=== PATIENT | female | born 1950 | race Caucasian/White ===

== ENCOUNTER 2019-06-03 15:23 | Emergency (ER) | payer MEDICARE, SELFPAY ==
[2019-06-03 15:27] VITALS: BP 186/102; PULSE 90; RESP 16; TEMP 36.9; O2SAT 97
--- NOTE | 2019-06-03 15:29 | ED.GENADUL_ITS ---
Discharge Plan Discharge Details Chief Complaint: Nk/Back Pain Primary Care Provider: Iftikhar Shepard ED Provider: Ally Hair Home Meds and New Rx's Prescriptions: No Action lisinopril-hydrochlorothiazide 1 EACH tablet 1 tab-cap PO DAILY RF: 0 lovastatin 20 MG tablet 40 mg PO DAILY RF: 0 albuterol sulfate [ProAir HFA] 8.5 GM HFA aerosol inhaler 2 puff Inhalation Q4H PRN RF: 0 fluticasone propionate [Flonase Allergy Relief] 9.9 ML spray,suspension 9.9 ml NS BID PRNRF: 0 duloxetine [Cymbalta] 60 MG capsule,delayed release(DR/EC) 60 mg PO DAILY RF: 0 calcium carbonate-vitamin D3 [Calcium 500 With D] 1 EACH tablet 1 ea PO DAILY RF: 0 pregabalin [Lyrica] 50 MG capsule 50 mg PO TID Qty: 90 RF: 5 naltrexone 50 MG tablet 2 mg PO DAILY MDD 1 28 Days Qty: 28 RF: 0 multivitamin [Daily Value] 1 EACH tablet 1 ea PO DAILY RF: 0 carisoprodol 350 MG tablet 350 mg PO TID PRNRF: 0 fluticasone propion-salmeterol [Advair Diskus] 1 EACH blister with device 1 puff Inhalation BID RF: 0 fentanyl [Duragesic] 1 EACH patch 72 hour 1 ea Transdermal Q3day RF: 0 ropinirole 0.5 MG tablet 3 mg PO TID RF: 0 bupropion HCl 150 MG tablet extended release 24 hr 300 mg PO DAILY RF: 0 ibuprofen [Advil] 200 MG tablet 1,000 mg PO DAILY PRNRF: 0 peg [id number] [Eye Drop Tears] 15 ML drops 1 drp OD PRN PRNRF: 0 psyllium husk (aspartame) [Metamucil Sugar-Free (aspart)] 1,320 GM powder 1 tsp PO DAILY RF: 0 acetaminophen 325 MG capsule 650 mg PO PRN PRNRF: 0 omega-3 fatty acids-fish oil 1 EACH capsule 1 ea PO DAILY RF: 0 magnesium oxide 500 MG capsule 1,000 mg PO DAILY RF: 0 potassium gluconate 600 MG tablet 1 tab PO DAILY RF: 0 cranberry fruit 500 MG tablet,chewable 4,200 mg PO DAILY RF: 0 cyanocobalamin (vitamin B-12) [Vitamin B-12] 1,000 MCG tablet 1,000 mg PO DAILY RF: 0 HPI <Javy Sloan, - Last Filed: 06/03/19 15:29> General Date/Time Provider Initiated Documentation: 06/03/19 15:24 . Related Data Home Medications Medication Instructions Recorded Confirmed albuterol sulfate [Proair Hfa] 2 puff INHALATION Q4H PRN inhaler 06/07/15 08/14/17 duloxetine [Cymbalta] 60 mg PO DAILY tab-cap 06/07/15 08/14/17 fluticasone propionate [Flonase 9.9 ml NS BID PRN 06/07/15 08/14/17 Allergy Relief] lisinopril-hydrochlorothiazide 1 tab-cap PO DAILY tab-cap 06/07/15 08/14/17 lovastatin 40 mg PO DAILY tab-cap 06/07/15 08/14/17 calcium carbonate-vitamin D3 1 ea PO DAILY 08/16/15 08/14/17 [Calcium 500 + Vit D 400 Tablet] bupropion HCl 300 mg PO DAILY 01/18/16 08/14/17 ropinirole 3 mg PO TID 01/18/16 08/14/17 ibuprofen [Advil] 1,000 mg PO DAILY PRN 08/08/16 08/14/17 peg [id number] [Eye 1 drp OD PRN PRN 08/08/16 08/14/17 Drop Tears] psyllium husk (aspartame) 1 tsp PO DAILY 08/08/16 08/14/17 [Metamucil Powder] cyanocobalamin (vitamin B-12) 1,000 mg PO DAILY 11/27/16 08/14/17 [Vitamin B-12] acetaminophen 650 mg PO PRN PRN 08/14/17 08/14/17 cranberry fruit 4,200 mg PO DAILY 08/14/17 08/14/17 magnesium oxide 1,000 mg PO DAILY 08/14/17 08/14/17 omega-3 fatty acids-fish oil 1 ea PO DAILY 08/14/17 08/14/17 potassium gluconate 1 tab PO DAILY 08/14/17 08/14/17 pregabalin [Lyrica] 50 mg PO TID #90 cap 08/14/17 naltrexone 2 mg PO DAILY 28 Days #28 tab MDD 1 08/20/17 carisoprodol 350 mg PO TID PRN 04/08/18 fentanyl [Duragesic] 1 ea TRANSDERMAL Q3day script 04/08/18 fluticasone propion-salmeterol 1 puff INHALATION BID disk 04/08/18 [Advair 250/50 Diskus] multivitamin [Daily Value] 1 ea PO DAILY 04/08/18 Previous Rx's Medication Instructions Recorded pregabalin [Lyrica] 50 mg PO TID #90 cap 08/14/17 naltrexone 2 mg PO DAILY 28 Days #28 tab MDD 1 08/20/17 Allergies Allergy/AdvReac Type Severity Reaction Status Date / Time No Known Drug Allergies Allergy Unverified 04/08/18 08:13 General Stated Complaint: Nk/Back Pain SIDNEY: 3 Review of Systems <Javy Sloan DO - Last Filed: 06/03/19 15:29> Review of Systems All systems reviewed & are unremarkable except as noted in HPI and below PFSH <Javy Sloan DO - Last Filed: 06/03/19 15:29> Social History Smoking/Tobacco Use Status: Current-Occasional Alcohol Intake: current Alcohol Intake frequency: holidays/special occasions only Drug use: Rarely Substance use type: does not use Course <Javy Sloan DO - Last Filed: 06/03/19 15:29> Vital Signs Temperature 36.9 C 06/03/19 15:27 Pulse 90 06/03/19 15:27 Respiratory Rate 16 06/03/19 15:27 Blood Pressure 186/102 H 06/03/19 15:27 Pulse Oximetry 97 06/03/19 15:27 Temperature 36.9 C 06/03/19 15:27 Temperature Source Temporal Artery Scan 06/03/19 15:27 Pulse 90 06/03/19 15:27 Respiratory Rate 16 06/03/19 15:27 Blood Pressure 186/102 H 06/03/19 15:27 Blood Pressure Position Sitting 06/03/19 15:27 Pulse Oximetry 97 06/03/19 15:27 Oxygen Delivery Method Room Air 06/03/19 15:27 Oxygen Flow Rate 0 06/03/19 15:27 Pain Level 8 06/03/19 15:27
--- NOTE | 2019-06-03 16:15 | ED.GENADUL_ITS ---
Discharge Plan Disposition Patient Disposition: HOME Condition: Improving Discharge Details Chief Complaint: Nk/Back Pain Clinical Impression: Acute exacerbation of chronic low back pain Primary Care Provider: Iftikhar Shepard ED Provider: Ally Hair Home Meds and New Rx's Prescriptions: New methocarbamol 750 mg tablet 750 mg PO QID PRN (Reason: muscle spasm) Qty: 10 RF: 0 prednisone 10 mg tablet See Rx Instructions .ROUTE .COMPLEX Qty: 42 RF: 0 Continued lovastatin 20 MG tablet 40 mg PO DAILY RF: 0 albuterol sulfate [ProAir HFA] 8.5 GM HFA aerosol inhaler 2 puff Inhalation Q4H PRN RF: 0 fluticasone propionate [Flonase Allergy Relief] 9.9 ML spray,suspension 9.9 ml NS BID PRNRF: 0 duloxetine [Cymbalta] 60 MG capsule,delayed release(DR/EC) 60 mg PO DAILY RF: 0 calcium carbonate-vitamin D3 [Calcium 500 With D] 1 EACH tablet 1 ea PO DAILY RF: 0 Lyrica 50 MG capsule 200 mg PO TID Qty: 90 RF: 5 naltrexone 50 MG tablet 2 mg PO DAILY MDD 1 28 Days Qty: 28 RF: 0 multivitamin [Daily Value] 1 EACH tablet 1 ea PO DAILY RF: 0 fluticasone propion-salmeterol [Advair Diskus] 1 EACH blister with device 1 puff Inhalation BID RF: 0 fentanyl [Duragesic] 1 EACH patch 72 hour 1 ea Transdermal Q3day RF: 0 ropinirole 0.5 MG tablet 5 mg PO TID RF: 0 bupropion HCl 150 MG tablet extended release 24 hr 300 mg PO DAILY RF: 0 ibuprofen [Advil] 200 MG tablet 1,000 mg PO DAILY PRNRF: 0 Eye Drop Tears 15 ML drops 1 drp OD PRN PRNRF: 0 Metamucil Sugar-Free (aspart) 1,320 GM powder 1 tsp PO DAILY RF: 0 acetaminophen 325 MG capsule 650 mg PO PRN PRNRF: 0 omega-3 fatty acids-fish oil 1 EACH capsule 1 ea PO DAILY RF: 0 magnesium oxide 500 MG capsule 1,000 mg PO DAILY RF: 0 potassium gluconate 600 MG tablet 1 tab PO DAILY RF: 0 cranberry fruit 500 MG tablet,chewable 4,200 mg PO DAILY RF: 0 cyanocobalamin (vitamin B-12) [Vitamin B-12] 1,000 MCG tablet 1,000 mg PO DAILY RF: 0 ketorolac 10 mg Tablet 10 mg PO BID RF: 0 fluticasone propion-salmeterol [Advair Diskus] 500-50 mcg/dose Blister With Device 1 inh INHALATION BID RF: 0 lorazepam 1 mg Tablet 1 mg PO TID PRNRF: 0 aripiprazole 15 mg Tablet 15 mg PO DAILY RF: 0 duloxetine 60 mg Capsule,Delayed Release(Dr/Ec) 60 mg PO DAILY RF: 0 Artificial Tears (PF) 0.1-0.3 % Dropperette 1 drp OPHTHALMIC (EYE) TID PRNRF: 0 polyethylene glycol 3350 17 gram Powder In Packet 17 g DAILY RF: 0 tizanidine 2 mg Capsule 2 mg TID RF: 0 pramipexole 0.75 mg Tablet 0.75 mg HS RF: 0 melatonin 5 mg Tablet 5 mg HS RF: 0 Narcan 4 mg/actuation [place],Non-Aerosol 1 spray INTRANASAL PRN PRNRF: 0 Discharge Instructions Instructions: Back Pain (ED) Additional Instructions: Take your Toradol that you have at home as needed and directed for pain. Take the steroids until finished. Stop taking your tizanidine muscle relaxer while taking the methocarbamol muscle relaxer. Take the oxycodone for pain not relieved with your muscle relaxer or Toradol. Do not take fentanyl while taking the oxycodone as you can stop breathing with overdose of opioids. Follow-up with your primary care doctor within the next week for reevaluation and for referral to physical therapy, pain management if symptoms do not improve or worsen. Return to the emergency department if you develop any worsening or concerning symptoms of difficulty with urination, bowel movements, worsening pain. Discharge Data Discharge Date/Time-TO BE ENTERED AT DEPARTURE: 06/03/19 17:27 Discharge Physician: Ally Hair Medical Decision Making 68 year-old female with a history of chronic neck and back pain chronically on fentanyl patch, Toradol, and tizanidine who presents to the ED with complaint of worsening of her chronic back pain over the past 10 days. She has a history of sciatica and states her symptoms feel similar. No fever, abdominal pain, chest pain, shortness of breath or cauda equina symptoms. She has a history of chronic urinary incontinence and states this is no worse than usual. Patient appears uncomfortable. No focal deficits. She is tender to palpation in her midline and paraspinal lumbar region and left buttock. Neurovascularly intact. As patient is not opioid na?ve, she may not have significant relief of her back pain here. She does not have a fentanyl patch in place and last used yesterday. We will give a dose of oral steroids, Toradol IM and Valium p.o. 1700 --patient feels much better and she is requesting to go home. Patient appears much more comfortable and able to ambulate. Her son is driving her home. We will send home with a prescription for steroids and methocarbamol. She is instructed to stop her tizanidine while she is taking the methocarbamol. We will also sent home with 2 tabs of oxycodone. She and her son were advised to not take her fentanyl while taking the oxycodone as there is risk of respiratory depression and . She is advised to follow-up with her primary care doctor for reevaluation and to return here at any time if worse. Medical Records Medical records reviewed: Yes I reviewed the patient's medical records. HPI General Mode of arrival: wheelchair . Date/Time Provider Initiated Documentation: 06/03/19 15:24 . Limitations to Documentation: no limitations . Information obtained by: patient . HPI Narrative: Patient is a 60-year-old female with history of chronic neck and back pain with history of cervical fusion, on fentanyl patch, Toradol, tizanidine who presents with acute worsening of her chronic back pain for the past 10 days. She denies any new injury. She states the pain radiates from her buttocks and down both legs but mainly into her left buttock and left leg. She has a history of chronic urinary incontinence and states this is no worse than usual. She denies fever, abdominal pain, chest pain, shortness of breath, bowel incontinence, saddle anesthesia, or leg numbness. She has used ice and heat, Toradol and fentanyl patch without relief. Her last mental patch was yesterday and she has none in place at present. Related Data Home Medications Medication Instructions Recorded Confirmed albuterol sulfate [ProAir HFA] 2 puff INHALATION Q4H PRN inhaler 06/07/15 06/03/19 duloxetine [Cymbalta] 60 mg PO DAILY tab-cap 06/07/15 06/03/19 fluticasone propionate [Flonase 9.9 ml NS BID PRN 06/07/15 06/03/19 Allergy Relief] lovastatin 40 mg PO DAILY tab-cap 06/07/15 06/03/19 calcium carbonate-vitamin D3 1 ea PO DAILY 08/16/15 06/03/19 [Calcium 500 With D] bupropion HCl 300 mg PO DAILY 01/18/16 06/03/19 ropinirole 5 mg PO TID 01/18/16 06/03/19 Eye Drop Tears 1 drp OD PRN PRN 08/08/16 06/03/19 Metamucil Sugar-Free (aspart) 1 tsp PO DAILY 08/08/16 06/03/19 ibuprofen [Advil] 1,000 mg PO DAILY PRN 08/08/16 06/03/19 cyanocobalamin (vitamin B-12) 1,000 mg PO DAILY 11/27/16 06/03/19 [Vitamin B-12] Lyrica 200 mg PO TID #90 cap 08/14/17 06/03/19 acetaminophen 650 mg PO PRN PRN 08/14/17 06/03/19 cranberry fruit 4,200 mg PO DAILY 08/14/17 06/03/19 magnesium oxide 1,000 mg PO DAILY 08/14/17 06/03/19 omega-3 fatty acids-fish oil 1 ea PO DAILY 08/14/17 06/03/19 potassium gluconate 1 tab PO DAILY 08/14/17 06/03/19 naltrexone 2 mg PO DAILY 28 Days #28 tab MDD 1 08/20/17 fentanyl [Duragesic] 1 ea TRANSDERMAL Q3day script 04/08/18 06/03/19 fluticasone propion-salmeterol 1 puff INHALATION BID disk 04/08/18 06/03/19 [Advair Diskus] multivitamin [Daily Value] 1 ea PO DAILY 04/08/18 06/03/19 Artificial Tears (PF) 1 drp OPHTHALMIC (EYE) TID PRN 06/03/19 06/03/19 Narcan 1 spray INTRANASAL PRN PRN 06/03/19 06/03/19 aripiprazole 15 mg PO DAILY 06/03/19 06/03/19 duloxetine 60 mg PO DAILY 06/03/19 06/03/19 fluticasone propion-salmeterol 1 inh INHALATION BID 06/03/19 06/03/19 [Advair Diskus] ketorolac 10 mg PO BID 06/03/19 06/03/19 lorazepam 1 mg PO TID PRN 06/03/19 06/03/19 melatonin 5 mg HS 06/03/19 06/03/19 methocarbamol 750 mg PO QID PRN #10 tab 06/03/19 polyethylene glycol 3350 17 g DAILY 06/03/19 06/03/19 pramipexole 0.75 mg HS 06/03/19 06/03/19 prednisone See Rx Instructions .ROUTE 06/03/19 .COMPLEX #42 tab tizanidine 2 mg TID 06/03/19 06/03/19 Previous Rx's Medication Instructions Recorded Lyrica 200 mg PO TID #90 cap 08/14/17 naltrexone 2 mg PO DAILY 28 Days #28 tab MDD 1 08/20/17 methocarbamol 750 mg PO QID PRN #10 tab 06/03/19 prednisone See Rx Instructions .ROUTE 06/03/19 .COMPLEX #42 tab Allergies Allergy/AdvReac Type Severity Reaction Status Date / Time No Known Drug Allergies Allergy Unverified 04/08/18 08:13 General Stated Complaint: Nk/Back Pain SIDNEY: 3 Review of Systems Review of Systems All systems reviewed & are unremarkable except as noted in HPI and below Constitutional Reports as per HPI, Denies chills and Denies fever(s) Eyes Denies blurry vision ENT Denies dizziness, Denies sore throat and Denies throat swelling Cardiovascular Denies chest pain and Denies dyspnea Respiratory Denies cough and Denies dyspnea Gastrointestinal Denies abdominal pain, Denies diarrhea and Denies vomiting Genitourinary Denies hematuria and Denies dysuria Musculoskeletal Reports back pain and Denies numbness Integumentary/Breasts Denies lesions and Denies rash Neurologic Denies dizziness, Denies focal weakness and Denies numbness Allergic/Immunologic Denies throat swelling PFSH Social History Smoking/Tobacco Use Status: Current-Occasional Alcohol Intake: current Alcohol Intake frequency: holidays/special occasions only Drug use: Rarely Substance use type: does not use Exam Const General: cooperative, healthy appearing and no acute distress HENMT Head: normal to inspection Face and sinus: normal facial exam Eyes General: appearance normal, both eyes and all related structures EOM: EOM intact bilaterally Neck Neck: normal visual inspection and No submandibular swelling Lymphatic: no lymphadenopathy noted Chest Chest: normal inspection of the chest and no tenderness Resp Effort & Inspection: normal respiratory effort and able to speak in complete sentences Auscultation: clear to auscultation bilaterally Cardio Rate: regular rate Rhythm: regular rhythm GI Inspection: normal to inspection Palpation: soft, not firm, not rigid and nontender Auscultation: normal bowel sounds Back/Spine/Pelvis Cervical Spine: other (Limited rotation to the left due to cervical fusion.) Thoracic/Lumbar Spine: thoracic and lumbar spine normal to inspection, straight leg raise negative bilaterally, paraspinal tenderness (Lumbar region) and lumbar spinal tenderness Pelvis: no pain with anterior-posterior compression Skin General skin exam: no rashes or lesions noted Neuro General: alert, awake and oriented x3 Cognition: normal cognition Speech: speech normal Gait: antalgic Motor: other (Strength 5/5 bilateral lower extremities) Sensory Exam: no sensory deficits noted Extrem General: normal to inspection, full ROM, normal capillary refill, no calf tenderness bilaterally and no edema Other: Bilateral DP/PT pulses intact. Psych Appearance: grossly normal Mental Status: mental status grossly normal Speech and Movement: speech and movement normal Affect: normal affect Course Vital Signs Temperature 98.4 F 06/03/19 15:27 Pulse 90 06/03/19 15:27 Respiratory Rate 16 06/03/19 15:27 Blood Pressure 186/102 H 06/03/19 15:27 Pulse Oximetry 97 06/03/19 15:27 Temperature 98.4 F 06/03/19 15:27 Temperature Source Temporal Artery Scan 06/03/19 15:27 Pulse 90 06/03/19 15:27 Respiratory Rate 16 06/03/19 15:27 Respiratory Effort Non-Labored 06/03/19 15:35 Blood Pressure 186/102 H 06/03/19 15:27 Blood Pressure Position Sitting 06/03/19 15:27 Pulse Oximetry 97 06/03/19 15:27 Oxygen Delivery Method Room Air 06/03/19 15:27 Oxygen Flow Rate 0 06/03/19 15:27 Pain Level 8 06/03/19 15:27
[2019-06-03] MEDS: predniSONE 20 MG TAB 60 MG PO (16:26)
[2019-06-03] MEDS: diazePAM 5 MG TAB PO (16:27)
[2019-06-03] MEDS: Ketorolac 60 MG/2 ML VIAL IM (16:27)
[2019-06-03] MEDS: oxyCODONE 5 MG TAB 10 MG PO (17:23)
[2019-06-03 17:29] VITALS: BP 160/89; PULSE 78; RESP 15; O2SAT 96
== END 2019-06-03 17:27 | disposition home or self-care (01) ==
PROVIDERS: Emergency Provider Physician Assistant; PCP Family Medicine
DX: M54.5 Low back pain (principal); G89.29 Other chronic pain
CPT/HCPCS: 96372; 99284; J1885; J7512

== ENCOUNTER 2020-08-21 08:44 | Emergency (ER) | payer MEDICARE, SELFPAY ==
[2020-08-21 08:49] VITALS: BP 132/72; PULSE 89; RESP 20; TEMP 36.4; O2SAT 97
--- NOTE | 2020-08-21 08:55 | ED.GENADUL_ITS ---
Discharge Plan Disposition Patient Disposition: HOME Condition: Improving Discharge Details Clinical Impression: Lumbago with sciatica, left side Primary Care Provider: Iftikhar Shepard ED Provider: Randal Sanches Home Meds and New Rx's Prescriptions: New prednisone 20 mg tablet 40 mg PO DAILY 5 Days Qty: 10 RF: 0 prednisone 50 mg tablet 50 mg PO DAILY 5 Days Qty: 5 RF: 0 cephalexin 500 mg capsule 500 mg PO TID 7 Days Qty: 21 RF: 0 oxycodone-acetaminophen [Percocet] 5-325 mg tablet 1 tab PO Q8H PRN (Reason: pain) Qty: 7 RF: 0 Continued lovastatin 20 MG tablet 40 mg PO DAILY RF: 0 albuterol sulfate [ProAir HFA] 8.5 GM HFA aerosol inhaler 2 puff Inhalation Q4H PRN RF: 0 fluticasone propionate [Flonase Allergy Relief] 9.9 ML spray,suspension 9.9 ml NS BID PRNRF: 0 calcium carbonate-vitamin D3 [Calcium 500 With D] 1 EACH tablet 1 ea PO DAILY RF: 0 pregabalin [Lyrica] 50 MG capsule 200 mg PO TID Qty: 90 RF: 5 naltrexone 50 MG tablet 2 mg PO DAILY MDD 1 28 Days Qty: 28 RF: 0 multivitamin [Daily Value] 1 EACH tablet 1 ea PO DAILY RF: 0 fluticasone propion-salmeterol [Advair Diskus] 1 EACH blister with device 1 puff Inhalation BID RF: 0 ropinirole 0.5 MG tablet 5 mg PO TID RF: 0 bupropion HCl 150 MG tablet extended release 24 hr 450 mg PO DAILY RF: 0 ibuprofen [Advil] 200 MG tablet 1,000 mg PO DAILY PRNRF: 0 Eye Drop Tears 15 ML drops 1 drp OD PRN PRNRF: 0 acetaminophen 325 MG capsule 650 mg PO PRN PRNRF: 0 omega-3 fatty acids-fish oil 1 EACH capsule 1 ea PO DAILY RF: 0 magnesium oxide 500 MG capsule 1,000 mg PO DAILY RF: 0 potassium gluconate 600 MG tablet 1 tab PO DAILY RF: 0 cranberry fruit 500 MG tablet,chewable 4,200 mg PO DAILY RF: 0 cyanocobalamin (vitamin B-12) [Vitamin B-12] 1,000 MCG tablet 1,000 mg PO DAILY RF: 0 fluticasone propion-salmeterol [Advair Diskus] 500-50 mcg/dose Blister With Device 1 inh INHALATION BID RF: 0 lorazepam 1 mg Tablet 1 mg PO TID PRNRF: 0 aripiprazole 15 mg Tablet 15 mg PO DAILY RF: 0 Artificial Tears (PF) 0.1-0.3 % Dropperette 1 drp OPHTHALMIC (EYE) TID PRNRF: 0 tizanidine 2 mg Capsule 2 mg TID RF: 0 pramipexole 0.75 mg Tablet 0.75 mg HS RF: 0 melatonin 5 mg Tablet 5 mg HS RF: 0 methocarbamol 750 mg tablet 750 mg PO QID PRN (Reason: muscle spasm) Qty: 10 RF: 0 prednisone 10 mg tablet See Rx Instructions .ROUTE .COMPLEX Qty: 42 RF: 0 Discharge Instructions Instructions: Low Back Strain (ED) Additional Instructions: Home to rest today. Please follow-up with Dr. Shepard in clinic for recheck in the next 7 to 10 days time. Please follow-up with physical therapy as prescribed Take prednisone as prescribed for 5 days and then return to your routine dosing. Stand Alone Forms: Physical Therapy Referral Medical Decision Making 70-year-old female from the [facility] presents to the emergency department stating she has had 4 weeks of worsening low back pain that radiates to her left leg. It makes her gait difficult at times. She has not had any falls or any new urinary changes. She will endorse longstanding urinary overflow incontinence. She is followed by Dr. Shepard of the [facility]. She states she is no longer taking narcotics. She is on prednisone chronically, currently 15 mg, which she states is control of muscular spasms and charley horse. She is afebrile with unremarkable vital signs, she is pleasant and well groomed. She has diffuse tenderness throughout the lumbar spine on exam. Motor is preserved. Normal sensation of the saddle distribution. Most consistent with lumbago/sciatica, but would also consider hydrocephalus, dehydration, urine tract infection. Patient IV access established, given parenteral steroid, analgesia, small amount of normal saline.. Referred for laboratory testing, CT imaging of head and lumbar spine. Labs: Sodium 143, potassium 3.8, chloride 105, bicarb 29, BUN 20, creatinine 0.9, LFTs unremarkable, white blood cell count 14, hematocrit 36.7, platelets 251. UA with both nitrites and leuk esterase present. CT images: Head, no acute intracranial findings; lumbar spine, no acute fracture or malalignment. Severe diffuse spondylosis, with neural foraminal narrowing at L4-5 with disc protrusion. Compression deformity at L1. See formal report. Consistent with degenerative disease of the lumbar spine, urinary tract infection. Discussed with the patient a course of antibiotics for UTI, brief burst of steroid for possible disc protrusion affecting sciatic nerve and subsequent return to her chronic daily dose, as well as referral for physical therapy as well as referral for physical therapy. She may have a scant number of Percocet for severe/breakthrough pain. She was consented for the use of an opiate. HPI General Mode of arrival: ambulatory . Date/Time Provider Initiated Documentation: 08/21/20 08:45 . Limitations to Documentation: no limitations . Information obtained by: patient . History of Present Illness 70 year old F presents to the emergency department with the chief complaint of Low back pain x1 month, described as moderate, Quality is described as dull, and is localized to the back, left and right. Patient extremity. Patient started experiencing this day(s) and it has been intermittent. Rest improves symptom(s), Movement worsens symptoms . Patient notes other (Unsteady gait, no falls. States she has urinary incontinence with coughing. Questions trouble swallowing. States difficult standing up straight. Feels generally weak). Patient did receive the following treatments prior to arrival, none Related Data Home Medications Medication Instructions Recorded Confirmed albuterol sulfate [ProAir HFA] 2 puff INHALATION Q4H PRN inhaler 06/07/15 08/21/20 fluticasone propionate [Flonase 9.9 ml NS BID PRN 06/07/15 08/21/20 Allergy Relief] lovastatin 40 mg PO DAILY tab-cap 06/07/15 08/21/20 calcium carbonate-vitamin D3 1 ea PO DAILY 08/16/15 08/21/20 [Calcium 500 With D] bupropion HCl 450 mg PO DAILY 01/18/16 08/21/20 ropinirole 5 mg PO TID 01/18/16 08/21/20 Eye Drop Tears 1 drp OD PRN PRN 08/08/16 08/21/20 ibuprofen [Advil] 1,000 mg PO DAILY PRN 08/08/16 08/21/20 cyanocobalamin (vitamin B-12) 1,000 mg PO DAILY 11/27/16 08/21/20 [Vitamin B-12] acetaminophen 650 mg PO PRN PRN 08/14/17 08/21/20 cranberry fruit 4,200 mg PO DAILY 08/14/17 08/21/20 magnesium oxide 1,000 mg PO DAILY 08/14/17 08/21/20 omega-3 fatty acids-fish oil 1 ea PO DAILY 08/14/17 08/21/20 potassium gluconate 1 tab PO DAILY 08/14/17 06/03/19 pregabalin [Lyrica] 200 mg PO TID #90 cap 08/14/17 08/21/20 fluticasone propion-salmeterol 1 puff INHALATION BID disk 04/08/18 08/21/20 [Advair Diskus] multivitamin [Daily Value] 1 ea PO DAILY 04/08/18 08/21/20 Artificial Tears (PF) 1 drp OPHTHALMIC (EYE) TID PRN 06/03/19 08/21/20 aripiprazole 15 mg PO DAILY 06/03/19 08/21/20 fluticasone propion-salmeterol 1 inh INHALATION BID 06/03/19 08/21/20 [Advair Diskus] lorazepam 1 mg PO TID PRN 06/03/19 08/21/20 melatonin 5 mg HS 06/03/19 08/21/20 methocarbamol 750 mg PO QID PRN #10 tab 06/03/19 08/21/20 pramipexole 0.75 mg HS 06/03/19 08/21/20 prednisone See Rx Instructions .ROUTE 06/03/19 08/21/20 .COMPLEX #42 tab tizanidine 2 mg TID 06/03/19 08/21/20 cephalexin 500 mg PO TID 7 Days #21 cap 08/21/20 oxycodone-acetaminophen [Percocet] 1 tab PO Q8H PRN #7 tab 08/21/20 prednisone 40 mg PO DAILY 5 Days #10 tab 08/21/20 prednisone 50 mg PO DAILY 5 Days #5 tab 08/21/20 Previous Rx's Medication Instructions Recorded pregabalin [Lyrica] 200 mg PO TID #90 cap 08/14/17 methocarbamol 750 mg PO QID PRN #10 tab 06/03/19 prednisone See Rx Instructions .ROUTE 06/03/19 .COMPLEX #42 tab cephalexin 500 mg PO TID 7 Days #21 cap 08/21/20 oxycodone-acetaminophen [Percocet] 1 tab PO Q8H PRN #7 tab 08/21/20 prednisone 40 mg PO DAILY 5 Days #10 tab 08/21/20 prednisone 50 mg PO DAILY 5 Days #5 tab 08/21/20 Allergies Allergy/AdvReac Type Severity Reaction Status Date / Time No Known Drug Allergies Allergy Unverified 08/21/20 08:55 General Stated Complaint: GenMedical SIDNEY: 3 Review of Systems Narrative: States she is on chronic steroids for muscular spasms, currently prednisone 15 mg daily. No chest pain, palpitations, shortness of breath. No changes to bowel or bladder habits. The afterward mentioned overflow incontinence is with coughing or laughing. No numbness of the saddle distribution or legs. [facility] Social History Smoking/Tobacco Use Status: Current-Occasional Alcohol Intake: current Alcohol Intake frequency: holidays/special occasions only Drug use: Rarely Substance use type: does not use Exam Narrative Exam Narrative: GEN: awake, alert, oriented 3. Pleasant, well groomed, interactive. HEAD: Normocephalic, atraumatic ENT: Mucous membranes moist, oropharynx unremarkable, External ear exam unremarkable EYES: PERRL, EOMI NECK: Full ROM, no MILTON, no menigismus CHEST/RESP: Nontender, clear to auscultation bilateral, no wheeze/rhonchi/rales CARDIOVASCULAR: RRR, no murmur, rub keysha. 2+ Rad pulse bilateral ABDOMEN: Soft, nontender, no mass. +Bowel sounds Back: Fairly diffuse midline and lateral lumbar tenderness to palpation without specific focal exacerbating area. No step-off or deformity. EXT: Patient able to lift each leg off the bed independently. Motor is graded 5 out of 5 throughout the lower extremity with exception of mild 5- weakness of the left hip flexor. Sensation intact throughout including saddle distribution. Great toe proprioception intact. Neuro: Grossly normal neurologic exam, conversant, interactive. Psych: Speech fluent, thoughts congruent, affect normal Course Vital Signs Vital signs: Vital Signs Temperature 36.4 C L 08/21/20 08:49 Pulse 89 08/21/20 08:49 Respiratory Rate 20 08/21/20 08:49 Blood Pressure 132/72 08/21/20 08:49 Pulse Oximetry 97 08/21/20 08:49 Temperature 36.4 C L 08/21/20 08:49 Temperature Source Temporal Artery Scan 08/21/20 08:49 Pulse 89 08/21/20 08:49 Respiratory Rate 20 08/21/20 08:49 Blood Pressure 132/72 08/21/20 08:49 Blood Pressure Position Sitting 08/21/20 08:49 Pulse Oximetry 97 08/21/20 08:49 Oxygen Delivery Method Room Air 08/21/20 08:49 Oxygen Flow Rate 0 08/21/20 08:49 Pain Level 8 08/21/20 08:49
--- NOTE | 2020-08-21 09:00 | DI.CT_ITS ---
EXAM: CT HEAD WO CLINICAL HISTORY: Unsteadiness of gait. TECHNIQUE: Imaging Protocol: Axial computed tomography images with coronal and sagittal reformatted images were created and reviewed COMPARISON: No exams were available for comparison FINDINGS: Ventricles and Extra axial spaces: Normal in size and morphology for the patient's age. Hemorrhage: None. Cerebral parenchyma: There are areas of decreased attenuation in the white matter likely reflecting c hronic microvascular ischemic change. No acute territorial infarct. Midline shift: None. Brainstem/Cerebellum: Normal. Calvarium: Normal. Visualized Paranasal sinuses/Mastoids: There is a small fluid level in the right sphenoid sinus. The remaining sinuses and mastoids are clear. Soft Tissues: Unremarkable. IMPRESSION: No acute intracranial process. RADIATION DOSE DELIVERED: 784.86mGy.cm Total DLP DATA REPOSITORY: All CT scans at this facility are submitted to the National Radiology Data Registry (NRDR) Dose Index Registry (DIR) with the [employer] (A[employer]). RADIATION OPTIMIZATION: All CT scans at this facility use at least one of these dose optimization te chniques: automated exposure control; mA and/or kV adjustment per patient size (includes targeted exa ms where dose is matched to clinical indication); or iterative reconstruction.
--- NOTE | 2020-08-21 09:00 | DI.CT_ITS ---
EXAM: CT LUMBAR SPINE WO CLINICAL HISTORY: hx degen dz. L>R worsening low back pain. TECHNIQUE: Imaging Protocol: Axial computed tomography images with coronal and sagittal reformatted images were created and reviewed COMPARISON: MR MR_LUMBAR SPINE WO/CONTRAST from 10/20/2008 FINDINGS: Bones: The last intervertebral disc space is designated the L5/S1 level for the numbering purpose of this examination. There is an old compression deformity of the L1 vertebral body. This is unchanged compared to the MRI of the lumbar spine from 2008. No acute fracture or subluxation is seen. There is an S-type scoliosis of the lumbar spine. There is partial sacralization of L5. 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 This was present on the MRI from 2007. There i s facet arthropathy throughout the lumbar spine. T12-L1: Disc space narrowing, endplate osteophytes and vacuum disc. L1-2: Disc space narrowing, endplate osteophytes and vacuum disc. L2-3: Disc space narrowing vacuum disc and endplate osteophytes. L3-4: There is a central disc herniation which indents the thecal sac. There is a gas collection to the right this level causing right lateral recess stenosis. L4-5: Large broad-based disc protrusion causing bilateral lateral recess stenosis and right neural f oraminal stenosis. Moderate central spinal canal stenosis is present. L5-S1: Degenerative changes are present. Soft Tissues: The visualized SI joints and sacrum are will maintained. The paraspinal soft tissues a re unremarkable. IMPRESSION: 1. No acute fracture or subluxation. 2. Old L1 compression fracture deformity. 3. Multilevel degenerative changes in the lumbar spine causing central spinal canal and neural forami nal stenosis as described above. RADIATION DOSE DELIVERED: 1,155.51mGy.cm Total DLP 1,155.51mGy.cm Total DLP DATA REPOSITORY: All CT scans at this facility are submitted to the National Radiology Data Registry (NRDR) Dose Index Registry (DIR) with the [employer] (ACR). RADIATION OPTIMIZATION: All CT scans at this facility use at least one of these dose optimization te chniques: automated exposure control; mA and/or kV adjustment per patient size (includes targeted exa ms where dose is matched to clinical indication); or iterative reconstruction.
[2020-08-21 09:06] VITALS: RESP 20
[2020-08-21 09:39] LABS: Abs Immature Grans 0.14 10^3/uL (0.0-0.06); Absolute Basophil Count 0.04 10^3/uL (0.0-0.2); Absolute Eosinophil Count 0.17 10^3/uL (0.0-0.7); Absolute Lymphocyte Count 1.28 10^3/uL (1.2-3.4); Absolute Monocyte Count 0.57 10^3/uL (0.1-0.8); Absolute Neutrophil Count 12.02 10^3/uL (1.2-6.7); Basophils % 0.3; Eosinophils % 1.2; HCT 36.7 % (36.0-46.0); HGB 11.3 g/dL (11.2-15.7); MCH 30.1 pg (27.0-33.0); MCHC 30.8 % (32.0-36.0); MCV 97.6 fL (80-95); MPV 9.6 fL (8.0-11.0); Neutrophils % 84.5; Nucleated RBC 0 %; Platelet Count 251 10^3/uL (130-400); RBC 3.76 10^6/uL (3.93-5.22); RDW 14.7 % (11.7-14.6); RDW-SD 53.1 fL; WBC 14.23 10^3/uL (4.4-10.8)
[2020-08-21] MEDS: Ketorolac 15 MG/ML VIAL IVP (09:41)
[2020-08-21] MEDS: methylPREDNISolone SUCC 125 MG VIAL 120 MG IVP (09:41)
[2020-08-21] MEDS: Normal Saline 1,000 ML 150 ML IV (09:48)
[2020-08-21 09:52] LABS: ALT 33 U/L (14-59); AST 25 U/L (15-37); Albumin 3.2 g/dL (3.4-5.0); Alkaline Phosphatase 69 U/L (46-116); Anion Gap 8.8 mmol/L (3-11); BUN 20 mg/dL (7-18); Bilirubin, Total 0.2 mg/dL (0.2-1.0); CO2 29.2 mmol/L (21.0-32.0); CREATININE 0.94 mg/dL (0.55-1.02); Calcium 8.6 mg/dL (8.5-10.1); Chloride 105 mmol/L (98-107); Estimated GFR 58.87 (mL/min/1.73m2); Glucose 101 mg/dL (74-106); Magnesium 2.1 mg/dL (1.8-2.4); Potassium 3.8 mmol/L (3.5-5.1); Sodium 143 mmol/L (136-145); Total Protein 6.7 g/dL (6.4-8.2)
[2020-08-21 10:43] LABS: Bilirubin Negative (Negative); Blood Negative (Negative); Clarity Clear (Clear); Glucose Negative (Negative); Ketones Negative (Negative); Leukocyte Esterase Small (Negative); Nitrite Positive (Negative); Specific Gravity 1.015 (1.005-1.025); Urobilinogen 0.2 EU/dL (Up TO 0.2)
[2020-08-21 10:56] LABS: Bacteria Moderate HPF (Negative); C & S Indicated? Yes; Casts Negative LPF (Negative); Crystals Negative HPF (Negative); Epithelial Cells Few HPF (Negative); Mucus Moderate (Negative); RBC 0-2 HPF (0-2)
[2020-08-21 11:18] VITALS: BP 130/68; PULSE 75; RESP 20; TEMP 36.7; O2SAT 98
[2020-08-21 12:41] LABS: *AMPHETAMINES SCREEN URINE Negative (Negative); *BARBITURATES SCREEN URINE Negative (Negative); *BENZODIAZEPINES SCREEN URINE Negative (Negative); Cannabinoids THC Negative (Negative); Cocaine Screen,Urine Negative (Negative); METHADONE URINE SCREEN Negative (Negative); OPIATES URINE SCREEN Negative (Negative); Tricyclic Antidepressants Negative (Negative)
--- NOTE | 2020-08-25 16:03 | DI.VRAD_ITS ---
PROCEDURE INFORMATION: Exam: CT Head Without Contrast Exam date and time: 08/21/2020 10:11 AM Age: 70 years old Clinical indication: Other: Unsteadiness of gait TECHNIQUE: Imaging protocol: Computed tomography of the head without contrast. COMPARISON: No relevant prior studies available. FINDINGS: Brain: No acute hemorrhage or acute territorial infarct. For age there are mild to moderate diffuse involutional changes in the brain with moderate white matter hypodensity suggestive of potential small-vessel disease. Cerebral ventricles: No ventriculomegaly. Bones/joints: Unremarkable. No acute fracture. Paranasal sinuses: Visualized sinuses are unremarkable. No fluid levels. Mastoid air cells: Visualized mastoid air cells are well aerated. Soft tissues: Unremarkable. IMPRESSION: No acute intracranial abnormality. Dictated and Authenticated by: Baron Brasher MD. Ordering:RAKESH Tee MD
--- NOTE | 2020-08-25 16:03 | DI.VRAD_ITS ---
PROCEDURE INFORMATION: Exam: CT Lumbar Spine Without Contrast Exam date and time: 08/21/2020 9:16 AM Age: 70 years old Clinical indication: Other: HX degen dz, l>r worsening low back pain TECHNIQUE: Imaging protocol: Computed tomography images of the lumbar spine without contrast. COMPARISON: No relevant prior studies available. FINDINGS: Vertebrae: There is partial sacralization of L5 with abnormal enlarged left L5 transverse process articulating with the upper sacrum associated with prominent sclerosis and spurring at that level. There is a smooth concave defect in the upper endplate of L1 which has sclerotic margin and a small intravertebral herniation of disc. The overall height of that vertebral body is reduced as well but there is no acute appearing or sharply angulated endplate deformity. In inferior left posterior vertebral body there is an endplate defect and penetration of disc material from the L1-L2 level. Incidentally noted 2.7 cm intraosseous hemangioma T12. Normal lordosis. Mild reverse S-shaped lumbar spine curvature. Discs/Spinal canal/Neural foramina: Severely narrowed, nearly entirely obliterated disc intervals at every level. Diffuse endplate sclerosis and vertebral body spurring. Diffuse facet spurring and sclerosis. Central disc protrusion at L3-L4 measures up to 6 mm AP and indents the ventral thecal sac. There is a gas collection secondary to disc degradation filling the right lateral recess at that level. Large broad-based disc protrusion at L4-L5 measures up to 7 mm AP but spans the width of the central canal extending to right lateral recess and right neural foramen where there is evidence of exiting nerve impingement and severe bilateral lateral recess stenosis and at least moderate central canal stenosis. Epidural space: Normal. Vasculature: Diffuse aortosclerosis. The aorta has normal caliber. Soft tissues: Unremarkable. IMPRESSION: 1. No acute fracture or traumatic malalignment. 2. Severe diffuse spondylosis with possibly clinically significant central canal, lateral recess and right neural foramen narrowing at L4-L5 secondary to a large broad-based disc protrusion. 3. Small central disc protrusion at L3-L4 is not likely clinically significant in terms of stenosis. 4. Compression deformity and intravertebral herniation at L1. It is possible that this could be recently increased and a source of the patient's pain. 5. 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 Dictated and Authenticated by: Renaldo Mattson MD. Ordering:RAKESH Tee MD
== END 2020-08-21 11:47 | disposition home or self-care (01) ==
PROVIDERS: Emergency Provider Emergency Medicine; PCP Family Medicine
DX: M54.32 Sciatica, left side (principal)
CPT/HCPCS: 36415; 80053; 80307; 87077; 96361; 96374; 96375; 99285; 70450; 72131; 81003; 81015; 83735; 85025; 87086; 87186; 99284; J1885; J2930

== ENCOUNTER 2020-09-05 11:52 | Observation (INO) | payer MEDICARE, SELFPAY ==
[2020-09-05] VITALS (13 sets, daily range): BP systolic 126–158; BP diastolic 70–82; PULSE 75–85; RESP 12–18; TEMP 36.5–37.1; O2SAT 94–98
--- NOTE | 2020-09-05 12:00 | RT.EKG_ITS ---
APPROVED REPORT Exam: Resting ECG Patient Location: E HR:76 bpm ECG Measurements Heart Rate 76 AXIS NM 152 P 62 QRSd 83 QRS 28 QT 386 T 107 QTc 435 Conclusion Sinus rhythm...normal P axis, V-rate 60- 99 EKG shows sinus rhythm at 76, normal axis, no STEMI, nondiagnostic EKG
--- NOTE | 2020-09-05 12:22 | W.ED.GENAD ---
Discharge Plan Disposition Condition: Stable Discharge Details Chief Complaint: GenMedical Admit Date/Time: 09/05/20 15:39 Admit Provider: Baron Botello Attending Provider: Baron Botello Primary Care Provider: Iftikhar Shepard ED Provider: Jnea Morris Discharge Instructions Activity:: Activity as Tolerated Equipment/Supplies:: No Equipment Needed Diet:: As Tolerated Discharge Orders Discharge Orders: Discharge Order (Routine); Ordered 09/06/20 Ordered By: Brandie Wiggins Discharge Data Discharge Date/Time-TO BE ENTERED AT DEPARTURE: 09/05/20 16:36 Medical Decision Making Marzena Cancino is a 70 y/o woman who presented to the emergency department with generalized weakness, back pain unchanged since recent visit for back pain, and now with diarrhea, soiling herself en route to the bathroom 2/2 back pain and generalized weakness. Pt is well and non-toxic appearing on exam, no abd TTP. Benign neuro exam of the lower extremities. Concern for dehydration, UTI, metabolic/lyte rerangement, possible c. diff, other. Exam/hx at this time not c/w acute coronary syndrome, mesenteric ischemia, cauda equina syndrome, epidural abscess/hematoma, other cord compression, sepsis. Plan for screening labs, UA, IVF hydration. Given Pt's reports of not being able to care for herself at home, plan for admission. Labs reviewed, non-diagnostic, UA contaminated. Clinical Impression: diarrhea Disposition: [facility] inpatient Medical Records Medical records reviewed: Yes I reviewed the patient's medical records. Lab Data Lab results reviewed: Yes I reviewed the patient's lab results. ECG Data Attestation: I personally reviewed and interpreted this ECG (s) as follows: Interpretation: EKG shows sinus rhythm at 76, normal axis, no STEMI, nondiagnostic EKG HPI General Mode of arrival: EMS. Date/Time Provider Initiated Documentation: 09/05/20 12:08. Limitations to Documentation: no limitations. Information obtained by: patient, RN notes reviewed and old records reviewed. HPI Narrative: Marzena Cancino is a 70-year-old woman with a history of asthma hyperlipidemia presenting to emergency department with diarrhea. Per patient and record review, patient was seen here 08/21/2020 for 4 weeks of the low back pain radiating down the left leg and also for longstanding urinary overflow incontinence. Had CT head that was negative, CT L-spine showing severe spondylosis. Patient was also found to have UTI and was sent home on antibiotics in addition to steroid burst. Patient is supposed to be taking 15 mg daily prednisone at baseline. Patient reports that her pain has continued unchanged, and she has difficulty with walking secondary to the pain. Patient reports that approximately 1.5 weeks ago she developed watery diarrhea that was initially very severe, has improved somewhat but has been persistent over the past few days. Patient reports that she has been having difficulty reaching the bathroom in time with the diarrhea secondary to her back and leg pain. She reports that she has been frequently soiling herself because of this. Patient reports that she has not been taking her steroid as prescribed because she has no money. She denies dark or bloody BMs. She reports generalized weakness and decreased appetite since onset of diarrhea. She denies fever, vomiting, pain other than lower back pain and left leg pain, shortness of breath, cough, rash, numbness, focal weakness. Related Data Home Medications Medication Instructions Recorded Confirmed albuterol sulfate [ProAir HFA] 2 puff INHALATION Q4H PRN inhaler 06/07/15 09/05/20 fluticasone propionate [Flonase 9.9 ml NS BID PRN 06/07/15 09/05/20 Allergy Relief] lovastatin 40 mg PO DAILY tab-cap 06/07/15 09/05/20 calcium carbonate-vitamin D3 1 ea PO DAILY 08/16/15 09/05/20 [Calcium 500 With D] bupropion HCl 450 mg PO DAILY 01/18/16 09/05/20 ropinirole 5 mg PO TID 01/18/16 09/05/20 Eye Drop Tears 1 drp OD PRN PRN 08/08/16 09/05/20 ibuprofen [Advil] 1,000 mg PO DAILY PRN 08/08/16 08/21/20 cyanocobalamin (vitamin B-12) 1,000 mg PO DAILY 11/27/16 09/05/20 [Vitamin B-12] acetaminophen 650 mg PO PRN PRN 08/14/17 09/05/20 cranberry fruit 4,200 mg PO DAILY 08/14/17 09/05/20 magnesium oxide 1,000 mg PO DAILY 08/14/17 09/05/20 omega-3 fatty acids-fish oil 1 ea PO DAILY 08/14/17 09/05/20 potassium gluconate 1 tab PO DAILY 08/14/17 06/03/19 pregabalin [Lyrica] 200 mg PO TID #90 cap 08/14/17 09/05/20 multivitamin [Daily Value] 1 ea PO DAILY 04/08/18 09/05/20 Artificial Tears (PF) 1 drp OPHTHALMIC (EYE) TID PRN 06/03/19 09/05/20 aripiprazole 15 mg PO DAILY 06/03/19 09/05/20 fluticasone propion-salmeterol 1 inh INHALATION BID 06/03/19 09/05/20 [Advair Diskus] lorazepam 1 mg PO TID PRN 06/03/19 09/05/20 melatonin 5 mg HS 06/03/19 09/05/20 pramipexole 1.5 mg PO TID PRN 06/03/19 09/05/20 prednisone See Rx Instructions .ROUTE 06/03/19 08/21/20 .COMPLEX #42 tab tizanidine 2 mg TID PRN 06/03/19 09/05/20 duloxetine 60 mg PO DAILY 09/05/20 09/05/20 trazodone 150 mg PO HS 09/05/20 09/05/20 Previous Rx's Medication Instructions Recorded pregabalin [Lyrica] 200 mg PO TID #90 cap 08/14/17 prednisone See Rx Instructions .ROUTE 06/03/19 .COMPLEX #42 tab Allergies Allergy/AdvReac Type Severity Reaction Status Date / Time No Known Drug Allergies Allergy Unverified 09/05/20 12:33 General Stated Complaint: GenMedical SIDNEY: 3 Review of Systems Narrative: Constitutional: denies fevers, reports decreased appetite, generalized weakness Eyes: denies eye pain ENT: denies ear pain, dental pain, sore throat Cardiovascular: denies chest pain, edema Respiratory: denies SOB, cough GI: denies abdominal pain, vomiting, reports diarrhea : denies flank pain MSK: denies neck pain, arthralgias, reports low back pain radiating to the left leg, unchanged Skin: denies rash Neuro: denies headaches, numbness, focal weakness [facility] Medical History Anxiety Hyperlipidemia Lumbago with sciatica, left side Spondylosis of cervical region without myelopathy or radiculopathy Urinary incontinence UTI (urinary tract infection) due to Enterococcus Social History Smoking/Tobacco Use Status: Current-Occasional Smoking risk assessment performed?: Yes Alcohol Intake: current Alcohol Intake frequency: holidays/special occasions only Drug use: Rarely Substance use type: does not use Do you feel safe at home: Yes Do you feel safe in your relationship?: Yes Exam Narrative Exam Narrative: Constitutional: well and [id number], pleasant, conversing normally HENT: head atraumatic/normocephalic/normal inspection, mucous membranes moist Eyes: conjunctiva normal, sclera normal, pupils 3mm b/l Neck: no stridor, normal ROM, trachea midline Chest: normal inspection Resp: normal work of breathing, speaking in full sentences Cardio: normal rate, normal rhythm GI: abdomen soft, non-tender, non-distended Skin: warm, dry, normal color, no rash Neuro: alert, not altered, grossly non-focal, normal tone, motor 5/5 b/l LEs, sensation intact b/l LE Ext: no edema Psych: normal mood, normal affect, normal behavior Course Vital Signs Vital signs: Vital Signs Temperature 36.6 C 09/05/20 11:56 Pulse 82 09/05/20 11:56 Blood Pressure 139/80 09/05/20 11:56 Pulse Oximetry 96 09/05/20 11:56 Temperature 36.6 C 09/05/20 11:56 Pulse 82 09/05/20 12:01 Pulse 80 09/05/20 12:02 Respiratory Rate 13 09/05/20 12:04 Respiratory Effort Non-Labored 09/05/20 12:04 Respiratory Depth Normal 09/05/20 12:04 Respiratory Pattern Normal 09/05/20 12:04 Blood Pressure 139/80 09/05/20 12:01 Blood Pressure Mean 96 09/05/20 12:01 Pulse Oximetry 96 09/05/20 12:02 Oxygen Delivery Method Room Air 09/05/20 11:56 Oxygen Flow Rate 0 09/05/20 11:56 Pain Level 10 09/05/20 11:56
[2020-09-05] MEDS: Normal Saline 1,000 ML 1000 ML IV (12:40)
[2020-09-05 12:48] LABS: Abs Immature Grans 0.05 10^3/uL (0.0-0.06); Absolute Basophil Count 0.03 10^3/uL (0.0-0.2); Absolute Eosinophil Count 0.12 10^3/uL (0.0-0.7); Absolute Monocyte Count 0.46 10^3/uL (0.1-0.8); Absolute Neutrophil Count 5.28 10^3/uL (1.2-6.7); Basophils % 0.4; Eosinophils % 1.6; HCT 44.9 % (36.0-46.0); Immature Grans % 0.7; Lymphocytes % 19.1; MCH 29.4 pg (27.0-33.0); MCHC 31.2 % (32.0-36.0); MCV 94.3 fL (80-95); MPV 9.3 fL (8.0-11.0); Monocytes % 6.3; Neutrophils % 71.9; Nucleated RBC 0 %; Platelet Count 268 10^3/uL (130-400); RBC 4.76 10^6/uL (3.93-5.22); RDW 13.6 % (11.7-14.6); RDW-SD 47.5 fL; WBC 7.34 10^3/uL (4.4-10.8)
[2020-09-05 13:04] LABS: Bilirubin Negative (Negative); Blood Trace-intact (Negative); Clarity Cloudy (Clear); Glucose Negative (Negative); Ketones Negative (Negative); Leukocyte Esterase Trace (Negative); Nitrite Positive (Negative); Specific Gravity >= 1.030 (1.005-1.025); Urobilinogen 0.2 EU/dL (Up TO 0.2); pH 6.5 (5-8)
[2020-09-05 13:13] LABS: Bacteria Many HPF (Negative); Epithelial Cells Many HPF (Negative); WBC 20-50 HPF (0-5)
[2020-09-05 13:14] LABS: C & S Indicated? No/Sq. Contamination; Crystals Few Calcium Oxalate HPF (Negative); Mucus Moderate (Negative)
--- NOTE | 2020-09-05 15:47 | W.PM.HP.N ---
Date of service: 09/05/20 Time of Service: 15:47 Assessment and Plan Assessment and plan (1) Diarrhea: Start date: 09/05/20 Start time: 16:04 Status: Acute Assessment and plan: Patient c/o diarrhea x 1.5 week. Severe at first with improvement however worse last 3 days. She was previously on keflex for UTI. R/o cdiff, stool sample If negative will give imodium IV hydration overnight replete electrolytes monitor bmp Bio-k and omeprazole Qualifiers: Diarrhea type: unspecified type Qualified Code(s): R19.7 - Diarrhea, unspecified (2) UTI (urinary tract infection) due to Enterococcus: Start date: 09/05/20 Start time: 16:06 Status: Acute Assessment and plan: Diagnosed on08/21, treated with keflex U/A reveals positive nitrates and leuk est. Urine cx from 08/21 reveals e.coli pansensitive Treat with levaquin po (3) Urinary incontinence: Start date: 09/05/20 Start time: 16:07 Status: Acute Assessment and plan: continue treatment good pericare timed voiding to avoid overflow as above Qualifiers: Urinary Incontinence type: overflow incontinence Qualified Code(s): N39.490 - Overflow incontinence (4) Spondylosis of cervical region without myelopathy or radiculopathy: Start date: 09/05/20 Start time: 16:08 Status: Chronic Assessment and plan: Severe back pain radiating down leg Will treat with steroid burst, valium and tramodol Patient is suppose to take 15 mg prednisone daily will give 60 mg burst x [address] back on 15 mg daily. She does not appear to be adrenally insufficient at this time. PT to work with patient. (5) Lumbago with sciatica, left side: Start date: 09/05/20 Start time: 16:10 Status: Acute Assessment and plan: As above Qualifiers: Chronicity: acute (6) Ambulatory dysfunction: Start date: 09/05/20 Start time: 16:10 Status: Acute Assessment and plan: Due to above (7) Anxiety: Start date: 09/05/20 Start time: 16:29 Status: Chronic Assessment and plan: Highly anxious female, who take lorazepam TID. (8) Hypokalemia: Start date: 09/05/20 Start time: 16:10 Status: Acute Assessment and plan: Replete with po potassium and monitor daily above case discussed with Dr. iglesias who is in agreement. History of Present Illness History of Present Illness Chief Complaint: Diarrhea Narrative: 70 y.o female with PMH of asthma, HLD, who presented to [facility] ED with diarrhea. She was previously seen on 08/21/2020 for 4 weeks fo low back pain that radiated down her leg along with chronic urinary incontinence. CT showed L-spine severe spondylosis and ua found UTI. She was discharged home with antibiotics with a steroid burst. She is on 15 mg prednisone at baseline, today she reports continued unchanged pain she states difficulty walking with unchanged pain. She also c/o diarrhea onset approx 1 week ago that was severe however has improved. Due to back pain she states it has been difficult ambulating to the and she has not been taking steroids due to cost. She is well known at [facility]. She has been asked to be admitted for further management. Management of back pain with valium, steroids and tramadol. Will ask PT to see her. Send stool for cdiff, if negative manage with imodium. Ua revealing UTI will treat with levaquin as she was previously on keflex, and await urine culture, ua cx from 08/21 e.coli pansensitive. IV hydration overnight and possible discharge tomorrow or saturday. Review of Systems All systems reviewed & are unremarkable except as noted in HPI and below [facility] Medical History (Updated 09/05/20 @ 16:28 by Myesha Diego NP) Anxiety Hyperlipidemia Lumbago with sciatica, left side Spondylosis of cervical region without myelopathy or radiculopathy Urinary incontinence UTI (urinary tract infection) due to Enterococcus Social History Smoking/Tobacco Use Status: Current-Occasional Alcohol Intake: current Alcohol Intake frequency: holidays/special occasions only Drug use: Rarely Substance use type: does not use Do you feel safe at home: Yes Do you feel safe in your relationship?: Yes Meds Home Medications and Allergies Home Medications Medication Instructions Recorded Confirmed Type albuterol sulfate [ProAir HFA] 2 puff INHALATION Q4H PRN inhaler 06/07/15 08/21/20 History fluticasone propionate [Flonase 9.9 ml NS BID PRN 06/07/15 09/05/20 History Allergy Relief] lovastatin 40 mg PO DAILY tab-cap 06/07/15 09/05/20 History calcium carbonate-vitamin D3 1 ea PO DAILY 08/16/15 09/05/20 History [Calcium 500 With D] bupropion HCl 450 mg PO DAILY 01/18/16 09/05/20 History ropinirole 5 mg PO QHS PRN 01/18/16 09/05/20 History Eye Drop Tears 1 drp OD PRN PRN 08/08/16 09/05/20 History ibuprofen [Advil] 1,000 mg PO DAILY PRN 08/08/16 08/21/20 History cyanocobalamin (vitamin B-12) 1,000 mg PO DAILY 11/27/16 09/05/20 History [Vitamin B-12] acetaminophen 650 mg PO PRN PRN 08/14/17 08/21/20 History cranberry fruit 4,200 mg PO DAILY 08/14/17 09/05/20 History magnesium oxide 1,000 mg PO DAILY 08/14/17 09/05/20 History omega-3 fatty acids-fish oil 1 ea PO DAILY 08/14/17 09/05/20 History potassium gluconate 1 tab PO DAILY 08/14/17 06/03/19 History pregabalin [Lyrica] 200 mg PO TID #90 cap 08/14/17 09/05/20 Rx fluticasone propion-salmeterol 1 puff INHALATION BID disk 04/08/18 09/05/20 History [Advair Diskus] multivitamin [Daily Value] 1 ea PO DAILY 04/08/18 09/05/20 History Artificial Tears (PF) 1 drp OPHTHALMIC (EYE) TID PRN 06/03/19 09/05/20 History aripiprazole 15 mg PO DAILY 06/03/19 08/21/20 History fluticasone propion-salmeterol 1 inh INHALATION BID 06/03/19 09/05/20 History [Advair Diskus] lorazepam 1 mg PO TID PRN 06/03/19 08/21/20 History melatonin 5 mg HS 06/03/19 09/05/20 History methocarbamol 750 mg PO QID PRN #10 tab 06/03/19 08/21/20 Rx pramipexole 1.5 mg HS 06/03/19 09/05/20 History prednisone See Rx Instructions .ROUTE 06/03/19 08/21/20 Rx .COMPLEX #42 tab tizanidine 2 mg TID 06/03/19 09/05/20 History cephalexin 500 mg PO 09/05/20 History Allergies Allergy/AdvReac Type Severity Reaction Status Date / Time No Known Drug Allergies Allergy Unverified 09/05/20 12:33 Exam Const General: cooperative, no acute distress and other (anxious) Nutritional Appearance: obese Orientation: alert, awake and oriented x3 Eyes Pupils: PERRL EOM: EOM intact bilaterally Neck Neck: full ROM Lymphatic: no lymphadenopathy noted Resp Effort & Inspection: normal respiratory effort and able to speak in complete sentences Auscultation: clear to auscultation bilaterally Cardio Jugular venous pressure: no JVD Rate: regular rate Rhythm: regular rhythm Heart Sounds: S1 normal and S2 normal GI Inspection: normal to inspection Palpation: soft and no hepatosplenomegaly Back/Spine/Pelvis Back: no CVA tenderness Skin General skin exam: no rashes or lesions noted Neuro Cognition: normal cognition Speech: speech normal Extrem General: normal to inspection, full ROM and no clubbing, cyanosis or edema Psych Appearance: other Mood: anxious mood Results Labs Result diagrams: 09/05/20 12:37 09/05/20 12:37 Labs: Laboratory Results - last 24 hr 09/05/20 09/05/20 09/05/20 12:37 12:37 12:58 WBC 7.34 RBC 4.76 Hgb 14.0 Hct 44.9 MCV 94.3 MCH 29.4 MCHC 31.2 L RDW 13.6 Plt Count 268 MPV 9.3 Immature Gran % 0.7 Neutrophils % 71.9 Lymphocytes % 19.1 Monocytes % 6.3 Eosinophils % 1.6 Basophils % 0.4 Nucleated RBC % 0 Absolute Neutrophils 5.28 Absolute Lymphocytes 1.40 Absolute Monocytes 0.46 Absolute Eosinophils 0.12 Absolute Basophils 0.03 Magnesium 2.0 Urine Color Yellow Urine Clarity Cloudy Urine pH 6.5 Ur Specific [place] >= 1.030 H Urine Protein 30 H Urine Ketones Negative Urine Blood Trace-intact H Urine Nitrite Positive H Urine Bilirubin Negative Urine Urobilinogen 0.2 Ur Leukocyte Esterase Trace H Urine RBC Not Applicable Urine WBC 20-50 H Ur Epithelial Cells Many Urine Crystals Few calcium oxalate Urine Bacteria Many Urine Mucus Moderate Ur Culture Indicated? No/sq. contamination Urine Glucose Negative Last Vital Signs Temp 36.5 C 09/05/20 13:43 Pulse 76 09/05/20 14:31 Resp 13 09/05/20 14:31 BP 135/82 09/05/20 14:31 Pulse Ox 95 09/05/20 14:31 COVID-19 Screening Have you,or household,traveled outside [place] in last 14 days?: No Had IN PERSON contact w/suspected or confirmed C-19 person: No
[2020-09-05 15:58] LABS: ALT 31 U/L (14-59); AST 24 U/L (15-37); Albumin 3.6 g/dL (3.4-5.0); Alkaline Phosphatase 80 U/L (46-116); Anion Gap 7.2 mmol/L (3-11); BUN 10 mg/dL (7-18); Bilirubin, Total 0.5 mg/dL (0.2-1.0); CO2 27.8 mmol/L (21.0-32.0); CREATININE 1.09 mg/dL (0.55-1.02); Calcium 9.6 mg/dL (8.5-10.1); Chloride 106 mmol/L (98-107); Estimated GFR 49.62 (mL/min/1.73m2); Glucose 113 mg/dL (74-106); Potassium 3.3 mmol/L (3.5-5.1); Sodium 141 mmol/L (136-145); Total Protein 7.4 g/dL (6.4-8.2)
--- NOTE | 2020-09-05 16:15 | NUR.NOTE ---
Nursing Note: report given to Maye Reyes RN, room 209 assigned. Pt was unaware that she was planned to be admitted. Hospitalist CLIENT CUSTOMER MANAGER aware and states she will see pt.
[2020-09-05] MEDS: Potassium Chloride 20 MEQ TABCR 40 MEQ PO (17:32)
[2020-09-05] MEDS: predniSONE 20 MG TAB 60 MG PO (17:33)
[2020-09-05] MEDS: diazePAM 5 MG TAB PO ×2 (17:34→21:22)
[2020-09-05] MEDS: Enoxaparin 40 MG/0.4 ML SYR SC (17:35)
[2020-09-05] MEDS: Normal Saline Flush 10 ML SYR IVP (17:35)
[2020-09-05] MEDS: Normal Saline 1,000 ML 125 ML IV (17:36)
[2020-09-05] MEDS: traZODone 50 MG TAB 150 MG PO (21:19)
[2020-09-05] MEDS: Lovastatin 20 MG TAB 40 MG PO (21:19)
[2020-09-05] MEDS: Pregabalin 100 MG CAP 200 MG PO (21:21)
[2020-09-05] MEDS: Melatonin 3 MG TAB 6 MG PO (21:22)
[2020-09-05] MEDS: rOPINIRole 1 MG TAB 5 MG PO (21:26)
[2020-09-05] MEDS: Budesonide/Formoterol 160/4.5 6 GM 60 PUFF INH IH (21:26)
[2020-09-05] MEDS: Acetaminophen 325 MG TAB 650 MG PO (23:52)
[2020-09-05] MEDS: LORazepam 1 MG TAB PO (23:53)
[2020-09-06 00:01] VITALS: BP 104/69; PULSE 80; RESP 16; TEMP 37; O2SAT 95
[2020-09-06] MEDS: Normal Saline 1,000 ML 125 ML IV (01:11)
[2020-09-06 01:37] LABS: COVID-19 RT-PCR UVMMC Result Negative (Negative)
[2020-09-06 07:00] LABS: Abs Immature Grans 0.03 10^3/uL (0.0-0.06); Absolute Eosinophil Count 0.01 10^3/uL (0.0-0.7); Absolute Lymphocyte Count 0.79 10^3/uL (1.2-3.4); Absolute Monocyte Count 0.23 10^3/uL (0.1-0.8); Absolute Neutrophil Count 4.31 10^3/uL (1.2-6.7); Eosinophils % 0.2; HCT 36.1 % (36.0-46.0); HGB 11.3 g/dL (11.2-15.7); Immature Grans % 0.6; Lymphocytes % 14.7; MCH 29.6 pg (27.0-33.0); MCHC 31.3 % (32.0-36.0); MCV 94.5 fL (80-95); MPV 9.5 fL (8.0-11.0); Monocytes % 4.3; Neutrophils % 80.2; Nucleated RBC 0 %; Platelet Count 228 10^3/uL (130-400); RBC 3.82 10^6/uL (3.93-5.22); RDW 13.5 % (11.7-14.6); RDW-SD 46.8 fL; WBC 5.37 10^3/uL (4.4-10.8)
[2020-09-06 07:34] LABS: Anion Gap 7.4 mmol/L (3-11); BUN 8 mg/dL (7-18); CO2 24.6 mmol/L (21.0-32.0); Calcium 8.8 mg/dL (8.5-10.1); Chloride 109 mmol/L (98-107); Glucose 127 mg/dL (74-106); Sodium 141 mmol/L (136-145)
[2020-09-06 07:45] VITALS: BP 107/71; PULSE 65; RESP 18; TEMP 36.5; O2SAT 95
[2020-09-06] MEDS: Budesonide/Formoterol 160/4.5 6 GM 60 PUFF INH IH (08:07)
[2020-09-06] MEDS: Omega-3 Fatty Acids 1000 MG CAP PO (08:49)
[2020-09-06] MEDS: Omeprazole 20 MG CAPCR PO (08:49)
[2020-09-06] MEDS: Magnesium Oxide 400 MG TAB 1000 MG PO (08:49)
[2020-09-06] MEDS: diazePAM 5 MG TAB PO (08:50)
[2020-09-06] MEDS: levoFLOXacin 500 MG, levoFLOXacin 250 MG 750 MG PO (08:50)
[2020-09-06] MEDS: ARIPiprazole 15 MG TAB PO (08:50)
[2020-09-06] MEDS: Cyanocobalamin 500 MCG TAB 1000 MCG PO (08:50)
[2020-09-06] MEDS: DULoxetine 30 MG CAP 60 MG PO (08:50)
[2020-09-06] MEDS: buPROPion-XL 150 MG TABCR 450 MG PO (08:51)
[2020-09-06] MEDS: predniSONE 20 MG TAB 60 MG PO (08:51)
[2020-09-06] MEDS: Pregabalin 100 MG CAP 200 MG PO (08:51)
[2020-09-06] MEDS: rOPINIRole 1 MG TAB 5 MG PO (08:51)
--- NOTE | 2020-09-06 09:49 | IN_ITS ---
Date of service: 09/06/20 Time of Service: 09:49 PT Notes Visit Reasons: Diarrhea Physical Therapy Inpatient Initial Evaluation Date: 09/06/2020 Referring Doctor: Myesha Diego NP PT Orders: PT CONSULT: Eval/treat Precautions: Fall. Standard. Activity as tolerated. Patient Profile/Admitting Diagnosis: Marzena is a 70-year-old female who initially presented to the ED on 08/21/2020 with chief complaints of low back pain and on 09/05/2020 with chief plaints of diarrhea. Patient is diagnosed with diarrhea, urinary tract infection, urinary incontinence, spondylosis of cervical region without myelopathy CN radiculopathy, lumbago, ambulatory dysfunction, anxiety and hypokalemia. PMHX: Medical History (Updated 09/05/20 @ 16:28 by Myesha Diego NP) Anxiety Hyperlipidemia Lumbago with sciatica, left side Spondylosis of cervical region without myelopathy or radiculopathy Urinary incontinence UTI (urinary tract infection) due to Enterococcus Social History/Home Situation: Lives in an apartment with 2 steps to enter with bilateral rails. States that she has had low back pain for quite a while now and has been limiting her ability to perform her ADLs. Equipment Owned/DME: States that her sister has a walker and a single-point cane Subjective: Agreeable to a PT consult. Reported head low back pain at 5-6/10 intensity with radiation to lateral superior thigh leg and sole of feet with left side more active than the right. Reports no falls in the past year. Objective: General Observation: Seated on bedside chair. IV access in left UE seen. Mental Status: Alert and oriented x4 Pain: 5?6/10 low back pain ROM: Right Upper Extremity: Shoulder Flexion WFL. Shoulder abduction WFL. Elbow flexion WFL. Wrist flexion WFL. Opening and closing of hand WFL. Left Upper Extremity: Shoulder Flexion WFL. Shoulder abduction WFL. Elbow flexion WFL. Wrist flexion WFL. Opening and closing of hand WFL. Right Lower Extremity: Hip flexion WFL. Hip abduction WFL. Knee flexion WFL. Ankle dorsiflexion WFL. Ankle plantarflexion WFL. Left Lower Extremity: Hip flexion WFL. Hip abduction WFL. Knee flexion WFL. Ankle dorsiflexion WFL. Ankle plantarflexion WFL. Strength: Right Upper Extremity: Shoulder flexors 4/5. Shoulder abductors 4/5. Elbow flexors 4/5. Elbow extensors 4/5. Ecology Professor strong. Left Upper Extremity: Shoulder flexors 4/5. Shoulder abductors 4/5. Elbow flexors 4/5. Elbow extensors 4/5. Ecology Professor strong. Right Lower Extremity: Hip flexors 4/5. Hip abductors 4/5. Knee flexors 4/5. Knee extensors 4/5. Ankle dorsiflexors 4/5. Ankle plantarflexors 4/5. Left Lower Extremity:Hip flexors 4-/5. Hip abductors 4-/5. Knee flexors 4-/5. Knee extensors 4-/5. Ankle dorsiflexors 4/5. Ankle plantarflexors 4/5. Sensation: Reports numbness on bilateral medial thighs and lateral proximal tibial areas. Bed Mobility/Transfers: Sit to stand standby assist Stand to sit standby assist Bed to chair standby assist standby assist Chair to bed standby assist Gait: 250 feet of level surface ambulation using a front wheeled walker with standby assist. Did not report increased pain in low back throughout activity. Balance: Static Sitting: Normal Dynamic Sitting: Normal Static Standing: Fair Dynamic Standing: Fair Special Tests: Mobility Limitations Standardized Measure [facility] 6 clicks Basic Mobility Inpatient Short Form: Raw Score: 2311% deficit CMS Score: Informed Consent/Education: Patient instructed in purpose of PT consult and plan of care. Assessment: Marzena demonstrates functional mobility decline requiring the use front wheeled walker for all mobility ADL performance, decreased activity tolerance, low back pain with radiation to bilateral lower extremities with the left more affected than the right, and sensory changes on bilateral medial thighs and lateral proximal tibial areas resulting from admitting diagnoses. Marzena is a 70-year-old female who initially presented to the ED on 08/21/2020 with chief complaints of low back pain and on 09/05/2020 with chief plaints of diarrhea. Patient is diagnosed with diarrhea, urinary tract infection, urinary incontinence, spondylosis of cervical region without myelopathy CN radiculopathy, lumbago, ambulatory dysfunction, anxiety and hypokalemia. Patient presents with clinical signs and symptoms consistent with current/admitting diagnoses that have resulted to mobility limitations, gait instability, generalized weakness, and impairment of motor control as demonstrated by the following impairment level findings: 1. Decreased strength to left LE major muscle groups 2. Impaired standing balance 3. Impaired activity tolerance 4. Low back pain at 5?6/10 with lateralization to BLE with left more affected than the right Impairments are contributing to the following functional limitations: 1. Inability to safely ambulate without assistive device 2. Increase completion time for mobility ADL performance 3. Increased fall risk Patient is assessed as a [id number] complexity based on the following: History: 70-year-old female with impairment level findings, functional limitations, and past medical history as indicated above Examination: Demonstrable impairment in strength, balance, and mobility level with underlying impairments and functional limitations as documented above Presentation:Evolving Decision Makin moderate complexity Goals: N/A. PT evaluation 1 treatment session only for functional mobility education and training using the front wheeled walker. Plan of Care/Treatment Plan: N/A. PT evaluation 1 treatment session only for functional mobility education and training using the front wheeled walker. DISCHARGE RECOMMENDATIONS: Outpatient PT services in order to address low back pain limitation on her functional mobility performance. TREATMENT CODE/TIME: 00174 x 15 minutes, [id number] x 26 minutes beginning at 9:49 AM. Thank you for the opportunity to participate in the care of this patient. Sonali Sims PT, DPT, CLT [facility] [place], [place]
--- NOTE | 2020-09-06 10:29 | DSE_ITS ---
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 She was seen here 08/21/2020 for 4 weeks of the low back pain radiating down the left leg and also for longstanding urinary overflow incontinence. Her work up included CT head that was negative, CT L-spine showing severe spondylosis. Patient was also found to have UTI and was sent home on antibiotics in addition to a steroid burst. She reported that her pain has continued unchanged, and she has difficulty with walking secondary to the pain. Patient reports approximately 1.5 weeks ago she developed watery diarrhea that was initially very severe, has improved somewhat but has been persistent over the past few days. She was supposedly having difficulty reaching the bathroom in time with the diarrhea secondary to her back and leg pain. Patient reports that she has not been taking her steroid as prescribed because she has no money. She denies dark or bloody BMs she reports generalized weakness and decreased appetite since onset of diarrhea. She denies fever, vomiting, pain other than lower back pain and left leg pain, shortness of breath, cough, rash, numbness, focal weakness. She was referred to observation under hospitalist services and overnight has no diarrhea. she remained medically stable, was eating and drinking. No abdominal pain. She is stable for discharge to home, no new medications changes. she should follow up outpatient with pcp. discharge plan discussed with Dr Botello who is in agreement. Home Meds and New Rx's Prescriptions: Continued lovastatin 20 MG tablet 40 mg PO DAILY RF: 0 albuterol sulfate [ProAir HFA] 8.5 GM HFA aerosol inhaler 2 puff Inhalation Q4H PRNRF: 0 fluticasone propionate [Flonase Allergy Relief] 9.9 ML spray,suspension 9.9 ml NS BID PRNRF: 0 calcium carbonate-vitamin D3 [Calcium 500 With D] 1 EACH tablet 1 ea PO DAILY RF: 0 pregabalin [Lyrica] 50 MG capsule 200 mg PO TID Qty: 90 RF: 5 multivitamin [Daily Value] 1 EACH tablet 1 ea PO DAILY RF: 0 ropinirole 0.5 MG tablet 5 mg PO TID RF: 0 bupropion HCl 150 MG tablet extended release 24 hr 450 mg PO DAILY RF: 0 ibuprofen [Advil] 200 MG tablet 1,000 mg PO DAILY PRNRF: 0 Eye Drop Tears 15 ML drops 1 drp OD PRN PRNRF: 0 acetaminophen 325 MG capsule 650 mg PO PRN PRNRF: 0 omega-3 fatty acids-fish oil 1 EACH capsule 1 ea PO DAILY RF: 0 magnesium oxide 500 MG capsule 1,000 mg PO DAILY RF: 0 potassium gluconate 600 MG tablet 1 tab PO DAILY RF: 0 cranberry fruit 500 MG tablet,chewable 4,200 mg PO DAILY RF: 0 trazodone 150 mg tablet 150 mg PO HS RF: 0 duloxetine 60 mg capsule,delayed release(DR/EC) 60 mg PO DAILY RF: 0 cyanocobalamin (vitamin B-12) [Vitamin B-12] 1,000 MCG tablet 1,000 mg PO DAILY RF: 0 fluticasone propion-salmeterol [Advair Diskus] 500-50 mcg/dose Blister With Device 1 inh INHALATION BID RF: 0 lorazepam 1 mg Tablet 1 mg PO TID PRNRF: 0 aripiprazole 15 mg Tablet 15 mg PO DAILY RF: 0 Artificial Tears (PF) 0.1-0.3 % Dropperette 1 drp OPHTHALMIC (EYE) TID PRNRF: 0 tizanidine 2 mg Capsule 2 mg TID PRNRF: 0 pramipexole 0.75 mg Tablet 1.5 mg PO TID PRNRF: 0 melatonin 5 mg Tablet 5 mg HS RF: 0 prednisone 10 mg tablet See Rx Instructions .ROUTE .COMPLEX Qty: 42 RF: 0 Discharge Instructions Instructions: Acute Diarrhea (ED) Additional Instructions: advance diet as tolerated, drink at least 6-8 glasses of water daily to stay well hydrated resume usual medications as directed Stand Alone Forms: Nursing Discharge Form Referrals: Iftikhar Shepard [Primary Care Provider] - 09/19/20 12:40 pm Activity:: Activity as Tolerated Equipment/Supplies:: No Equipment Needed Diet:: As Tolerated Discharge Orders Discharge Orders: Discharge Order (Routine); Ordered 09/06/20 Ordered By: Brandie Wiggins Discharge Data Discharge Date/Time-TO BE ENTERED AT DEPARTURE: 09/06/20 12:54 DS: Summary Status at Discharge Functional status at discharge: uses cane/walker Overall status at discharge: patient is back to baseline Mental Status: mental status grossly normal Speech and Movement: speech and movement normal Mood: congruent mood Affect: normal affect Exam Const General: cooperative and no acute distress Nutritional Appearance: obese Orientation: alert, awake and oriented x3 HENMT Head: normal to inspection, normocephalic and atraumatic Eyes Pupils: PERRL EOM: EOM intact bilaterally Neck Neck: full ROM Lymphatic: no lymphadenopathy noted Resp Effort & Inspection: normal respiratory effort Auscultation: clear to auscultation bilaterally Cardio Rate: regular rate Rhythm: regular rhythm GI Inspection: normal to inspection Palpation: soft Auscultation: normal bowel sounds Back/Spine/Pelvis Back: no CVA tenderness Thoracic/Lumbar Spine: thoracic and lumbar spine normal to inspection Skin General skin exam: no rashes or lesions noted Neuro General: patient alert, patient awake and patient oriented x3 Cognition: normal cognition Speech: speech normal Extrem General: normal to inspection, full ROM and no pedal edema Psych Mental Status: mental status grossly normal Speech and Movement: speech and movement normal Mood: congruent mood Affect: normal affect Attitude: cooperative DS: Data Vitals/I&O Vitals and I&O: Vital Signs Temperature 36.5 C 09/06/20 07:45 Temperature Source Temporal Artery Scan 09/06/20 07:45 Pulse 65 09/06/20 07:45 Pulse Rhythm Regular 09/06/20 03:35 Pulse 78 09/05/20 14:31 Respiratory Rate 18 09/06/20 07:45 Respiratory Effort Non-Labored 09/06/20 03:35 Respiratory Depth Normal 09/06/20 03:35 Respiratory Pattern Normal 09/06/20 03:35 Blood Pressure 107/71 09/06/20 07:45 Blood Pressure Mean 92 09/05/20 14:31 Pulse Oximetry 95 09/06/20 07:45 Oxygen Delivery Method Room Air 09/06/20 07:45 Oxygen Flow Rate 0 09/06/20 07:45 Pain Level 0 09/06/20 07:45 Comment 09/05/20 13:43 Intake & Output 09/05/20 09/05/20 09/06/20 11:59 23:59 11:59 Intake Total 1010 / 1010 947.917 / 947.917 Output Total 725 / 725 400 / 400 Balance 285 / 285 547.917 / 547.917 Weight 105 kg 105 kg Intake: IV 1010 / 1010 947.917 / 947.917 Output: Urine 725 / 725 400 / 400 Other: Urine Color Light [place] Yellow Urine Appearance Clear Clear Urine Odor Normal Strong Voiding Methods Toilet Toilet Data Completed and Pending Labs on day of discharge: Labs from last 24 hours 09/06/20 09/06/20 09/05/20 06:28 06:28 16:52 WBC 5.37 RBC 3.82 L Hgb 11.3 D Hct 36.1 MCV 94.5 MCH 29.6 MCHC 31.3 L RDW 13.5 Plt Count 228 MPV 9.5 Immature Gran % 0.6 Neutrophils % 80.2 Lymphocytes % 14.7 Monocytes % 4.3 Eosinophils % 0.2 Basophils % 0.0 Nucleated RBC % 0 Absolute Neutrophils 4.31 Absolute Lymphocytes 0.79 L Absolute Monocytes 0.23 Absolute Eosinophils 0.01 Absolute Basophils 0.00 Sodium 141 Potassium 4.0 D Chloride 109 H Carbon Dioxide 24.6 Anion Gap 7.4 BUN 8 Creatinine 0.70 Estimated GFR/1.73 m2 >= 60.00 Glucose 127 H Calcium 8.8 Magnesium Total Bilirubin AST ALT Alkaline Phosphatase Total Protein Albumin Urine Color Urine Clarity Urine pH Ur Specific [place] Urine Protein Urine Ketones Urine Blood Urine Nitrite Urine Bilirubin Urine Urobilinogen Ur Leukocyte Esterase Urine RBC Urine WBC Ur Epithelial Cells Urine Crystals Urine Bacteria Urine Mucus Ur Culture Indicated? Urine Glucose COVID-19 PCR Negative Nasopharyn COVID-19 PCR Not Applicable Ref Test Perform Site [facility] 09/05/20 09/05/20 09/05/20 12:58 12:37 12:37 WBC RBC Hgb Hct MCV MCH MCHC RDW Plt Count MPV Immature Gran % Neutrophils % Lymphocytes % Monocytes % Eosinophils % Basophils % Nucleated RBC % Absolute Neutrophils Absolute Lymphocytes Absolute Monocytes Absolute Eosinophils Absolute Basophils Sodium 141 Potassium 3.3 L Chloride 106 Carbon Dioxide 27.8 Anion Gap 7.2 BUN 10 Creatinine 1.09 H Estimated GFR/1.73 m2 49.62 Glucose 113 H Calcium 9.6 Magnesium 2.0 Total Bilirubin 0.5 AST 24 ALT 31 Alkaline Phosphatase 80 Total Protein 7.4 Albumin 3.6 Urine Color Yellow Urine Clarity Cloudy Urine pH 6.5 Ur Specific [place] >= 1.030 H Urine Protein 30 H Urine Ketones Negative Urine Blood Trace-intact H Urine Nitrite Positive H Urine Bilirubin Negative Urine Urobilinogen 0.2 Ur Leukocyte Esterase Trace H Urine RBC Not Applicable Urine WBC 20-50 H Ur Epithelial Cells Many Urine Crystals Few calcium oxalate Urine Bacteria Many Urine Mucus Moderate Ur Culture Indicated? No/sq. contamination Urine Glucose Negative COVID-19 PCR Nasopharyn COVID-19 PCR Ref Test Perform Site 09/05/20 12:37 WBC 7.34 RBC 4.76 Hgb 14.0 Hct 44.9 MCV 94.3 MCH 29.4 MCHC 31.2 L RDW 13.6 Plt Count 268 MPV 9.3 Immature Gran % 0.7 Neutrophils % 71.9 Lymphocytes % 19.1 Monocytes % 6.3 Eosinophils % 1.6 Basophils % 0.4 Nucleated RBC % 0 Absolute Neutrophils 5.28 Absolute Lymphocytes 1.40 Absolute Monocytes 0.46 Absolute Eosinophils 0.12 Absolute Basophils 0.03 Sodium Potassium Chloride Carbon Dioxide Anion Gap BUN Creatinine Estimated GFR/1.73 m2 Glucose Calcium Magnesium Total Bilirubin AST ALT Alkaline Phosphatase Total Protein Albumin Urine Color Urine Clarity Urine pH Ur Specific [place] Urine Protein Urine Ketones Urine Blood Urine Nitrite Urine Bilirubin Urine Urobilinogen Ur Leukocyte Esterase Urine RBC Urine WBC Ur Epithelial Cells Urine Crystals Urine Bacteria Urine Mucus Ur Culture Indicated? Urine Glucose COVID-19 PCR Nasopharyn COVID-19 PCR Ref Test Perform Site [facility] Medical History (Updated 09/05/20 @ 16:28 by Myesha Diego NP) Anxiety Hyperlipidemia Lumbago with sciatica, left side Spondylosis of cervical region without myelopathy or radiculopathy Urinary incontinence UTI (urinary tract infection) due to Enterococcus Social History Smoking/Tobacco Use Status: Current-Occasional Smoking risk assessment performed?: Yes Alcohol Intake: current Alcohol Intake frequency: holidays/special occasions only Drug use: Rarely Substance use type: does not use Do you feel safe at home: Yes Do you feel safe in your relationship?: Yes
== END 2020-09-06 12:54 | disposition home or self-care (01) ==
LOC: ER 16:24 → MS 16:39
PROVIDERS: Nurse Practitioner Family; Admitting Provider Family Medicine; Emergency Provider Student in an Organized Health Care Education/Training Program; PCP Family Medicine; Visit Provider Family Medicine
DX: R19.7 Diarrhea, unspecified (principal); N39.0 Urinary tract infection, site not specified; E78.5 Hyperlipidemia, unspecified; J45.909 Unspecified asthma, uncomplicated; N39.490 Overflow incontinence; R53.1 Weakness; Z79.899 Other long term (current) drug therapy; B95.2 Enterococcus as the cause of diseases classified elsewhere; F41.9 Anxiety disorder, unspecified; E87.6 Hypokalemia; R26.2 Difficulty in walking, not elsewhere classified; M54.42 Lumbago with sciatica, left side; F17.210 Nicotine dependence, cigarettes, uncomplicated; M47.812 Spondylosis without myelopathy or radiculopathy, cervical region
CPT/HCPCS: 36415; 80048; 80053; 90662; 93005; 94640; 96360; 97162; 97530; 99217; 99220; 99285; J1650; U0003; 81003; 81015; 83735; 85025; 93010; G0378; J7512

== ENCOUNTER 2021-05-17 15:29 | Emergency (ER) | payer OTHER, SELFPAY ==
--- NOTE | 2021-05-17 15:30 | RT.EKG_ITS ---
APPROVED REPORT Exam: Resting ECG Reason for Exam: feeling unwell Patient Location: E HR:66 bpm ECG Measurements Heart Rate 66 AXIS IL 61 P 203 QRSd 86 QRS 51 QT 427 T 55 QTc 447 Conclusion Sinus or ectopic atrial rhythm...P axis (-45,135). Sinus. No STEMI. I have reviewed and interpreted ECG and agree with software generated interpretation.
--- NOTE | 2021-05-17 15:30 | DI.RAD_ITS ---
Exam(s) XR CHEST 2V PA LATERAL EXAM: XR CHEST 2V PA LATERAL CLINICAL HISTORY: Generalized weakness TECHNIQUE: 2D digital imaging was performed. COMPARISON: No exams were available for comparison FINDINGS: Exam is limited by patient body habitus and positioning. The lungs are suboptimally inflated. Abdom inal soft tissues overlie the lung bases. The heart appears enlarged. The aorta is tortuous. There are chronic interstitial changes. No superimposed infiltrate or effusion is seen. Hardware is note d in the lower cervical spine. No compression fractures are visible. IMPRESSION: No acute pulmonary findings. DATA REPOSITORY: RADIATION DOSE DELIVERED:
[2021-05-17 15:32] VITALS: BP 150/82; PULSE 62; RESP 16; TEMP 36.2; O2SAT 96
--- NOTE | 2021-05-17 15:35 | W.ED.GENAD ---
Discharge Plan Disposition Patient Disposition: HOME Condition: Improving Discharge Details Clinical Impression: Generalized weakness Primary Care Provider: Iftikhar Shepard ED Provider: Morena Fink Home Meds and New Rx's Prescriptions: Continued lovastatin 20 MG tablet 40 mg PO DAILY RF: 0 albuterol sulfate [ProAir HFA] 8.5 GM HFA aerosol inhaler 2 puff Inhalation Q4H PRNRF: 0 fluticasone propionate [Flonase Allergy Relief] 9.9 ML spray,suspension 9.9 ml NS BID PRNRF: 0 calcium carbonate-vitamin D3 [Calcium 500 With D] 1 EACH tablet 1 ea PO DAILY RF: 0 pregabalin [Lyrica] 50 MG capsule 200 mg PO TID Qty: 90 RF: 5 multivitamin [Daily Value] 1 EACH tablet 1 ea PO DAILY RF: 0 ropinirole 0.5 MG tablet 5 mg PO TID RF: 0 ibuprofen [Advil] 200 MG tablet 1,000 mg PO DAILY PRNRF: 0 Eye Drop Tears 15 ML drops 1 drp OD PRN PRNRF: 0 acetaminophen 325 MG capsule 500 mg PO PRN PRNRF: 0 omega-3 fatty acids-fish oil 1 EACH capsule 1 ea PO DAILY RF: 0 magnesium oxide 500 MG capsule 500 mg PO BID RF: 0 potassium gluconate 600 MG tablet 1 tab PO DAILY RF: 0 cranberry fruit 500 MG tablet,chewable 4,200 mg PO DAILY RF: 0 trazodone 150 mg tablet 150 mg PO HS RF: 0 duloxetine 60 mg capsule,delayed release(DR/EC) 60 mg PO DAILY RF: 0 cyanocobalamin (vitamin B-12) [Vitamin B-12] 1,000 MCG tablet 1,000 mg PO DAILY RF: 0 lorazepam 1 mg Tablet 1 mg PO TID PRNRF: 0 aripiprazole 15 mg Tablet 15 mg PO DAILY RF: 0 tizanidine 2 mg Capsule 2 mg TID PRNRF: 0 pramipexole 0.75 mg Tablet 1.5 mg PO TID PRNRF: 0 melatonin 5 mg Tablet 5 mg PO HS RF: 0 fluticasone propion-salmeterol [Advair Diskus] 250-50 mcg/dose blister with device INHALATION RF: 0 bupropion HCl 300 mg tablet extended release 24 hr 450 mg PO DAILY RF: 0 cholecalciferol (vitamin D3) [Vitamin D3] 50 mcg (2,000 unit) Capsule 50 mcg PO DAILY RF: 0 prednisone 10 mg tablet 10 mg PO DAILY RF: 0 Discharge Instructions Instructions: Weakness (ED) Additional Instructions: Your labs and imaging are reassuring today. You do seem to be improving from when you first arrived in regard to your weakness. However, I am concerned about your chronic difficulty walking particularly with your sister's recent surgery. I have made a referral for home physical therapy and Occupational Therapy. Please continue to use your walker. Your increased fatigue and generalized weakness today is likely associated with your increased dosing of trazodone. Please hold off on this evening's dose and begin tomorrow at your previous dosing. Please follow-up with your primary care in 1 week for reevaluation. If you develop fever/chills, or other new/worsening symptoms please seek care urgently once again. Referrals: Iftikhar Shepard [Primary Care Provider] - Discharge Data Discharge Date/Time-TO BE ENTERED AT DEPARTURE: 05/17/21 18:28 Medical Decision Making <CALEB Padilla - Last Filed: 05/18/21 08:14> This is a 70-year-old female, current half pack a day smoker, past history of anxiety, hyperlipidemia, obesity, chronic back pain, presenting to the ER for generalized weakness. She states that her trazodone dose was doubled as of last night, just prior to bed she took 2 trazodone and 2 Ativan and instantly fell asleep. Ever since waking this morning around 1030 she has felt generalized weakness. Denies any focal weakness, recent illness or trauma. She has no additional concerns or complaints to me at this time. She typically ambulates without assistance but occasionally uses a cane. Clinically she appears well, nontoxic, neurologically intact. This very well could be secondary to her increased dose of trazodone last night certainly cannot rule out atypical ACS, infectious process such as pneumonia, UTI, electrolyte abnormality, renal failure, anemia, etc. Will initiate a cardiac work-up, chest x-ray, TSH and free T4. Given her symptoms began at 1030 this morning upon awaking, I do believe a single troponin is reasonable for a cardiac rule out. Given she is neurologically intact, no focal weakness, will not pursue imaging of the brain. Medical Records Medical records reviewed: Yes I reviewed the patient's medical records. ECG Data Attestation: I personally reviewed and interpreted this ECG (s) as follows: Interpretation: Please see official report by Dr. Hair. Sinus rhythm, ventricular rate of 66, no STEMI <CALEB Reich - Last Filed: 05/17/21 18:11> Care transition to myself from Perry Hamilton PA-C with labs and imaging pending. Please see his initial note regarding presentation and exam. In brief, patient is a pleasant 70-year-old female presented with generalized weakness. This was noted to be after she increased her trazodone dosing last night. Did not have any focal findings noted on exam. Labs reviewed. No leukocytosis, stable H&H. CMP without abnormalities. Troponin within normal limits, TSH within normal limits. Urinalysis pending. FINDINGS: Lungs: Clear lungs. Pleural spaces: No pneumothorax. No sizable pleural effusion. Heart/Mediastinum: No cardiomegaly. Bones/joints: Unremarkable. IMPRESSION: Clear lungs. Urinalysis is without findings to suggest UTI or other acute abnormality. Discussed findings with the patient. She does not have any chest pain and symptoms have been ongoing since waking this morning. I do not feel that repeat troponin is warranted at this time. I discussed these findings with the patient. She reports that she is feeling improved. Was able to ambulate unassisted with a walker. Patient is quite slow with ambulation. However, she reports that this is baseline. States that she chronically has difficulty ambulating with ambulation secondary to chronic back pain. We will augment her Tylenol with ibuprofen. She is not reporting any increase in her back pain recently. She is being followed for this. She feels that she is currently at baseline. She lives with her sister but she states her sister had a recent surgery. I am concerned, based on the chronic weakness and difficulty with ambulation, that they are able to care for themselves independently and feel that they would benefit from physical therapy and Occupational Therapy. I did touch base with care management and referral for PT and OT home care has been sent. Patient feels that she is at her baseline, plan to discharge home. I did advise that she not take her trazodone this evening but may resume her typical dosing tomorrow. Advised that she not take 2 trazodone to Ativan together as this likely contributed to her continued fatigue and weakness today. Encouraged hydration. Return precautions were discussed. All the questions and concerns were addressed and she is agreement this plan. HPI <CALEB Padilla - Last Filed: 05/18/21 08:14> General Mode of arrival: EMS. Date/Time Provider Initiated Documentation: 05/17/21 15:32. Limitations to Documentation: no limitations. Information obtained by: patient and EMS. HPI Narrative: This is a 70-year-old female, past medical history of anxiety, hyperlipidemia, chronic back pain, smokes smokes half a pack of cigarettes daily, presenting via EMS for generalized weakness. Patient states that she went to bed last night around midnight, her trazodone dose was doubled as of yesterday and she took her Ativan as she typically does, states that she instantly fell asleep. Awoke this morning around 10:30 AM and has felt generally weak and fatigued throughout the day. She reports chronic back pain that is at its baseline. Patient denies recent illness or trauma. 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 She denies headache, visual change, neck pain, chest pain, shortness of breath, abdominal pain, nausea, vomiting, diarrhea, dysuria, constipation, skin rash. Patient later tells me that she feels achy all over. She denies any focal weakness. Reports that she typically ambulates on her own without assistance, occasionally uses a cane. She does live at home with her sister. Related Data Home Medications Medication Instructions Recorded Confirmed albuterol sulfate [ProAir HFA] 2 puff INHALATION Q4H PRN inhaler 06/07/15 05/17/21 fluticasone propionate [Flonase 9.9 ml NS BID PRN 06/07/15 05/17/21 Allergy Relief] lovastatin 40 mg PO DAILY tab-cap 06/07/15 05/17/21 calcium carbonate-vitamin D3 1 ea PO DAILY 08/16/15 09/05/20 [Calcium 500 With D] ropinirole 5 mg PO TID 01/18/16 05/17/21 Eye Drop Tears 1 drp OD PRN PRN 08/08/16 05/17/21 ibuprofen [Advil] 1,000 mg PO DAILY PRN 08/08/16 08/21/20 cyanocobalamin (vitamin B-12) 1,000 mg PO DAILY 11/27/16 05/17/21 [Vitamin B-12] acetaminophen 500 mg PO PRN PRN 08/14/17 05/17/21 cranberry fruit 4,200 mg PO DAILY 08/14/17 09/05/20 magnesium oxide 500 mg PO BID 08/14/17 05/17/21 omega-3 fatty acids-fish oil 1 ea PO DAILY 08/14/17 09/05/20 potassium gluconate 1 tab PO DAILY 08/14/17 06/03/19 pregabalin [Lyrica] 200 mg PO TID #90 cap 08/14/17 05/17/21 multivitamin [Daily Value] 1 ea PO DAILY 04/08/18 09/05/20 aripiprazole 15 mg PO DAILY 06/03/19 05/17/21 lorazepam 1 mg PO TID PRN 06/03/19 05/17/21 melatonin 5 mg PO HS 06/03/19 05/17/21 pramipexole 1.5 mg PO TID PRN 06/03/19 05/17/21 tizanidine 2 mg TID PRN 06/03/19 05/17/21 duloxetine 60 mg PO DAILY 09/05/20 05/17/21 trazodone 150 mg PO HS 09/05/20 05/17/21 bupropion HCl 450 mg PO DAILY 05/17/21 05/17/21 cholecalciferol (vitamin D3) 50 mcg PO DAILY 05/17/21 05/17/21 [Vitamin D3] fluticasone propion-salmeterol INHALATION 05/17/21 05/17/21 [Advair Diskus] prednisone 10 mg PO DAILY 05/17/21 05/17/21 Previous Rx's Medication Instructions Recorded pregabalin [Lyrica] 200 mg PO TID #90 cap 08/14/17 Allergies Allergy/AdvReac Type Severity Reaction Status Date / Time No Known Drug Allergies Allergy Unverified 09/05/20 12:33 General SIDNEY: 3 Review of Systems <CALEB Padilla - Last Filed: 05/18/21 08:14> Constitutional Constitutional: Denies fatigue, Denies fever(s) and Denies headache(s) Eyes Eyes: Denies change in vision ENT Ears, Nose, Mouth, and Throat: Denies headache(s) and Denies neck pain Cardiovascular Cardiovascular: Denies chest pain and Denies dyspnea Respiratory Respiratory: Denies dyspnea Gastrointestinal Gastrointestinal: Denies abdominal pain, Denies nausea and Denies vomiting Genitourinary Genitourinary: Denies dysuria Musculoskeletal Musculoskeletal: Reports myalgias (Chronic) and Denies neck pain Integumentary/Breasts Skin/Breast: Denies rash Neurologic Neurologic: Denies headache(s) and Reports weakness (Generalized) Endocrine Endocrine: Denies fatigue Hematologic/Lymphatic Hematologic/Lymphatic: Denies easy bleeding and Denies easy bruising PFSH <CALEB Padilla - Last Filed: 05/18/21 08:14> Medical History Anxiety Hyperlipidemia Lumbago with sciatica, left side Spondylosis of cervical region without myelopathy or radiculopathy Urinary incontinence UTI (urinary tract infection) due to Enterococcus Social History Smoking/Tobacco Use Status: Current every day Smoking risk assessment performed?: Yes Alcohol Intake: current Alcohol Intake frequency: holidays/special occasions only Drug use: Rarely Substance use type: does not use Do you feel safe at home: Yes Do you feel safe in your relationship?: Yes Exam <CALEB Padilla - Last Filed: 05/18/21 08:14> Const General: cooperative, comfortable and no acute distress Nutritional Appearance: obese Orientation: alert, awake and oriented x3 HENMT Head: normal to inspection, normocephalic and atraumatic General nose exam: external nose normal Face and sinus: normal facial exam Mouth: moist mucous membranes Eyes General: appearance normal, both eyes and all related structures Alignment and Position: alignment normal Periorbital: periorbital findings normal Eyelids: eyelids normal Conjunctivae: conjunctivae normal Sclera: sclerae normal Cornea: corneas normal Pupils: PERRL EOM: EOM intact bilaterally Direct ophthalmoscopy: normal light reflex Neck Neck: normal visual inspection, full ROM, no meningeal signs, trachea midline, supple and nontender Resp Effort & Inspection: normal respiratory effort and able to speak in complete sentences Auscultation: diminished lung sounds bilaterally in the lower lung cardenas Cardio Rate: regular rate Rhythm: regular rhythm GI Inspection: obesity Palpation: soft, not firm, no guarding, no pulsatile masses and nontender Auscultation: normal bowel sounds Back/Spine/Pelvis Back: no CVA tenderness and back tenderness (Diffuse mild lumbar) Skin General skin exam: no rashes or lesions noted Neuro General: patient alert, patient awake, moves all extremities and no focal motor deficits Cognition: normal cognition Speech: speech normal Motor: muscle tone normal throughout and strength 5/5 throughout Sensory Exam: no sensory deficits noted Extrem General: normal to inspection, full ROM and capillary refill normal Psych Appearance: grossly normal Mental Status: mental status grossly normal Sign Out <CALEB Padilla - Last Filed: 05/18/21 08:14> Sign Out Data: Sign Out Comment: Patient presents for generalized weakness since awakening around 10:30 AM. She denies any other concerns or complaints to me. Denies focal weakness. Did increase her trazodone dose last night before bed as directed by her primary care provider. At time of signout EKG completed, no other diagnostic testing resulted. Last updated by Van Hamilton PA at 05/17/21 16:03
[2021-05-17] MEDS: Normal Saline 1,000 ML 125 ML IV (16:00)
[2021-05-17 16:04] LABS: Abs Immature Grans 0.04 10^3/uL (0.0-0.06); Absolute Basophil Count 0.03 10^3/uL (0.0-0.2); Absolute Eosinophil Count 0.28 10^3/uL (0.0-0.7); Absolute Lymphocyte Count 1.05 10^3/uL (1.2-3.4); Absolute Monocyte Count 0.53 10^3/uL (0.1-0.8); Absolute Neutrophil Count 8.14 10^3/uL (1.2-6.7); Basophils % 0.3; Eosinophils % 2.8; HCT 40.5 % (36.0-46.0); HGB 12.5 g/dL (11.2-15.7); Immature Grans % 0.4; Lymphocytes % 10.4; MCHC 30.9 % (32.0-36.0); MPV 9.6 fL (8.0-11.0); Monocytes % 5.3; Neutrophils % 80.8; Nucleated RBC 0 %; Platelet Count 253 10^3/uL (130-400); RBC 4.31 10^6/uL (3.93-5.22); RDW 15.1 % (11.7-14.6); RDW-SD 52.4 fL; WBC 10.07 10^3/uL (4.4-10.8)
[2021-05-17 16:13] LABS: ALT 24 U/L (14-59); AST 18 U/L (15-37); Albumin 3.7 g/dL (3.4-5.0); Alkaline Phosphatase 67 U/L (46-116); Anion Gap 7.2 mmol/L (3-11); BUN 17 mg/dL (7-18); Bilirubin, Total 0.3 mg/dL (0.2-1.0); CO2 31.8 mmol/L (21.0-32.0); CREATININE 0.9 mg/dL (0.55-1.02); Calcium 9.3 mg/dL (8.5-10.1); Chloride 105 mmol/L (98-107); Glucose 96 mg/dL (74-106); Magnesium 2.3 mg/dL (1.8-2.4); Potassium 4.4 mmol/L (3.5-5.1); Sodium 144 mmol/L (136-145); TSH (W/Ref FT4) 0.56 uIU/mL (0.36-3.74); Total Protein 7.5 g/dL (6.4-8.2); Troponin I < 0.05 ng/mL (<0.06)
[2021-05-17 16:19] VITALS: BP 106/62; PULSE 68; RESP 16; O2SAT 96
--- NOTE | 2021-05-17 17:03 | DI.VRAD_ITS ---
PROCEDURE INFORMATION: Exam: XR Chest Exam date and time: 05/17/2021 3:35 PM Age: 70 years old Clinical indication: Pain; Other: Generalized weakness TECHNIQUE: Imaging protocol: XR of the chest. Views: 2 views. COMPARISON: MRI - CERVICAL SPINE WO CONT 08/02/2017 8:16 PM FINDINGS: Lungs: Clear lungs. Pleural spaces: No pneumothorax. No sizable pleural effusion. Heart/Mediastinum: No cardiomegaly. Bones/joints: Unremarkable. IMPRESSION: Clear lungs. Dictated and Authenticated by: Harman Akins MD. Ordering:SEA Araujo MD
[2021-05-17 17:07] LABS: Bilirubin Negative (Negative); Blood Negative (Negative); Clarity Clear (Clear); Glucose Negative (Negative); Ketones Negative (Negative); Leukocyte Esterase Negative (Negative); Nitrite Negative (Negative); Specific Gravity 1.015 (1.005-1.025); Urobilinogen 0.2 EU/dL (Up TO 0.2)
[2021-05-17 17:15] VITALS: BP 118/55; PULSE 67; RESP 19; O2SAT 97
[2021-05-17] MEDS: Ibuprofen 600 MG TAB PO (18:05)
[2021-05-17 18:13] VITALS: BP 138/87; PULSE 72; TEMP 35.9; O2SAT 98
--- NOTE | 2021-05-18 09:25 | PDOC.ERCMPRO ---
- If Service Date Differs Date of service: 05/18/21 Time of Service: 09:25 Care Management Progress Note Marzena is seen in the ED for weakness. At the request of ED provider, CM coordinates [facility] and OT services.
== END 2021-05-17 18:28 | disposition home or self-care (01) ==
LOC: ER 18:31
PROVIDERS: Physician Assistant; Emergency Provider Physician Assistant; PCP Family Medicine
DX: R53.1 Weakness (principal)
CPT/HCPCS: 36415; 80053; 93005; 99284; 71046; 81003; 83735; 84443; 84484; 85025; 93010; 99283

== ENCOUNTER 2022-06-18 06:46 | Day surgery (SDC) | payer OTHER, SELFPAY ==
[2022-06-15 14:45] VITALS: BP 115/69; PULSE 55; RESP 16; TEMP 36.4; O2SAT 98
[2022-06-18] MEDS: Tropicam./Phenyleph. (1/2.5%) 5 ML BTL OD ×3 (07:17→07:45)
--- NOTE | 2022-06-18 07:45 | W.ANESPRE ---
General Info Date of Service Date Performed: 06/18/22 Height: 5 ft 7.75 in Weight: 116.6 kg Body Mass Index (BMI): 39.4 Surgical Procedure: Operation Date: 06/18/22 08:40 Proposed Procedure Side Surgeon p Cataract Extraction with IOL Implant Right Baron Freitas MD Meds Allergies and Home Medications Allergies Allergy/AdvReac Type Severity Reaction Status Date / Time prednisone Allergy Intermediate Other (See Unverified 06/18/22 07:27 Comment) Home Medication Medication Instructions Recorded albuterol sulfate 90 mcg/actuation 2 puff inhalation Q4H PRN 06/07/15 aerosol inhaler (ProAir HFA) fluticasone propionate 50 9.9 ml NS BID PRN 06/07/15 mcg/actuation nasal spray,suspension (Flonase Allergy Relief) lovastatin 20 mg tablet 40 mg PO DAILY 06/07/15 ropinirole 0.5 mg tablet 5 mg PO TID 01/18/16 ibuprofen 200 mg tablet (Advil) 1,000 mg PO DAILY PRN 08/08/16 peg [id number] 1 1 drp OD PRN PRN 08/08/16 %-0.2 %-0.2 % eye drops (Eye Drop Tears) cyanocobalamin (vitamin B-12) 1,000 mg PO DAILY 11/27/16 1,000 mcg tablet (Vitamin B-12) acetaminophen 325 mg capsule 500 mg PO PRN PRN 08/14/17 magnesium oxide 500 mg capsule 500 mg PO BID 08/14/17 omega-3 fatty acids-fish oil 360 1 ea PO DAILY 08/14/17 mg-1,200 mg capsule potassium gluconate 600 mg (99 mg) 1 tab PO DAILY 08/14/17 tablet pregabalin 50 mg capsule (Lyrica) 200 mg PO TID #90 caps 08/14/17 multivitamin (Daily Value tablet) 1 ea PO DAILY 04/08/18 lorazepam 1 mg tablet 1 mg PO TID PRN 06/03/19 melatonin 5 mg tablet 5 mg PO HS 06/03/19 pramipexole 0.75 mg tablet 1.5 mg PO TID PRN 06/03/19 tizanidine 2 mg capsule 2 mg TID PRN 06/03/19 duloxetine 60 mg capsule,delayed 60 mg PO DAILY 09/05/20 release trazodone 150 mg tablet 150 mg PO HS 09/05/20 fluticasone 250 mcg-salmeterol 50 1 inh inhalation DIRECTED 05/17/21 mcg/dose blistr powdr for inhalation (Advair Diskus) prednisone 10 mg tablet 10 mg PO DAILY 05/17/21 gabapentin 300 mg capsule 600 mg PO TID 02/22/22 metoprolol succinate 50 mg 50 mg PO DAILY 02/22/22 tablet,extended release 24 hr trazodone 150 mg tablet 150 mg PO QHS PRN 02/22/22 apixaban 5 mg tablet (Eliquis) 1 tab PO BID 06/15/22 furosemide 20 mg tablet 20 mg PO DAILY PRN 06/15/22 gabapentin 300 mg capsule 600 mg PO TID 06/15/22 venlafaxine 75 mg capsule,extended 75 mg PO DAILY 06/15/22 release 24 hr Current Visit Medications: Current Medications Generic Name Dose Route Start Last Admin Trade Name Freq PRN Reason Stop Dose Admin Acetaminophen 1,000 mg 06/18/22 06:00 Acetaminophen 500 Mg Tab PO Q4H PRN PRN Miscellaneous Medication 0 ml 06/18/22 06:00 Prednisolone 1%, Moxifloxacin 0.5%, Nepafenac 0.1% 5ml Btl OD DIRECTED [facility] Miscellaneous Medication 0 ml 06/18/22 06:00 06/18/22 07:17 Tropicam./Phenyleph. (1/2.5%) 5 Ml Btl OD 1 drp DIRECTED [facility] Administration Tetracaine HCl 0 ml 06/18/22 06:00 Tetracaine 0.5% 4 Ml Btl OD DIRECTED [facility] PFSH Active Problems Active Problems: Problem Status Onset Code Spondylosis of cervical region without myelopathy or radiculopathy M47.812 Diarrhea R19.7 Urinary incontinence R32 Hypokalemia E87.6 Ambulatory dysfunction R26.2 UTI (urinary tract infection) due to Enterococcus N39.0, B95.2 Anxiety F41.9 Generalized weakness R53.1 Medical History Medical History Afib F/u with Dr. Mcconnell 04/2022 Cervical nerve root disorder Not disorder: Per H&P (R) Cervical medial branch block Chronic pain syndrome COPD (chronic obstructive pulmonary disease) Depressive disorder Hyperlipidemia Lumbago with sciatica, left side Postural dizziness Pulmonary embolism 8 months ago r/t to diagnosis a-fib RLS (restless legs syndrome) Spinal stenosis Tobacco user Medical History Comments:: pt anxious, verbalises she would like something to sedate/relax her. Pt had a cigarette t Midnight 06/18/22 Smoked marijuana 06/17/22 in the am. Surgical History Surgical History H/O exploratory laparotomy History of carpal tunnel release History of total bilateral knee replacement (TKR) Hx of cervical spine surgery Hx of colonoscopy Tobacco Smoking/Tobacco Use Status: Current every day Tobacco Type: cigarettes Smoking cigarettes per day: 4 Alcohol Alcohol Intake: current Alcohol intake frequency: holidays/special occasions only Substance Use Substance use: Rarely Substance use type: marijuana Details: Smoked marijuana 06/17/22 in the am. Vital Signs and Lab Results Vital Signs Most Recent Vital Signs in EMR: Most Recent Vital Signs Temp Pulse Resp BP Pulse Ox 36.4 C L 55 L 16 115/69 98 06/15/22 14:45 06/15/22 14:45 06/15/22 14:45 06/15/22 14:45 06/15/22 14:45 Lab Results Blood Type / Crossmatch: No Data to Display Complete Blood Count: No Data to Display Complete Metabolic Panel: No Data to Display Liver Function Panel: No Data to Display Coagulation Panel: No Data to Display Cardiac Panel: No Data to Display Arterial Blood Gas: No Data to Display Venous Blood Gas: No Data to Display Pancreas Panel: No Data to Display Thyroid Panel: No Data to Display Infectious Disease: No Data to Display Blood Cultures: No Data to Display Toxicology Panel: No Data to Display Imaging and Studies Imaging and Studies Study information below may be from another EMR and interpreted by another provider. Please see original notes in EMR for more complete details. EKG Summary: DATE/TIME OF SERVICE: 05/17/21 1537 : 1950PERFORMING LOCATION: ER APPROVED REPORT Exam: Resting ECG Reason for Exam: feeling unwell Patient Location: E HR:66 bpm ECG Measurements Heart Rate 66 AXIS IN 61 P 203 QRSd 86 QRS 51 QT 427 T55 QTc 447 Conclusion Sinus or ectopic atrial rhythm...P axis (-45,135). Anesthesia Assessment and Plan Anesthesia History Personal History: No History of Anesthesia Complications Family History: No Family History of Anesthesia Complications Exercise Tolerance Exercise Tolerance: Metabolic Equivalents>4 Pertinent Negatives Pertinent Negatives: No Symptoms of GERD Cardiac & Pulmonary Exam Cardiac Exam: Normal S1/S2 Heart Sounds Pulmonary Exam: Clear Bilateral Breath Sounds Implantable Cardiac Device Does patient have a Pacemaker or an ICD?: No Airway Exam Known Difficult Airway: No Mallampati Class: 1 Mouth Opening: Normal (> 3cm) Thyromental Distance: Greater than 3 cm Neck Range of Motion: Full ROM Neck Circumference: Normal Teeth Condition: Normal Dentition ASA Classification ASA Score: ASA 3 Emergency Case?: No NPO Status NPO Status: NPO Clears >2 hours, Solids >8 hours Anesthesia Plan Resuscitation Status: Full Code Anesthesia Technique: MAC Anesthesia Airway Planned: Natural Airway Monitors Used: Standard Monitors
[2022-06-18 08:00] VITALS: BMI 39.4
[2022-06-18] MEDS: Tetracaine 0.5% 4 ML BTL OD (08:08)
[2022-06-18] MEDS: Lidocaine 2% Jelly 6 ML SYR (08:08)
[2022-06-18] MEDS: Povidone-Iodine Ophth 30 ML BTL (08:09)
[2022-06-18] MEDS: Balanced Salt Soln.-PLUS 500 ML BAG (08:12)
[2022-06-18 08:37] VITALS: BP 119/74; PULSE 60; RESP 16; TEMP 36.2; O2SAT 96
--- NOTE | 2022-06-18 08:37 | W.PM.DSUDISC ---
Discharge Plan Disposition Patient Disposition: HOME Condition: Good Discharge Details Attending Provider: Baron Freitas Primary Care Provider: Jenelle Goode Home Meds and New Rx's Prescriptions: No Action trazodone 150 mg tablet 150 mg PO QHS PRN gabapentin 300 mg capsule 600 mg PO TID metoprolol succinate 50 mg tablet extended release 24 hr 50 mg PO DAILY lovastatin 20 MG tablet 40 mg PO DAILY albuterol sulfate [ProAir HFA] 8.5 GM HFA aerosol inhaler 2 puff Inhalation Q4H PRN fluticasone propionate [Flonase Allergy Relief] 9.9 ML spray,suspension 9.9 ml NS BID PRN pregabalin [Lyrica] 50 MG capsule 200 mg PO TID Qty: 90 5RF multivitamin [Daily Value] 1 EACH tablet 1 ea PO DAILY furosemide 20 mg tablet 20 mg PO DAILY PRN venlafaxine 75 mg capsule,extended release 24hr 75 mg PO DAILY ropinirole 0.5 MG tablet 5 mg PO TID ibuprofen [Advil] 200 MG tablet 1,000 mg PO DAILY PRN Eye Drop Tears 15 ML drops 1 drp OD PRN PRN acetaminophen 325 MG capsule 500 mg PO PRN PRN omega-3 fatty acids-fish oil 1 EACH capsule 1 ea PO DAILY magnesium oxide 500 MG capsule 500 mg PO BID potassium gluconate 600 MG tablet 1 tab PO DAILY trazodone 150 mg tablet 150 mg PO HS Label Comments: TAKE 1 TABLET BY MOUTH EVERY DAY AT BEDTIME duloxetine 60 mg capsule,delayed release(DR/EC) 60 mg PO DAILY Label Comments: TAKE ONE CAPSULE BY MOUTH EVERY MORNING Eliquis 5 mg tablet 1 tab PO BID gabapentin 300 mg capsule 600 mg PO TID Label Comments: TAKE TWO CAPSULES BY MOUTH THREE TIMES A DAY cyanocobalamin (vitamin B-12) [Vitamin B-12] 1,000 MCG tablet 1,000 mg PO DAILY lorazepam 1 mg Tablet 1 mg PO TID PRN tizanidine 2 mg Capsule 2 mg TID PRN pramipexole 0.75 mg Tablet 1.5 mg PO TID PRN melatonin 5 mg Tablet 5 mg PO HS fluticasone propion-salmeterol [Advair Diskus] 250-50 mcg/dose blister with device 1 inh INHALATION DIRECTED Label Comments: INHALE ONE PUFF BY MOUTH TWICE A DAY prednisone 10 mg tablet 10 mg PO DAILY Discharge Instructions Stand Alone Forms: Post-op Topical Cataract, Letty Corcoran (DSU) Discharge Orders Discharge Orders: Discharge Order (Routine); Ordered 06/18/22 Ordered By: Baron Freitas DS: Diagnosis Discharge Diagnosis (1) Cortical cataract of right eye: Status: Resolved (2) Nuclear sclerotic cataract of right eye: Status: Resolved (3) Posterior subcapsular age-related cataract, right eye: Status: Resolved
--- NOTE | 2022-06-18 08:38 | ROE_ITS ---
Date of service: 06/18/22 Time of Service: 08:38 Operative Note Operative Note DATE OF PROCEDURE: 06/18/22 PRE-OP DIAGNOSIS: Nuclear/cortical/posterior subcapsular cataract, right eye POST-OP DIAGNOSIS: same PROCEDURE: Cataract extraction using phacoemulsification with intraocular lens implant, right eye SURGEON: Baron Freitas ANESTHESIA TYPE: Local By Surgeon and MAC Refer to Anesthesia Record ESTIMATED BLOOD LOSS: 0 PATHOLOGY: none sent COMPLICATIONS: None Patient was transported to: same day Patient's condition: stable Implants: Julian & Julian/HORTENSIA Tecnis [id number] Indications: Progressive visual loss due to cataract, right eye Procedure Description: CATARACT SURGERY OPERATIVE REPORT PREOPERATIVE DIAGNOSIS: 1. Nuclear/cortical/posterior subcapsular cataract, right eye POSTOPERATIVE DIAGNOSIS: Same OPERATION: 1. Cataract extraction using phacoemulsification with posterior chamber intraocular lens implant, right eye. IOL: IOL Steam Service Inspector/Model: Julian & Julian / HORTENSIA Tecnis [id number] IOL Power: + 21.0 diopters IOL Serial Number: [id number] Optic Diameter: 6.0mm Haptic/Overall Diameter: 13.0mm PHACO INFO: Marcos Memetalesurion Vision System with OZil and Active Fluidics Cumulative Dispersed Energy (CDE): 7.79 seconds SURGEON: Baron Freitas MD, RANDY ANESTHESIA: Monitored Anesthesia Care (MAC), with local sub-tenon's anesthetic infiltration COMPLICATIONS: None SPECIMENS: None INDICATIONS FOR PROCEDURE: The patient is a 72-year-old lady with history of diminished visual acuity in her right eye secondary to the development of nuclear/cortical/posterior subcapsular cataract. The option of cataract surgery was offered to the patient and she wished to proceed. PROCEDURE: The correct surgical eye was identified and marked as the right eye and the pupil was dilated in the preoperative area using mydriatics and cycloplegics. The dilated pupil size was 5.0 mm. The patient elected to proceed without oral sedation. The patient was brought to the operating room where cardiopulmonary monitoring was instituted and surgical time-out was performed, confirming the correct operative eye and IOL power. Topical anesthesia was administered and ophthalmic povidone-iodine 5% was instilled into the conjunctival fornices. Lidocaine gel was applied to the cornea and the awilda-ocular area was prepped with Betadine 10% solution and draped in the usual sterile fashion for intraocular surgery, including an aperture drape. A Tegaderm transparent film dressing was cut in half and used to cover the lashes and lid margins. Care was taken to sequester the lashes and lid margins under the Tegaderm dressing. A lid speculum was placed between the lids of the operative eye and the Marcos LuxOR Revalia operating microscope was maneuvered into position. Sisi scissors were then used to make a conjunctival buttonhole approximately 6mm posterior to the limbus in the inferonasal quadrant. Blunt dissection was carried out to expose bare sclera, and a blunt-tipped sub-tenon?s anesthesia cannula was introduced and passed posteriorly along the globe where non- preserved plain lidocaine was injected into posterior sub-Tenon?s space. A sideport knife was used to make a paracentesis port inferotemporally. Intraocular phenylephrine/lidocaine was injected into the anterior chamber. The anterior chamber was filled with viscoelastic. A keratome knife was used to construct a 2-plane near-clear corneal tunnel extending 2.0mm into clear cornea superiortemporally. A flap was raised on the anterior capsule and capsulorhexis forceps were used to complete a continuous curvilinear capsulorhexis of 4.8 mm. Balanced salt solution was then used to perform cortical cleaving hydrodissection and nuclear hydrodelineation until the lens could be freely rotated within the capsular bag. The lens nucleus was then disassembled and removed within the capsular bag and iris plane using phacoemulsification. Residual cortical material was removed using the I/A handpiece. The posterior capsule was carefully polished to remove as much residual lens epithelial cells as safely possible. The capsular bag was then inflated and the anterior chamber deepened with viscoelastic. The lens implant described above was inserted into the capsular bag using the HORTENSIA [place] Injector. A Kuglen hook was used to dial the IOL into position. Residual viscoelastic was then removed first from posterior to the IOL, then from the anterior chamber using the I/A handpiece. The lens implant was noted to center nicely within the capsular bag. The incisions were stromally hydrated, and the anterior chamber was reformed using BSS. Then 0.5cc of moxifloxacin 1.0mg/ml were injected into the capsular bag and anterior chamber. The incisions were checked with a Weck spear and found to be secure. Several drops of ophthalmic povidone-iodine 5% were then applied to the eye followed by two drops of Imprimis combination prednisolone/moxifloxacin/nepafenac solution. The drapes were removed and a clear plastic protective eye shield was placed over the eye. The patient was then returned to Same Day Surgery in stable condition.
--- NOTE | 2022-06-18 08:54 | W.ANESPOSTOP ---
Postoperative Evaluation Date, Time and Location Date Performed: 06/18/22 Time Performed: 08:45 Patient Location: Day Surgery Unit Vital Signs Most Recent Imported Vital Signs: Most Recent Vital Signs Temp Pulse Resp BP Pulse Ox 36.2 C L 60 16 119/74 96 06/18/22 08:37 06/18/22 08:37 06/18/22 08:37 06/18/22 08:37 06/18/22 08:37 Pain Score Most Recent Pain Score: Most Recent Pain Score Pain Level 0 06/18/22 08:37 Assessment Mental Status: Awake (Alert & Oriented to Patient Baseline) (Pt. very sleepy at baseline, falling asleep during normal conversation. No anesthesia given. ) Airway and Respiratory Function: Patent airway with normal (patient baseline) respiratory exam Cardiovascular Function: Hemodynamically Stable Hydration Status: Adequately Hydrated Nausea & Vomiting: No Nausea or Vomiting Pain: Pt. Denies Any Pain Peripheral Nerve Block: Patient did not receive a nerve block
== END 2022-06-18 09:27 | disposition home or self-care (01) ==
LOC: SUR 06:46
PROVIDERS: PCP Registered Nurse; Visit Provider Ophthalmology
PROC: (CPT 66984; principal; 2022-06-18 08:30)
DX: H25.041 Posterior subcapsular polar age-related cataract, right eye (principal); J44.9 Chronic obstructive pulmonary disease, unspecified; E78.5 Hyperlipidemia, unspecified; I48.91 Unspecified atrial fibrillation; Z79.01 Long term (current) use of anticoagulants
CPT/HCPCS: 66984; V2632

== ENCOUNTER 2022-07-02 06:36 | Day surgery (SDC) | payer OTHER, SELFPAY ==
[2022-07-02] MEDS: Tropicam./Phenyleph. (1/2.5%) 5 ML BTL OS ×3 (07:17→07:36)
[2022-07-02 07:29] VITALS: BP 107/77; PULSE 54; RESP 16; TEMP 36.2; O2SAT 96
--- NOTE | 2022-07-02 07:45 | W.ANESPRE ---
General Info Date of Service Date Performed: 07/02/22 Height: 5 ft 7.75 in Weight: 117.3 kg Body Mass Index (BMI): 39.6 Surgical Procedure: Operation Date: 07/02/22 08:40 Proposed Procedure Side Surgeon p Cataract Extraction with IOL Implant Left Baron Freitas MD Meds Allergies and Home Medications Allergies Allergy/AdvReac Type Severity Reaction Status Date / Time prednisone Allergy Intermediate Other (See Unverified 06/28/22 15:39 Comment) Home Medication Medication Instructions Recorded albuterol sulfate 90 mcg/actuation 2 puff inhalation Q4H PRN 06/07/15 aerosol inhaler (ProAir HFA) fluticasone propionate 50 9.9 ml NS BID PRN 06/07/15 mcg/actuation nasal spray,suspension (Flonase Allergy Relief) lovastatin 20 mg tablet 40 mg PO DAILY 06/07/15 ropinirole 0.5 mg tablet 5 mg PO TID 01/18/16 ibuprofen 200 mg tablet (Advil) 1,000 mg PO DAILY PRN 08/08/16 peg [id number] 1 1 drp OD PRN PRN 08/08/16 %-0.2 %-0.2 % eye drops (Eye Drop Tears) cyanocobalamin (vitamin B-12) 1,000 mg PO DAILY 11/27/16 1,000 mcg tablet (Vitamin B-12) acetaminophen 325 mg capsule 500 mg PO PRN PRN 08/14/17 magnesium oxide 500 mg capsule 500 mg PO BID 08/14/17 omega-3 fatty acids-fish oil 360 1 ea PO DAILY 08/14/17 mg-1,200 mg capsule potassium gluconate 600 mg (99 mg) 1 tab PO DAILY 08/14/17 tablet pregabalin 50 mg capsule (Lyrica) 200 mg PO TID #90 caps 08/14/17 multivitamin (Daily Value tablet) 1 ea PO DAILY 04/08/18 lorazepam 1 mg tablet 1 mg PO TID PRN 06/03/19 melatonin 5 mg tablet 5 mg PO HS 06/03/19 pramipexole 0.75 mg tablet 1.5 mg PO TID PRN 06/03/19 tizanidine 2 mg capsule 2 mg TID PRN 06/03/19 duloxetine 60 mg capsule,delayed 60 mg PO DAILY 09/05/20 release trazodone 150 mg tablet 150 mg PO HS 09/05/20 fluticasone 250 mcg-salmeterol 50 1 inh inhalation DIRECTED 05/17/21 mcg/dose blistr powdr for inhalation (Advair Diskus) prednisone 10 mg tablet 10 mg PO DAILY 05/17/21 gabapentin 300 mg capsule 600 mg PO TID 02/22/22 metoprolol succinate 50 mg 50 mg PO DAILY 02/22/22 tablet,extended release 24 hr trazodone 150 mg tablet 150 mg PO QHS PRN 02/22/22 apixaban 5 mg tablet (Eliquis) 1 tab PO BID 06/15/22 furosemide 20 mg tablet 20 mg PO DAILY PRN 06/15/22 gabapentin 300 mg capsule 600 mg PO TID 06/15/22 venlafaxine 75 mg capsule,extended 75 mg PO DAILY 06/15/22 release 24 hr Current Visit Medications: Current Medications Generic Name Dose Route Start Last Admin Trade Name Freq PRN Reason Stop Dose Admin Acetaminophen 1,000 mg 07/02/22 06:00 Acetaminophen 500 Mg Tab PO Q4H PRN PRN Miscellaneous Medication 0 ml 07/02/22 06:00 Prednisolone 1%, Moxifloxacin 0.5%, Nepafenac 0.1% 5ml Btl OS DIRECTED [facility] Miscellaneous Medication 0 ml 07/02/22 06:00 07/02/22 07:36 Tropicam./Phenyleph. 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 Mcconnell 04/2022 Cervical nerve root disorder Not disorder: Per H&P (R) Cervical medial branch block Chronic pain syndrome COPD (chronic obstructive pulmonary disease) Depressive disorder Hyperlipidemia Lumbago with sciatica, left side Postural dizziness Pulmonary embolism 8 months ago r/t to diagnosis a-fib RLS (restless legs syndrome) Spinal stenosis Tobacco user Medical History Comments:: 06/18/22 pt anxious, verbalises she would like something to sedate/relax her. Pt had a cigarette t Midnight 06/18/22 Smoked marijuana 06/17/22 in the am. 07/02/22 pt reports # R foot 06/30/22 smoked marijuana Surgical History Surgical History (Updated 07/02/22 @ 07:10 by Vania Marquis RN) H/O exploratory laparotomy History of carpal tunnel release History of total bilateral knee replacement (TKR) Hx of cervical spine surgery Hx of colonoscopy Hx of rotator cuff surgery right Tobacco Smoking/Tobacco Use Status: Current every day Tobacco Type: cigarettes Smoking cigarettes per day: 6 Alcohol Alcohol Intake: current Alcohol intake frequency: holidays/special occasions only Substance Use Substance use: Rarely Substance use type: marijuana Details: Smoked marijuana 06/17/22 in the am. Smoked marijuana 06/30/22 Vital Signs and Lab Results Vital Signs Most Recent Vital Signs in EMR: Most Recent Vital Signs Temp Pulse Resp BP Pulse Ox 36.2 C L 54 L 16 107/77 96 07/02/22 07:29 07/02/22 07:29 07/02/22 07:29 07/02/22 07:29 07/02/22 07:29 Lab Results Blood Type / Crossmatch: No Data to Display Complete Blood Count: No Data to Display Complete Metabolic Panel: No Data to Display Liver Function Panel: No Data to Display Coagulation Panel: No Data to Display Cardiac Panel: No Data to Display Arterial Blood Gas: No Data to Display Venous Blood Gas: No Data to Display Pancreas Panel: No Data to Display Thyroid Panel: No Data to Display Infectious Disease: No Data to Display Blood Cultures: No Data to Display Toxicology Panel: No Data to Display Imaging and Studies Imaging and Studies Study information below may be from another EMR and interpreted by another provider. Please see original notes in EMR for more complete details. EKG Summary: DATE/TIME OF SERVICE: 05/17/21 1537 : 1950PERFORMING LOCATION: ER APPROVED REPORT Exam: Resting ECG Reason for Exam: feeling unwell Patient Location: E HR:66 bpm ECG Measurements Heart Rate 66 AXIS WA 61 P 203 QRSd 86 QRS 51 QT 427 T55 QTc 447 Conclusion Sinus or ectopic atrial rhythm...P axis (-45,135). Anesthesia Assessment and Plan Anesthesia History Personal History: No History of Anesthesia Complications Family History: No Family History of Anesthesia Complications Exercise Tolerance Exercise Tolerance: Metabolic Equivalents>4 Cardiac & Pulmonary Exam Cardiac Exam: Normal S1/S2 Heart Sounds Pulmonary Exam: Clear Bilateral Breath Sounds Implantable Cardiac Device Does patient have a Pacemaker or an ICD?: No Airway Exam Known Difficult Airway: No Mallampati Class: 1 Mouth Opening: Normal (> 3cm) Thyromental Distance: Greater than 3 cm Neck Range of Motion: Full ROM Neck Circumference: Normal Teeth Condition: Normal Dentition ASA Classification ASA Score: ASA 3 Emergency Case?: No NPO Status NPO Status: NPO Clears >2 hours, Solids >8 hours and NPO Clear Liquids>2 hours Anesthesia Plan Resuscitation Status: Full Code Anesthesia Technique: MAC Anesthesia Airway Planned: Natural Airway Monitors Used: Standard Monitors
[2022-07-02 07:46] VITALS: BMI 39.6
--- NOTE | 2022-07-02 08:00 | W.PM.DSUDISC ---
Discharge Plan Disposition Patient Disposition: HOME Condition: Good Discharge Details Attending Provider: Baron Freitas Primary Care Provider: Jenelle Goode Home Meds and New Rx's Prescriptions: No Action trazodone 150 mg tablet 150 mg PO QHS PRN gabapentin 300 mg capsule 600 mg PO TID metoprolol succinate 50 mg tablet extended release 24 hr 50 mg PO DAILY lovastatin 20 MG tablet 40 mg PO DAILY albuterol sulfate [ProAir HFA] 8.5 GM HFA aerosol inhaler 2 puff Inhalation Q4H PRN fluticasone propionate [Flonase Allergy Relief] 9.9 ML spray,suspension 9.9 ml NS BID PRN pregabalin [Lyrica] 50 MG capsule 200 mg PO TID Qty: 90 5RF multivitamin [Daily Value] 1 EACH tablet 1 ea PO DAILY furosemide 20 mg tablet 20 mg PO DAILY PRN venlafaxine 75 mg capsule,extended release 24hr 75 mg PO DAILY ropinirole 0.5 MG tablet 5 mg PO TID ibuprofen [Advil] 200 MG tablet 1,000 mg PO DAILY PRN Eye Drop Tears 15 ML drops 1 drp OD PRN PRN acetaminophen 325 MG capsule 500 mg PO PRN PRN omega-3 fatty acids-fish oil 1 EACH capsule 1 ea PO DAILY magnesium oxide 500 MG capsule 500 mg PO BID potassium gluconate 600 MG tablet 1 tab PO DAILY trazodone 150 mg tablet 150 mg PO HS Label Comments: TAKE 1 TABLET BY MOUTH EVERY DAY AT BEDTIME duloxetine 60 mg capsule,delayed release(DR/EC) 60 mg PO DAILY Label Comments: TAKE ONE CAPSULE BY MOUTH EVERY MORNING Eliquis 5 mg tablet 1 tab PO BID gabapentin 300 mg capsule 600 mg PO TID Label Comments: TAKE TWO CAPSULES BY MOUTH THREE TIMES A DAY cyanocobalamin (vitamin B-12) [Vitamin B-12] 1,000 MCG tablet 1,000 mg PO DAILY lorazepam 1 mg Tablet 1 mg PO TID PRN tizanidine 2 mg Capsule 2 mg TID PRN pramipexole 0.75 mg Tablet 1.5 mg PO TID PRN melatonin 5 mg Tablet 5 mg PO HS fluticasone propion-salmeterol [Advair Diskus] 250-50 mcg/dose blister with device 1 inh INHALATION DIRECTED Label Comments: INHALE ONE PUFF BY MOUTH TWICE A DAY prednisone 10 mg tablet 10 mg PO DAILY Discharge Instructions Stand Alone Forms: Post-op Topical Cataract, Letty Corcoran (DSU) Discharge Orders Discharge Orders: Discharge Order (Routine); Ordered 07/02/22 Ordered By: Baron Freitas DS: Diagnosis Discharge Diagnosis (1) Nuclear sclerotic cataract of left eye: Status: Resolved (2) Posterior subcapsular age-related cataract of left eye: Status: Resolved (3) Macular hole of left eye: Status: Chronic
--- NOTE | 2022-07-02 08:02 | W.PM.OP ---
Date of service: 07/02/22 Time of Service: 08:02 Operative Note Operative Note DATE OF PROCEDURE: 07/02/22 PRE-OP DIAGNOSIS: Dense nuclear/posterior subcapsular cataract, left eye Poor red reflex, left eye secondary to cataract Macular hole, left eye POST-OP DIAGNOSIS: same PROCEDURE: Cataract extraction using phacoemulsification with intraocular lens implant, left eye, using capsular staining with Vision Blue SURGEON: Baron Freitas ANESTHESIA TYPE: Local By Surgeon and MAC Refer to Anesthesia Record COMPLICATIONS: None Patient was transported to: same day Patient's condition: stable Implants: Julian and Julian / [employer] Tecnis [id number] Indications: Progressive decreased vision due to cataract, left eye, with poor red reflex Procedure Description: CATARACT SURGERY OPERATIVE REPORT PREOPERATIVE DIAGNOSIS: 1. Nuclear/posterior subcapsular cataract, left eye, dense 2. Poor red reflex secondary to #1 3. Macular hole, left eye POSTOPERATIVE DIAGNOSIS: Same OPERATION: 1. Cataract extraction using phacoemulsification with posterior chamber intraocular lens implant, left eye. 2. Capsular staining with Vision Blue IOL: IOL Sweater Operator/Model: Julian & Julian / HORTENSIA Tecnis [id number] IOL Power: + 20.5 diopters IOL Serial Number: [id number] Optic Diameter: 6.0 mm Haptic/Overall Diameter: 13.0 mm PHACO INFO: Marcos Centurion Vision System with OZil and Active Fluidics Cumulative Dispersed Energy (CDE): 23.87 seconds SURGEON: Baron Freitas MD, RNADY ANESTHESIA: Monitored A [facility] (MAC), with local sub-tenon's anesthetic infiltration COMPLICATIONS: None SPECIMENS: None INDICATIONS FOR PROCEDURE: Patient is a 78-year-old lady who has previously undergone cataract surgery in her right eye in 2019. She has a history of macular hole in the left eye with poor central visual acuity. She has a dense nuclear/posterior subcapsular cataract in the left eye. Cataract surgery is undertaken in attempt to improve and maximize her vision, although she understands that postoperative visual acuity will be limited by the presence of her pre-existing maculopathy. PROCEDURE: The correct surgical eye was identified and marked as the left eye and the pupil was dilated in the preoperative area using mydriatics and cycloplegics. The dilated pupil size was 6.0 mm. The patient elected to proceed without oral sedation. The patient was brought to the operating room where cardiopulmonary monitoring was instituted and surgical time-out was performed, confirming the correct operative eye and IOL power. Topical anesthesia was administered and ophthalmic povidone-iodine 5% was instilled into the conjunctival fornices. Lidocaine gel was applied to the cornea and the awilda-ocular area was prepped with Betadine 10% solution and draped in the usual sterile fashion for intraocular surgery, including an aperture drape. A Tegaderm transparent film dressing was cut in half and used to cover the lashes and lid margins. Care was taken to sequester the lashes and lid margins under the Tegaderm dressing. A lid speculum was placed between the lids of the operative eye and the Marcos LuxOR Revalia operating microscope was maneuvered into position. Sisi scissors were then used to make a conjunctival buttonhole approximately 6mm posterior to the limbus in the inferonasal quadrant. Blunt dissection was carried out to expose bare sclera, and a blunt-tipped sub-tenon?s anesthesia cannula was introduced and passed posteriorly along the globe where non-preserved plain lidocaine was injected into posterior sub-Tenon?s space. A sideport knife was used to make a paracentesis port superiorly/superiortemporally. Intraocular phenylephrine/lidocaine was injected int the anterior chamber.. Air was then injected into the anterior chamber, followed by Vision Blue, which was painted over the anterior capsule and then irrigated out using BSS. The anterior chamber was filled with viscoelastic. A keratome knife was used to create a 2-plane near clear corneal tunnel extending approximately 2 mm into clear cornea temporally. A flap was raised on the anterior capsule and capsulorhexis forceps were used to complete a continuous curvilinear capsulorhexis of 5.5 mm. Balanced salt solution was then used to perform cortical cleaving hydrodissection and nuclear hydrodelineation until the lens could be freely rotated within the capsular bag. The lens nucleus was then disassembled and removed within the capsular bag and iris plane using phacoemulsification. Residual cortical material was removed using the 45-degree angled silicone I/A tip with 0.3mm port. The posterior capsule was carefully polished to remove as much residual lens epithelial cells as safely possible. The capsular bag was then inflated and the anterior chamber deepened with viscoelastic. The lens implant described above was inserted into the capsular bag using the HORTENSIA [place] Injector. A Kuglen hook was used to dial the IOL into position. Residual viscoelastic was then removed first from posterior to the IOL, then from the anterior chamber using the I/A handpiece. The lens implant was noted to center nicely within the capsular bag. The incisions were stromally hydrated, and the anterior chamber was reformed using BSS. Then 0.5cc of moxifloxacin 1.0mg/ml were injected into the capsular bag and anterior chamber. The incisions were checked with a Weck spear and found to be secure. Several drops of ophthalmic povidone-iodine 5% were then applied to the eye followed by two drops of Imprimis combination prednisolone/moxifloxacin/nepafenac solution. The drapes were removed and a clear plastic protective eye shield was placed over the eye. The patient was then returned to Same Day Surgery in stable condition.
[2022-07-02] MEDS: Tetracaine 0.5% 4 ML BTL OS (08:23)
[2022-07-02] MEDS: Balanced Salt Soln.-PLUS 500 ML BAG (08:23)
[2022-07-02] MEDS: Lidocaine 2% Jelly 6 ML SYR (08:24)
[2022-07-02] MEDS: Povidone-Iodine Ophth 30 ML BTL (08:25)
[2022-07-02 08:41] VITALS: BP 133/71; PULSE 54; TEMP 36.1; O2SAT 100
--- NOTE | 2022-07-02 08:45 | W.PM.OP ---
Date of service: 07/02/22 Time of Service: 08:45 Operative Note Operative Note DATE OF PROCEDURE: 07/02/22 PRE-OP DIAGNOSIS: Nuclear/cortical/posterior subcapsular cataract, left eye POST-OP DIAGNOSIS: same PROCEDURE: [employer] [id number] SURGEON: Baron Freitas ANESTHESIA TYPE: Local By Surgeon and MAC Refer to Anesthesia Record PATHOLOGY: none sent COMPLICATIONS: None Patient was transported to: same day Patient's condition: stable Implants: [employer] / [employer] [id number] Indications: Progressive decreased vision due to cataract, left eye Procedure Description: CATARACT SURGERY OPERATIVE REPORT PREOPERATIVE DIAGNOSIS: 1. Nuclear/cortical/posterior subcapsular cataract, left eye POSTOPERATIVE DIAGNOSIS: Same OPERATION: 1. Cataract extraction using phacoemulsification with posterior chamber intraocular lens implant, left eye. IOL: IOL Wood Heel Flap Rubber/Model: Julian [employer] Julian / HORTENSIA Tecnis [id number] IOL Power: + 22.0 diopters IOL Serial Number: [id number] Optic Diameter: 6.0 mm Haptic/Overall Diameter: 13.0 mm PHACO INFO: [employer] Vision System with OZil and Active Fluidics Cumulative Dispersed Energy (CDE): 5.65 seconds SURGEON: Baron Freitas MD, RANDY ANESTHESIA: Monitored [facility] ([facility]), with local sub-tenon's anesthetic infiltration COMPLICATIONS: None SPECIMENS: None INDICATIONS FOR PROCEDURE: The patient is a 72-year-old lady with history of diminished visual acuity in her left eye secondary to the development of nuclear/cortical/posterior subcapsular cataract. She has already undergone cataract surgery in her right eye and is doing well postoperatively. She now presents for cataract surgery in the left eye. PROCEDURE: The correct surgical eye was identified and marked as the left eye and the pupil was dilated in the preoperative area using mydriatics and cycloplegics. The dilated pupil size was 6.5 mm. Oral sedation was administered in the form of an Imprimis MKO Melt (midazolam 3mg/ketamine 25mg/ondansetron 2mg). The patient was brought to the operating room where cardiopulmonary monitoring was instituted and surgical time-out was performed, confirming the correct operative eye and IOL power. Topical anesthesia was administered and ophthalmic povidone-iodine 5% was instilled into the conjunctival fornices. Lidocaine gel was applied to the cornea and the awilda-ocular area was prepped with Betadine 10% solution and draped in the usual sterile fashion for intraocular surgery, including an aperture drape. A Tegaderm transparent film dressing was cut in half and used to cover the lashes and lid margins. Care was taken to sequester the lashes and lid margins under the Tegaderm dressing. A lid speculum was placed between the lids of the operative eye and the Marcos [employer] operating microscope was maneuvered into position. Sisi scissors were then used to make a conjunctival buttonhole approximately 6mm posterior to the limbus in the inferonasal quadrant. Blunt dissection was carried out to expose bare sclera, and a blunt-tipped sub-tenon?s anesthesia cannula was introduced and passed posteriorly along the globe where non-preserved plain lidocaine was injected into posterior sub-Tenon?s space. A sideport knife was used to make a paracentesis port superiorly/superiortemporally. Intraocular phenylephrine/lidocaine was injected int the anterior chamber.. The anterior chamber was filled with viscoelastic. A keratome knife was used to construct a 2-plane near-clear corneal tunnel extending 2.0mm into clear cornea temporally. A flap was raised on the anterior capsule and capsulorhexis forceps were used to complete a continuous curvilinear capsulorhexis of 5.0 mm. Balanced salt solution was then used to perform cortical cleaving hydrodissection and nuclear hydrodelineation until the lens could be freely rotated within the capsular bag. The lens nucleus was then disassembled and removed within the capsular bag and iris plane using phacoemulsification. Residual cortical material was removed using the 45-degree angled silicone I/A tip with 0.3mm port. The posterior capsule was carefully polished to remove as much residual lens epithelial cells as safely possible. The capsular bag was then inflated and the anterior chamber deepened with viscoelastic. The lens implant described above was inserted into the capsular bag using the [employer]ENSIA [place] Injector. A Kuglen hook was used to dial the IOL into position. Residual viscoelastic was then removed first from posterior to the IOL, then from the anterior chamber using the I/A handpiece. The lens implant was noted to center nicely within the capsular bag. The incisions were stromally hydrated, and the anterior chamber was reformed using BSS. Then 0.5cc of moxifloxacin 1.0mg/ml were injected into the capsular bag and anterior chamber. The incisions were checked with a Weck spear and found to be secure. Several drops of ophthalmic povidone-iodine 5% were then applied to the eye followed by two drops of Imprimis combination prednisolone/moxifloxacin/nepafenac solution. The drapes were removed and a clear plastic protective eye shield was placed over the eye. The patient was then returned to Same Day Surgery in stable condition.
--- NOTE | 2022-07-02 08:51 | W.ANESPOSTOP ---
Postoperative Evaluation Date, Time and Location Date Performed: 07/02/22 Time Performed: 08:46 Patient Location: Day Surgery Unit Vital Signs Most Recent Imported Vital Signs: Most Recent Vital Signs Temp Pulse Resp BP Pulse Ox 36.1 C L 54 L 16 133/71 100 07/02/22 08:41 07/02/22 08:41 07/02/22 07:29 07/02/22 08:41 07/02/22 08:41 Pain Score Most Recent Pain Score: Most Recent Pain Score Pain Level 7 07/02/22 07:29 Assessment Mental Status: Awake (Alert & Oriented to Patient Baseline) Airway and Respiratory Function: Patent airway with normal (patient baseline) respiratory exam Cardiovascular Function: Hemodynamically Stable Hydration Status: Adequately Hydrated Nausea & Vomiting: No Nausea or Vomiting Pain: Pt. Denies Any Pain Peripheral Nerve Block: Patient did not receive a nerve block
[2022-07-02 09:09] VITALS: BP 101/57; PULSE 56; RESP 14; TEMP 36.1; O2SAT 98
== END 2022-07-02 10:45 | disposition home or self-care (01) ==
LOC: SUR 06:37
PROVIDERS: PCP Registered Nurse; Visit Provider Ophthalmology
PROC: (CPT 66982; principal; 2022-07-02 08:30)
DX: H25.042 Posterior subcapsular polar age-related cataract, left eye (principal); H26.8 Other specified cataract; H35.342 Macular cyst, hole, or pseudohole, left eye; J44.9 Chronic obstructive pulmonary disease, unspecified; F17.210 Nicotine dependence, cigarettes, uncomplicated
CPT/HCPCS: 66982; V2632

== ENCOUNTER 2022-08-01 13:44 | Outpatient (CLI) | payer OTHER, SELFPAY ==
--- NOTE | 2022-08-01 06:00 | DI.RAD_ITS ---
Exam(s) XR PAIN CLINIC LUMBAR SP 2V EXAM: XR PAIN CLINIC LUMBAR SP 2V CLINICAL HISTORY: Dx: Lumbar Spondylosis TECHNIQUE: 2D and realtime digital imaging was performed. Radiologist not present. CONTRAST MATERIAL: None. COMPARISON: No exams were available for comparison FINDINGS: Fluoroscopy was provided for pain management therapy. Please refer to procedure report or details. Cumulative dose: Ka,r=24.7 mGy IMPRESSION: RADIATION DOSE DELIVERED:
[2022-08-01 14:11] VITALS: BP 98/62; PULSE 54; RESP 20; TEMP 37; O2SAT 96
--- NOTE | 2022-08-01 15:12 | PDOC.PAIN_ITS ---
Pain Clinic Procedure Note Procedure Note Procedure Note: Lumbar/Sacral Medial Branch Blocks #1 Marzena Cancino has been referred to the [facility] for lumbar/sacral medial branch blocks. COMMENTS: She was seen by Neurosurgery who sent her here for this procedure. Her pre-procedure pain VAS was 10/10. Dx: Lumbosacral spondylosis without myelopathy Patient was interviewed and the medical record reviewed. There were no medical, pharmacologic, radiographic or other structural contraindications to attempting fluoroscopically guided local anesthetic lumbar/sacral medial branch blocks. Risks and expected side effects as well as potential benefit of the procedure were reviewed and voiced concerns addressed. The printed consent form was signed and witnessed. Standard time-out procedure was performed. Patient was placed in the prone position on the fluoroscopy table and automated blood pressure cuff and pulse oximeter applied. The skin entry points for approaching the anatomic target points of the segmental medial branches of the bilateral L3, L4, and L5DR were identified with anfluoroscopy and marked. Following thorough Chlorhexadine preparation of the skin and draping, a 25 gauge spinal needle was placed under fluoroscopic guidance down on to the target point for each respective segmental medial branch.Position was confirmed in A/P, oblique and lateral views with 0.25ml of omnipaque 240. At this point I injected 0.5ml of 0.5% Bupivacaine at each segmental sensory nerve. Vital signs were stable throughout the procedure and were as recorded in the docflowsheet by the nursing staff. Follow up plans and appointments were discussed and was instructed to keep careful note of how the usual pain was modified by these injections. Specifically was asked to keep a pain diary for the next 24 hours using a numeric pain scale of 0-10 and report these results at the follow-up visit. Post procedure instruction was given as documented in the nursing documentation and having met discharge criteria. Patient was [facility] from the [facility]. Based on the medial branches blocked today, if the patient has adequate relief and we are able to proceed to radiofrequency ablation, the treatment should result in the denervation of the bilateral L4-L5 and L5-S1 FACET JOINTS. We would expect to denervate a total of 4 facets during the radiofrequency ablation. COMMENTS: Post-procedure pain VAS was 8/10 Marty Hernandez DO, MPH [facility] CC: Jenelle Goode
[2022-08-01] MEDS: Bupivacaine 0.5% Pres-Free 10 ML VIAL IJ (15:20)
[2022-08-01] MEDS: Omnipaque 240 MG/ML 50 ML BTL IJ (15:20)
[2022-08-01 15:23] VITALS: BP 120/71; PULSE 54; RESP 12; O2SAT 97
== END 2022-08-01 13:45 | disposition home or self-care (01) ==
LOC: PC 13:45
PROVIDERS: PCP Registered Nurse; Visit Provider Preventive Medicine Occupational Medicine
DX: M47.817 Spondylosis without myelopathy or radiculopathy, lumbosacral region (principal); M54.50 Low back pain, unspecified
CPT/HCPCS: 64493; 64494; 72100; Q9967

== ENCOUNTER 2022-09-13 02:30 | Outpatient (CLI) | payer OTHER, SELFPAY ==
--- NOTE | 2022-09-13 07:45 | DI.MRI_ITS ---
Exam(s) MR LUMBAR SPINE WO EXAM: MR LUMBAR SPINE WO CLINICAL HISTORY: Low back pain radiating down the lat left leg to f,radiculopathy,m54.16. TECHNIQUE: Multiplanar multisequence MRI was performed. COMPARISON: MR MR_LUMBAR SPINE WO/CONTRAST from 10/20/2008 FINDINGS: MR examination of the lumbosacral spine was performed according to the usual protocol. There is loss of the disc height of intervertebral discs throughout the lower thoracic and lumbar reg ion. There are moderate endplate and facet hypertrophic degenerative changes seen throughout. There is an old mild L1 vertebral compression fracture. Conus medullaris appears intact. There is prominence of the disc osteophyte complex at T10 T11 and at T11-T12. No disc herniation, ce ntral canal spinal stenosis, or neural foraminal stenosis at these levels. At T12-L1, there is moderate disc bulge. No central canal spinal stenosis, neural foraminal stenosis , or disc herniation. At L1-2, there is prominence of the disc osteophyte complex and borderline central canal spinal steno sis. No disc herniation or neural foraminal stenosis. At L2-3, there is mild prominence of the disc osteophyte complex. No disc herniation, central canal spinal stenosis, or neural foraminal stenosis. At L3-4, there is an apparent disc herniation projected inferior to the disc level on the right. Thi s occupies the right lateral recess and may cause impingement on neural structures at this level. Th e neural foramina bilaterally appear mildly narrowed. At L4-5, there is moderate to severe central canal spinal stenosis secondary to prominence of the dis c osteophyte complex and facet hypertrophy. No gross disc herniation. Neural foramina appear narrow ed bilaterally. At L5-S1, there is a moderate disc bulge. There is no significant central canal spinal stenosis, or disc herniation. There does appear to be mild right-sided neural foraminal narrowing at L5-S1 period IMPRESSION: Multilevel degenerative changes with multilevel neural foraminal stenosis and central canal spinal st enosis. Please see above discussion for details at individual levels. The most severe changes are n oted at the L4-5 level where there is a moderate to severe central canal spinal stenosis and bilatera l neural foraminal stenosis DATA REPOSITORY:
== END 2022-09-13 02:50 ==
LOC: DI 02:31
PROVIDERS: PCP Registered Nurse; Visit Provider Preventive Medicine Occupational Medicine
DX: M47.816 Spondylosis without myelopathy or radiculopathy, lumbar region (principal)
CPT/HCPCS: 72148

== ENCOUNTER 2022-11-02 14:17 | Outpatient (CLI) | payer OTHER, SELFPAY ==
--- NOTE | 2022-11-02 14:15 | RT.EKG_ITS ---
APPROVED REPORT Exam: Resting ECG Reason for Exam: npw baseline needed Patient Location: O HR:58 bpm ECG Measurements Heart Rate 58 AXIS TX 162 P 64 QRSd 87 QRS 36 QT 433 T 25 QTc 426 Conclusion Sinus rhythm...normal P axis, V-rate 50- 99 Normal Electrocardiogram
== END 2022-11-02 14:18 | disposition home or self-care (01) ==
LOC: DI.CARD 14:23
PROVIDERS: PCP Registered Nurse; Visit Provider Internal Medicine Cardiovascular Disease
DX: I48.91 Unspecified atrial fibrillation (principal)
CPT/HCPCS: 93010

== ENCOUNTER → 2022-11-02 14:23 | Outpatient (BNVA) | payer OTHER, SELFPAY | PROVIDERS: PCP Registered Nurse; Referring Provider Registered Nurse; Visit Provider Internal Medicine Cardiovascular Disease | DX: I48.0 Paroxysmal atrial fibrillation (principal); Z79.01 Long term (current) use of anticoagulants | CPT/HCPCS: 93005; 99202; 99214 ==

== ENCOUNTER → 2023-02-08 11:49 | Outpatient (BNVA) | payer OTHER, SELFPAY | PROVIDERS: Visit Provider Internal Medicine Cardiovascular Disease | DX: R60.0 Localized edema (principal); I48.0 Paroxysmal atrial fibrillation; Z79.01 Long term (current) use of anticoagulants | CPT/HCPCS: 99214 ==

== ENCOUNTER 2023-12-29 07:32 | Emergency (ER) | payer OTHER, SELFPAY ==
[2023-12-29] VITALS (33 sets, daily range): BP systolic 153–177; BP diastolic 71–99; PULSE 76–108; RESP 10–29; TEMP 36–37.1; O2SAT 93–98
--- NOTE | 2023-12-29 07:30 | RT.EKG_ITS ---
APPROVED REPORT Exam: Resting ECG Reason for Exam: sob Patient Location: E HR:97 bpm ECG Measurements Heart Rate 97 AXIS NV 169 P 54 QRSd 93 QRS 49 QT 388 T 29 QTc 490 Conclusion Sinus rhythm...normal P axis, V-rate 60- 99 Atrial premature complexes in couplets...pair SV complexes w/ short R-R
--- NOTE | 2023-12-29 07:45 | DI.RAD_ITS ---
Exam(s) XR CHEST 2V PA LATERAL EXAM: XR CHEST 2V PA LATERAL CLINICAL HISTORY: dyspnea TECHNIQUE: 2D digital imaging was performed of the chest. Three images were obtained. PA and later al views were obtained. COMPARISON: CR,XR XR CHEST 2V PA LATERAL from 05/17/2021 FINDINGS: MEDIASTINUM: Normal. HEART: Cardiomegaly. PULMONARY VASCULATURE: Normal. LUNGS: There is increased opacity in the posterior aspect of the lungs on the lateral view. The legs are otherwise clear. PLEURAL SPACE: No pleural effusion or pneumothorax. BONE:Within normal limits for the patient's age. Cervical spine surgery OTHER FINDINGS:Normal. IMPRESSION: 1. Opacity seen in the posterior costophrenic angle on the lateral view. This may represent pulmonar y edema or infiltrate. 2. Cardiomegaly. 3. No pleural effusions. DATA REPOSITORY: RADIATION DOSE DELIVERED:
--- NOTE | 2023-12-29 07:57 | W.ED.GENAD ---
HPI General Mode of arrival: wheelchair. Date/Time Provider Initiated Documentation: 12/29/23 07:34. Limitations to Documentation: no limitations. Information obtained by: patient. History of Present Illness 73 year old F presents to the emergency department with the chief complaint of Shortness of breath, described as moderate, Patient started experiencing this month(s) (2) and it has been intermittent. Rest improves symptom(s), Movement worsens symptoms . Patient notes cough; denies chest pain and fever/chills. Patient did receive the following treatments prior to arrival, none Related Data Home Medications Medication Instructions Recorded Confirmed albuterol sulfate 90 mcg/actuation 2 puff inhalation Q4H PRN 06/07/15 12/29/23 aerosol inhaler (ProAir HFA) lovastatin 20 mg tablet 40 mg PO DAILY 06/07/15 12/29/23 ropinirole 0.5 mg tablet 5 mg PO TID 01/18/16 12/29/23 ibuprofen 200 mg tablet (Advil) 1,000 mg PO DAILY PRN 08/08/16 12/29/23 acetaminophen 325 mg capsule 500 mg PO PRN PRN 08/14/17 12/29/23 magnesium oxide 500 mg capsule 500 mg PO BID 08/14/17 12/29/23 lorazepam 1 mg tablet 1 mg PO TID PRN 06/03/19 12/29/23 tizanidine 2 mg capsule 2 mg PO TID PRN 06/03/19 12/29/23 trazodone 150 mg tablet 150 mg PO HS 09/05/20 12/29/23 fluticasone 250 mcg-salmeterol 50 1 inh inhalation DIRECTED 05/17/21 12/29/23 mcg/dose blistr powdr for inhalation (Advair Diskus) metoprolol succinate 50 mg 50 mg PO DAILY 02/22/22 12/29/23 tablet,extended release 24 hr apixaban 5 mg tablet (Eliquis) 1 tab PO BID 06/15/22 12/29/23 gabapentin 300 mg capsule 600 mg PO TID 06/15/22 12/29/23 venlafaxine 75 mg capsule,extended 75 mg PO DAILY 06/15/22 12/29/23 release 24 hr torsemide 20 mg tablet 20 mg PO BID #180 tabs 03/31/23 02/18/24 levofloxacin 750 mg tablet 750 mg PO DAILY #5 tabs 12/29/23 prednisone 20 mg tablet 60 mg (3 x 20 mg) PO DAILY 4 days 12/29/23 #12 tabs Previous Rx's Medication Instructions Recorded torsemide 20 mg tablet 20 mg PO BID #180 tabs 02/08/23 levofloxacin 750 mg tablet 750 mg PO DAILY #5 tabs 12/29/23 prednisone 20 mg tablet 60 mg (3 x 20 mg) PO DAILY 4 days 12/29/23 #12 tabs Allergies Allergy/AdvReac Type Severity Reaction Status Date / Time No Known Allergies Allergy Verified 12/29/23 07:56 General Stated Complaint: GenMedical SIDNEY: 3 Review of Systems All systems reviewed & are unremarkable except as noted in HPI and below Constitutional Constitutional: Denies chills, Denies fever(s) and Denies weakness Cardiovascular Cardiovascular: Denies chest pain and Reports dyspnea Respiratory Respiratory: Reports cough and Reports dyspnea Gastrointestinal Gastrointestinal: Denies abdominal pain, Denies nausea and Denies vomiting Musculoskeletal Musculoskeletal: Denies joint swelling Integumentary/Breasts Skin/Breast: Denies rash Neurologic Neurologic: Denies weakness Exam Const General: no acute distress Orientation: alert [facility] Head: normal to inspection Ears: external ears normal General nose exam: external nose normal Mouth: moist mucous membranes Eyes General: appearance normal, both eyes and all related structures Neck Neck: normal visual inspection Resp Effort & Inspection: normal respiratory effort and able to speak in complete sentences Auscultation: clear to auscultation bilaterally Cardio Jugular venous pressure: no JVD Rate: regular rate Heart Sounds: no murmurs GI Palpation: soft and nontender Skin General skin exam: no rashes or lesions noted Neuro General: patient alert and patient oriented x3 Extrem General: normal to inspection Psych Mental Status: mental status grossly normal Course Vital Signs Vital signs: Vital Signs Temperature 37.1 C 12/29/23 07:41 Pulse 101 H 12/29/23 07:41 Respiratory Rate 12/29/23 07:41 Blood Pressure 177/99 H 12/29/23 07:41 Pulse Oximetry 94 12/29/23 07:41 Temperature 37.1 C 12/29/23 07:45 Temperature Source Temporal Artery Scan 12/29/23 07:45 Pulse 101 H 12/29/23 07:45 Respiratory Rate 12/29/23 07:45 Respiratory Effort Short of Breath, Labored, Incrsd Work of Breathing 12/29/23 07:50 Blood Pressure 177/99 H 12/29/23 07:45 Blood Pressure Position Supine 12/29/23 07:45 Pulse Oximetry 94 12/29/23 07:45 Oxygen Delivery Method Room Air 12/29/23 07:45 Oxygen Flow Rate 0 12/29/23 07:45 Pain Level 10 12/29/23 07:45 Medical Decision Making 73-year-old female with a history of atrial fibrillation on Eliquis, COPD, former smoker, who was previously on diuretics but she says she does not take them anymore, chronic pain syndrome in her neck back and hip after surgery few months ago, for which she sees the pain clinic at [facility], comes in with shortness of breath intermittently for 2 months. She denies any chest pain, fevers, has had a dry cough for a few weeks. She is also complaining of her chronic left hip and back and neck pain. She denies any new falls and states her pain is at her baseline. She does have edema of both lower extremities, which she says has been going on for years. She has no calf tenderness, legs are equal in size, intact sensation distally. She does have wheezing at the apices bilaterally on exam, on bedside ultrasound LV function appears normal, no pericardial effusion. Given her leg swelling and she was previously on diuretics we will administer a dose of Lasix, given her history of COPD and wheezing we will give her a DuoNeb and Solu-Medrol, and also obtain an EKG, troponin, CBC, CMP, and chest x-ray. She is not hypoxic, not tachycardic, has no pleuritic chest pain, and is already on anticoagulation so doubt PE at this time Labs show hemoglobin of 8.3 similar to when she was seen at [facility] yesterday for similar complaints. VBG unremarkable cMP unremarkable, troponin negative, proBNP is elevated at 2300, chest x-ray pending X-ray shows question of density in the lower lungs which could be due to edema or infiltrate, patient has not been taking her torsemide as she was trying to confirm with her doctor if she should be taking this. She also notes she is taking iron supplements for her anemia. She feels significantly better and request discharge. She is sitting in her bed in no distress eating breakfast and appears well. Given prolonged symptoms do not feel delta troponin indicated. I will have her start her torsemide, and also started on a short course of prednisone and levofloxacin. Advised to follow-up with her pain doctor and her primary care provider, return precautions given Differential Diagnosis Differential Diagnosis: CHF, COPD, NSTEMI, pneumonia, chronic pain syndrome Medical Records Medical records reviewed: Yes I reviewed the patient's medical records. Imaging Data Radiologic Study: Attestation: I personally reviewed and interpreted this imaging study as follows: Imaging: X-Ray Radiologist's impression: IMPRESSION: Increased density in lower lungs posteriorly could be due to edema or infiltrate. Lab Data Lab results reviewed: Yes I reviewed the patient's lab results. 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 Mcconnell 04/2022 Hyperlipidemia Lumbago with sciatica, left side Surgical History (Updated 02/08/23 @ 12:50 by Raiza Fajardo RN) 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) History of abdominal surgery (01/21/17) Hx of cholecystectomy H/O cone biopsy of cervix History of breast biopsy Hx of rotator cuff surgery right History of total bilateral knee replacement (TKR) History of carpal tunnel release H/O exploratory laparotomy Hx of cervical spine surgery Hx of colonoscopy Social History Smoking/Tobacco Use Status: Current-Occasional Tobacco Type: cigarettes Smoking risk assessment performed?: Yes Alcohol Intake: former Drug use: Rarely Substance use type: marijuana Details: two days ago Do you feel safe at home: Yes (lives with sister) Do you feel safe in your relationship?: Yes Discharge Plan Disposition Patient Disposition: Home Condition: Stable Discharge Details Clinical Impression: Lumbar radiculopathy, Shortness of breath Primary Care Provider: Unknown,Unknown ED Provider: Talib De Leon Home Meds and New Rx's Prescriptions: New prednisone 20 mg tablet 60 mg PO DAILY 4 Days Qty: 12 0RF levofloxacin 750 mg tablet 750 mg PO DAILY Qty: 5 0RF Continued torsemide 20 mg tablet 20 mg PO BID Qty: 180 3RF Hold Instructions: Pt Stopped/Never Started Patient Comments: pt holding med until confirmed by metoprolol succinate 50 mg tablet extended release 24 hr 50 mg PO DAILY lovastatin 20 MG tablet 40 mg PO DAILY albuterol sulfate [ProAir HFA] 8.5 GM HFA aerosol inhaler 2 puff Inhalation Q4H PRN venlafaxine 75 mg capsule,extended release 24hr 75 mg PO DAILY ropinirole 0.5 MG tablet 5 mg PO TID ibuprofen [Advil] 200 MG tablet 1,000 mg PO DAILY PRN acetaminophen 325 MG capsule 500 mg PO PRN PRN magnesium oxide 500 MG capsule 500 mg PO BID trazodone 150 mg tablet 150 mg PO HS Patient Comments: TAKE 1 TABLET BY MOUTH EVERY DAY AT BEDTIME Eliquis 5 mg tablet 1 tab PO BID gabapentin 300 mg capsule 600 mg PO TID Patient Comments: TAKE TWO CAPSULES BY MOUTH THREE TIMES A DAY lorazepam 1 mg Tablet 1 mg PO TID PRN tizanidine 2 mg Capsule 2 mg PO TID PRN fluticasone propion-salmeterol [Advair Diskus] 250-50 mcg/dose blister with device 1 inh INHALATION DIRECTED Patient Comments: INHALE ONE PUFF BY MOUTH TWICE A DAY Discharge Instructions Additional Instructions: You are being treated for possible early lung infection I would recommend starting your torsemide Follow-up with your primary care provider and pain clinic provider within 1 to 2 weeks Feel more ill, have worsening shortness of breath or new symptoms such as severe chest pain return to the emergency department for reevaluation POCUS Exam (ED) Limited Cardiac Exam DATE OF EXAM: 12/29/23 TIME OF EXAM: 07:59 PROVIDER THAT PERFORMED THE STUDY: Talib De Leon REASON FOR EXAM: Dyspnea VISUALIZED STRUCTURES: Four Chambers VIEW OBTAINED: Parasternal long-axis and Subxiphoid PERTINENT FINDINGS/IMPRESSION: No LV dysfunction and No pericardial effusion Exam complete
[2023-12-29 08:04] LABS: BE (Venous) 2 mmol/L (-2-3); HCO3 (Venous) 27 mmol/L (23-28); O2 Sat (Venous) 57 %; TCO2 (Venous) 26 mmol/L (24-29); pCO2 (Venous) 45 mmHg (41-51); pH (Venous) 7.38 (7.31-7.41); pO2 (Venous) 32 mmHg
[2023-12-29 08:06] LABS: Abs Immature Grans 0.16 10^3/uL (0.0-0.06); Absolute Basophil Count 0.05 10^3/uL (0.0-0.2); Absolute Eosinophil Count 0.08 10^3/uL (0.0-0.7); Absolute Lymphocyte Count 1.09 10^3/uL (1.2-3.4); Absolute Neutrophil Count 7.16 10^3/uL (1.2-6.7); Basophils % 0.5; Eosinophils % 0.9; HCT 28.6 % (36.0-46.0); HGB 8.3 g/dL (11.2-15.7); Immature Grans % 1.7; Lymphocytes % 11.8; MCV 79 fL (80-95); MPV 8.1 fL (8.0-11.0); Monocytes % 7.6; Neutrophils % 77.5; Platelet Count 439 10^3/uL (130-400); RBC 3.61 10^6/uL (3.93-5.22); RDW-SD 52.3 fL; WBC 9.24 10^3/uL (4.4-10.8)
[2023-12-29] MEDS: HYDROmorphone 2 MG/ML SYR 1 MG IVP ×2 (08:13→10:10)
[2023-12-29 08:19] LABS: INR 1.2 (0.9-1.1); PTT Activated 36.5 sec (23.6-32.8); Prothrombin Time 11.5 sec (9.1-11.1)
[2023-12-29] MEDS: Furosemide 40 MG/4 ML VIAL IVP (08:19)
[2023-12-29 08:20] LABS: Diff Comment Diff Reviewed; Hypochromasia 2+; Poikilocytes 1+; Polychromasia Present
[2023-12-29] MEDS: methylPREDNISolone SUCC 125 MG VIAL IVP (08:24)
[2023-12-29] MEDS: Normal Saline Flush 10 ML SYR IVP ×2 (08:24→09:20)
[2023-12-29] MEDS: Albuterol/Ipratropium 3 ML UPD VIAL UPD (08:27)
[2023-12-29 08:32] LABS: ALT 26 U/L (14-59); AST 25 U/L (15-37); Albumin 2.9 g/dL (3.4-5.0); Alkaline Phosphatase 164 U/L (46-116); Anion Gap 13.2 mmol/L (3-11); BUN 16 mg/dL (7-18); Bilirubin, Total 0.4 mg/dL (0.2-1.0); CO2 25.8 mmol/L (21.0-32.0); CREATININE 0.8 mg/dL (0.55-1.02); Calcium 9.2 mg/dL (8.5-10.1); Chloride 103 mmol/L (98-107); Estimated GFR 77.75 (mL/min/1.73m2); Glucose 99 mg/dL (74-106); Magnesium 2.2 mg/dL (1.8-2.4); NT-proBNP 2319 pg/mL (<300); Potassium 3.9 mmol/L (3.5-5.1); Sodium 142 mmol/L (136-145); Total Protein 7.6 g/dL (6.4-8.2); Troponin I < 50 ng/L (< or =60)
--- NOTE | 2023-12-29 08:52 | NUR.NOTE ---
purewick applied after administration of furosemide Nursing Note:
[2023-12-29] MEDS: diazePAM 10 MG/2 ML SYR 5 MG IM (09:19)
--- NOTE | 2023-12-29 10:02 | DI.VRAD_ITS ---
PROCEDURE INFORMATION: Exam: XR Chest Exam date and time: 12/29/2023 9:42 AM Age: 73 years old Clinical indication: Other: Dyspnea TECHNIQUE: Imaging protocol: Radiologic exam of the chest. Views: 2 views. COMPARISON: CR XR CHEST 2V PA LATERAL 05/17/2021 4:32 PM FINDINGS: Lungs: Increased density in lower lungs posteriorly could be due to edema or infiltrate. Pleural spaces: Unremarkable. No pleural effusion. No pneumothorax. Heart/Mediastinum: Cardiomegaly. Vasculature: Aortic calcifications. Bones/joints: Postoperative changes in the cervical spine. Degenerative arthritis in the thoracic spine. Intraperitoneal space: Surgical clips in the abdomen. Other findings: Shallow inspiration. IMPRESSION: Increased density in lower lungs posteriorly could be due to edema or infiltrate. Dictated and Authenticated by: Katelin Loera MD. Ordering:FERNANDEZ Mayers MD
--- NOTE | 2023-12-29 10:26 | NUR.NOTE ---
meal tray provided to patient Nursing Note:
[2023-12-29] MEDS: levoFLOXacin 500 MG, levoFLOXacin 250 MG 750 MG PO (10:33)
== END 2023-12-29 11:09 | disposition home or self-care (01) ==
LOC: ER 10:39
PROVIDERS: Emergency Provider Emergency Medicine
DX: M54.16 Radiculopathy, lumbar region (principal); I51.7 Cardiomegaly; J44.9 Chronic obstructive pulmonary disease, unspecified; I48.0 Paroxysmal atrial fibrillation; E78.5 Hyperlipidemia, unspecified; F17.210 Nicotine dependence, cigarettes, uncomplicated; Z79.01 Long term (current) use of anticoagulants; Z86.711 Personal history of pulmonary embolism
CPT/HCPCS: 36415; 80053; 82805; 93005; 93308; 94640; 96372; 96374; 96375; 96376; 99285; 71046; 83735; 83880; 84484; 85025; 85610; 85730; 93010; 99284; J1170; J1940; J2930; J3360; J7620

== ENCOUNTER 2024-01-10 18:54 | Inpatient (IN) | payer OTHER, SELFPAY ==
[2024-01-10] VITALS (37 sets, daily range): BP systolic 97–172; BP diastolic 31–96; PULSE 69–97; RESP 18; TEMP 36.8; O2SAT 74–100
--- NOTE | 2024-01-10 19:13 | W.ED.GENAD ---
Discharge Plan Discharge Details Chief Complaint: Orthopedic Clinical Impression: Pelvic fluid collection Primary Care Provider: Unknown,Unknown ED Provider: Kenan Martinez [place] Meds and New Rx's Prescriptions: No Action torsemide 20 mg tablet 20 mg PO BID Qty: 180 3RF Hold Instructions: Pt Stopped/Never Started Patient Comments: Started takin again about 5 days ago metoprolol succinate 50 mg tablet extended release 24 hr 50 mg PO DAILY lovastatin 20 MG tablet 40 mg PO DAILY albuterol sulfate [ProAir HFA] 8.5 GM HFA aerosol inhaler 2 puff Inhalation Q4H PRN venlafaxine 75 mg capsule,extended release 24hr 75 mg PO DAILY ropinirole 0.5 MG tablet 5 mg PO TID ibuprofen [Advil] 200 MG tablet 1,000 mg PO DAILY PRN acetaminophen 325 MG capsule 500 mg PO PRN PRN magnesium oxide 500 MG capsule 500 mg PO BID trazodone 150 mg tablet 150 mg PO HS Patient Comments: TAKE 1 TABLET BY MOUTH EVERY DAY AT BEDTIME Eliquis 5 mg tablet 1 tab PO BID gabapentin 300 mg capsule 600 mg PO TID Patient Comments: TAKE TWO CAPSULES BY MOUTH THREE TIMES A DAY lorazepam 1 mg Tablet 1 mg PO TID PRN tizanidine 2 mg Capsule 2 mg PO TID PRN fluticasone propion-salmeterol [Advair Diskus] 250-50 mcg/dose blister with device 1 inh INHALATION DIRECTED Patient Comments: INHALE ONE PUFF BY MOUTH TWICE A DAY HPI General Date/Time Provider Initiated Documentation: 01/10/24 19:12. HPI Narrative: MDM Primary survey intact. Reassuring shock index. On secondary survey patient does have left hip pain concerning for periprosthetic fracture. Patient will undergo x-ray. No head strike no loss of consciousness to suggest benefit from CT cervical spine. No chest trauma but given fall will obtain chest x-ray. Patient does have bilateral lower extremity edema but is not complaining of shortness of breath and does not appear to be in acute heart failure so we will defer diuretics. No pain out of proportion to suggest necrotizing soft tissue infection. No preceding chest pain to suggest ACS nor PE. No sudden onset headache to suggest subarachnoid hemorrhage. No dysuria no frequency so doubt UTI. No head strike to suggest benefit from a CT head and patient has a GCS of 15. No cervical, thoracic, nor lumbar spinal tenderness to suggest spinal recons. Soft nontender abdomen so my suspicion is low for intra-abdominal trauma as the patient is neither been nauseous nor vomiting. Patient has no significant ecchymosis or lacerations to her left foot however will obtain plain films to assess for any acute osseous abnormalities. 8 PM CBC shows mild microcytic anemia improved compared to prior. No thrombocytopenia. No leukocytosis. Basic metabolic panel showing no JAMES. Mild hyperglycemia but bicarbonate mildly elevated and no anion gap??not consistent with DKA. No acute electrolyte abnormalities. 9:12 PM Plain films negative for any acute osseous abnormalities in the patient's left foot. Reassuring chest x-ray. Radiology was concerned with an area of lucency outlining the prosthesis which may indicate loosening as result will obtain CT of the patient's pelvis without contrast. 9:50 PM Patient had no obvious signs of any acute fractures on CT scan per radiology however there was concern for some mild inflammatory changes along the anterior aspect of the left psoas muscle for which radiology was concerned about the possibility of bleeding. Given that this is the site of her pain and her significant BMI could certainly have caused an internal injury will complete CT abdomen pelvis with IV contrast. 11:18 PM Patient was found on CT with IV contrast to have concern for left ileal pyomyositis. She also reported that she had had a second fall last week. She cannot recall the circumstances around this fall. Will add on a CK and draw 2 sets of blood cultures check a lactate and provide 500 cc of crystalloid. Will treat with broad-spectrum antibiotics using ceftriaxone, clindamycin, and vancomycin. Will touch base with trauma at [facility]. Given no active extravasation will defer for factor PCC at this point in time with no indication for emergent reversal of apixaban. 11:37 PM Lactate returned mildly elevated at 1.7 mmol/L. Patient has no obvious drainable fluid collection at the moment hence I do not feel that she necessarily needs IR. I signed the patient out to Dr. Sloan pending trauma consult at [facility]. I updated patient on likely transfer to [facility]. Chronic conditions affecting the care of the patient: Elevated BMI anticoagulation History obtained from an outside historian: N/A External record review: [facility] EMR Diagnostic interpretations performed by me: Per my independent interpretation chest x-ray shows: No acute cardiopulmonary process Medications: Acetaminophen at home gabapentin and ropinirole Social determinants of health affecting disposition: N/A Management discussed with:Dr. Sloan Treatment/interventions considered: N/A Response to therapies provided: N/A HPI This is a 73-year-old female with a history of atrial fibrillation on apixaban, COPD not on home oxygen, asymptomatic high-grade left ICA stenosis, remote C2-C6 spinal fusion, restless leg syndrome, bilateral TKA and left femoral neck fracture status post repair last fall at [facility] now arrived to the emergency department via private vehicle following a fall. Patient reportedly fell 2 nights ago off of the toilet where she had to fall asleep. She has pain in her left hip and her left foot. There is also had some increasing pain in her right hip. She denies dizziness chest pain shortness of breath and any preceding headache. She did not strike her head. She did not lose consciousness. She has been adherent with her home medications. Her neighbor drove her to the emergency department. She was initially evaluated by paramedics but she refused transport to [facility]. He also reportedly fell last week but cannot recall how she fell. Exam General: Chronically ill-appearing in no moderate distress speaking in complete sentences. Head: Normocephalic, atraumatic. Eye:[Pupils equal, round reactive to light.] Extraocular eye movements intact. No conjunctival injection. No scleral icterus. Ear, nose, mouth, throat: Grossly normal inspection. Normal voice, handling secretions normally. Neck: Trachea midline. No midline cervical spinal tenderness. Cardiovascular: Well-perfused distal extremities. Regular rate and rhythm. Respiratory: Nonlabored respiration. Clear lungs bilaterally. Gastrointestinal: Nondistended abdomen. Soft nontender. Musculoskeletal: Moderate bilateral 2+ nonpitting lower extremity edema. Moving all 4 extremities spontaneously. Extensive bruising to the patient's left upper extremity but no underlying bony tenderness. Right upper extremity nontender. Pelvis stable anterior posterior compression. Patient does have left hip tenderness. No right hip tenderness. Right lower extremity nontender. Left lower extremity with tenderness to left lateral foot. No obvious deformities. No lacerations. Patient has pain with left hip passive flexion and extension. 5/5 strength dorsi and plantarflexion bilaterally. Skin: Normal for age and race, grossly normal temperature and turgor. No acute rash. Neurologic: Alert and appropriate, no apparent acute deficits. GCS 15. Psychiatric: Mood and manner are appropriate. Grooming and personal hygiene are appropriate. Related Data Home Medications Medication Instructions Recorded Confirmed albuterol sulfate 90 mcg/actuation 2 puff inhalation Q4H PRN 06/07/15 01/10/24 aerosol inhaler (ProAir HFA) lovastatin 20 mg tablet 40 mg PO DAILY 06/07/15 01/10/24 ropinirole 0.5 mg tablet 5 mg PO TID 01/18/16 01/10/24 ibuprofen 200 mg tablet (Advil) 1,000 mg PO DAILY PRN 08/08/16 01/10/24 acetaminophen 325 mg capsule 500 mg PO PRN PRN 08/14/17 01/10/24 magnesium oxide 500 mg capsule 500 mg PO BID 08/14/17 01/10/24 lorazepam 1 mg tablet 1 mg PO TID PRN 06/03/19 01/10/24 tizanidine 2 mg capsule 2 mg PO TID PRN 06/03/19 01/10/24 trazodone 150 mg tablet 150 mg PO HS 09/05/20 01/10/24 fluticasone 250 mcg-salmeterol 50 1 inh inhalation DIRECTED 05/17/21 01/10/24 mcg/dose blistr powdr for inhalation (Advair Diskus) metoprolol succinate 50 mg 50 mg PO DAILY 02/22/22 01/10/24 tablet,extended release 24 hr apixaban 5 mg tablet (Eliquis) 1 tab PO BID 06/15/22 01/10/24 gabapentin 300 mg capsule 600 mg PO TID 06/15/22 01/10/24 venlafaxine 75 mg capsule,extended 75 mg PO DAILY 06/15/22 01/10/24 release 24 hr torsemide 20 mg tablet 20 mg PO BID #180 tabs 02/08/23 01/10/24 Previous Rx's Medication Instructions Recorded torsemide 20 mg tablet 20 mg PO BID #180 tabs 02/08/23 Allergies Allergy/AdvReac Type Severity Reaction Status Date / Time No Known Allergies Allergy Verified 01/10/24 19:08 General Stated Complaint: Orthopedic SIDNEY: 3 Course Vital Signs Vital signs: Vital Signs Temperature 36.8 C 01/10/24 19:02 Pulse 87 01/10/24 19:02 Respiratory Rate 18 01/10/24 19:02 Blood Pressure 125/71 01/10/24 19:02 Pulse Oximetry 98 01/10/24 19:02 Temperature 36.8 C 01/10/24 19:02 Pulse 87 01/10/24 19:02 Respiratory Rate 18 01/10/24 19:02 Respiratory Effort Normal 01/10/24 19:12 Blood Pressure 125/71 01/10/24 19:02 Pulse Oximetry 98 01/10/24 19:02 Oxygen Delivery Method Room Air 01/10/24 19:02 Oxygen Flow Rate 0 01/10/24 19:02 Medical Decision Making Quality:SDOH Health Related Social Needs: No Data to Display PFSH All Active Problems (Updated 01/10/24 @ 23:36 by Kenan Martinez MD) Pelvic fluid collection (Acute) Shortness of breath (Acute) Insomnia (Acute) Essential hypertension (Acute 01/21/17) Paroxysmal atrial fibrillation (Acute) Lumbar radiculopathy (Acute) 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 Mcconnell 04/2022 Hyperlipidemia Lumbago with sciatica, left side Surgical History (Updated 02/08/23 @ 12:50 by Raiza Fajardo RN) 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) History of abdominal surgery (01/21/17) Hx of cholecystectomy H/O cone biopsy of cervix History of breast biopsy Hx of rotator cuff surgery right History of total bilateral knee replacement (TKR) History of carpal tunnel release H/O exploratory laparotomy Hx of cervical spine surgery Hx of colonoscopy Social History Smoking/Tobacco Use Status: Current-Occasional Tobacco Type: cigarettes Smoking risk assessment performed?: Yes Alcohol Intake: former Drug use: Occasionally Substance use type: former substance user and marijuana Do you feel safe at home: Yes (lives with sister) Do you feel safe in your relationship?: Yes
--- NOTE | 2024-01-10 19:15 | DI.RAD_ITS ---
Exam(s) XR HIP LT COMPLETE AP PELVIS EXAM: XR HIP LT COMPLETE AP PELVIS CLINICAL HISTORY: Left hip pain. TECHNIQUE: 2D digital imaging was performed. Three views. FINDINGS: BONES: Left hip prosthesis. No acute fracture is present. Some lucency noted around the femoral comp onent of the prosthesis could indicate loosening. JOINTS: No dislocation present. Mild degenerative changes of the right hip. SOFT TISSUE: Vascular calcifications. IMPRESSION: No evidence of fracture. Lucency around the femoral component of the prosthesis could indicate loosening. DATA REPOSITORY: RADIATION DOSE DELIVERED:
--- NOTE | 2024-01-10 19:15 | DI.RAD_ITS ---
Exam(s) XR CHEST 1V IN DI DEPT EXAM: XR CHEST 1V IN DI DEPT CLINICAL HISTORY: History of falling TECHNIQUE: 2D digital imaging was performed. COMPARISON: CR,XR XR CHEST 2V PA LATERAL from 05/17/2021 CR,XR XR CHEST 2V PA LATERAL from 12/29/2023 FINDINGS: LUNGS: Increased interstitial changes. No focal area of infiltrate. No pleural abnormality seen. HEART: Enlarged. AORTA: Normal diameter. Calcification. BONES: Unremarkable for age. No gross evidence of rib fracture. Soft tissues: Unremarkable. IMPRESSION: No acute findings. DATA REPOSITORY: RADIATION DOSE DELIVERED:
--- NOTE | 2024-01-10 19:15 | DI.RAD_ITS ---
Exam(s) XR FOOT LT COMPLETE EXAM: XR FOOT LT COMPLETE CLINICAL HISTORY: Left lateral foot pain. TECHNIQUE: 2D digital imaging was performed. Three views. COMPARISON: No exams were available for comparison FINDINGS: BONES: No acute fracture is present. No bony destructive lesion is seen. JOINTS: No dislocation present. SOFT TISSUE: Swelling over the dorsum of the foot. Debris in soft tissues of heel. IMPRESSION: No acute bony abnormality. DATA REPOSITORY: RADIATION DOSE DELIVERED:
[2024-01-10 19:39] LABS: Abs Immature Grans 0.08 10^3/uL (0.0-0.06); Absolute Basophil Count 0.04 10^3/uL (0.0-0.2); Absolute Eosinophil Count 0.35 10^3/uL (0.0-0.7); Absolute Lymphocyte Count 1.33 10^3/uL (1.2-3.4); Absolute Neutrophil Count 7.53 10^3/uL (1.2-6.7); Basophils % 0.4; Eosinophils % 3.5; HCT 32.1 % (36.0-46.0); HGB 9.4 g/dL (11.2-15.7); Immature Grans % 0.8; Lymphocytes % 13.1; MCHC 29.3 % (32.0-36.0); MCV 79 fL (80-95); MPV 8.3 fL (8.0-11.0); Monocytes % 7.9; Neutrophils % 74.3; Platelet Count 323 10^3/uL (130-400); RBC 4.08 10^6/uL (3.93-5.22); RDW 19.4 % (11.7-14.6); RDW-SD 55.8 fL; WBC 10.13 10^3/uL (4.4-10.8)
[2024-01-10 19:47] LABS: Anion Gap 6.1 mmol/L (3-11); BUN 20 mg/dL (7-18); CO2 32.9 mmol/L (21.0-32.0); CREATININE 0.9 mg/dL (0.55-1.02); Calcium 9.7 mg/dL (8.5-10.1); Chloride 105 mmol/L (98-107); Glucose 111 mg/dL (74-106); Potassium 3.9 mmol/L (3.5-5.1); Sodium 144 mmol/L (136-145)
[2024-01-10] MEDS: Acetaminophen 500 MG TAB 1000 MG PO (21:02)
--- NOTE | 2024-01-10 21:13 | DI.VRAD_ITS ---
PROCEDURE INFORMATION: Exam: XR Left Foot Exam date and time: 01/10/2024 8:41 PM Age: 73 years old Clinical indication: Weakness and other: Foot pain TECHNIQUE: Imaging protocol: Radiologic exam of the left foot. Views: 3 or more views. COMPARISON: No relevant prior studies available. 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 Degenerative changes in the 1st metatarsophalangeal joint and IP joint. Cavus deformity of the foot. There is no evidence of acute fracture.There is no evidence of malalignment or dislocation. Soft tissues: Soft tissue swelling over the dorsum of the foot. IMPRESSION: 1. 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 2. Soft tissue swelling over the dorsum of the foot. 3. There is no evidence of acute fracture.There is no evidence of malalignment or dislocation. Dictated and Authenticated by: Myles Martinez MD. Ordering:ARYAN Garyson MD
--- NOTE | 2024-01-10 21:14 | DI.VRAD_ITS ---
PROCEDURE INFORMATION: Exam: XR Left Hip Exam date and time: 01/10/2024 8:36 PM Age: 73 years old Clinical indication: Other: Lt hip pain TECHNIQUE: Imaging protocol: Radiologic exam of the left hip. Views: 2 or 3 views hip with pelvis when performed. COMPARISON: MR LUMBAR SPINE WO 09/13/2022 1:18 PM FINDINGS: Bones/joints: Left total hip replacement . Some lucency outlining the prosthesis may indicate loosening. Possible cystic structure in the left acetabulum. The density of the bone is very decreased. Degenerative changes in the sacroiliac joints and right hip Soft tissues: Unremarkable. IMPRESSION: Left total hip replacement . Some lucency outlining the prosthesis may indicate loosening. Dictated and Authenticated by: Myles Martinez MD. Ordering:ARYAN Grayson MD
--- NOTE | 2024-01-10 21:15 | DI.VRAD_ITS ---
PROCEDURE INFORMATION: Exam: XR Chest Exam date and time: 01/10/2024 8:38 PM Age: 73 years old Clinical indication: Other: History of falling TECHNIQUE: Imaging protocol: Radiologic exam of the chest. Views: 1 view. COMPARISON: CR XR CHEST 2V PA LATERAL 12/29/2023 9:42 AM FINDINGS: Lungs: Unremarkable. No consolidation. Pleural spaces: Unremarkable. No pleural effusion. No pneumothorax. Heart/Mediastinum: Mild cardiomegaly Bones/joints: Unremarkable. IMPRESSION: No acute findings. Dictated and Authenticated by: Myles Martinez MD. Ordering:ARYAN Grayson MD
--- NOTE | 2024-01-10 21:15 | DI.CT_ITS ---
Exam(s) CT PELVIC WO EXAM: CT PELVIC WO CLINICAL HISTORY: History of falling left hip pain. TECHNIQUE: Imaging Protocol: Axial computed tomography images with coronal and sagittal reformatted images were created and reviewed. CONTRAST MATERIAL: Oral: No COMPARISON: CR,XR XR HIP LT COMPLETE AP PELVIS from 01/10/2024 FINDINGS: Bladder: Symmetric distention, no gross wall thickening. Bowel: No obstruction or bowel wall thickening. Peritoneal cavity: No ascites, collection or mesenteric inflammatory response. Reproductive: Unremarkable. Bones:Left hip prosthesis creates artifact. The amount of artifact obscures visualization of the adj acent bone. No lucencies visible. Loosening cannot be entirely excluded. No fracture. Soft tissues: Soft tissues of the right hip and upper thigh are partially obscured by artifact from hip prosthesis. There appears to be asymmetric swelling of the left psoas muscle which could repres ent a hematoma. IMPRESSION: No evidence of fracture. Artifact from left hip prosthesis. Swelling of left psoas muscle could rep resent posttraumatic hematoma. RADIATION DOSE DELIVERED: Total DLP DATA REPOSITORY: All CT scans at this facility are submitted to the National Radiology Data Registry (NRDR) Dose Index Registry (DIR) with the [employer] (ACR). RADIATION OPTIMIZATION: All CT scans at this facility use at least one of these dose optimization te chniques: automated exposure control; mA and/or kV adjustment per patient size (includes targeted exa ms where dose is matched to clinical indication); or iterative reconstruction.
[2024-01-10] MEDS: Gabapentin 300 MG CAP 600 MG PO (21:25)
--- NOTE | 2024-01-10 21:45 | DI.VRAD_ITS ---
PROCEDURE INFORMATION: Exam: CT Pelvis Without Contrast; Skeletal Exam date and time: 01/10/2024 9:27 PM Age: 73 years old Clinical indication: Hip pain and pelvic pain; Left hip; Additional info: History of falling left hip pain TECHNIQUE: Imaging protocol: Computed tomography of the pelvis without contrast. Exam focused on the skeleton. COMPARISON: CR XR HIP LT COMPLETE AP PELVIS 01/10/2024 8:36 PM FINDINGS: Bones/joints: There is no evidence of acute fracture.There is no evidence of malalignment or dislocation. Left total hip replacement without evidence of complication. The cystic structure in the left acetabulum is not demonstrated on CT Soft tissues: Mild Inflammatory changes along the anterior aspect of the left psoas muscle. For example series 2, image 23. This is nonspecific but could represent infection or bleeding. Consider repeat study with IV contrast.. IMPRESSION: 1. There is no evidence of acute fracture.There is no evidence of malalignment or dislocation. 2. Left total hip replacement without evidence of complication. 3. Mild Inflammatory changes along the anterior aspect of the left psoas muscle. For example series 2, image 23. This is nonspecific but could represent infection or bleeding. Consider repeat study with IV contrast.. Dictated and Authenticated by: Myles Martinez MD. Ordering:ARYAN Grayson MD
--- NOTE | 2024-01-10 21:45 | DI.CT_ITS ---
Exam(s) CT ABDOMEN PELVIS W EXAM: CT ABDOMEN PELVIS W CLINICAL HISTORY: Abnormal inflammation left psoas. TECHNIQUE: Imaging Protocol: Axial computed tomography images with coronal and sagittal reformatted images were created and reviewed CONTRAST MATERIAL: Intravenous: Omnipaque 350 Contrast volume:100 ml Oral: no COMPARISON: CT CT LUMBAR SPINE WO from 08/21/2020 CR,XR XR CHEST 2V PA LATERAL from 05/17/2021 MR MR LUMBAR SPINE WO from 09/13/[address] PELVIC WO from 01/10/2024 FINDINGS: ABDOMEN and PELVIS: Lung Bases: No acute findings. Liver: Enlarged. Normal density. No measurable mass. Gallbladder and biliary tract: Status post cholecystectomy. No biliary dilation. Pancreas: Normal density. No abnormal calcifications or inflammatory process. No evidence of mass. Spleen: Normal. Kidneys: Normal size, contour and axis. No radiodense stones. No obstructive uropathy. No suspicious masses seen. Adrenal glands: No masses seen. Vasculature: Abdominal aorta non-dilated. Soft tissues: Significant artifact related to left hip prosthesis. Edema in subcutaneous fat lateral to the left hip. Soft tissue edema seen in left anterior fat. Portion of the right-sided soft tiss ues are excluded from the field of view. Edema in the left iliopsoas muscle. Fluid collections note d within the muscle, suspicious for abscesses. More anterior inferior collection measures 7 by 2.5 c m. This smaller collection measures 5 by 1.5 cm. Bladder: No gross wall thickening. No calculi.No focal mass. Bowel: Diverticulosis. No obstruction. No bowel wall thickening. Peritoneal cavity: No ascites. No focal collection or mesenteric inflammatory response. Bones: Left hip prosthesis. No evidence of pelvic fracture. Advanced degenerative changes in the sp ine. Stable mild L1 compression fracture. Chronic appearing compression fracture of T10. Reproductive organs: Within normal limits. Lymph nodes: Unremarkable. IMPRESSION:: Mild enlargement of the left iliopsoas muscle with fluid collections suspicious for abs cesses. No acute abnormality within the abdomen or pelvis. No evidence of acute fracture. RADIATION DOSE DELIVERED: Total DLP DATA REPOSITORY: All CT scans at this facility are submitted to the National Radiology Data Registry (NRDR) Dose Index Registry (DIR) with the [employer] (ACR). RADIATION OPTIMIZATION: All CT scans at this facility use at least one of these dose optimization te chniques: automated exposure control; mA and/or kV adjustment per patient size (includes targeted exa ms where dose is matched to clinical indication); or iterative reconstruction.
[2024-01-10] MEDS: Omnipaque 350 MG/ML 100 ML BTL IJ (22:05)
[2024-01-10] MEDS: Normal Saline - Diluent 50 ML VIAL IJ (22:06)
[2024-01-10] MEDS: oxyCODONE 5 MG TAB PO (22:07)
--- NOTE | 2024-01-10 23:03 | DI.VRAD_ITS ---
PROCEDURE INFORMATION: Exam: CT Abdomen And Pelvis With Contrast Exam date and time: 01/10/2024 10:10 PM Age: 73 years old Clinical indication: Other: Anorm inflammation left psoas; Additional info: History of falling left hip pain TECHNIQUE: Imaging protocol: Computed tomography of the abdomen and pelvis with contrast. Contrast material: 350; Contrast volume: 100 ml; Contrast route: INTRAVENOUS (IV); COMPARISON: CT PELVIC WO 01/10/2024 9:27 PM FINDINGS: Heart: Cardiomegaly. Liver: There is some liver surface irregularity, raising the possibility of cirrhosis. Gallbladder and bile ducts: Prior cholecystectomy. No biliary ductal dilatation. Pancreas: Unremarkable. Spleen: Normal. Adrenal glands: Normal. No mass. Kidneys and ureters: Normal. No hydronephrosis. Stomach and bowel: Colonic diverticulosis. No diverticulitis. No bowel wall thickening or intestinal obstruction. Appendix: Appendix not visualized. No evidence of appendicitis. Intraperitoneal space: Unremarkable. No pneumoperitoneum. No abscess. Vasculature: Unremarkable. Lymph nodes: Unremarkable. Urinary bladder: Unremarkable as visualized. Reproductive: Unremarkable as visualized. Bones/joints: Left hip prosthesis. Soft tissues: There is diffuse inflammation of the left ileo psoas muscle with multiple fluid collections within, the largest of which measures 3 cm in size, compatible with pyomyositis. Mild fat stranding in the subcutaneous fat of the left groin/left mons pubis. No soft tissue gas or abscess. IMPRESSION: 1. There is diffuse inflammation of the left ileo psoas muscle with multiple fluid collections within, the largest of which measures 3 cm in size, compatible with pyomyositis. 2. There is some liver surface irregularity, raising the possibility of cirrhosis. 3. Mild fat stranding in the subcutaneous fat of the left groin/left mons pubis. No soft tissue gas or abscess. Dictated and Authenticated by: Jesus Manuel Arias MD. Ordering:ARYAN Grayson MD
[2024-01-10 23:35] LABS: Lactate 1.7 mmol/L (0.6-1.4)
[2024-01-10] MEDS: cefTRIAXone 2 GM/50 ML BAG IVPB (23:43)
[2024-01-10] MEDS: Normal Saline 500 ML IV (23:44)
[2024-01-10] MEDS: CLINDAMYCIN 600 MG/50 ML BAG 100 MG IVPB (23:44)
[2024-01-10] MEDS: rOPINIRole 0.5 MG TAB 5 MG PO (23:45)
[2024-01-10 23:47] LABS: Bilirubin Negative (Negative); Blood Negative (Negative); Clarity Clear (Clear); Glucose Negative (Negative); Ketones Negative (Negative); Leukocyte Esterase Trace (Negative); Nitrite Negative (Negative); Specific Gravity 1.015 (1.005-1.025); Urobilinogen 0.2 mg/dL (Up to 0.2); pH 7.5 (5-8)
[2024-01-10 23:51] LABS: Creatine Kinase 86 U/L (26-192)
[2024-01-10 23:52] LABS: Bacteria Few HPF (Negative); C & S Indicated? No/Sq. Contamination; Crystals Few Amorphous HPF (Negative); Epithelial Cells Moderate HPF (Negative); Mucus Negative (Negative); RBC Negative HPF (0-2); WBC 0-2 HPF (0-5)
[2024-01-10 23:53] LABS: Casts Negative LPF (Negative)
[2024-01-11] VITALS (42 sets, daily range): BP systolic 108–136; BP diastolic 49–82; PULSE 77–89; RESP 16–20; TEMP 36–37.8; O2SAT 89–99
[2024-01-11] MEDS: VANCOMYCIN 2,000 MG in Normal Saline 500 ML 333.3333 MG IVPB (00:40)
--- NOTE | 2024-01-11 01:08 | W.EDPROG ---
Date of service: 01/11/24 Time of Service: 01:09 Medical Decision Making Patient was signed out to me by my colleague Dr. Martinez. Please refer to his HPI, physical exam, assessment and plan. At time of signout we are awaiting callback from [facility]. [facility] has contacted us. Dr. Villarreal reviewed the case. And at this time it is felt that the abscesses caused the trauma and fall, and are not necessarily resulted from the trauma. Because of this trauma has declined the case. Unfortunately because of this there are no beds at [facility] for transfer and the patient cannot be transferred to [facility]. We did reach out to [facility] and I spoke with Dr. Borja, we discussed the case together. He accepts the patient for transfer to the [facility], however no beds are currently available. Recommendations for continuation of antibiotics and transfer once bed is available for potential IR drainage. He did specifically request that prior to transfer, the hospitalist at [facility] speak with the hospitalist from [facility] and the case is again reviewed for potential worsening or change in clinical status. We will continue antibiotics at this time. I have ordered an additional Pro-Kurtis, ESR and CRP for continued trending. Discussed the case with the hospitalist Dr. Maguire, he agrees with the assessment and plan. I will place admission orders on his behalf at his request. I have extensively reviewed the treatment plan with the patient. I have addressed all patient concerns at this time. I have also discussed the plan with the admitting physician and they agree with the current assessment and plan and have agreed to assume responsibility for the patient. All parties demonstrate verbal understanding and agreement with our assessment and plan at this time. The documentation in this chart was dictated using [employer] dictation software. Please excuse any dictation errors. FINDINGS: Heart: Cardiomegaly. Liver: There is some liver surface irregularity, raising the possibility of cirrhosis. Gallbladder and bile ducts: Prior cholecystectomy. No biliary ductal dilatation. Pancreas: Unremarkable. Spleen: Normal. Adrenal glands: Normal. No mass. Kidneys and ureters: Normal. No hydronephrosis. Stomach and bowel: Colonic diverticulosis. No diverticulitis. No bowel wall thickening or intestinal obstruction. Appendix: Appendix not visualized. No evidence of appendicitis. Intraperitoneal space: Unremarkable. No pneumoperitoneum. No abscess. Vasculature: Unremarkable. Lymph nodes: Unremarkable. Urinary bladder: Unremarkable as visualized. Reproductive: Unremarkable as visualized. Bones/joints: Left hip prosthesis. Soft tissues: There is diffuse inflammation of the left ileo psoas muscle with multiple fluid collections within, the largest of which measures 3 cm in size, compatible with pyomyositis. Mild fat stranding in the subcutaneous fat of the left groin/left mons pubis. No soft tissue gas or abscess. IMPRESSION: 1. There is diffuse inflammation of the left ileo psoas muscle with multiple fluid collections within, the largest of which measures 3 cm in size, compatible with pyomyositis. 2. There is some liver surface irregularity, raising the possibility of cirrhosis. 3. Mild fat stranding in the subcutaneous fat of the left groin/left mons pubis. No soft tissue gas or abscess. Thank you for allowing us to participate in the care of your patient. Dictated and Authenticated by: Jesus Manuel Arias MD 01/10/2024 11:03 PM Eastern Time ([place] & [place]) Quality:[facility] Health Related Social Needs: No Data to Display Sign Out Sign Out Data: Sign Out Comment: Anticoagulated female who fell 2 nights ago with concerns for an iliopsoas pyomyositis for which she received broad-spectrum antibiotics following blood cultures. Please follow-up: Trauma consult from [facility] with consideration of transfer given possible need for IR and ongoing monitoring. Last updated by Kenan Martinez MD at 01/10/24 23:57 Discharge Plan Disposition Patient Disposition: Admit to [facility] Condition: Stable Discharge Details Chief Complaint: Orthopedic Clinical Impression: Pelvic fluid collection, Psoas abscess, left Primary Care Provider: Unknown,Unknown ED Provider: Javy Sloan Home Meds and New Rx's Prescriptions: No Action torsemide 20 mg tablet 20 mg PO BID Qty: 180 3RF Hold Instructions: Pt Stopped/Never Started Patient Comments: Started takin again about 5 days ago metoprolol succinate 50 mg tablet extended release 24 hr 50 mg PO DAILY lovastatin 20 MG tablet 40 mg PO DAILY albuterol sulfate [ProAir HFA] 8.5 GM HFA aerosol inhaler 2 puff Inhalation Q4H PRN venlafaxine 75 mg capsule,extended release 24hr 75 mg PO DAILY ropinirole 0.5 MG tablet 5 mg PO TID ibuprofen [Advil] 200 MG tablet 1,000 mg PO DAILY PRN acetaminophen 325 MG capsule 500 mg PO PRN PRN magnesium oxide 500 MG capsule 500 mg PO BID trazodone 150 mg tablet 150 mg PO HS Patient Comments: TAKE 1 TABLET BY MOUTH EVERY DAY AT BEDTIME Eliquis 5 mg tablet 1 tab PO BID gabapentin 300 mg capsule 600 mg PO TID Patient Comments: TAKE TWO CAPSULES BY MOUTH THREE TIMES A DAY lorazepam 1 mg Tablet 1 mg PO TID PRN tizanidine 2 mg Capsule 2 mg PO TID PRN fluticasone propion-salmeterol [Advair Diskus] 250-50 mcg/dose blister with device 1 inh INHALATION DIRECTED Patient Comments: INHALE ONE PUFF BY MOUTH TWICE A DAY
[2024-01-11 01:22] LABS: ESR 46 mm/hr (0-30)
[2024-01-11 01:23] LABS: C-Reactive Protein 8.87 mg/dL (<or=0.5)
[2024-01-11 01:45] LABS: Procalcitonin < 0.1 ng/mL
[2024-01-11] MEDS: Acetaminophen 500 MG TAB (02:29)
[2024-01-11] MEDS: MORPHine 10 MG/ML VIAL 2 MG IVP (03:31)
--- NOTE | 2024-01-11 04:18 | HPE_ITS ---
Date of service: 01/11/24 Time of Service: 04:18 Assessment and Plan Assessment and plan (1) Psoas abscess, left: Status: Acute Assessment and plan: Ms. Cancino's pain seems to be coming from the fluid collection in her left psoas muscle. CT concerning for deep infection, but case we reviewed with [facility] and [facility] and they did not feel immediate surgical/IR intervention was warranted. Other differential is psoas bleed given anticoagulation, though surrounding inflammation on CT is less consistent with simple hematomas. She was started on CTX, clinda, and vanco for severe deep soft tissue infection. Follow CRP, CBC. She is accepted for trasnfer to [facility] ove the weekend unless she gets better with conservative care. Pain is complicated by chronic pain syndrome. For now, oxycodone prn. (2) Essential hypertension: Status: Acute Assessment and plan: BP okay, continue outpatient medication. No signs of sepsis/hypotension. (3) Paroxysmal atrial fibrillation: Status: Acute Assessment and plan: He is on apixaban chronically for afib and history of PE. Exam suggests NSR. Holding apixaban until we are confident this is not a psoas bleed. (4) COPD (chronic obstructive pulmonary disease): Assessment and plan: She is mildly hypoxic, likely relate to not being able to move. Exam and CXR reassuring. Continue to monitor, no streoids. (5) Tobacco user: Assessment and plan: Encouraged cessation, NRT prn (6) RLS (restless legs syndrome): Assessment and plan: Dx RLS on her list, though she takes dopaminerics around the clock - more like parkinsons. Will continue her outpatient meds. (7) DVT prophylaxis: Status: Acute Assessment and plan: SCDs for now, then resume apixaban if h/h not dropping and does not look like there is bleeding into the psoas. (8) Discharge planning issues: Status: Acute Assessment and plan: Discharge when she is approaching her basetline mobility and we have a more firm diagnosis. If not improving quickly she will need to transfer to [facility] for drainage of the fluid collections in the poas. See Luther's note for details about transfer plans. History of Present Illness History of Present Illness Chief Complaint: hip pain Narrative: 73 yo F with history of atrial fibrillation on apixaban, COPD, chornic ambulatory dysfunction due to Parkinsonism and chronic spine and joint pain, smoking, and history of left femoral neck repair at [facility] 09/2023 who presented to the emergency room after a fall with left hip pain. The patient states the 2 nights prior to arrival she fell asleep while using the toilet at night and fell to the floor. That night she called the ambulance for a lift and assist, but elected not to go to the ED because she thought she could manage the pain. She has had intermittent spasms in the left hip area since her surgery in September, but since the fall she has had increased pain in her left hip down to the back of her knee. This is severe spasm-like pain. She never had chest pain, dizziness, palptiations, or shortness of breath. She did no hit her head or loose consciousness. Both morphine and oxycodone helped the pain in the ED. Tizanidine has helped in the past as well. Any movement of that leg makes the pain worse. She has not felt sick recently, not had fevers. She feels a bit nauseous when she gets a wave of pain, but overall her appetite has been good. She has swelling in her legs because she was off her water pills until her last PCP visit, but this is not new. She has chills intermittently but again this is chronic for her. She has no focal numbness or weakness but she doesn't want to move the left leg because it hurts. Review of Systems Constitutional Constitutional: Reports as per HPI, Denies anorexia, Denies fever(s), Reports frequent falls, Denies headache(s), Denies poor appetite, Denies weakness and Denies weight loss Eyes Eyes: Denies change in vision and Denies irritation ENT Ears, Nose, Mouth, and Throat: Denies dizziness, Denies headache(s), Denies nasal congestion, Denies nasal discharge and Denies sore throat Cardiovascular Cardiovascular: Denies chest pain, Denies leg ulcers, Denies palpitations, Reports dyspnea (gets SOB easily, but no change from her baseline) and Denies orthopnea Respiratory Respiratory: Denies chest congestion, Denies cough, Denies excessive phlegm production, Reports dyspnea (gets SOB easily, but no change from her baseline) and Denies wheezing Gastrointestinal Gastrointestinal: Denies abdominal pain, Denies hematochezia, Denies change in bowel habits, Denies heartburn, Denies diarrhea and Denies vomiting Genitourinary Genitourinary: Denies hematuria, Denies dysuria, Reports urinary incontinence (stress, no change from baseline) and Denies vaginal discharge Integumentary/Breasts Skin/Breast: Denies non-healing lesions, Denies rash, Denies skin ulcer and Reports unusual bruising (gets easy bruising on arms) Neurologic Neurologic: Denies abnormal speech (speech is her normal), Denies confusion, Denies dizziness, Reports frequent falls, Denies headache(s), Denies localized weakness, Denies sensory deficit and Denies weakness Psychiatric Psychiatric: Reports anxiety, Denies confusion and Denies mood swings Endocrine Endocrine: Denies palpitations Hematologic/Lymphatic Hematologic/Lymphatic: Denies easy bleeding Allergic/Immunologic Allergic/Immunologic: Denies wheezing PFSH All Active Problems (Updated 01/11/24 @ 05:32 by Kenan Grant) Discharge planning issues (Acute) DVT prophylaxis (Acute) Psoas abscess, left (Acute) Pelvic fluid collection (Acute) Shortness of breath (Acute) Insomnia (Acute) Essential hypertension (Acute 01/21/17) Paroxysmal atrial fibrillation (Acute) Lumbar radiculopathy (Acute) 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 Mcconnell 04/2022 Hyperlipidemia Lumbago with sciatica, left side Surgical History 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) History of abdominal surgery (01/21/17) Hx of cholecystectomy H/O cone biopsy of cervix History of breast biopsy Hx of rotator cuff surgery right History of total bilateral knee replacement (TKR) History of carpal tunnel release H/O exploratory laparotomy Hx of cervical spine surgery Hx of colonoscopy Social History (Updated 01/11/24 @ 05:08 by Kenan Grant) Smoking/Tobacco Use Status: Current-Occasional Tobacco Type: cigarettes Smoking risk assessment performed?: Yes Alcohol Intake: former Drug use: Occasionally Substance use type: former substance user and marijuana Housing: apartment Do you feel safe at home: Yes (lives with sister) Do you feel safe in your relationship?: Yes Additional Social history: Lives with sister in [place], retired, gets some help with cleaning/bathing. Quit smoking at recent rehab stay, but still bums a cigarette from sister when she is stressed. Meds Allergies and Home Medications Allergies Allergy/AdvReac Type Severity Reaction Status Date / Time No Known Allergies Allergy Verified 01/10/24 19:08 Home Medications Medication Instructions Recorded Confirmed Type albuterol sulfate 90 mcg/actuation 2 puff inhalation Q4H PRN 06/07/15 01/10/24 History aerosol inhaler (ProAir HFA) lovastatin 20 mg tablet 40 mg PO DAILY 06/07/15 01/10/24 History ropinirole 0.5 mg tablet 5 mg PO TID 01/18/16 01/10/24 History ibuprofen 200 mg tablet (Advil) 1,000 mg PO DAILY PRN 08/08/16 01/10/24 History acetaminophen 325 mg capsule 500 mg PO PRN PRN 08/14/17 01/10/24 History magnesium oxide 500 mg capsule 500 mg PO BID 08/14/17 01/10/24 History lorazepam 1 mg tablet 1 mg PO TID PRN 06/03/19 01/10/24 History tizanidine 2 mg capsule 2 mg PO TID PRN 06/03/19 01/10/24 History trazodone 150 mg tablet 150 mg PO HS 09/05/20 01/10/24 History fluticasone 250 mcg-salmeterol 50 1 inh inhalation DIRECTED 05/17/21 01/10/24 History mcg/dose blistr powdr for inhalation (Advair Diskus) metoprolol succinate 50 mg 50 mg PO DAILY 02/22/22 01/10/24 History tablet,extended release 24 hr apixaban 5 mg tablet (Eliquis) 1 tab PO BID 06/15/22 01/10/24 History gabapentin 300 mg capsule 600 mg PO TID 06/15/22 01/10/24 History venlafaxine 75 mg capsule,extended 75 mg PO DAILY 06/15/22 01/10/24 History release 24 hr torsemide 20 mg tablet 20 mg PO BID #180 tabs 02/08/23 01/10/24 Rx Exam Narrative Exam Narrative: GEN: Alert and oriented, pleasant and cooperative, gives linear history. Pressing her hand over left anterior hip when she gets waves of pain with moderate distress, then normalizes HEENT: Head atraumatic. Conjunctiva clear, no icterus. PEERL, EOMI. no rhinorrhea. MMM, OP benign. Neck is supple with no masses or lymphadenopathy, trachea midline LUNGS: CTAB with normal effort CV: RRR with 1/6 systolic murmur at apex, no radiation. No gallops, or rubs. ABD: +BS, soft, NT/ND including LLQ. No organomegaly or notable hernia EXT: no cyanosis, clubbing. Diffuse LE 2+ pitting edema to thighs bilaterally. Warm and hyperemic in [place] lower legs to mid thighs. MSK: No joint redness or swelling. She has severe pain with any flexion of left hip, able to role left hip int/ext rotation with leg extended. No pain with ROM RLE. NEURO: CN 2-12 grossly intact. She is able to move 4 extremities, including left foot/toes, but holding upper leg still with pain. Sensation Normal speech and coordination SKIN: No rashes or open wounds. Bruising on arms. Both legs are pink from thighs down, warm, no cords. TKA scars C/D/I. Skin is not red or tender or with crepitus in area of pain. PSYCH: normal mood and affect Results Imaging Chest x-ray: report reviewed (No acute findings) and image reviewed CT scan - pelvis: report reviewed Additional studies: CT abd/pelvis w: 1. There is diffuse inflammation of the left ileo psoas muscle with multiple fluid collections within, the largest of which measures 3 cm in size, compatible with pyomyositis. 2. There is some liver surface irregularity, raising the possibility of cirrhosis. 3. Mild fat stranding in the ubcutaneous fat of the left groin/left mons pubis. No soft tissue gas or abscess. Imaging Studies: CT pelvis w/o: 1. There is no evidence of acute fracture.There is no evidence of malalignment or dislocation. 2. Left total hip replacement without evidence of complication. 3. Mild Inflammatory changes along the anterior aspect of the left psoas muscle. For example series 2, image 23. This is nonspecific but could represent infection or bleeding. Consider repeat study with IV contrast.. XR left foot: 1. 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 2. Soft tissue swelling over the dorsum of the foot. 3. There is no evidence of acute fracture.There is no evidence of malalignment or dislocation. Labs 01/10/24 19:33 01/10/24 19:33 Labs: Laboratory Results - last 24 hr 01/10/24 01/10/24 01/10/24 19:33 23:30 23:40 WBC 10.13 RBC 4.08 Hgb 9.4 L Hct 32.1 L MCV 79 L MCH 23.0 L MCHC 29.3 L RDW 19.4 H Plt Count 323 MPV 8.3 Immature Gran % 0.8 Neutrophils % 74.3 Lymphocytes % 13.1 Monocytes % 7.9 Eosinophils % 3.5 Basophils % 0.4 Nucleated RBC % 0.0 Absolute Neutrophils 7.53 H Absolute Lymphocytes 1.33 Absolute Monocytes 0.80 Absolute Eosinophils 0.35 Absolute Basophils 0.04 ESR 46 H VBG Lactate 1.7 H Sodium 144 Potassium 3.9 Chloride 105 Carbon Dioxide 32.9 H Anion Gap 6.1 BUN 20 H Creatinine 0.9 Est GFR (CKD-EPI 2020) 67.50 Glucose 111 H Calcium 9.7 Creatine Kinase 86 C-Reactive Protein 8.87 H Procalcitonin < 0.1 Urine Color Yellow Urine Clarity Clear Urine pH 7.5 Ur Specific [place] 1.015 Urine Protein Negative Urine Ketones Negative Urine Blood Negative Urine Nitrite Negative Urine Bilirubin Negative Urine Urobilinogen 0.2 Ur Leukocyte Esterase Trace H Urine RBC Negative Urine WBC 0-2 Ur Epithelial Cells Moderate Urine Crystals Few Amorphous Urine Bacteria Few Urine Casts Negative Urine Mucus Negative Ur Culture Indicated? No/Sq. Contamination Urine Glucose Negative Last Vital Signs Temp 36.8 C 01/10/24 19:02 Pulse 82 01/11/24 03:31 Resp 18 01/10/24 19:02 BP 124/56 L 01/11/24 03:31 Pulse Ox 97 01/11/24 03:46 Time Spent Time spent with Patient: 55-74 minutes Time was spent: preparing to see the patient(eg.review tests), obtaining and/or reviewing separately otained hiistory, ordering medications,tests, procedures, referring, communicating with other health special needs child caregiver, indepentently interpreting results and counseling the patient
[2024-01-11] MEDS: oxyCODONE 5 MG TAB PO ×5 (05:36→23:46)
[2024-01-11] MEDS: CLINDAMYCIN 600 MG/50 ML BAG 100 MG IVPB ×4 (06:32→23:42)
[2024-01-11 06:59] LABS: Abs Immature Grans 0.05 10^3/uL (0.0-0.06); Absolute Basophil Count 0.04 10^3/uL (0.0-0.2); Absolute Eosinophil Count 0.42 10^3/uL (0.0-0.7); Absolute Lymphocyte Count 1.33 10^3/uL (1.2-3.4); Absolute Monocyte Count 0.78 10^3/uL (0.1-0.8); Absolute Neutrophil Count 5.36 10^3/uL (1.2-6.7); Basophils % 0.5; Eosinophils % 5.3; HCT 30.7 % (36.0-46.0); HGB 8.6 g/dL (11.2-15.7); Immature Grans % 0.6; Lymphocytes % 16.7; MCH 22.3 pg (27.0-33.0); MCV 80 fL (80-95); MPV 8.7 fL (8.0-11.0); Monocytes % 9.8; Neutrophils % 67.1; Platelet Count 323 10^3/uL (130-400); RBC 3.85 10^6/uL (3.93-5.22); RDW 19.5 % (11.7-14.6); RDW-SD 56.5 fL; WBC 7.98 10^3/uL (4.4-10.8)
[2024-01-11 07:11] LABS: Anion Gap 5.1 mmol/L (3-11); BUN 15 mg/dL (7-18); CO2 31.9 mmol/L (21.0-32.0); CREATININE 0.8 mg/dL (0.55-1.02); Calcium 9.2 mg/dL (8.5-10.1); Chloride 108 mmol/L (98-107); Estimated GFR 77.75 (mL/min/1.73m2); Glucose 103 mg/dL (74-106); Sodium 145 mmol/L (136-145)
[2024-01-11] MEDS: Budesonide/Formoterol 160/4.5 6 GM 60 PUFF INH IH ×2 (08:32→19:52)
[2024-01-11] MEDS: Torsemide 20 MG TAB PO ×2 (08:41→16:09)
[2024-01-11] MEDS: rOPINIRole 1 MG TAB 5 MG PO ×3 (08:41→19:35)
[2024-01-11] MEDS: Venlafaxine 75 MG CAPCR PO (08:42)
[2024-01-11] MEDS: Metoprolol CR 50 MG TABCR PO (08:42)
[2024-01-11] MEDS: Gabapentin 300 MG CAP 600 MG PO ×3 (08:42→19:35)
[2024-01-11] MEDS: Magnesium Oxide 400 MG TAB PO ×2 (09:53→21:24)
--- NOTE | 2024-01-11 10:59 | PDOC.CMIN ---
Date of service: 01/11/24 Time of Service: 10:59 Care Management Initial Assmt Initial Assessment REASON FOR HOSPITALIZATION:: left psoas abscess PREVIOUS FUNCTIONAL STATUS/SOCIAL/FAMILY SUPPORTS:: Marzena lives in [place] with her sister, Gaby. She reports that she and Gaby help each other out, and have friends/neighbors that live in their building. 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 She moved to [place] for a while, but ended up moving back to [place]. She is independent at baseline. CURRENT FUNCTIONAL STATUS:: Marzena was sitting up in her chair when CM met with her. She engaged in conversation, although stated that she is in a lot of pain, and not feeling well, and asked for CM to get her RN. Per report, Marzena has been accepted at [facility] for IR drainage of the abscess, if she does not improve quickly with medical management. CM will continue to follow. ADVANCE DIRECTIVES:: Not on file. Has patient been provided with info about the portal/API?: Yes Did the patient sign up for the portal?: No CODE STATUS:: Full Code INSURANCE COVERAGE / FINANCIAL ISSUES:: [employer] MCR replacement plan CURRENT HOME/COMMUNITY SERVICES/EQUIPMENT:: FWW, SPC PRIMARY CARE PHYSICIAN:: unknown POTENTIAL DISCHARGE NEEDS:: Possible transfer to [facility] for IR drainage; follow up appointments. PATIENT/FAMILY EDUCATION NEEDS:: Review discharge instructions and limitations, discussion of self care needs including ask me three ANTICIPATED BARRIERS TO DISCHARGE:: None identified. TRANSPORTATION:: Via EMS if transferred; Via private vehicle if discharged home. PLAN:: Anticipate Marzena will transfer to [facility]; she has been accepted in transfer, pending bed availability. If she improves with medical management prior to transfer, she may not require IR drainage. If she does not transfer, she will return home once medically cleared. She will follow up with her PCP and discharge plan of care. CM will continue to follow. 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 Mcconnell 04/2022 Hyperlipidemia Lumbago with sciatica, left side Surgical History 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) History of abdominal surgery (01/21/17) Hx of cholecystectomy H/O cone biopsy of cervix History of breast biopsy Hx of rotator cuff surgery right History of total bilateral knee replacement (TKR) History of carpal tunnel release H/O exploratory laparotomy Hx of cervical spine surgery Hx of colonoscopy Social History (Updated 01/11/24 @ 05:08 by Kenan Grant) Smoking/Tobacco Use Status: Current-Occasional Tobacco Type: cigarettes Smoking risk assessment performed?: Yes Alcohol Intake: former Drug use: Occasionally Substance use type: former substance user and marijuana Housing: apartment Do you feel safe at home: Yes (lives with sister) Do you feel safe in your relationship?: Yes Additional Social history: Lives with sister in [place], retired, gets some help with cleaning/bathing. Quit smoking at recent rehab stay, but still bums a cigarette from sister when she is stressed. SDOH(Care Management) Screening Will the Patient Participate in the Screening?: Yes Do you worry about having a steady place to live?: no In the past 12 months, have you had to go without electric, gas, oil or water in your home?: choose not to answer Have you or anyone in your house had to go without enough food to eat?: choose not to answer Has lack of transportation kept you from medical appointments or from doing things needed for daily living?: choose not to answer Has anyone in your support network made you feel unsafe for any reason?: choose not to answer
[2024-01-11] MEDS: Acetaminophen 325 MG TAB 650 MG PO ×3 (12:20→23:46)
[2024-01-11] MEDS: LORazepam 1 MG TAB PO ×3 (12:20→23:46)
[2024-01-11] MEDS: Normal Saline Flush 10 ML SYR IVP ×2 (12:21→19:49)
[2024-01-11] MEDS: VANCOMYCIN/WATER (PEG) 1.25 GM/250 ML BAG IVPB (14:39)
[2024-01-11] MEDS: Lovastatin 20 MG TAB 40 MG PO (19:35)
[2024-01-11] MEDS: traZODone 50 MG TAB 150 MG PO (21:24)
[2024-01-11] MEDS: cefTRIAXone 2 GM/50 ML BAG IVPB (21:25)
[2024-01-12] MEDS: VANCOMYCIN/WATER (PEG) 1.25 GM/250 ML BAG IVPB ×2 (01:18→14:52)
[2024-01-12 03:32] VITALS: BP 114/76; PULSE 80; RESP 18; TEMP 36.5; O2SAT 93
[2024-01-12] MEDS: oxyCODONE 5 MG TAB PO ×3 (05:21→14:05)
[2024-01-12] MEDS: CLINDAMYCIN 600 MG/50 ML BAG 100 MG IVPB ×3 (05:22→17:46)
[2024-01-12 06:34] LABS: Abs Immature Grans 0.04 10^3/uL (0.0-0.06); Absolute Basophil Count 0.04 10^3/uL (0.0-0.2); Absolute Eosinophil Count 0.49 10^3/uL (0.0-0.7); Basophils % 0.6; Eosinophils % 7.7; HCT 29.6 % (36.0-46.0); HGB 8.4 g/dL (11.2-15.7); Immature Grans % 0.6; Lymphocytes % 20.4; MCH 22.6 pg (27.0-33.0); MCHC 28.4 % (32.0-36.0); MCV 80 fL (80-95); MPV 8.1 fL (8.0-11.0); Monocytes % 9.4; Neutrophils % 61.3; Platelet Count 276 10^3/uL (130-400); RBC 3.72 10^6/uL (3.93-5.22); RDW 19.5 % (11.7-14.6); RDW-SD 56.7 fL; WBC 6.37 10^3/uL (4.4-10.8)
[2024-01-12 06:57] LABS: Anion Gap 7.6 mmol/L (3-11); BUN 20 mg/dL (7-18); CO2 32.4 mmol/L (21.0-32.0); Calcium 8.9 mg/dL (8.5-10.1); Chloride 99 mmol/L (98-107); Estimated GFR 59.49 (mL/min/1.73m2); Glucose 103 mg/dL (74-106); Magnesium 2.1 mg/dL (1.8-2.4); Potassium 3.8 mmol/L (3.5-5.1); Sodium 139 mmol/L (136-145)
[2024-01-12 07:39] VITALS: BP 118/74; PULSE 80; RESP 19; TEMP 36.5; O2SAT 92
[2024-01-12] MEDS: Budesonide/Formoterol 160/4.5 6 GM 60 PUFF INH IH ×2 (08:26→20:58)
[2024-01-12] MEDS: rOPINIRole 1 MG TAB 5 MG PO ×3 (08:45→20:50)
[2024-01-12] MEDS: LORazepam 1 MG TAB PO ×2 (08:46→14:05)
[2024-01-12] MEDS: Metoprolol CR 50 MG TABCR PO (08:46)
[2024-01-12] MEDS: Magnesium Oxide 400 MG TAB PO ×2 (08:46→22:45)
[2024-01-12] MEDS: Gabapentin 300 MG CAP 600 MG PO ×3 (08:47→20:50)
[2024-01-12] MEDS: Venlafaxine 75 MG CAPCR PO (08:47)
[2024-01-12] MEDS: Acetaminophen 325 MG TAB 650 MG PO ×2 (08:47→14:05)
[2024-01-12] MEDS: Torsemide 20 MG TAB PO ×2 (08:47→16:41)
[2024-01-12 10:51] LABS: Lab Add On Test DONE
[2024-01-12 10:56] LABS: ESR 67 mm/hr (0-30)
[2024-01-12 11:04] LABS: C-Reactive Protein 8.28 mg/dL (<or=0.5)
[2024-01-12 11:42] VITALS: BP 103/70; PULSE 73; RESP 18; TEMP 37; O2SAT 92
[2024-01-12] MEDS: Normal Saline Flush 10 ML SYR IVP ×5 (11:52→22:46)
[2024-01-12] MEDS: Ketorolac 15 MG/ML VIAL IVP ×2 (11:52→20:51)
[2024-01-12 15:33] VITALS: BP 101/65; PULSE 81; RESP 18; TEMP 36.5; O2SAT 95
--- NOTE | 2024-01-12 15:49 | NUR.NOTE ---
Nursing Note: FORREST Juarez, alerted this nurse that IV in Right Hand was puffy and cold and appeared infiltrated. This nurse went and observed IV to find that it was infiltrated and itchy. IV was removed and warm compress was applied. CC was notified who notified SKIVING MACHINE OPERATOR and hyluronidase was ordered. Will continue to monitor patient for any redness or increased swelling.
[2024-01-12] MEDS: Hyaluronidase 150 UNITS VIAL IJ (16:15)
[2024-01-12] MEDS: diphenhydrAMINE 50 MG/ML VIAL 25 MG IVP (16:57)
--- NOTE | 2024-01-12 18:07 | PGE_ITS ---
Date of Service Date of service: 01/12/24 Time of Service: 10:00 Assessment and Plan Assessment and plan (1) Psoas abscess, left: Status: Acute Assessment and plan: CT concerning for deep infection, and pending a down and back to [facility] for IR drainage. apixaban has been on hold since yesterday morning She was started on ceftriaxone, clindamycin, and vanco for severe deep soft tissue infection. Follow CRP, ESR, CBC. Pain is complicated by chronic pain syndrome. For now, oxycodone prn, will add toradol. (2) Essential hypertension: Status: Acute Assessment and plan: blood pressures well controlled, continue outpatient medication. (3) Paroxysmal atrial fibrillation: Status: Acute Assessment and plan: He is on apixaban chronically for afib and history of PE. Exam suggests NSR. Holding apixaban pending IR procedure (4) COPD (chronic obstructive pulmonary disease): Assessment and plan: no exacerbation. Continue to monitor (5) Tobacco user: Assessment and plan: Encouraged cessation, nicotine replacement as needed (6) RLS (restless legs syndrome): Assessment and plan: Dx RLS on her list, though she takes dopaminerics around the clock - more like parkinsons. Will continue her outpatient meds. (7) DVT prophylaxis: Status: Acute Assessment and plan: SCDs for now, apixaban on hold (8) Discharge planning issues: Status: Acute Assessment and plan: case management following for discharge planning. discussed with Dr Ahuja Subjective Subjective Patient reports: still having pain, tolerating liquids well, tolerating a regular diet and afebrile Interval history since last seen: patient reports increased burning sensation in her left groin and hip. no other new symptoms. Exam Narrative Exam Narrative: Morbidly obese elderly female chronically ill-appearing older than stated age Head is atraumatic eyes normal appearance noninjected nonicteric oral mucosas moist no exudate Neck is supple no JVD full range of motion no meningeal signs Respirations even and unlabored Cardiovascular regular rate and rhythm good pedal pulse Skin no rashes or lesions Moves all extremity edema to bilateral lower unchanged Neurologic awake alert oriented no focal deficits Objective Last Vital Signs Temp 36.5 C 01/12/24 15:33 Pulse 81 01/12/24 15:33 Resp 18 01/12/24 15:33 BP 101/65 01/12/24 15:33 Pulse Ox 95 01/12/24 15:33 Laboratory Results - last 24 hr 01/12/24 01/12/24 06:22 Unknown WBC 6.37 RBC 3.72 L Hgb 8.4 L Hct 29.6 L MCV 80 MCH 22.6 L MCHC 28.4 L RDW 19.5 H Plt Count 276 MPV 8.1 Immature Gran % 0.6 Neutrophils % 61.3 Lymphocytes % 20.4 Monocytes % 9.4 Eosinophils % 7.7 Basophils % 0.6 Nucleated RBC % 0.0 Absolute Neutrophils 3.90 Absolute Lymphocytes 1.30 Absolute Monocytes 0.60 Absolute Eosinophils 0.49 Absolute Basophils 0.04 ESR 67 H Sodium 139 Potassium 3.8 Chloride 99 Carbon Dioxide 32.4 H Anion Gap 7.6 BUN 20 H Creatinine 1.0 Est GFR (CKD-EPI 2020) 59.49 Glucose 103 Calcium 8.9 Magnesium 2.1 C-Reactive Protein 8.28 H Add-On Test Request DONE Time Spent with Patient Time Spent with Patient: 35-49 minutes Time was spent: preparing to see the patient(eg.review tests), obtaining and/or reviewing separately otained hiistory, ordering medications,tests, procedures, referring, communicating with other health hospice care transitions coordinator, indepentently interpreting results and counseling the patient
[2024-01-12 19:50] VITALS: BP 111/74; PULSE 83; RESP 18; TEMP 36.8; O2SAT 93
[2024-01-12] MEDS: Lovastatin 20 MG TAB 40 MG PO (20:50)
[2024-01-12] MEDS: traZODone 50 MG TAB 150 MG PO (22:45)
[2024-01-12 22:46] VITALS: BP 116/72; PULSE 86; RESP 18; TEMP 37; O2SAT 93
[2024-01-12] MEDS: cefTRIAXone 2 GM/50 ML BAG IVPB (22:46)
[2024-01-13] VITALS (8 sets, daily range): BP systolic 95–138; BP diastolic 55–69; PULSE 74–95; RESP 17–20; TEMP 36.5–36.9; O2SAT 85–97
[2024-01-13] MEDS: CLINDAMYCIN 600 MG/50 ML BAG 100 MG IVPB ×4 (00:34→17:28)
[2024-01-13] MEDS: Acetaminophen 325 MG TAB 650 MG PO ×4 (02:17→21:25)
[2024-01-13] MEDS: VANCOMYCIN/WATER (PEG) 1.25 GM/250 ML BAG IVPB ×2 (03:01→13:58)
[2024-01-13] MEDS: Ketorolac 15 MG/ML VIAL IVP (03:22)
[2024-01-13] MEDS: Normal Saline Flush 10 ML SYR IVP ×5 (03:25→19:53)
[2024-01-13] MEDS: LORazepam 1 MG TAB PO ×2 (05:08→21:25)
[2024-01-13] MEDS: Budesonide/Formoterol 160/4.5 6 GM 60 PUFF INH IH ×2 (08:36→19:53)
[2024-01-13] MEDS: Gabapentin 300 MG CAP 600 MG PO ×3 (08:51→19:53)
[2024-01-13] MEDS: Torsemide 20 MG TAB PO ×2 (08:51→15:57)
[2024-01-13] MEDS: Magnesium Oxide 400 MG TAB PO ×2 (08:51→21:24)
[2024-01-13] MEDS: rOPINIRole 1 MG TAB 5 MG PO ×3 (08:51→19:53)
[2024-01-13] MEDS: Venlafaxine 75 MG CAPCR PO (08:51)
[2024-01-13] MEDS: oxyCODONE 5 MG TAB PO ×2 (08:52→15:15)
[2024-01-13] MEDS: Metoprolol CR 50 MG TABCR PO (08:52)
--- NOTE | 2024-01-13 10:00 | NUR.NOTE ---
Nursing Note: Transportation arranged for Kaitlynn Cancino with [facility]. They will lease picker J.S. for down and back procedure at [facility] tomorrow, Saturday01/14/24 at 0645 in order to be at [facility] by 0845. - SG
--- NOTE | 2024-01-13 10:57 | PGE_ITS ---
Date of Service Date of service: 01/13/24 Time of Service: 10:57 Assessment and Plan Assessment and plan (1) Psoas abscess, left: Status: Acute Assessment and plan: CT concerning for deep infection, and pending a down and back to [facility] for IR drainage for 01/13 @ 0845. Dr Moisés nolenxaban has been on hold since yesterday morning She was started on ceftriaxone, clindamycin, and vanco for severe deep soft tissue infection. Follow CRP, ESR, CBC. Pain is complicated by chronic pain syndrome. continue oxycodone, hold toradol for procedure (2) Essential hypertension: Status: Acute Assessment and plan: blood pressures well controlled, continue outpatient medication. (3) Paroxysmal atrial fibrillation: Status: Acute Assessment and plan: She is on apixaban chronically for afib and history of PE. Exam suggests NSR. Holding apixaban pending IR procedure (4) COPD (chronic obstructive pulmonary disease): Assessment and plan: no exacerbation. Continue to monitor (5) Tobacco user: Assessment and plan: Encouraged cessation, nicotine replacement as needed (6) RLS (restless legs syndrome): Assessment and plan: Dx RLS on her list, though she takes dopaminerics around the clock - more like parkinsons. Will continue her outpatient meds. (7) DVT prophylaxis: Status: Acute Assessment and plan: SCDs for now, apixaban on hold (8) Discharge planning issues: Status: Acute Assessment and plan: case management following for discharge planning. discussed with Dr Ahuja Subjective Subjective Patient reports: no new complaints, tolerating a regular diet, voiding w/o difficulty, bowel movement and afebrile; denies diarrhea or nausea Interval history since last seen: Patient awake and alert, semi fowlers in bed. No complaints. Advised patient the plan is for her to go to [facility] in the morning to IR for drainage, she is in agreement with this plan. Exam Narrative Exam Narrative: Morbidly obese elderly female chronically ill-appearing older than stated age Head is atraumatic eyes normal appearance noninjected nonicteric oral mucosas moist no exudate Neck is supple no JVD full range of motion no meningeal signs Respirations even and unlabored Cardiovascular regular rate and rhythm good pedal pulse Skin no rashes or lesions Moves all extremity- edema to bilateral lower extremities; pulses present Neurologic awake alert oriented no focal deficits Objective Last Vital Signs Temp 36.5 C 01/13/24 08:00 Pulse 95 H 01/13/24 08:00 Resp 18 01/13/24 08:00 BP 112/65 01/13/24 08:00 Pulse Ox 94 01/13/24 08:00 Laboratory Results - last 24 hr 01/12/24 06:22 ESR 67 H C-Reactive Protein 8.28 H Time Spent with Patient Time Spent with Patient: 35-49 minutes Time was spent: preparing to see the patient(eg.review tests), ordering medications,tests, procedures, referring, communicating with other health foster care social worker, indepentently interpreting results, counseling the patient and care coordination
--- NOTE | 2024-01-13 11:14 | NUR.NOTE ---
Nursing Note: Patient stating she is in severe 10/10 pain All medications for pain administered per MAR. There are no other medications that can be given at this time. Patient requested toradol which [facility] IR requested we not give her related to her getting a procedure tomorrow morning at 0900.
--- NOTE | 2024-01-13 18:25 | CMPROGNOTE_ITS ---
Date of service: 01/13/24 Time of Service: 18:25 Care Management Progress Note Progress Note Text Progress Note Text: S/O: Marzena was resting when CM attempted to meet with her; CM did not wake her. Per report, Marzena was scheduled to go to [facility] for a down and back IR drainage procedure, although [facility] has reported that they may not accept this transfer due to insurance barriers. CM has reached out to administration for support on this matter. is contacting [facility] to inquire about transferring Marzena (down and back) for the IR drainage procedure which is medically necessary, and unable to be performed at [facility]. CM will continue to follow. A: Marznea is a 73 year old female admitted to [facility] on 01/11/24 for left psoas abscess. P: Marzena will likely go to a tertiary facility, down and back for a procedure. Once she has been medically cleared, she will return home with a resumption of HH PT, OT, and PHP LAMP DEVELOPER through [facility]. She will be driven home via private vehicle by family and she will follow up with her PCP and discharge plan of care. CM will continue to follow. SDOH(Care Management) Screening Will the Patient Participate in the Screening?: Yes Do you worry about having a steady place to live?: no In the past 12 months, have you had to go without electric, gas, oil or water in your home?: choose not to answer Have you or anyone in your house had to go without enough food to eat?: choose not to answer Has lack of transportation kept you from medical appointments or from doing things needed for daily living?: choose not to answer Has anyone in your support network made you feel unsafe for any reason?: choose not to answer
[2024-01-13] MEDS: Lovastatin 20 MG TAB 40 MG PO (19:53)
[2024-01-13] MEDS: traZODone 50 MG TAB 150 MG PO (21:25)
[2024-01-13] MEDS: cefTRIAXone 2 GM/50 ML BAG IVPB (22:47)
[2024-01-14] MEDS: CLINDAMYCIN 600 MG/50 ML BAG 100 MG IVPB ×4 (00:03→23:10)
[2024-01-14] MEDS: VANCOMYCIN/WATER (PEG) 1.25 GM/250 ML BAG IVPB (01:36)
[2024-01-14] MEDS: Normal Saline 500 ML 30 ML IV (01:36)
[2024-01-14] MEDS: Acetaminophen 325 MG TAB 650 MG PO ×5 (03:32→22:14)
[2024-01-14] MEDS: oxyCODONE 5 MG TAB PO ×5 (03:33→22:14)
[2024-01-14 03:43] VITALS: BP 116/70; PULSE 81; RESP 16; TEMP 36.8; O2SAT 93
[2024-01-14 06:30] LABS: ESR 56 mm/hr (0-30)
[2024-01-14 06:32] LABS: Abs Immature Grans 0.03 10^3/uL (0.0-0.06); Absolute Basophil Count 0.04 10^3/uL (0.0-0.2); Absolute Eosinophil Count 0.44 10^3/uL (0.0-0.7); Absolute Lymphocyte Count 1.37 10^3/uL (1.2-3.4); Absolute Monocyte Count 0.62 10^3/uL (0.1-0.8); Absolute Neutrophil Count 4.78 10^3/uL (1.2-6.7); Basophils % 0.5; HCT 25.9 % (36.0-46.0); HGB 7.6 g/dL (11.2-15.7); Immature Grans % 0.4; Lymphocytes % 18.8; MCH 22.9 pg (27.0-33.0); MCHC 29.3 % (32.0-36.0); MCV 78 fL (80-95); MPV 8.7 fL (8.0-11.0); Monocytes % 8.5; Neutrophils % 65.8; Platelet Count 271 10^3/uL (130-400); RBC 3.32 10^6/uL (3.93-5.22); RDW 19.5 % (11.7-14.6); RDW-SD 54.8 fL; WBC 7.28 10^3/uL (4.4-10.8)
[2024-01-14 06:42] LABS: BUN 16 mg/dL (7-18); CREATININE 0.8 mg/dL (0.55-1.02); Calcium 8.5 mg/dL (8.5-10.1); Estimated GFR 77.75 (mL/min/1.73m2); Glucose 102 mg/dL (74-106); Potassium 3.5 mmol/L (3.5-5.1); Sodium 141 mmol/L (136-145)
[2024-01-14 06:43] LABS: Anion Gap 4.5 mmol/L (3-11); C-Reactive Protein 7.53 mg/dL (<or=0.5); CO2 34.5 mmol/L (21.0-32.0); Chloride 102 mmol/L (98-107)
[2024-01-14 07:06] LABS: Diff Comment Diff Reviewed; Hypochromasia 2+
[2024-01-14 07:42] VITALS: BP 129/70; PULSE 80; RESP 12; TEMP 36.4; O2SAT 90
[2024-01-14] MEDS: Budesonide/Formoterol 160/4.5 6 GM 60 PUFF INH IH ×2 (08:00→20:35)
[2024-01-14] MEDS: Magnesium Oxide 400 MG TAB PO ×2 (08:15→20:36)
[2024-01-14] MEDS: rOPINIRole 1 MG TAB 5 MG PO ×2 (08:15→19:16)
[2024-01-14] MEDS: Venlafaxine 75 MG CAPCR PO (08:16)
[2024-01-14] MEDS: Gabapentin 300 MG CAP 600 MG PO ×2 (08:16→19:16)
[2024-01-14] MEDS: Metoprolol CR 50 MG TABCR PO (08:16)
[2024-01-14] MEDS: Torsemide 20 MG TAB PO (08:17)
[2024-01-14] MEDS: Normal Saline Flush 10 ML SYR IVP ×2 (08:18→17:47)
--- NOTE | 2024-01-14 09:20 | CMPROGNOTE_ITS ---
Date of service: 01/14/24 Time of Service: 09:20 Care Management Progress Note Progress Note Text Progress Note Text: S/O: Marzena was sitting up in a chair when CM met with her. She was waiting for transport to go to [facility] [place] for an IR procedure to drain the abscess in her psoas muscle. She is expected to return later today. Marzena informed CM that she was having a lot of pain at that time, however she had just been medicated about 10 minutes earlier for the trip. A: Marzena is a 73 year old female admitted to [facility] on 01/11/24 for left psoas abscess. P: Marzena will likely go to a tertiary facility, down and back for a procedure. Once she has been medically cleared, she will return home with a resumption of PT, OT, and CAKE MIXER through [facility]. She will be driven home via private vehicle by family and she will follow up with her PCP and discharge plan of care. CM will continue to follow. SDOH(Care Management) Screening Will the Patient Participate in the Screening?: Yes Do you worry about having a steady place to live?: no In the past 12 months, have you had to go without electric, gas, oil or water in your home?: choose not to answer Have you or anyone in your house had to go without enough food to eat?: choose not to answer Has lack of transportation kept you from medical appointments or from doing things needed for daily living?: choose not to answer Has anyone in your support network made you feel unsafe for any reason?: choose not to answer
[2024-01-14] MEDS: LORazepam 1 MG TAB PO ×2 (09:40→20:36)
--- NOTE | 2024-01-14 10:20 | W.PM.PROGNOT ---
Date of Service Date of service: 01/14/24 Time of Service: 10:20 Assessment and Plan Assessment and plan (1) Psoas abscess, left: Status: Acute Assessment and plan: CT concerning for deep infection, is pending a down and back for IR drainage apixaban has been on hold since 01/11/2024 continue ceftriaxone, clindamycin, and vanco for severe deep soft tissue infection. Follow CRP, ESR, CBC. Pain is complicated by chronic pain syndrome. continue oxycodone, hold toradol for procedure (2) Essential hypertension: Status: Acute Assessment and plan: blood pressures well controlled, continue outpatient medication. (3) Paroxysmal atrial fibrillation: Status: Acute Assessment and plan: She is on apixaban chronically for afib and history of PE. Exam suggests NSR. Holding apixaban pending IR procedure (4) COPD (chronic obstructive pulmonary disease): Assessment and plan: no exacerbation. Continue to monitor (5) Tobacco user: Assessment and plan: Encouraged cessation, nicotine replacement as needed (6) RLS (restless legs syndrome): Assessment and plan: on her list, though she takes dopaminerics around the clock - more like parkinsons. Will continue her outpatient meds. (7) DVT prophylaxis: Status: Acute Assessment and plan: SCDs for now, apixaban on hold (8) Discharge planning issues: Status: Acute Assessment and plan: case management following for discharge planning. discussed with Dr Ahuja Subjective Subjective Patient reports: still having pain, tolerating liquids well, tolerating a regular diet and afebrile Exam Narrative Exam Narrative: Morbidly obese elderly female chronically ill-appearing older than stated age Head is atraumatic eyes normal appearance noninjected nonicteric oral mucosas moist no exudate Neck is supple no JVD full range of motion no meningeal signs Respirations even and unlabored Cardiovascular regular rate and rhythm good pedal pulse Skin no rashes or lesions Moves all extremity edema to bilateral lower unchanged Neurologic awake alert oriented no focal deficits Objective Last Vital Signs Temp 36.4 C 01/14/24 07:42 Pulse 80 01/14/24 07:42 Resp 12 01/14/24 07:42 BP 129/70 01/14/24 07:42 Pulse Ox 90 L 01/14/24 07:42 Laboratory Results - last 24 hr 01/14/24 06:02 WBC 7.28 RBC 3.32 L Hgb 7.6 L Hct 25.9 L MCV 78 L MCH 22.9 L MCHC 29.3 L RDW 19.5 H Plt Count 271 MPV 8.7 Immature Gran % 0.4 Neutrophils % 65.8 Lymphocytes % 18.8 Monocytes % 8.5 Eosinophils % 6.0 Basophils % 0.5 Nucleated RBC % 0.0 Absolute Neutrophils 4.78 Absolute Lymphocytes 1.37 Absolute Monocytes 0.62 Absolute Eosinophils 0.44 Absolute Basophils 0.04 RBC Morphology See Below Hypochromasia 2+ ESR 56 H Sodium 141 Potassium 3.5 Chloride 102 Carbon Dioxide 34.5 H Anion Gap 4.5 BUN 16 Creatinine 0.8 Est GFR (CKD-EPI 2020) 77.75 Glucose 102 Calcium 8.5 Magnesium 2.0 C-Reactive Protein 7.53 H Time Spent with Patient Time Spent with Patient: 35-49 minutes Time was spent: preparing to see the patient(eg.review tests), obtaining and/or reviewing separately otained hiistory, ordering medications,tests, procedures, referring, communicating with other health in home caregiver, indepentently interpreting results, counseling the patient and care coordination
--- NOTE | 2024-01-14 10:31 | NUR.NOTE ---
Nursing Note: Transportation arranged for down and back procedure to [facility] Interventional Radiology, department 3Z. Patient to be there today 01/14/24 at 1350. [facility] basic crew to transfer.
--- NOTE | 2024-01-14 10:51 | CHAPLAIN ---
I visited with Marzena just as she was finding out that she was being transferred to [facility] for a procedure on her leg. She is a [employer] but there are no [employer] churches near where she lives in [place]. There is a [employer] [facility] and she has considered going there, as the prayers would be similar, she said, but she is not interested in converting to Catholicism which would be necessary if she were to take communion. Marzena said she recites the Lord's prayer and the Apostles' Creed, her two favorite prayers, daily and nurtures her relationship with God continually. I brought Marzena a prayer shawl to take on her trip to [facility] and offered a prayer with her.
--- NOTE | 2024-01-14 11:07 | NUR.NOTE ---
Nursing Note: report given to [facility] IR nurse Jacqueline @ [id number] for down and back procedure
[2024-01-14 11:59] VITALS: BP 117/76; PULSE 80; RESP 14; TEMP 36.2; O2SAT 94
[2024-01-14 17:35] VITALS: BP 145/89; PULSE 75; RESP 16; TEMP 36.6; O2SAT 95
[2024-01-14] MEDS: Lovastatin 20 MG TAB 40 MG PO (19:16)
[2024-01-14 19:28] VITALS: BP 125/72; PULSE 82; RESP 18; TEMP 36.2; O2SAT 95
[2024-01-14] MEDS: traZODone 50 MG TAB 150 MG PO (20:36)
[2024-01-14] MEDS: cefTRIAXone 2 GM/50 ML BAG IVPB (22:14)
[2024-01-15] VITALS (7 sets, daily range): BP systolic 105–150; BP diastolic 66–78; PULSE 70–81; RESP 17–18; TEMP 36–36.9; O2SAT 92–97
[2024-01-15] MEDS: LORazepam 1 MG TAB PO ×3 (00:13→23:03)
[2024-01-15] MEDS: VANCOMYCIN/WATER (PEG) 1.25 GM/250 ML BAG IVPB (02:02)
[2024-01-15] MEDS: oxyCODONE 5 MG TAB PO ×3 (02:02→20:19)
[2024-01-15] MEDS: Acetaminophen 325 MG TAB 650 MG PO ×3 (02:02→23:03)
[2024-01-15] MEDS: CLINDAMYCIN 600 MG/50 ML BAG 100 MG IVPB (05:09)
[2024-01-15] MEDS: Gabapentin 300 MG CAP 600 MG PO ×3 (07:56→20:19)
[2024-01-15] MEDS: Metoprolol CR 50 MG TABCR PO (07:56)
[2024-01-15] MEDS: Venlafaxine 75 MG CAPCR PO (08:00)
[2024-01-15] MEDS: Torsemide 20 MG TAB PO ×2 (08:00→17:10)
--- NOTE | 2024-01-15 08:39 | PDOC.CMPRO ---
Date of service: 01/15/24 Time of Service: 08:39 Care Management Progress Note Progress Note Text Progress Note Text: S/O: Marzena was sitting up in a chair when CM met with her. She went to [facility] yesterday for an IR drainage procedure. The procedure went well and Marzena is reporting that she has less pain today. Marzena is scheduled to be discharged home tomorrow. She will have a resumption of home health services through [facility] to include RN, PT, and OT . Marzena verbalized that she is happy to be going home but is a little nervous about pain control and the handling of her drain. CM explained that nursing will help with the drain and that her provider will address her pain issues at the time of discharge. She will need [facility] for transportation. A: Marzena is a 73 year old female admitted to [facility] on 01/11/24 for left psoas abscess. P: Marzena went to [facility] for a down and back abscess drainage procedure yesterday. 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 She will transport via [facility] private care coordinated by CM and she will follow up with her PCP and discharge plan of care. CM will continue to follow and support discharge planning concerns. SDOH(Care Management) Screening Will the Patient Participate in the Screening?: Yes Do you worry about having a steady place to live?: no In the past 12 months, have you had to go without electric, gas, oil or water in your home?: choose not to answer Have you or anyone in your house had to go without enough food to eat?: choose not to answer Has lack of transportation kept you from medical appointments or from doing things needed for daily living?: choose not to answer Has anyone in your support network made you feel unsafe for any reason?: choose not to answer
[2024-01-15] MEDS: Budesonide/Formoterol 160/4.5 6 GM 60 PUFF INH IH (08:51)
--- NOTE | 2024-01-15 09:52 | W.PM.PROGNOT ---
Date of Service Date of service: 01/15/24 Time of Service: 09:52 Assessment and Plan Assessment and plan (1) Psoas abscess, left: Status: Acute Assessment and plan: IR drainage at [facility] yesterday, blood cultures have been negative to date. No abscess culture to guide antibiotic treatment. Will stop vancomycin and continue cefpodoxime and clindamycin for a 4 to 6-week course depending on how inflammatory markers trend apixaban can be restarted continue cefpodoxime, clindamycin, for severe deep soft tissue infection. Follow CRP, ESR, CBC. Pain is complicated by chronic pain syndrome. continue oxycodone consider weaning, resume toradol (2) Essential hypertension: Assessment and plan: blood pressures well controlled, continue outpatient medication. (3) Anemia: Status: Chronic (4) Paroxysmal atrial fibrillation: Assessment and plan: She is on apixaban chronically for afib and history of PE. Exam suggests NSR. was holding apixaban pending IR procedure is safe to resume (5) COPD (chronic obstructive pulmonary disease): Assessment and plan: no exacerbation. Continue to monitor (6) Tobacco user: Assessment and plan: Encouraged cessation, nicotine replacement as needed (7) RLS (restless legs syndrome): Assessment and plan: on her list, though she takes dopaminerics around the clock - more like parkinsons. Will continue her outpatient meds. (8) DVT prophylaxis: Status: Deleted Assessment and plan: SCDs for now, apixaban on hold (9) Discharge planning issues: Status: Deleted Assessment and plan: case management following for discharge planning. discussed with Dr Ahuja Exam Narrative Exam Narrative: Morbidly obese elderly female chronically ill-appearing older than stated age Head is atraumatic eyes normal appearance noninjected nonicteric oral mucosas moist no exudate Neck is supple no JVD full range of motion no meningeal signs Respirations even and unlabored Cardiovascular regular rate and rhythm good pedal pulse Skin no rashes or lesions MIGUEL drain to left draining minimal serous fluid. Moves all extremity extensive lymph edema to bilateral lower unchanged Neurologic awake alert oriented no focal deficits Objective Last Vital Signs Temp 36.0 C L 01/15/24 07:21 Pulse 72 01/15/24 07:21 Resp 18 01/15/24 07:21 BP 144/78 H 01/15/24 07:21 Pulse Ox 93 01/15/24 07:21 Laboratory Results - last 24 hr 01/14/24 13:00 Vancomycin Trough Cancelled Time Spent with Patient Time Spent with Patient: 35-49 minutes Time was spent: preparing to see the patient(eg.review tests), obtaining and/or reviewing separately otained hiistory, ordering medications,tests, procedures, referring, communicating with other health client care consultant, indepentently interpreting results, counseling the patient and care coordination
[2024-01-15] MEDS: Magnesium Oxide 400 MG TAB PO ×2 (10:01→21:14)
[2024-01-15 10:35] LABS: Abs Immature Grans 0.04 10^3/uL (0.0-0.06); Absolute Basophil Count 0.05 10^3/uL (0.0-0.2); Absolute Eosinophil Count 0.58 10^3/uL (0.0-0.7); Absolute Lymphocyte Count 0.83 10^3/uL (1.2-3.4); Absolute Monocyte Count 0.42 10^3/uL (0.1-0.8); Absolute Neutrophil Count 6.02 10^3/uL (1.2-6.7); Basophils % 0.6; Eosinophils % 7.3; HCT 33.8 % (36.0-46.0); HGB 9.6 g/dL (11.2-15.7); Immature Grans % 0.5; Lymphocytes % 10.5; MCH 22.4 pg (27.0-33.0); MCHC 28.4 % (32.0-36.0); MCV 79 fL (80-95); MPV 8.3 fL (8.0-11.0); Monocytes % 5.3; Neutrophils % 75.8; Platelet Count 347 10^3/uL (130-400); RBC 4.29 10^6/uL (3.93-5.22); RDW 19.8 % (11.7-14.6); RDW-SD 56.1 fL; WBC 7.94 10^3/uL (4.4-10.8)
[2024-01-15 10:53] LABS: Iron 26 ug/dL (50-170); Total Iron Binding Capacity 464 ug/dL (250-450); Transferrin Sat 6 % (15-50)
[2024-01-15 11:06] LABS: Ferritin 50 ng/mL (8-252)
--- NOTE | 2024-01-15 11:18 | PT.INIE ---
PT Notes Visit Reasons: Left Psoas Abscess Physical Therapy Inpatient Initial Evaluation Date: 01/15/2024 Referring Doctor: Brandie Wiggins NP PT Orders: PT CONSULT: Eval/treat Precautions: Fall. Standard. WBAT on the L LE with AD. Patient Profile/Admitting Diagnosis: Marzena is a 73-year-old female who initially presented to the ED on 01/11/2024 due to hip pain and difficulty with walking. Patient is diagnosed with diarrhea, urinary tract infection, urinary incontinence, spondylosis of cervical region without myelopathy CN radiculopathy, lumbago, ambulatory dysfunction, anxiety and hypokalemia. PMHX: All Active Problems (Updated 01/11/24 @ 05:32 by Kenan Grant) Discharge planning issues (Acute) DVT prophylaxis (Acute) Psoas abscess, left (Acute) Pelvic fluid collection (Acute) Shortness of breath (Acute) Insomnia (Acute) Essential hypertension (Acute 01/21/17) Paroxysmal atrial fibrillation (Acute) Lumbar radiculopathy (Acute) 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 Mcconnell 04/2022 Hyperlipidemia Lumbago with sciatica, left side Surgical History 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) History of abdominal surgery (01/21/17) Hx of cholecystectomy H/O cone biopsy of cervix History of breast biopsy Hx of rotator cuff surgery right History of total bilateral knee replacement (TKR) History of carpal tunnel release H/O exploratory laparotomy Hx of cervical spine surgery Hx of colonoscopy Social History/Home Situation: Lives with sister in an aprtment with a ramp to enter. Sister is also handicapped and is not able to help her with mobility performance due to a bad back. Received HH support 3x/week for chores, laundry, and grocery shopping. Ambulatory indoors with [facility]. Gets meals on wheels. Equipment Owned/DME: [facility] Subjective: Patient stated that she had her L hip replaced back in September of 2023 and has had spasms as well as worsened restless leg symptoms since which had made her roll/slide off the bed once in October 2023 after [place] and another one after 2023 which prompted trip the ED where she was told she did not break anything. Per the patietn she was sent to a SNF for more strengthening and was sent home end of November with HH services in place. She adds that her swelling in B LE has been there even before her L hip surgery. Adds that both her legs have been swollen and have added to the difficulty of moving about. Objective: General Observation: Seated on bedside chair. Drain inplace. B LE swelling, B legs and feet fibrotic and discolored. Mental Status: Alert and oriented x4 Pain: At rest 4-5/10; with ambulation 7-8/10 ROM: Right Upper Extremity: Shoulder Flexion up to about 100 degrees. Shoulder abduction up to 90 degrees. Elbow flexion WFL. Wrist flexion WFL. Opening and closing of hand WFL. Left Upper Extremity: Shoulder Flexion up to about 100 degrees. Shoulder abduction up to 90 degrees. Elbow flexion WFL. Wrist flexion WFL. Opening and closing of hand WFL. Right Lower Extremity: Hip flexion about 90 degrees. Hip abduction WFL. Knee flexion 45 degrees to 100 degrees. Knee extension -45 degrees. Ankle dorsiflexion WFL. Ankle plantarflexion WFL. Left Lower Extremity: Hip flexion unable to lift thigh past 90 degrees. Hip abduction WFL. Knee flexion 60 degrees to 90 degrees. Knee extension -60 degrees. Ankle dorsiflexion to neutral only. Ankle plantarflexion WFL. Strength: Right Upper Extremity: Shoulder flexors 3-/5. Shoulder abductors 3-/5. Elbow flexors 4/5. Elbow extensors 4/5. Epic Willow Analyst strong. Left Upper Extremity: Shoulder flexors 3-/5. Shoulder abductors 3-/5. Elbow flexors 4/5. Elbow extensors 4/5. Epic Willow Analyst strong. Right Lower Extremity: Hip flexors 3-/5. Hip abductors 4-/5. Knee flexors 3-/5. Knee extensors 3-/5. Ankle dorsiflexors 3-/5. Ankle plantarflexors 3/5. Left Lower Extremity:Hip flexors 2-/5. Hip abductors 3-/5. Knee flexors 2-/5. Knee extensors 2-/5. Ankle dorsiflexors 3-/5. Ankle plantarflexors 3/5. Sensation: Intact as to pain and light pressure in B LE Bed Mobility/Transfers: Minimal cueing provided for use of B hands as needed for support, movement sequence, AD management, and posture to reduce fall risk and minimize pain report Sit to stand contact guard assist Stand to sit contact guard assist Gait: Facilitated safe and correct performance of level surface ambulation for a distance of 30 feet using front-wheeled walker with step-to gait pattern and pain of 8/10 on left thigh at end of activity. Minimal verbal cueing provided for increased step height and length. Balance: Static Sitting: Normal Dynamic Sitting: Normal Static Standing: Fair Dynamic Standing: Fair Special Tests: Mobility Limitations Standardized Measure [facility] AM-PAC 6 clicks Basic Mobility Inpatient Short Form: Raw Score: 23 CMS Score: 11% deficit Informed Consent/Education: Patient instructed in purpose of PT consult and plan of care. Agreeable to proceed with established PT POC to achieve personal goals. Assessment: Marzena demonstrates functional mobility decline requiring the use front wheeled walker for all mobility ADL performance, decreased activity tolerance, and pain in the L hip due to psoas abcess. Marzena is a 73-year-old female who initially presented to the ED on 01/11/2024 due to hip pain and difficulty with walking. Patient is diagnosed with diarrhea, urinary tract infection, urinary incontinence, spondylosis of cervical region without myelopathy CN radiculopathy, lumbago, ambulatory dysfunction, anxiety and hypokalemia. Patient presents with clinical signs and symptoms consistent with current/admitting diagnoses that have resulted to mobility limitations, gait instability, generalized weakness, and impairment of motor control as demonstrated by the following impairment level findings: 1. Decreased strength to left LE major muscle groups 2. Impaired standing balance 3. Impaired activity tolerance 4. Impaired muscle perofrmance Impairments are contributing to the following functional limitations: 1. Inability to safely ambulate without assistive device 2. Increase completion time for mobility ADL performance 3. Increased fall risk Patient is assessed as a 52262 complexity based on the following: History: 73-year-old female with impairment level findings, functional limitations, and past medical history as indicated above Examination: Demonstrable impairment in strength, balance, and mobility level with underlying impairments and functional limitations as documented above Presentation:Evolving Decision Makin moderate complexity Goals: Goals X1 week 1. Supine-Sit independent 2. Sit-Supine independent 3. Sit-Stand independent 4. Stand-Sit independent 5. Bed-Chair independent 6. Chair-Bed independent 7. Independent gait on level surface with use of least restrictive device for at least 300 feet without report of pain nor dyspnea 8. Independent stair negotiation while holding onto bilateral rails for at least 10 steps without report of pain nor dyspnea 9. Independent with home exercise program 10. Good static and dynamic standing balance/tolerance Plan of Care/Treatment Plan: Patient will highly benefit from skilled physical therapy services including functional mobility training, bed mobility/transfer training, gait and balance training, therapeutic exercises, therapeutic activity, caregiver/staff/family education and training 1x/day, 7 days/week x 1 week. Plan of care has been reviewed with the [employer]PER[employer] providing the service under Physical Therapy direction. Initiate Physical Therapy intervention for strengthening, bed mobility, transfers, gait, stairs, balance training, use of assistive device. DISCHARGE RECOMMENDATIONS: Patient will benefit from home health PT services in order to progress mobility level using least restrictive assistive ambulatory device, assess home safety, identify additional equipment needs, and establish a functional maintenance program that will increase ability of patient to remain at home. TREATMENT CODE/TIME: 24158 x 20 minutes for 1 unit, 68703 x 11 minutes for 1 unit (11:18-11:49). Thank you for the opportunity to participate in the care of this patient. Sonali Sims PT, DPT, CLT [facility] [place], [place]
[2024-01-15] MEDS: Clindamycin 300 MG CAP PO ×3 (13:11→23:03)
[2024-01-15] MEDS: rOPINIRole 1 MG TAB 5 MG PO ×3 (13:39→21:14)
--- NOTE | 2024-01-15 14:34 | PT.INTREAT ---
PT Notes Visit Reasons: Left Psoas Abscess Inpatient Physical Therapy Treatment Note [facility] Date: 01/14/2014 SUBJECTIVE: Marzena reports that she was told she could go home tomorrow. She is a little nervous about this as her left leg is still numb and painful and no one seems to have answers. OBJECTIVE: []? Vitals: monitored by nsg. Therapeutic Activities (14522g6): Direct one-on-one instruction in dynamic activities to improve functional performance. ? BED MOBILITY/TRANSFERS? Supine-sit: SBA? Sit-supine: min A for LE ? Sit-stand: SBA? Stand-sit:SBA ? GAIT? Assistive Device:FWW ? Weight bearing: full Assist: SBA? Distance:? 50'? ASSESSMENT:?No LOB noted, however apprehensive about walking any great distances due to fear of left LE pain. Ice seems to help decrease any pain in her LE. PLAN: will continue to work on her functional mobility to tolerance. TREATMENT CODE/TIME: 15 min. [id number]
--- NOTE | 2024-01-15 15:14 | CHAPLAIN ---
Marzena was sitting up in the chair when I visited. She found out that she doesn't have lymphoma, which was a concern of hers. She was relieved, but also had several other things she is concerned about including finances, her relationship with her sister, with whom she lives, and the possibility of going to a prison. Along with her sister, Marzena is touch with her older brother. She is Restorationism, but hasn't found any Islam churches near where she lives in [place]. She usually goes to [facility], but she said they refused to treat her for the same thing when she went to the ED repeatedly, so she came here and she said she's received good care here. I left with the Charmaine volunteer came in.
[2024-01-15] MEDS: Lovastatin 20 MG TAB 40 MG PO (20:19)
[2024-01-15] MEDS: Normal Saline Flush 10 ML SYR IVP (20:19)
[2024-01-15] MEDS: Apixaban 5 MG TAB PO (20:19)
[2024-01-15] MEDS: Cefpodoxime 200 MG TAB 400 MG PO (20:19)
[2024-01-15] MEDS: traZODone 50 MG TAB 150 MG PO (21:14)
[2024-01-15] MEDS: Diclofenac 1% Gel 100 GM TUBE TP (23:22)
[2024-01-16] MEDS: oxyCODONE 5 MG TAB PO ×2 (02:19→08:31)
[2024-01-16 04:18] VITALS: BP 112/67; PULSE 91; RESP 20; TEMP 36.4; O2SAT 93
[2024-01-16 04:30] VITALS: O2SAT 92
[2024-01-16] MEDS: Acetaminophen 325 MG TAB 650 MG PO (05:05)
[2024-01-16] MEDS: Clindamycin 300 MG CAP PO ×2 (05:05→11:12)
[2024-01-16 07:16] VITALS: BP 108/63; PULSE 77; RESP 18; TEMP 36.1; O2SAT 91
[2024-01-16 08:15] VITALS: O2SAT 91
[2024-01-16] MEDS: Cefpodoxime 200 MG TAB 400 MG PO (08:30)
[2024-01-16] MEDS: Torsemide 20 MG TAB PO (08:30)
[2024-01-16] MEDS: Metoprolol CR 50 MG TABCR PO (08:31)
[2024-01-16] MEDS: Gabapentin 300 MG CAP 600 MG PO (08:31)
[2024-01-16] MEDS: Venlafaxine 75 MG CAPCR PO (08:31)
[2024-01-16] MEDS: Apixaban 5 MG TAB PO (08:32)
[2024-01-16] MEDS: Diclofenac 1% Gel 100 GM TUBE TP ×2 (08:34→11:26)
--- NOTE | 2024-01-16 09:24 | DSE_ITS ---
Date of service: 01/16/24 Time of Service: 09:24 DS: Diagnosis Discharge Diagnosis (1) Psoas abscess, left: Status: Acute (2) Essential hypertension: Status: Acute (3) Anemia: Status: Chronic (4) Paroxysmal atrial fibrillation: Status: Acute (5) COPD (chronic obstructive pulmonary disease): (6) Tobacco user: (7) RLS (restless legs syndrome): Discharge Plan Disposition Patient Disposition: Home W/Home Health Services Condition: Improving Discharge Details Reason For Visit: Left Psoas Abscess Admit Date/Time: 01/11/24 01:06 Admit Provider: Kenan Grant Attending Provider: Kenan Grant Primary Care Provider: Unknown,Unknown Hospital Course Hospital Course: This 73 years old female with a past medical history of atrial fibrillation on apixaban chronic obstructive pulmonary disease, chronic ambulatory dysfunction due to parkinsonism, chronic spine and joint pain, smoking and left femoral neck repair at [facility] on September 2023 presented to the emergency department status post fall with left hip pain on 01/11/2024. The patient stated at the time that tonight prior to arrival she had fell asleep while using the toilet at night and fell on the floor. The same night the patient reported calling the ambulance for a lift and assist but declined going to the emergency room as she thought that she could manage the pain. She continued to have intermittent spasm in the left hip area since her surgery in September, but after the fall felt that the pain has been increasing to her left hip down to the back of her knee. At the time the patient denied having any chest pain dizziness palpitation or shortness of breath and had not lost consciousness. In the ED at [facility] the patient received morphine and oxycodone that helped, as well as tizanidine. The patient denied focal numbness or weakness but complained of intermittent chills. The CT was concerning for deep tissue infection but after reviewing the case with [facility] and [facility] there was no concern for immediate surgical/interventional radiology intervention. Consideration was given to psoas muscle bleeding due to anticoagulation but as evidenced by the inflammation surrounding the lesion on the CT it was less consistent with this a simple hematoma. The patient was started on ceftriaxone, clindamycin and vancomycin for severe deep soft tissue infection as she accepted to be transferred to [facility] over the weekend in the instance where conservative care did not improve her condition. On 01/14/2024 the patient went to [facility] for an interventional radiology drainage and drain placement, no fluid culture was available to guide antibiotic treatment at the time. Vancomycin was stopped and the patient continued to receive cefpodoxime and clindamycin.The duration of this treatment should be for 4 to 6-weeks depending on inflammatory markers CRP, ESR, and CBC trends that will be monitored by her primary care practitioner. As inflammatory markers are trending down, the patient will be discharged home on 4-week course of oral antibiotics. CRP, ESR and CBC will be ordered for 01/23/2024 with results forwarded to the PCP. Oral probiotics were added to the patient regimen for the duration of the oral antibiotic therapy. The patient pain was managed with a multi -modal regiment and the patient will be discharged on scheduled acetaminophen and scheduled ibuprofen with meals for 5 days; as needed oxycodone for a limited duration, gabapentin and diclofenac ointment. The patient might resume her previous pain management regimen as recommended by her primary care after the completion of the prior mentioned regimen. The patient was started on oral iron to be taken every 48 hours with further management as per PCP. B12 and folate levels were pending when discharged. The patient will need to follow-up with her primary care practitioner within 1 to 2 weeks for condition monitoring as well as drain removal as seen appropriate, as the patient may also need referral from the PCP to go to [facility] IR department for further management or removal of the drain. Prior to arrival, the patient was receiving home health support 3 times a week for course of laundry and grocery shopping; she had Meals on Wheels. The patient will be discharged home with home health with occupational therapy, nursing, physical therapy and medical records receptionist. Home Meds and New Rx's Prescriptions: New cefpodoxime 200 mg Tablet 400 mg PO BID Qty: 93 0RF clindamycin HCl 300 mg Capsule 300 mg PO Q6H Qty: 94 0RF diclofenac sodium 3 % Gel 100 g topical QID PRN PRN (Reason: Pain) Qty: 100 0RF ferrous sulfate 325 mg (65 mg iron) Tablet 325 mg PO Q48H Qty: 15 0RF oxycodone 5 mg Tablet 5 mg PO Q6H PRN PRNQty: 10 0RF acetaminophen 325 mg Tablet 650 mg PO Q6H Qty: 40 0RF Bio-K plus 50 billion cell capsule,delayed release(DR/EC) 1 cap PO DAILY Qty: 24 0RF omeprazole 10 mg capsule,delayed release(DR/EC) 10 mg PO DAILY Qty: 7 0RF Continued torsemide 20 mg tablet 20 mg PO BID Qty: 180 3RF Hold Instructions: Pt Stopped/Never Started Patient Comments: Started takin again about 5 days ago metoprolol succinate 50 mg tablet extended release 24 hr 50 mg PO DAILY albuterol sulfate [ProAir HFA] 8.5 GM HFA aerosol inhaler 2 puff Inhalation Q4H PRN venlafaxine 75 mg capsule,extended release 24hr 75 mg PO DAILY ibuprofen [Advil] 200 MG tablet 1,000 mg PO DAILY PRN magnesium oxide 500 MG capsule 500 mg PO BID trazodone 150 mg tablet 150 mg PO HS Patient Comments: TAKE 1 TABLET BY MOUTH EVERY DAY AT BEDTIME Eliquis 5 mg tablet 1 tab PO BID gabapentin 300 mg capsule 600 mg PO TID Patient Comments: TAKE TWO CAPSULES BY MOUTH THREE TIMES A DAY ropinirole 5 mg tablet 5 mg PO TID Patient Comments: TAKE ONE TABLET BY MOUTH THREE TIMES A DAY, takes first dose around 1400, last dose at bedtime and middle dose in between those two lovastatin 40 mg tablet 40 mg PO DAILY Patient Comments: TAKE ONE TABLET BY MOUTH EVERY DAY tizanidine 2 mg tablet 2 mg PO TID PRN Patient Comments: TAKE ONE TABLET BY MOUTH THREE TIMES A DAY NEEDED lorazepam 1 mg Tablet 1 mg PO TID PRN fluticasone propion-salmeterol [Advair Diskus] 250-50 mcg/dose blister with device 1 inh INHALATION DIRECTED Patient Comments: INHALE ONE PUFF BY MOUTH TWICE A DAY Discontinued acetaminophen 325 MG capsule 500 mg PO PRN PRN Discharge Instructions Stand Alone Forms: Nursing Discharge Form Referrals: Will Steen [ [facility]] - 01/29/24 2:40 pm Unknown,Unknown [Primary Care Provider] - (PCP f/u 1-2 weeks ) Activity:: Activity as Tolerated Equipment/Supplies:: Walker Diet:: Heart healthy Discharge Orders Discharge Orders: Discharge Order (Routine); Ordered 01/16/24 Ordered By: María Marion Other Ambulatory Orders: Complete Blood Count w/Diff (Routine) Timeframe: 20240123 Facility: [facility] - Location: Laboratory Outpatient - [facility] Ordered By: María Meza ESR (Routine) Timeframe: 20240123 Facility: [facility] - Location: Laboratory Outpatient - [facility] Ordered By: María Meza C-Reactive Protein (Routine) Timeframe: 20240123 Facility: [facility] - Location: Laboratory Outpatient - [facility] Ordered By: María Meza DS: Summary Time Spent with Patient providing and/or coordinating discharge services: Greater than 30 minutes Status at Discharge Functional status at discharge: uses cane/walker Overall status at discharge: patient is progressing back to baseline Mental Status: mental status grossly normal Speech and Movement: speech and movement normal Mood: congruent mood Affect: normal affect Quality:SDOH Health Related Social Needs: No Data to Display Exam Narrative Exam Narrative: Constitutional The patient is sitting in chair without acute distress HENMT: Facial structures with normal appearance Neuro:alert and oriented to self, person, place time and situation. No neurological focal deficit Resp: Normal respiratory pattern, speaks in full sentences, unlabored breathing, clear lung bilaterally Cardio: regular rhythm, S1, S2, no murmur,bilateral radial and dorsalis pedis pulses are positive, palpable GI: Abdomen is not distended, soft and non tender, bowel sounds are present Back/spine/Pelvis: tenderness left groin, MIGUEL in place draining clear serous fluid. Integumentary: No skin lesions or rash Psych: RASS 0, congruent mood and normal affect. Psych Mental Status: mental status grossly normal Speech and Movement: speech and movement normal Mood: congruent mood Affect: normal affect DS: Data Vitals/I&O Vitals and I&O: Vital Signs Temperature 36.1 C L 01/16/24 07:16 Temperature Source Temporal Artery Scan 01/16/24 07:16 Pulse 77 01/16/24 07:16 Pulse Rhythm Regular 01/16/24 07:16 Respiratory Rate 18 01/16/24 07:16 Respiratory Effort Normal, Non-Labored 01/16/24 07:16 Respiratory Depth Normal 01/16/24 07:16 Respiratory Pattern Normal 01/16/24 07:16 Blood Pressure 108/63 01/16/24 07:16 Blood Pressure Mean 76 01/11/24 03:31 Pulse Oximetry 91 L 01/16/24 07:16 Oxygen Delivery Method Nasal Cannula 01/16/24 07:16 Oxygen Flow Rate 2 01/16/24 04:30 Pain Level 6 01/16/24 08:31 Comment States pain in legs. 01/14/24 07:42 Intake & Output 01/15/24 01/15/24 01/16/24 11:59 23:59 11:59 Intake Total 710 / 960 250 / 960 680 / 680 Output Total 1455 / 2795 1340 / 2795 600 / 600 Balance -745 / -1835 -1090 / -1835 80 / 80 Weight 121.4 kg 120.8 kg Intake: IV 350 / 350 Oral 360 / 610 250 / 610 680 / 680 Output: Drainage 15 Left Upper Thigh Urine 1450 / 2775 1325 / 2775 600 / 600 Other: Urine Color Yellow Yellow Yellow Urine Appearance Clear Clear Clear Urine Odor Normal Strong Normal Voiding Methods Bedside Commode Bedside Commode Bedside Commode Data Completed and Pending Labs on day of discharge: Labs from last 24 hours 01/15/24 10:30 WBC 7.94 RBC 4.29 Hgb 9.6 L D Hct 33.8 L MCV 79 L MCH 22.4 L MCHC 28.4 L RDW 19.8 H Plt Count 347 MPV 8.3 Immature Gran % 0.5 Neutrophils % 75.8 Lymphocytes % 10.5 Monocytes % 5.3 Eosinophils % 7.3 Basophils % 0.6 Nucleated RBC % 0.0 Absolute Neutrophils 6.02 Absolute Lymphocytes 0.83 L Absolute Monocytes 0.42 Absolute Eosinophils 0.58 Absolute Basophils 0.05 Iron 26 L TIBC 464 H Transferrin % Sat 6 L Ferritin 50 PFSH All Active Problems (Updated 01/15/24 @ 10:45 by Brandie Wiggins NP) Anemia (Chronic) Discharge planning issues (Acute) DVT prophylaxis (Acute) Psoas abscess, left (Acute) Pelvic fluid collection (Acute) Shortness of breath (Acute) Insomnia (Acute) Essential hypertension (Acute 01/21/17) Paroxysmal atrial fibrillation (Acute) Lumbar radiculopathy (Acute) 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 Mcconnell 04/2022 Hyperlipidemia Lumbago with sciatica, left side Surgical History 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) History of abdominal surgery (01/21/17) Hx of cholecystectomy H/O cone biopsy of cervix History of breast biopsy Hx of rotator cuff surgery right History of total bilateral knee replacement (TKR) History of carpal tunnel release H/O exploratory laparotomy Hx of cervical spine surgery Hx of colonoscopy Social History (Updated 01/11/24 @ 05:08 by Kenan Grant) Smoking/Tobacco Use Status: Current-Occasional Tobacco Type: cigarettes Smoking risk assessment performed?: Yes Alcohol Intake: former Drug use: Occasionally Substance use type: former substance user and marijuana Housing: apartment Do you feel safe at home: Yes (lives with sister) Do you feel safe in your relationship?: Yes Additional Social history: Lives with sister in [place], retired, gets some help with cleaning/bathing. Quit smoking at recent rehab stay, but still bums a cigarette from sister when she is stressed. Time Spent with Patient Time Spent with Patient: 70-84 minutes4 Time was spent: preparing to see the patient(eg.review tests), obtaining and/or reviewing separately otained hiistory, ordering medications,tests, procedures, referring, communicating with other health customer care associate, indepentently interpreting results, counseling the patient and care coordination
[2024-01-16] MEDS: Budesonide/Formoterol 160/4.5 6 GM 60 PUFF INH IH (09:55)
--- NOTE | 2024-01-16 10:36 | PDOC.HHF2F_ITS ---
Home Health Referral Home Health Orders Clinical synopsis of why skilled professionals are needed: S/p psoas abscess drainage with drain placement on 4 -week course of oral antibiotics: Needs monitoring of site and worsening condition.Was having HH 3X/[facility] OUTPATIENT RECEPTIONIST, please resume. Medical diagnosis necessitation home health referral: S/p psoas abscess drainage with drain placement on 4 -week course of oral antibiotics: Needs monitoring of site and worsening condition.Was having HH 3X/[facility] OUTPATIENT RECEPTIONIST, please resume. Registered Nurse: Check all that apply Instruct on new or changed medication(s)/assess compliance: Ordered Instruct on, and maintenance of, urinary device: Ordered (drain) Assess for exacerbation of medical condition, instruct patient/caregivers on signs and symptoms to report for early detection: Ordered Physical Therapist: Check all that apply Increase strength & endurance for safe mobility at home: Ordered To design/establish home maintenance program: Ordered Fall reduction therapy program for patient with history of frequent falls: [facility] safety evaluation and teaching/gait training including stair management (if applicable): Ordered Better Breathing Program: Ordered Occupational Therapist: Evaluate and treat for patient unable to perform ADL/IADL/self-care: Ordered Upper extremity strengthening, range and motion: Ordered Cylinder Dyer: Assist with community resources: Ordered Assist with senior living care planning: Ordered Other: Needs f/u with IR at [facility] [facility] or PCP for drain removal. Home Bound Status Requires the aid of supportive device (check all that apply): Walker Describe why leaving home would require a considerable and taxing effort: Safety Concerns: describe Encounter Date and Reason: I certify that a FTF encounter for this patient was performed on January 16, 2024 and that such encounter was related to the primary reason the patient requires home health services. The encounter was conducted in the following manner: * By me as the certifying physician, ATHLETIC FIELD CUSTODIAN, PA or * By an inpatient physician, ATHLETIC FIELD CUSTODIAN or PA during an inpatient stay who communicated findings to me, Certification And Authentication I certify that I composed the above information based on my clinical judgment relating to this patient's medical condition and, if applicable, clinical findings communicated to me by the NPP or inpatient physician who performed the FTF encounter. Name of Provider that will be monitoring home health services: PCP
[2024-01-16 10:38] LABS: Lab Add On Test DONE
[2024-01-16 10:40] LABS: Abs Immature Grans 0.04 10^3/uL (0.0-0.06); Absolute Basophil Count 0.04 10^3/uL (0.0-0.2); Absolute Eosinophil Count 0.48 10^3/uL (0.0-0.7); Absolute Lymphocyte Count 1.02 10^3/uL (1.2-3.4); Absolute Monocyte Count 0.48 10^3/uL (0.1-0.8); Absolute Neutrophil Count 4.53 10^3/uL (1.2-6.7); Basophils % 0.6; Eosinophils % 7.3; HCT 33.1 % (36.0-46.0); HGB 9.4 g/dL (11.2-15.7); Immature Grans % 0.6; Lymphocytes % 15.5; MCH 22.3 pg (27.0-33.0); MCHC 28.4 % (32.0-36.0); MCV 79 fL (80-95); MPV 8.1 fL (8.0-11.0); Monocytes % 7.3; Neutrophils % 68.7; Platelet Count 368 10^3/uL (130-400); RBC 4.21 10^6/uL (3.93-5.22); RDW 19.9 % (11.7-14.6); RDW-SD 55.7 fL; WBC 6.59 10^3/uL (4.4-10.8)
[2024-01-16 10:42] LABS: ESR 72 mm/hr (0-30)
[2024-01-16 10:52] LABS: Anion Gap 5.8 mmol/L (3-11); BUN 17 mg/dL (7-18); C-Reactive Protein 6.85 mg/dL (<or=0.5); CO2 36.2 mmol/L (21.0-32.0); CREATININE 0.9 mg/dL (0.55-1.02); Calcium 9.5 mg/dL (8.5-10.1); Chloride 98 mmol/L (98-107); Glucose 117 mg/dL (74-106); Potassium 3.4 mmol/L (3.5-5.1); Sodium 140 mmol/L (136-145)
[2024-01-16 11:01] VITALS: BP 124/81; PULSE 84; RESP 18; TEMP 36.2; O2SAT 93
[2024-01-16] MEDS: Magnesium Oxide 400 MG TAB PO (11:13)
[2024-01-16] MEDS: LORazepam 1 MG TAB PO (11:14)
[2024-01-16] MEDS: Ferrous Sulfate 325 MG TAB PO (11:14)
--- NOTE | 2024-01-16 11:18 | PT.INTREAT ---
PT Notes Visit Reasons: Left Psoas Abscess Physical Therapy Inpatient Treatment Note Date: 01/16/2024 Precautions: Fall. Standard. WBAT on the L LE with AD. Subjective: Continues to report pain in the L hip and thigh but was agreeable to trying to cover the distance that she would need to cover at home. Objective: General Observation: Seated on bedside chair. Drain in place. B LE swelling, B legs and feet fibrotic and discolored. Mental Status: Alert and oriented x4 Pain: Up to 4-5/10 after ambulation today Bed Mobility/Transfers: Minimal cueing provided for use of B hands as needed for support, movement sequence, AD management, and posture to reduce fall risk and minimize pain report Sit to stand supervision Stand to sit supervision Gait: Facilitated safe and correct performance of level surface ambulation for a distance of 50 feet using front-wheeled walker with step-to gait pattern and pain of 8/10 on left thigh at end of activity. Minimal verbal cueing provided for increased step height and length. Balance: Static Sitting: Normal Dynamic Sitting: Normal Static Standing: Fair Dynamic Standing: Fair Special Tests: Mobility Limitations Standardized Measure [facility] AM-PAC 6 clicks Basic Mobility Inpatient Short Form: Raw Score: 23 CMS Score: 11% deficit Informed Consent/Education: Patient instructed in purpose of PT consult and plan of care. Agreeable to proceed with established PT POC to achieve personal goals. Assessment: Marzena demonstrates functional mobility decline requiring the use of front wheeled walker for all mobility ADL performance, decreased activity tolerance, and pain in the L hip due to psoas abcess. Marzena is a 73-year-old female who initially presented to the ED on 01/11/2024 due to hip pain and difficulty with walking. Patient is diagnosed with diarrhea, urinary tract infection, urinary incontinence, spondylosis of cervical region without myelopathy CN radiculopathy, lumbago, ambulatory dysfunction, anxiety and hypokalemia. Plan of Care/Treatment Plan: Patient will highly benefit from skilled physical therapy services including functional mobility training, bed mobility/transfer training, gait and balance training, therapeutic exercises, therapeutic activity, caregiver/staff/family education and training 1x/day, 7 days/week x 1 week. Plan of care has been reviewed with the REGISTERED VETERINARY TECHNICIAN providing the service under Physical Therapy direction. Initiate Physical Therapy intervention for strengthening, bed mobility, transfers, gait, stairs, balance training, use of assistive device. DISCHARGE RECOMMENDATIONS: Patient will benefit from home health PT services in order to progress mobility level using least restrictive assistive ambulatory device, assess home safety, identify additional equipment needs, and establish a functional maintenance program that will increase ability of patient to remain at home. TREATMENT CODE/TIME: 36084 x 15 minutes for 1 unit (11:18-11:33).
[2024-01-16 11:21] LABS: Folate 7.7 ng/mL (8.6-20.0); Vitamin B12 550 pg/mL (193-986)
--- NOTE | 2024-01-16 11:36 | PDOC.HHF2F_ITS ---
Home Health Referral Registered Nurse: Check all that apply Instruct on new or changed medication(s)/assess compliance: Ordered Instruct on, and maintenance of, urinary device: Ordered (drain) Assess for exacerbation of medical condition, instruct patient/caregivers on signs and symptoms to report for early detection: Ordered Physical Therapist: Check all that apply Increase strength & endurance for safe mobility at home: Ordered To design/establish home maintenance program: Ordered Fall reduction therapy program for patient with history of frequent falls: Ordered Home safety evaluation and teaching/gait training including stair management (if applicable): Ordered Better Breathing Program: Ordered Occupational Therapist: Evaluate and treat for patient unable to perform ADL/IADL/self-care: Ordered Maintenance Technician: Assist with community resources: Ordered Assist with [facility] care planning: Ordered Other: Needs f/u with IR at [facility] or PCP for drain removal. Home Bound Status Requires the aid of supportive device (check all that apply): Walker Encounter Date and Reason: I certify that a FTF encounter for this patient was performed on January 16, 2024 and that such encounter was related to the primary reason the patient requires home health services. The encounter was conducted in the following manner: * By me as the certifying physician, ADVENTURE CHALLENGE INSTRUCTOR, PA or * By an inpatient physician, ADVENTURE CHALLENGE INSTRUCTOR or PA during an inpatient stay who communicated findings to me, Certification And Authentication I certify that I composed the above information based on my clinical judgment relating to this patient's medical condition and, if applicable, clinical findin gs communicated to me by the NPP or inpatient physician who performed the FTF encounter. Name of Provider that will be monitoring home health services: Will Steen
--- NOTE | 2024-01-16 11:40 | CHAPLAIN ---
Marzena said she is being discharged today, and that she is both excited and apprehensive about. Yesterday she talked about her concerns, medically, financially, and with her family. She is an [employer] but there are not [employer]ism churches near where she lives in [place]. Marzena recites prayers daily. She shares an apartment with her sister, but her sister may be moving out.
--- NOTE | 2024-01-16 11:42 | PDOC.CMDIS ---
Date of service: 01/16/24 Time of Service: 11:42 LACE Index Scoring Tool Questions: Length of Stay (in days): 4 - 6 Was the patient admitted via the E.D.?: Yes E.D. Visits: 1 Answers: Total Score: 8 Risk of Readmission: Low Risk Care Management Discharge Plan Reason for Hospitalization: left psoas abscess Discharge Plan: Marzena will return home today with a resumption of HH services through [facility]. She will transport home via [facility] private vehicle, coordinated by CM. She will follow up with her PCP and discharge plan of care. Patient/Family Education Needs: Review discharge instructions and limitations, discussion of self care needs including ask me three. Services Needed at Discharge: Home Health Care Services (resume HH services, [place]) and Transportation ([facility] private vehicle) SDOH Health Related Social Needs: No Data to Display
== END 2024-01-16 12:31 | disposition home health service (06) | DRG 372 ==
LOC: ER 01-11 02:28 → MS 01-11 04:22
PROVIDERS: Emergency Medicine; Nurse Practitioner Acute Care; Nurse Practitioner Family; Admitting Provider Family Medicine; Emergency Provider Student in an Organized Health Care Education/Training Program; Visit Provider Family Medicine
DX: K68.12 Psoas muscle abscess (principal); Z68.41 Body mass index [BMI] 40.0-44.9, adult; I48.0 Paroxysmal atrial fibrillation; I10 Essential (primary) hypertension; Z79.01 Long term (current) use of anticoagulants; Z86.711 Personal history of pulmonary embolism; G25.81 Restless legs syndrome; J44.9 Chronic obstructive pulmonary disease, unspecified; F17.210 Nicotine dependence, cigarettes, uncomplicated; R09.02 Hypoxemia; G89.4 Chronic pain syndrome; G20.C Parkinsonism, unspecified; W18.11XA Fall from or off toilet without subsequent striking against object, initial encounter; R60.0 Localized edema; M54.16 Radiculopathy, lumbar region; M47.812 Spondylosis without myelopathy or radiculopathy, cervical region; F41.9 Anxiety disorder, unspecified; R53.1 Weakness; E78.5 Hyperlipidemia, unspecified; F32.A Depression, unspecified; M54.42 Lumbago with sciatica, left side; Z79.899 Other long term (current) drug therapy; Z96.642 Presence of left artificial hip joint; E66.01 Morbid (severe) obesity due to excess calories
CPT/HCPCS: 00123; 36415; 80048; 82550; 84145; 85652; 87040; 94640; 96365; 96367; 96375; 97116; 97162; 97530; 99285; 71045; 72192; 73502; 73630; 74177; 80202; 81003; 81015; 82607; 82728; 82746; 83540; 83550; 83605; 83735; 85025; 86140; 94664; 94760; 99232; 99239; A0425; A0428; J0696; J0737; J1200; J1885; J2270; J3370; J3372; J3470; J3490

== ENCOUNTER 2024-01-18 15:38 | Emergency (ER) | payer OTHER, SELFPAY ==
[2024-01-18] VITALS (20 sets, daily range): BP systolic 105–142; BP diastolic 37–79; PULSE 72–90; RESP 11–24; TEMP 36.4; O2SAT 83–98
--- NOTE | 2024-01-18 15:45 | DI.CT_ITS ---
Exam(s) CT ABDOMEN PELVIS W EXAM: CT ABDOMEN PELVIS W CLINICAL HISTORY: recent left psoas abscess, worsening pain TECHNIQUE: Imaging Protocol: Axial computed tomography images with coronal and sagittal reformatted images were created and reviewed. CONTRAST MATERIAL: Intravenous: Omnipaque 350 Contrast volume:100 mL Oral: No COMPARISON: CT CT PELVIC WO from 01/10/[address] ABDOMEN PELVIS W from 01/10/2024 FINDINGS: ABDOMEN: Lung Bases: Coronary artery calcifications and/or stents are present. Liver: Normal density. No measurable mass. Portal, Superior Mesenteric, and Splenic Veins: Unremarkable. Gallbladder and Biliary Tract: Status post cholecystectomy. Stable size of the extrahepatic bile juan t. Pancreas: Normal density, no abnormal calcifications or inflammatory process. Spleen: Normal. Adrenals: No masses seen. Kidneys: Normal size, contour and axis. No radiodense stones or obstructive uropathy. No masses seen. Abdominal Aorta: Abdominal portion non-dilated. Atherosclerotic calcification is present. Bowel: There is diverticulosis of the colon but no evidence of acute diverticulitis. No evidence of bowel wall thickening or obstruction. No evidence of appendicitis. Peritoneal Cavity: No ascites, collection or mesenteric inflammatory response. No free air. Lymph Nodes: Within normal limits. Bones: Within normal limits for the patient's age. The patient has a left total hip replacement. Soft Tissues: There is a drainage catheter seen in the soft tissues in the area of the psoas abscess. The component of the abscess with a pigtail catheter is seen seen anterior to the hip has resolved. There is a small persistent abscess seen more posteriorly in the iliopsoas muscle measuring 2 cm. (Series 5, image 620). PELVIS: Bladder: Symmetric distention, no gross wall thickening. Reproductive Organs: Unremarkable as visualized. Lymph Nodes: Within normal limits. Bones: Within normal limits for the patient's age. IMPRESSION: 1. There has been interval placement of a pigtail catheter in the left iliopsoas abscess which has de creased in size particularly distally. There is a persistent 2 cm portion of the abscess more proxim ally. 2. No acute abdominal or pelvic process. RADIATION DOSE DELIVERED: Total DLP DATA REPOSITORY: All CT scans at this facility are submitted to the National Radiology Data Registry (NRDR) Dose Index Registry (DIR) with the [employer] (ACR). RADIATION OPTIMIZATION: All CT scans at this facility use at least one of these dose optimization te chniques: automated exposure control; mA and/or kV adjustment per patient size (includes targeted exa ms where dose is matched to clinical indication); or iterative reconstruction.
[2024-01-18] MEDS: MORPHine 4 MG/ML SYR IVP (16:26)
[2024-01-18 16:31] LABS: Abs Immature Grans 0.04 10^3/uL (0.0-0.06); Absolute Basophil Count 0.05 10^3/uL (0.0-0.2); Absolute Neutrophil Count 4.95 10^3/uL (1.2-6.7); Basophils % 0.7; HCT 30.6 % (36.0-46.0); HGB 8.8 g/dL (11.2-15.7); Immature Grans % 0.5; Lymphocytes % 18.6; MCH 22.5 pg (27.0-33.0); MCHC 28.8 % (32.0-36.0); MCV 78 fL (80-95); MPV 7.9 fL (8.0-11.0); Monocytes % 6.6; Neutrophils % 65.6; Platelet Count 395 10^3/uL (130-400); RBC 3.91 10^6/uL (3.93-5.22); RDW 19.4 % (11.7-14.6); RDW-SD 54.9 fL; WBC 7.54 10^3/uL (4.4-10.8)
[2024-01-18 16:33] LABS: ESR 77 mm/hr (0-30)
[2024-01-18 16:49] LABS: ALT 32 U/L (14-59); AST 30 U/L (15-37); Albumin 2.8 g/dL (3.4-5.0); Alkaline Phosphatase 137 U/L (46-116); BUN 21 mg/dL (7-18); Bilirubin, Total 0.3 mg/dL (0.2-1.0); C-Reactive Protein 4.68 mg/dL (<or=0.5); CREATININE 0.8 mg/dL (0.55-1.02); Calcium 9.4 mg/dL (8.5-10.1); Chloride 100 mmol/L (98-107); Estimated GFR 77.75 (mL/min/1.73m2); Glucose 112 mg/dL (74-106); Potassium 3.2 mmol/L (3.5-5.1); Sodium 142 mmol/L (136-145); Total Protein 7.5 g/dL (6.4-8.2)
[2024-01-18] MEDS: Omnipaque 350 MG/ML 100 ML BTL IJ (16:52)
[2024-01-18] MEDS: Normal Saline - Diluent 50 ML VIAL IJ (16:53)
[2024-01-18 17:08] LABS: Procalcitonin < 0.1 ng/mL
--- NOTE | 2024-01-18 17:24 | NUR.NOTE ---
Nursing Note: Patient rang call blank requesting to use bathroom. When asked if she was able to stand she replied she wasnt sure, but then when asked how she used the bathroom at home, she answered she was able to stand and use the commode. When asked if she could do the same now, she replied she could. FORREST and this quality analyst/technical writer assisted pt to stand and sit on bedside commode. She voided and then was able to stand and wipe self with cleansing cloth provided. FORREST and this quality analyst/technical writer then assisted by pulling pt's pants up and helping to lay back on the bed. No further needs at this time.
[2024-01-18] MEDS: diazePAM 10 MG/2 ML SYR 5 MG IVP (17:35)
--- NOTE | 2024-01-18 17:50 | DI.VRAD_ITS ---
PROCEDURE INFORMATION: Exam: CT Abdomen And Pelvis With Contrast Exam date and time: 01/18/2024 4:41 PM Age: 73 years old Clinical indication: Abdominal pain; Patient HX: Recent left psoas abscess, worsening pain TECHNIQUE: Imaging protocol: Computed tomography of the abdomen and pelvis with contrast. COMPARISON: CT ABDOMEN PELVIS W 01/10/2024 10:10 PM FINDINGS: Lungs: Mild bronchiectasis of the lung bases suggesting COPD. Mild posterior basilar atelectasis. Pleural spaces: No pleural effusion. Heart: Normal heart size. No pericardial effusion. Moderate coronary artery atherosclerotic calcium. Liver: Diffuse mild fatty liver change. Mild hepatic enlargement. No focal hepatic lesions. Gallbladder and bile ducts: Patient has had a previous cholecystectomy. There are no ductal stones visible. Common bile duct is dilated distally at 16 mm. Series 4: Image 29. Significance uncertain. Possibly related to reservoir effect post cholecystectomy. This is stable since previous evaluation 01/10/2024. Please correlate with serum bilirubin. Pancreas: The pancreas is normal in contour and attenuation. Spleen: The spleen is normal in size, contour and attenuation. Adrenal glands: The adrenal glands are normal in size and contour bilaterally. Kidneys and ureters: The kidneys bilaterally are unremarkable. Normal attenutation. No hydronephrosis. No calculi. Stomach and bowel: Gastric morphology is unremarkable. No edema. No gastric outlet obstruction. Small sliding hiatal hernia. No acute change. Small bowel loops are normal in course and caliber. There is no mucosal edema or bowel wall thickening. No obstructive features. Large bowel is normal in course and caliber. No acute inflammatory changes. There is diverticulosis without acute diverticulitis. Appendix: No evidence of appendicitis. Intraperitoneal space: No free fluid in the abdomen or pelvis. No free air. Vasculature: Aortoiliac atherosclerotic calcium. No aneurysmal features.. No abdominal aortic aneurysm. Lymph nodes: Unremarkable. No enlarged lymph nodes. Urinary bladder: Urinary bladder is unremarkable in appearance. No wall thickening. No intravesicular calculi. No intravesicular gas. Reproductive: Uterine atrophy. No adnexal mass or cyst. Bones/joints: Degenerative lumbar spine. Features of moderate spinal stenosis at L3-L4 and L4-L5. Left hip prosthesis. No definable left hip joint effusion. Soft tissues: There is a small fluid collection in the left iliacus muscle on series 4, image 64. This measures 19 x 15 mm. There is no intrinsic gas. This is present 01/10/2024. At that time, there appear to be a larger fluid collection in this region. The dominant part of the abscess was previously in the distal aspect of the iliopsoas muscle near its tendinous junction. There is currently a pigtail drainage catheter in this region. There is no progressive abscess enlargement. IMPRESSION: 1. Left iliopsoas muscle abscess appears to be regressing since 01/10/2024. There is currently a pigtail drainage catheter in the anterior aspect of this abscess. Drain appears to be appropriately positioned. There is no progressive abscess enlargement or dissemination. 2. Left hip total arthroplasty. No osteolytic or destructive bone lesions. No joint effusion is identified by CT. 3. Degenerative lower lumbar spine. Spinal stenosis at L3-L4 and L4-L5. 4. Fatty liver. 5. Previous cholecystectomy. Nonspecific biliary dilatation may represent reservoir effect. Please correlate with urinalysis. Dictated and Authenticated by: Ernesto Mckeon MD. Ordering:TERENCE Palafox MD
--- NOTE | 2024-01-18 17:52 | W.ED.GENAD ---
Discharge Plan Disposition Patient Disposition: Home Condition: Good Discharge Details Clinical Impression: Chronic left hip pain Primary Care Provider: Unknown,Unknown ED Provider: Javy Sloan Home Meds and New Rx's Prescriptions: New cyclobenzaprine 10 mg tablet 10 mg PO TID Qty: 14 0RF No Action torsemide 20 mg tablet 20 mg PO BID Qty: 180 3RF Hold Instructions: Pt Stopped/Never Started Patient Comments: Started takin again about 5 days ago metoprolol succinate 50 mg tablet extended release 24 hr 50 mg PO DAILY albuterol sulfate [ProAir HFA] 8.5 GM HFA aerosol inhaler 2 puff Inhalation Q4H PRN venlafaxine 75 mg capsule,extended release 24hr 75 mg PO DAILY ibuprofen [Advil] 200 MG tablet 1,000 mg PO DAILY PRN magnesium oxide 500 MG capsule 500 mg PO BID trazodone 150 mg tablet 150 mg PO HS Patient Comments: TAKE 1 TABLET BY MOUTH EVERY DAY AT BEDTIME Eliquis 5 mg tablet 1 tab PO BID gabapentin 300 mg capsule 600 mg PO TID Patient Comments: TAKE TWO CAPSULES BY MOUTH THREE TIMES A DAY ropinirole 5 mg tablet 5 mg PO TID Patient Comments: TAKE ONE TABLET BY MOUTH THREE TIMES A DAY, takes first dose around 1400, last dose at bedtime and middle dose in between those two lovastatin 40 mg tablet 40 mg PO DAILY Patient Comments: TAKE ONE TABLET BY MOUTH EVERY DAY tizanidine 2 mg tablet 2 mg PO TID PRN Patient Comments: TAKE ONE TABLET BY MOUTH THREE TIMES A DAY NEEDED cefpodoxime 200 mg Tablet 400 mg PO BID Qty: 93 0RF clindamycin HCl 300 mg Capsule 300 mg PO Q6H Qty: 94 0RF diclofenac sodium 3 % Gel 100 g topical QID PRN PRN (Reason: Pain) Qty: 100 0RF ferrous sulfate 325 mg (65 mg iron) Tablet 325 mg PO Q48H Qty: 15 0RF oxycodone 5 mg Tablet 5 mg PO Q6H PRN PRNQty: 10 0RF acetaminophen 325 mg Tablet 650 mg PO Q6H Qty: 40 0RF Bio-K plus 50 billion cell capsule,delayed release(DR/EC) 1 cap PO DAILY Qty: 24 0RF omeprazole 10 mg capsule,delayed release(DR/EC) 10 mg PO DAILY Qty: 7 0RF lorazepam 1 mg Tablet 1 mg PO TID PRN fluticasone propion-salmeterol [Advair Diskus] 250-50 mcg/dose blister with device 1 inh INHALATION DIRECTED Patient Comments: INHALE ONE PUFF BY MOUTH TWICE A DAY Discharge Instructions Instructions: Muscle Spasm (ED) Additional Instructions: At this time your laboratory workup has returned, thankfully your results show no worsening of the infection. Your blood work is relatively stable, your infection markers are stable and/or improving. I suspect that you are having a mild spasm in your psoas muscle causing your pain. Please take the cyclobenzaprine/Flexeril as prescribed. You will be given 2 tablets of Valium to go home with. Please take this only as absolutely needed for breakthrough pain. It can cause you to get quite sleepy. Avoid taking the muscle relaxants and your narcotic pain pills together as this could cause you to become altered and very tired. Please continue to take your prescribed antibiotics. Please follow-up closely with your primary care provider. If you notice any worsening of your symptoms, or any new symptoms such as vomiting, diarrhea, fever, chills, shortness of breath, chest pain, numbness, weakness, or fainting , please return immediately to the emergency department for reevaluation. Please follow up with your primary care provider as soon as possible for reassessment and reevaluation. As always, it was a pleasure participating in your medical care today. Discharge Data Discharge Date/Time-TO BE ENTERED AT DEPARTURE: 01/18/24 18:48 HPI General Date/Time Provider Initiated Documentation: 01/18/24 15:45. HPI Narrative: 73-year-old female with a past medical history of paroxysmal atrial fibrillation, COPD, hypertension, and recent psoas abscess. Patient was seen assessed, admitted and subsequently discharged on 01/16/2024. During that stay she was found to have left psoas pain and imaging showed evidence of hematoma versus abscess. Patient eventually went to [facility] for radiological intervention drainage of these set abscesses. She was eventually discharged on cefpodoxime and clindamycin for 4 to 6-week treatment depending on inflammatory markers. She was discharged with acetaminophen and occasional oxycodone for pain use as well as gabapentin and diclofenac ointment. That was 2 days ago. Patient states that since then she has had continued appropriate drainage from the drain, today she has had worsening pain in her back and hip. She has taken a few of the oxycodones already, and is presenting here because she is worried that she will not have enough moving forward. She has no other complaints at this time. Denies any new numbness or tingling. Denies any fever or chills. Denies any vomiting or diarrhea. No other complaints. She does not describe any particular aggravating or relieving factors otherwise. Movement does seem to make it slightly worse. Related Data Home Medications Medication Instructions Recorded Confirmed albuterol sulfate 90 mcg/actuation 2 puff inhalation Q4H PRN 06/07/15 01/18/24 aerosol inhaler (ProAir HFA) ibuprofen 200 mg tablet (Advil) 1,000 mg PO DAILY PRN 08/08/16 01/18/24 magnesium oxide 500 mg capsule 500 mg PO BID 08/14/17 01/18/24 lorazepam 1 mg tablet 1 mg PO TID PRN 06/03/01/18/24 trazodone 150 mg tablet 150 mg PO HS 09/05/20 01/18/24 fluticasone 250 mcg-salmeterol 50 1 inh inhalation DIRECTED 05/17/21 01/18/24 mcg/dose blistr powdr for inhalation (Advair Diskus) metoprolol succinate 50 mg 50 mg PO DAILY 02/22/22 01/18/24 tablet,extended release 24 hr apixaban 5 mg tablet (Eliquis) 1 tab PO BID 06/15/22 01/18/24 gabapentin 300 mg capsule 600 mg PO TID 06/15/22 01/18/24 venlafaxine 75 mg capsule,extended 75 mg PO DAILY 06/15/22 01/18/24 release 24 hr torsemide 20 mg tablet 20 mg PO BID #180 tabs 02/08/23 01/18/24 ropinirole 5 mg tablet 5 mg PO TID 01/13/24 01/18/24 L. acidophilus,casei,rhamnosus 50 1 cap PO DAILY #24 caps 01/16/24 01/18/24 billion cell capsule,delayed release (Bio-K plus) acetaminophen 325 mg tablet 650 mg (2 x 325 mg) PO Q6H pain 01/16/24 01/18/24 #40 tabs cefpodoxime 200 mg tablet 400 mg (2 x 200 mg) PO BID #93 tabs 01/16/24 01/18/24 clindamycin HCl 300 mg capsule 300 mg PO Q6H #94 caps 01/16/24 01/18/24 diclofenac sodium 3 % topical gel 100 g topical QID PRN PRN Pain 01/16/24 01/18/24 #100 grams ferrous sulfate 325 mg (65 mg 325 mg PO Q48H #15 tabs 01/16/24 01/18/24 iron) tablet lovastatin 40 mg tablet 40 mg PO DAILY 01/16/24 01/18/24 omeprazole 10 mg capsule,delayed 10 mg PO DAILY #7 caps 01/16/24 01/18/24 release oxycodone 5 mg tablet 5 mg PO Q6H PRN PRN #10 tabs 01/16/24 01/18/24 tizanidine 2 mg tablet 2 mg PO TID PRN 01/16/24 01/18/24 cyclobenzaprine 10 mg tablet 10 mg PO TID #14 tabs 01/18/24 Previous Rx's Medication Instructions Recorded torsemide 20 mg tablet 20 mg PO BID #180 tabs 02/08/23 L. acidophilus,casei,rhamnosus 50 1 cap PO DAILY #24 caps 01/16/24 billion cell capsule,delayed release (Bio-K plus) acetaminophen 325 mg tablet 650 mg (2 x 325 mg) PO Q6H pain 01/16/24 #40 tabs cefpodoxime 200 mg tablet 400 mg (2 x 200 mg) PO BID #93 tabs 01/16/24 clindamycin HCl 300 mg capsule 300 mg PO Q6H #94 caps 01/16/24 diclofenac sodium 3 % topical gel 100 g topical QID PRN PRN Pain 01/16/24 #100 grams ferrous sulfate 325 mg (65 mg 325 mg PO Q48H #15 tabs 01/16/24 iron) tablet omeprazole 10 mg capsule,delayed 10 mg PO DAILY #7 caps 01/16/24 release oxycodone 5 mg tablet 5 mg PO Q6H PRN PRN #10 tabs 01/16/24 cyclobenzaprine 10 mg tablet 10 mg PO TID #14 tabs 01/18/24 Allergies Allergy/AdvReac Type Severity Reaction Status Date / Time No Known Allergies Allergy Verified 01/18/24 16:36 General Stated Complaint: Orthopedic SIDNEY: 3 Review of Systems All systems reviewed & are unremarkable except as noted in HPI and below Exam Narrative Exam Narrative: 1.Const: Well-nourished, Well-developed, appearing stated age 2.Eyes: PERRL, no conjunctival injection, and symmetrical lids. 3.ENT: Atraumatic external nose and ears. Moist MM. Neck: Symmetric, trachea midline, No thyromegaly. 4.CVS: +S1/S2, No murmurs or gallops. Peripheral pulses 2+ and equal in all extremities. Brisk capillary refill in all extremities. 5.RESP: Unlabored respiratory effort. Clear to auscultation bilaterally. No wheezes rales or rhonchi 6.GI: Soft, Nontender/Nondistended, No hepatosplenomegaly. No guarding or rebound. 7.MSK: Normocephalic/Atraumatic, Extremities w/o deformity. Patient does have the drain in place, serous fluid present in it. No purulent fluid or blood. Mild pain with movement that activates the psoas muscle. No redness around the hip to suggest septic joint. Mild pitting edema of the lower extremities around +1 to +2 bilaterally. 8.Skin: Warm, Dry. No rashes or lesions. 9.Neuro: dining room captain II-XII grossly intact. Sensation grossly intact, no focal neurologic deficits. 10.Psych: (AAO) x3. Appropriate mood and affect Course Vital Signs Vital signs: Vital Signs Temperature 36.4 C L 01/18/24 15:57 Pulse 78 01/18/24 15:57 Respiratory Rate 24 01/18/24 15:57 Blood Pressure 118/37 L 01/18/24 15:57 Pulse Oximetry 98 01/18/24 15:57 Temperature 36.4 C L 01/18/24 15:57 Temperature Source Temporal Artery Scan 01/18/24 15:57 Pulse 83 01/18/24 17:00 Pulse 87 01/18/24 17:06 Respiratory Rate 18 01/18/24 17:06 Respiratory Effort Normal, Non-Labored 01/18/24 15:59 Blood Pressure 128/50 L 01/18/24 17:00 Blood Pressure Mean 73 01/18/24 17:00 Blood Pressure Position Supine 01/18/24 15:57 Pulse Oximetry 83 L 01/18/24 17:06 Oxygen Delivery Method Room Air 01/18/24 15:57 Oxygen Flow Rate 0 01/18/24 15:57 Pain Level 9 01/18/24 17:25 Comment Pt c/o pain behind LT knee and in LT hip; notified. 01/18/24 17:25 Lab/Test Results Lab/Test Results: Laboratory Tests Range/Units 01/18/24 16:22 WBC (4.4-10.8) 10^3/uL 7.54 RBC (3.93-5.22) 10^6/uL 3.91 L Hgb (11.2-15.7) g/dL 8.8 L Hct (36.0-46.0) % 30.6 L MCV (80-95) fL 78 L MCH (27.0-33.0) pg 22.5 L MCHC (32.0-36.0) % 28.8 L RDW (11.7-14.6) % 19.4 H Plt Count (130-400) 10^3/uL 395 MPV (8.0-11.0) fL 7.9 L Immature Gran % 0.5 Neutrophils % 65.6 Lymphocytes % 18.6 Monocytes % 6.6 Eosinophils % 8.0 Basophils % 0.7 Nucleated RBC % (0.0-0.3) % 0.0 Absolute Neutrophils (1.2-6.7) 10^3/uL 4.95 Absolute Lymphocytes (1.2-3.4) 10^3/uL 1.40 Absolute Monocytes (0.1-0.8) 10^3/uL 0.50 Absolute Eosinophils (0.0-0.7) 10^3/uL 0.60 Absolute Basophils (0.0-0.2) 10^3/uL 0.05 ESR (0-30) mm/hr 77 H Sodium (136-145) mmol/L 142 Potassium (3.5-5.1) mmol/L 3.2 L Chloride (98-107) mmol/L 100 Carbon Dioxide (21.0-32.0) mmol/L 34.0 H Anion Gap (3-11) mmol/L 8.0 BUN (7-18) mg/dL 21 H Creatinine (0.55-1.02) mg/dL 0.8 Est GFR (CKD-EPI 2020) (mL/min/1.73m2) 77.75 Glucose (74-106) mg/dL 112 H Calcium (8.5-10.1) mg/dL 9.4 Total Bilirubin (0.2-1.0) mg/dL 0.3 AST (15-37) U/L 30 ALT (14-59) U/L 32 Alkaline Phosphatase (46-116) U/L 137 H C-Reactive Protein (<or=0.5) mg/dL 4.68 H Total Protein (6.4-8.2) g/dL 7.5 Albumin (3.4-5.0) g/dL 2.8 L Procalcitonin ng/mL < 0.1 Medical Decision Making 73-year-old female with a past medical history of paroxysmal atrial fibrillation, COPD, hypertension, and recent psoas abscess. Patient was seen assessed, admitted and subsequently discharged on 01/16/2024. During that stay she was found to have left psoas pain and imaging showed evidence of hematoma versus abscess. Patient eventually went to [facility] for radiological intervention drainage of these set abscesses. She was eventually discharged on cefpodoxime and clindamycin for 4 to 6-week treatment depending on inflammatory markers. She was discharged with acetaminophen and occasional oxycodone for pain use as well as gabapentin and diclofenac ointment. That was 2 days ago. Patient states that since then she has had continued appropriate drainage from the drain, today she has had worsening pain in her back and hip. She has taken a few of the oxycodones already, and is presenting here because she is worried that she will not have enough moving forward. She has no other complaints at this time. Denies any new numbness or tingling. Denies any fever or chills. Denies any vomiting or diarrhea. No other complaints. She does not describe any particular aggravating or relieving factors otherwise. Movement does seem to make it slightly worse. Exam demonstrates a relatively well-appearing female, she does appear to be in pain, however the pain seems to oscillate depending on nursing or physician presents in the room. Differential includes continued psoas spasm and pain secondary to the initial etiology, versus worsening infection or abscess. We will get labs to help understand and better differentiate. Will get repeat imaging to assess for change in abscess. Will monitor closely and reassess. Will give morphine for the pain control. 8 PM Laboratory workup has returned, no white count. ESR stable. CRP improving. Procalcitonin normal. No fever. CT scan shows improvement of the ileus so as muscle abscess, no effusion, or other significant acute abnormality. Patient did not have much improvement with morphine. Patient was given Valium and this had a notable improvement on the patient's symptoms. Suspect muscle spasm to be the cause of the pain. No evidence of worsening infection. We will give cyclobenzaprine for home use. Will give 2 Valium's for breakthrough pain or spasm. Patient stable for discharge otherwise. Patient will be discharged home. Discussed red flags which to return. I have extensively reviewed the treatment plan and discharge instructions with the patient. I have addressed all patient concerns at this time. The patient was made aware of what symptoms to monitor for that would warrant a return to the emergency department. Discussed the plan with the patient, they demonstrate verbal understanding and agreement with our assessment and plan at this time. The documentation in this chart was dictated using [employer] dictation software. Please excuse any dictation errors. FINDINGS: Lungs: Mild bronchiectasis of the lung bases suggesting COPD. Mild posterior basilar atelectasis. Pleural spaces: No pleural effusion. Heart: Normal heart size. No pericardial effusion. Moderate coronary artery atherosclerotic calcium. Liver: Diffuse mild fatty liver change. Mild hepatic enlargement. No focal hepatic lesions. Gallbladder and bile ducts: Patient has had a previous cholecystectomy. There are no ductal stones visible. Common bile duct is dilated distally at 16 mm. Series 4: Image 29. Significance uncertain. Possibly related to reservoir effect post cholecystectomy. This is stable since previous evaluation 01/10/2024. Please correlate with serum bilirubin. Pancreas: The pancreas is normal in contour and attenuation. Spleen: The spleen is normal in size, contour and attenuation. Adrenal glands: The adrenal glands are normal in size and contour bilaterally. Kidneys and ureters: The kidneys bilaterally are unremarkable. Normal attenutation. No hydronephrosis. No calculi. Stomach and bowel: Gastric morphology is unremarkable. No edema. No gastric outlet obstruction. Small sliding hiatal hernia. No acute change. Small bowel loops are normal in course and caliber. There is no mucosal edema or bowel wall thickening. No obstructive features. Large bowel is normal in course and caliber. No acute inflammatory changes. There is diverticulosis without acute diverticulitis. Appendix: No evidence of appendicitis. Intraperitoneal space: No free fluid in the abdomen or pelvis. No free air. Vasculature: Aortoiliac atherosclerotic calcium. No aneurysmal features.. No abdominal aortic aneurysm. Lymph nodes: Unremarkable. No enlarged lymph nodes. Urinary bladder: Urinary bladder is unremarkable in appearance. No wall thickening. No intravesicular calculi. No intravesicular gas. Reproductive: Uterine atrophy. No adnexal mass or cyst. Bones/joints: Degenerative lumbar spine. Features of moderate spinal stenosis at L3-L4 and L4-L5. Left hip prosthesis. No definable left hip joint effusion. Soft tissues: There is a small fluid collection in the left iliacus muscle on series 4, image 64. This measures 19 x 15 mm. There is no intrinsic gas. This is present 01/10/2024. At that time, there appear to be a larger fluid collection in this region. The dominant part of the abscess was previously in the distal aspect of the iliopsoas muscle near its tendinous junction. There is currently a pigtail drainage catheter in this region. There is no progressive abscess enlargement. IMPRESSION: 1. Left iliopsoas muscle abscess appears to be regressing since 01/10/2024. There is currently a pigtail drainage catheter in the anterior aspect of this abscess. Drain appears to be appropriately positioned. There is no progressive abscess enlargement or dissemination. 2. Left hip total arthroplasty. No osteolytic or destructive bone lesions. No joint effusion is identified by CT. 3. Degenerative lower lumbar spine. Spinal stenosis at L3-L4 and L4-L5. 4. Fatty liver. 5. Previous cholecystectomy. Nonspecific biliary dilatation may represent reservoir effect. Thank you for allowing us to participate in the care of your patient. 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 Mcconnell 04/2022 Hyperlipidemia Lumbago with sciatica, left side Surgical History 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) History of abdominal surgery (01/21/17) Hx of cholecystectomy H/O cone biopsy of cervix History of breast biopsy Hx of rotator cuff surgery right History of total bilateral knee replacement (TKR) History of carpal tunnel release H/O exploratory laparotomy Hx of cervical spine surgery Hx of colonoscopy Social History (Updated 01/11/24 @ 05:08 by Kenan Grant) Smoking/Tobacco Use Status: Current-Occasional Tobacco Type: cigarettes Smoking risk assessment performed?: Yes Alcohol Intake: former Drug use: Occasionally Substance use type: former substance user and marijuana Housing: apartment Do you feel safe at home: Yes (lives with sister) Do you feel safe in your relationship?: Yes Additional Social history: Lives with sister in [place], retired, gets some help with cleaning/bathing. Quit smoking at recent rehab stay, but still bums a cigarette from sister when she is stressed.
[2024-01-18] MEDS: diazePAM 5 MG TAB 10 MG PO (18:46)
--- NOTE | 2024-01-19 20:54 | NUR.NOTE ---
Patient presented to [facility]. Chart accessed to send patient reports to [facility] ED.Nursing Note:
--- NOTE | 2024-01-20 17:58 | NUR.NOTE ---
Nursing Note: Patient to tell us she was still having spasms. Patient hung up before I could speak to her
== END 2024-01-18 18:48 | disposition home or self-care (01) ==
PROVIDERS: Emergency Provider Student in an Organized Health Care Education/Training Program
DX: M25.552 Pain in left hip (principal); K68.12 Psoas muscle abscess; I10 Essential (primary) hypertension; I48.0 Paroxysmal atrial fibrillation; J44.9 Chronic obstructive pulmonary disease, unspecified; E78.5 Hyperlipidemia, unspecified; Z79.01 Long term (current) use of anticoagulants; Z79.899 Other long term (current) drug therapy
CPT/HCPCS: 36415; 80053; 84145; 85652; 96374; 99285; 74177; 85025; 86140; 99284; J2270; J3360; J3490

== ENCOUNTER 2024-01-20 18:54 | Emergency (ER) | payer OTHER, SELFPAY ==
[2024-01-20 19:08] VITALS: BP 95/49; PULSE 65; RESP 16; TEMP 36.4; O2SAT 99
--- NOTE | 2024-01-20 19:35 | W.ED.GENAD ---
Discharge Plan Disposition Patient Disposition: Home Condition: Improving Discharge Details Chief Complaint: SurgicalRecheck Clinical Impression: Leg pain Primary Care Provider: Unknown,Unknown ED Provider: Baron Marquis Home Meds and New Rx's Prescriptions: No Action torsemide 20 mg tablet 20 mg PO BID Qty: 180 3RF Hold Instructions: Pt Stopped/Never Started Patient Comments: Started takin again about 5 days ago metoprolol succinate 50 mg tablet extended release 24 hr 50 mg PO DAILY albuterol sulfate [ProAir HFA] 8.5 GM HFA aerosol inhaler 2 puff Inhalation Q4H PRN venlafaxine 75 mg capsule,extended release 24hr 75 mg PO DAILY ibuprofen [Advil] 200 MG tablet 1,000 mg PO DAILY PRN magnesium oxide 500 MG capsule 500 mg PO BID trazodone 150 mg tablet 150 mg PO HS Patient Comments: TAKE 1 TABLET BY MOUTH EVERY DAY AT BEDTIME Eliquis 5 mg tablet 1 tab PO BID gabapentin 300 mg capsule 600 mg PO TID Patient Comments: TAKE TWO CAPSULES BY MOUTH THREE TIMES A DAY ropinirole 5 mg tablet 5 mg PO TID Patient Comments: TAKE ONE TABLET BY MOUTH THREE TIMES A DAY, takes first dose around 1400, last dose at bedtime and middle dose in between those two lovastatin 40 mg tablet 40 mg PO DAILY Patient Comments: TAKE ONE TABLET BY MOUTH EVERY DAY tizanidine 2 mg tablet 2 mg PO TID PRN Patient Comments: TAKE ONE TABLET BY MOUTH THREE TIMES A DAY NEEDED cefpodoxime 200 mg Tablet 400 mg PO BID Qty: 93 0RF clindamycin HCl 300 mg Capsule 300 mg PO Q6H Qty: 94 0RF diclofenac sodium 3 % Gel 100 g topical QID PRN PRN (Reason: Pain) Qty: 100 0RF ferrous sulfate 325 mg (65 mg iron) Tablet 325 mg PO Q48H Qty: 15 0RF oxycodone 5 mg Tablet 5 mg PO Q6H PRN PRNQty: 10 0RF acetaminophen 325 mg Tablet 650 mg PO Q6H Qty: 40 0RF Bio-K plus 50 billion cell capsule,delayed release(DR/EC) 1 cap PO DAILY Qty: 24 0RF omeprazole 10 mg capsule,delayed release(DR/EC) 10 mg PO DAILY Qty: 7 0RF lorazepam 1 mg Tablet 1 mg PO TID PRN fluticasone propion-salmeterol [Advair Diskus] 250-50 mcg/dose blister with device 1 inh INHALATION DIRECTED Patient Comments: INHALE ONE PUFF BY MOUTH TWICE A DAY cyclobenzaprine 10 mg tablet 10 mg PO TID Qty: 14 0RF Discharge Instructions Instructions: Leg Pain (ED) HPI General Date/Time Provider Initiated Documentation: 01/20/24 18:58. HPI Narrative: 73-year-old female recent IR drain placement for left psoas abscess presents with left hip discomfort. Patient has been taking Valium Percocet and cyclobenzaprine at home. Patient is slurring her words she endorses that she is slurring her words because her teeth are not in. Related Data Home Medications Medication Instructions Recorded Confirmed albuterol sulfate 90 mcg/actuation 2 puff inhalation Q4H PRN 06/07/15 01/20/24 aerosol inhaler (ProAir HFA) ibuprofen 200 mg tablet (Advil) 1,000 mg PO DAILY PRN 08/08/16 01/20/24 magnesium oxide 500 mg capsule 500 mg PO BID 08/14/17 01/20/24 lorazepam 1 mg tablet 1 mg PO TID PRN 06/03/19 01/20/24 trazodone 150 mg tablet 150 mg PO HS 09/05/20 01/20/24 fluticasone 250 mcg-salmeterol 50 1 inh inhalation DIRECTED 05/17/21 01/20/24 mcg/dose blistr powdr for inhalation (Advair Diskus) metoprolol succinate 50 mg 50 mg PO DAILY 02/22/22 01/20/24 tablet,extended release 24 hr apixaban 5 mg tablet (Eliquis) 1 tab PO BID 06/15/22 01/20/24 gabapentin 300 mg capsule 600 mg PO TID 06/15/22 01/20/24 venlafaxine 75 mg capsule,extended 75 mg PO DAILY 06/15/22 01/20/24 release 24 hr torsemide 20 mg tablet 20 mg PO BID #180 tabs 02/08/23 01/20/24 ropinirole 5 mg tablet 5 mg PO TID 01/13/24 01/20/24 L. acidophilus,casei,rhamnosus 50 1 cap PO DAILY #24 caps 01/16/24 01/20/24 billion cell capsule,delayed release (Bio-K plus) acetaminophen 325 mg tablet 650 mg (2 x 325 mg) PO Q6H pain 01/16/24 01/20/24 #40 tabs cefpodoxime 200 mg tablet 400 mg (2 x 200 mg) PO BID #93 tabs 01/16/24 01/20/24 clindamycin HCl 300 mg capsule 300 mg PO Q6H #94 caps 01/16/24 01/20/24 diclofenac sodium 3 % topical gel 100 g topical QID PRN PRN Pain 01/16/24 01/20/24 #100 grams ferrous sulfate 325 mg (65 mg 325 mg PO Q48H #15 tabs 01/16/24 01/20/24 iron) tablet lovastatin 40 mg tablet 40 mg PO DAILY 01/16/24 01/20/24 omeprazole 10 mg capsule,delayed 10 mg PO DAILY #7 caps 01/16/24 01/20/24 release oxycodone 5 mg tablet 5 mg PO Q6H PRN PRN #10 tabs 01/16/24 01/20/24 tizanidine 2 mg tablet 2 mg PO TID PRN 01/16/24 01/20/24 cyclobenzaprine 10 mg tablet 10 mg PO TID #14 tabs 01/18/24 01/20/24 Previous Rx's Medication Instructions Recorded torsemide 20 mg tablet 20 mg PO BID #180 tabs 02/08/23 L. acidophilus,casei,rhamnosus 50 1 cap PO DAILY #24 caps 01/16/24 billion cell capsule,delayed release (Bio-K plus) acetaminophen 325 mg tablet 650 mg (2 x 325 mg) PO Q6H pain 01/16/24 #40 tabs cefpodoxime 200 mg tablet 400 mg (2 x 200 mg) PO BID #93 tabs 01/16/24 clindamycin HCl 300 mg capsule 300 mg PO Q6H #94 caps 01/16/24 diclofenac sodium 3 % topical gel 100 g topical QID PRN PRN Pain 01/16/24 #100 grams ferrous sulfate 325 mg (65 mg 325 mg PO Q48H #15 tabs 01/16/24 iron) tablet omeprazole 10 mg capsule,delayed 10 mg PO DAILY #7 caps 01/16/24 release oxycodone 5 mg tablet 5 mg PO Q6H PRN PRN #10 tabs 01/16/24 cyclobenzaprine 10 mg tablet 10 mg PO TID #14 tabs 01/18/24 Allergies Allergy/AdvReac Type Severity Reaction Status Date / Time No Known Allergies Allergy Verified 01/18/24 16:36 General Stated Complaint: SurgicalRecheck SIDNEY: 3 Review of Systems Narrative: Review of Systems Constitutional: negative Eyes: negative ENT: negative Cardiovascular: negative Respiratory: negative Gastrointestinal: negative : negative Musculoskeletal: Left hip pain Skin: negative Neurologic: negative Psych: negative Exam Narrative Exam Narrative: Physical Examination General: alert, awake, cooperative, resting comfortably, no acute distress HEENT: normocephalic, atraumatic; PERRL, EOM intact, conjunctiva normal; no nasal discharge; moist mucous membranes, oral and pharyngeal mucosa normal, tolerating secretions Neck: supple, trachea midline; full ROM Chest: normal to inspection Respiratory: normal respiratory effort, speaking in full sentences GI: abdomen soft, non-tender, non-distended; no palpable mass or hepatosplenomegaly Skin: no lesions, rashes or trauma appreciated Neuro: AAOx3, normal speech, moving all extremities; out of 5 strength upper and lower extremities bilaterally, cranial nerves II through XII intact Extremities: MIGUEL drain connected to IR drain left hip, serosanguineous output approximately 4 cc in MIGUEL drain Psych: Appropriate mood and affect Course Vital Signs Vital signs: Vital Signs Temperature 36.4 C L 01/20/24 19:08 Pulse 65 01/20/24 19:08 Respiratory Rate 16 01/20/24 19:08 Blood Pressure 95/49 L 01/20/24 19:08 Pulse Oximetry 99 01/20/24 19:08 Temperature 36.4 C L 01/20/24 19:08 Temperature Source Oral 01/20/24 19:08 Pulse 65 01/20/24 19:08 Respiratory Rate 16 01/20/24 19:08 Respiratory Effort Normal, Non-Labored 01/20/24 19:17 Blood Pressure 95/49 L 01/20/24 19:08 Blood Pressure Position Supine 01/20/24 19:08 Pulse Oximetry 99 01/20/24 19:08 Oxygen Delivery Method Room Air 01/20/24 19:08 Oxygen Flow Rate 0 01/20/24 19:08 Medical Decision Making 73-year-old female recent IR drain placement for left psoas abscess, presents endorsing muscle spasm and left hip discomfort, patient afebrile nontoxic nontachycardic relatively soft BP on arrival patient slurring words and appearing mildly somnolent on examination however arousable to voice, interactive following commands cranial nerves II through XII intact 5-5 strength upper and lower extremities bilaterally, approximately 4-5 cc of serosanguineous output in MIGUEL drain, IR catheter site clean dry intact, high clinical suspicion for polypharmacy as patient endorses taking Percocet Valium and cyclobenzaprine at home. Will observe here in department. Will attempt to contact family member for safe discharge. Low suspicion for worsening infection intracranial hemorrhage CVA seizure or trauma given history and physical. Patient had extensive workup within the last 48 hours which showed resolving psoas abscess. 21: 16 patient resting comfortably sleeping no acute distress; was given a neb given history of COPD and mild anterior wheezing of left anterior lung field. Now resolved. 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 Mcconnlel 04/2022 Hyperlipidemia Lumbago with sciatica, left side Surgical History 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) History of abdominal surgery (01/21/17) Hx of cholecystectomy H/O cone biopsy of cervix History of breast biopsy Hx of rotator cuff surgery right History of total bilateral knee replacement (TKR) History of carpal tunnel release H/O exploratory laparotomy Hx of cervical spine surgery Hx of colonoscopy Social History (Updated 01/11/24 @ 05:08 by Kenan Grant) Smoking/Tobacco Use Status: Current-Occasional Tobacco Type: cigarettes Smoking risk assessment performed?: Yes Alcohol Intake: former Drug use: Occasionally Substance use type: former substance user and marijuana Housing: apartment Do you feel safe at home: Yes (lives with sister) Do you feel safe in your relationship?: Yes Additional Social history: Lives with sister in [place], retired, gets some help with cleaning/bathing. Quit smoking at recent rehab stay, but still bums a cigarette from sister when she is stressed.
[2024-01-20 19:49] VITALS: RESP 5; RESP 8
[2024-01-20] MEDS: Albuterol 2.5 MG/3 ML INH SOLN VIAL UPD (19:49)
[2024-01-20 21:27] VITALS: BP 140/90; PULSE 84; RESP 20; TEMP 36.6; O2SAT 96
[2024-01-20 22:24] VITALS: BP 140/90; PULSE 88; RESP 18; TEMP 36.8; O2SAT 96
== END 2024-01-20 22:24 | disposition home or self-care (01) ==
PROVIDERS: Emergency Provider Emergency Medicine
DX: M25.552 Pain in left hip (principal); G89.18 Other acute postprocedural pain; R06.2 Wheezing; J44.9 Chronic obstructive pulmonary disease, unspecified
CPT/HCPCS: 36416; 82962; 94640; 99283; J7613

== ENCOUNTER 2024-02-20 17:11 | Inpatient (IN) | payer OTHER, SELFPAY ==
[2024-02-20] VITALS (46 sets, daily range): BP systolic 128–218; BP diastolic 64–140; PULSE 118–137; RESP 15–34; TEMP 36.5; O2SAT 90–99
--- NOTE | 2024-02-20 17:15 | DI.CT_ITS ---
Exam(s) CT CHEST/ABD/PEL W EXAM: CT CHEST/ABD/PEL W CLINICAL HISTORY: fall, SOB, hx hip abscess. TECHNIQUE: Imaging Protocol: Axial computed tomography images with coronal and sagittal reformatted images were created and reviewed CONTRAST MATERIAL: Intravenous: Omnipaque 350 Contrast volume:100 ml Oral: None COMPARISON: CT CT ABDOMEN PELVIS W from 01/10/[address] ABDOMEN PELVIS W from 01/18/2024 FINDINGS: CHEST: LUNGS: No significant infiltrates nor pleural effusions. No ominous pulmonary nodules.. MEDIASTINUM: There is no hilar nor mediastinal adenopathy. Visualized thyroid unremarkable. CARDIAC: Heart size is upper normal. There is no pericardial effusion.Caliber of the thoracic aorta is within normal limits. OSSEOUS: There is fusion hardware in the cervical spine only partially included in the field of view. Stable compression fracture T10 and L1. ABDOMEN: There is no ascites. No omental cake. However, there is subcutaneous anasarca noted, more so than p revious. LIVER: The appearance of the liver is now that of a congested liver related to hepatic venous congest ion. No discrete lesions seen in the liver and no dilated intrahepatic ducts. GALLBLADDER/BILIARY: The gallbladder is again noted be surgically absent. CBD is not dilated. PANCREAS: No evidence of pancreatic mass nor dilatation of the pancreatic duct. SPLEEN: Spleen is not enlarged. There are no intrasplenic lesions. Splenic and portal veins are ulloa nt. ADRENALS: There are no significant adrenal masses. KIDNEYS: No calculi nor hydronephrosis. No solid renal masses. No cysts evident. ABDOMINAL AORTA: Calcified but not enlarged. Common iliac arteries are also calcified but not enlarg ed. LYMPH NODES: There is no retroperitoneal nor paraaortic adenopathy. ABDOMINAL WALL: No evidence of significant anterior abdominal wall nor inguinal hernia. GI: There is no evidence of bowel obstruction. PELVIS: LYMPH NODES: There is no intrapelvic nor inguinal adenopathy. GI: No evidence of appendicitis.No evidence of sigmoid diverticulitis. URINARY BLADDER: No calculi nor masses evident REPRODUCTIVE: Uterus and adnexal regions unremarkable. No free fluid in the pelvis. OSSEOUS: Left hip prosthesis again noted. Multilevel chronic advanced chronic degenerative disc dise ase in the lumbar spine. Unchanged chronic compression fracture superior endplate L1. No listhesis. No new fractures. previously present pigtail drainage catheter in the left ileopsoas muscle has been removed. The re is still an element of abscess in the ileo psoas muscle medially. Measures approximately 2.5 x 2 cm. This is in the medial aspect of the muscle. The abscess more peripherally in the left psoas mus hubert appears to have been successfully drained by the previously indwelling pigtail drainage catheter. IMPRESSION: 1. No significant intrathoracic findings 2. Appearance of the liver now reflects venous congestion. There is also anasarca. 3. In this patient who has a left hip prosthesis and recently drained left ileo psoas abscess the pre viously present pigtail drainage catheter has been removed. Majority of the abscess has been drained but there is still an area of the abscess remaining in the medial aspect of the ileo psoas muscle. This measures approximately 2.5 x 2 cm. First read by [facility]. Final report called by myself to the hospitalist 02/21/2024 10 a.m. RADIATION DOSE DELIVERED: Total DLP DATA REPOSITORY: All CT scans at this facility are submitted to the National Radiology Data Registry (NRDR) Dose Index Registry (DIR) with the [employer] ([employer]). RADIATION OPTIMIZATION: All CT scans at this facility use at least one of these dose optimization te chniques: automated exposure control; mA and/or kV adjustment per patient size (includes targeted exa ms where dose is matched to clinical indication); or iterative reconstruction.
--- NOTE | 2024-02-20 17:15 | RT.EKG_ITS ---
APPROVED REPORT Exam: Resting ECG Reason for Exam: CHF Patient Location: E HR:127 bpm ECG Measurements Heart Rate 127 AXIS GA 149 P 236 QRSd 87 QRS 50 QT 282 T -71 QTc 410 Conclusion Sinus or ectopic atrial tachycardia...P axis (-45,135), rate> 99 Repol abnrm suggests ischemia, diffuse leads...ST-T neg, ant/lat/inf no st segment or t wave abnormalities to suggest occlusive mi
--- NOTE | 2024-02-20 17:15 | DI.RAD_ITS ---
Exam(s) XR PORTABLE CHEST AP EXAM: XR PORTABLE CHEST AP CLINICAL HISTORY: short of breath. TECHNIQUE: 2D digital imaging was performed. COMPARISON: CR,XR XR CHEST 1V IN DI DEPT from 01/10/2024 FINDINGS: Single AP portable view. Heart size is mildly prominent.. The mediastinum is not widened. There is a pulmonary vascular hypertension pattern which may be exaggerated by portable technique. N o pleural effusions. No confluent infiltrates seen. IMPRESSION: Mild cardiomegaly. Pulmonary vascular congestion. Recommend nonportable PA and lateral views when c linically possible. DATA REPOSITORY: RADIATION DOSE DELIVERED:
--- NOTE | 2024-02-20 17:25 | ED.GENADUL_ITS ---
Discharge Plan Disposition Patient Disposition: Admit to [facility] Condition: Serious Discharge Details Chief Complaint: RespSymp Clinical Impression: Acute hypoxemic respiratory failure, Acute exacerbation of chronic obstructive pulmonary disease Primary Care Provider: Unknown,Unknown ED Provider: Batsheva Winston Home Meds and New Rx's Prescriptions: No Action torsemide 20 mg tablet 20 mg PO BID Qty: 180 3RF Hold Instructions: Pt Stopped/Never Started Patient Comments: Started takin again about 5 days ago metoprolol succinate 50 mg tablet extended release 24 hr 50 mg PO DAILY albuterol sulfate [ProAir HFA] 8.5 GM HFA aerosol inhaler 2 puff Inhalation Q4H PRN venlafaxine 75 mg capsule,extended release 24hr 75 mg PO DAILY ibuprofen [Advil] 200 MG tablet 1,000 mg PO DAILY PRN magnesium oxide 500 MG capsule 500 mg PO BID trazodone 150 mg tablet 150 mg PO HS Patient Comments: TAKE 1 TABLET BY MOUTH EVERY DAY AT BEDTIME Eliquis 5 mg tablet 1 tab PO BID gabapentin 300 mg capsule 600 mg PO TID Patient Comments: TAKE TWO CAPSULES BY MOUTH THREE TIMES A DAY ropinirole 5 mg tablet 5 mg PO TID Patient Comments: TAKE ONE TABLET BY MOUTH THREE TIMES A DAY, takes first dose around 1400, last dose at bedtime and middle dose in between those two lovastatin 40 mg tablet 40 mg PO DAILY Patient Comments: TAKE ONE TABLET BY MOUTH EVERY DAY tizanidine 2 mg tablet 2 mg PO TID PRN Patient Comments: TAKE ONE TABLET BY MOUTH THREE TIMES A DAY NEEDED diclofenac sodium 3 % Gel 100 g topical QID PRN PRN (Reason: Pain) Qty: 100 0RF ferrous sulfate 325 mg (65 mg iron) Tablet 325 mg PO Q48H Qty: 15 0RF acetaminophen 325 mg Tablet 650 mg PO Q6H Qty: 40 0RF Patient Comments: 1500 Bio-K plus 50 billion cell capsule,delayed release(DR/EC) 1 cap PO DAILY Qty: 24 0RF omeprazole 10 mg capsule,delayed release(DR/EC) 10 mg PO DAILY Qty: 7 0RF lorazepam 1 mg Tablet 1 mg PO TID PRN fluticasone propion-salmeterol [Advair Diskus] 250-50 mcg/dose blister with device 1 inh INHALATION DIRECTED Patient Comments: INHALE ONE PUFF BY MOUTH TWICE A DAY cyclobenzaprine 10 mg tablet 10 mg PO TID Qty: 14 0RF HPI General Mode of arrival: ambulatory . Date/Time Provider Initiated Documentation: 02/20/24 17:25 . Limitations to Documentation: no limitations . Information obtained by: patient and old records reviewed . HPI Narrative: 73yo F with hx HTN, afib, COPD, presenting for shortness of breath. Advised by [facility] to present to the hospital. Records faxed from clinic reviewed. ED visit to [facility] on 02/12 for shortness of breath; treated for COPD exacerbation with 5 day course of prednisone and zpack. Outpatient labs recently with ESR elevated at 100 and CXP elevated at 7.6, given that patient has recent psoas abscess drained clinic was concerned for possible return of infection. Patient reports marked fatigue and shortness of breath on arrival, as well as hip and back pain which is chronic and has been unchanged over the past several weeks. No fevers, chills, rash, nausea, vomiting, abdominal pain, or chest pain. No numbness, tingling, or weakness. Has swelling in both her legs which she reports is worse than usual. Related Data Home Medications Medication Instructions Recorded Confirmed albuterol sulfate 90 mcg/actuation 2 puff inhalation Q4H PRN 06/07/15 02/20/24 aerosol inhaler (ProAir HFA) ibuprofen 200 mg tablet (Advil) 1,000 mg PO DAILY PRN 08/08/16 02/20/24 magnesium oxide 500 mg capsule 500 mg PO BID 08/14/17 02/20/24 lorazepam 1 mg tablet 1 mg PO TID PRN 06/03/19 02/20/24 trazodone 150 mg tablet 150 mg PO HS 09/05/20 02/20/24 fluticasone 250 mcg-salmeterol 50 1 inh inhalation DIRECTED 05/17/21 02/20/24 mcg/dose blistr powdr for inhalation (Advair Diskus) metoprolol succinate 50 mg 50 mg PO DAILY 02/22/22 02/20/24 tablet,extended release 24 hr apixaban 5 mg tablet (Eliquis) 1 tab PO BID 06/15/22 02/20/24 gabapentin 300 mg capsule 600 mg PO TID 06/15/22 02/20/24 venlafaxine 75 mg capsule,extended 75 mg PO DAILY 06/15/22 02/20/24 release 24 hr torsemide 20 mg tablet 20 mg PO BID #180 tabs 02/08/23 02/20/24 ropinirole 5 mg tablet 5 mg PO TID 01/13/24 02/20/24 L. acidophilus,casei,rhamnosus 50 1 cap PO DAILY #24 caps 01/16/24 02/20/24 billion cell capsule,delayed release (Bio-K plus) acetaminophen 325 mg tablet 650 mg (2 x 325 mg) PO Q6H pain 01/16/24 02/20/24 #40 tabs diclofenac sodium 3 % topical gel 100 g topical QID PRN PRN Pain 01/16/24 02/20/24 #100 grams ferrous sulfate 325 mg (65 mg 325 mg PO Q48H #15 tabs 01/16/24 02/20/24 iron) tablet lovastatin 40 mg tablet 40 mg PO DAILY 01/16/24 02/20/24 omeprazole 10 mg capsule,delayed 10 mg PO DAILY #7 caps 01/16/24 02/20/24 release tizanidine 2 mg tablet 2 mg PO TID PRN 01/16/24 02/20/24 cyclobenzaprine 10 mg tablet 10 mg PO TID #14 tabs 01/18/24 02/20/24 Previous Rx's Medication Instructions Recorded torsemide 20 mg tablet 20 mg PO BID #180 tabs 02/08/23 L. acidophilus,casei,rhamnosus 50 1 cap PO DAILY #24 caps 01/16/24 billion cell capsule,delayed release (Bio-K plus) acetaminophen 325 mg tablet 650 mg (2 x 325 mg) PO Q6H pain 01/16/24 #40 tabs diclofenac sodium 3 % topical gel 100 g topical QID PRN PRN Pain 01/16/24 #100 grams ferrous sulfate 325 mg (65 mg 325 mg PO Q48H #15 tabs 01/16/24 iron) tablet omeprazole 10 mg capsule,delayed 10 mg PO DAILY #7 caps 01/16/24 release cyclobenzaprine 10 mg tablet 10 mg PO TID #14 tabs 01/18/24 Allergies Allergy/AdvReac Type Severity Reaction Status Date / Time No Known Allergies Allergy Verified 02/20/24 17:53 General SIDNEY: 3 Review of Systems Narrative: see HPI Exam Narrative Exam Narrative: General: Alert, obese, mildly distressed Head: Normocephalic, atraumatic Neck: Trachea midline, ?Neck supple. ENT: ?MMM.? No oropharygeal lesions or exudate. Cardiac: ?Tachycardiac, regular, no murmurs appreciated Resp: Tachypneic, distant breath sounds bilaterally Abd: ?Soft, non-distended, nontender : ?No suprapubic tenderness. Extremities: ?No deformities.?3+ pitting edema bilateral LE. Neurologic: GCS 15. ? Moves all extremities Medical Decision Making 73yo F with hx HTN, afib, COPD, presenting for shortness of breath. Advised by [place] [facility] to present to the hospital. Records faxed from clinic reviewed. ED visit to [facility] on 02/12 for shortness of breath; treated for COPD exacerbation with 5 day course of prednisone and zpack. Outpatient labs recently with ESR elevated at 100 and CXP elevated at 7.6, given that patient has recent psoas abscess drained clinic was concerned for possible return of infection. Patient reports marked fatigue and shortness of breath on arrival, as well as hip and back pain which is chronic and has been unchanged over the past several weeks. Hypertensive and tachcyardaic on arrival, O2 sat 84% on room air. Given concern for infection and pt tachycardiac, will treat for potential sepsis with broad spectrum abx zosyn/zyvox, as well as duonebs. Does appear fluid overloaded; will hold off on IVFB pending labs and further workup. Tachycardia may be compensatory; will not treat with beta blockade at this time. -EKG with no ST segment or T wave abnormalities to suggest occlusive VT. -Labs reviewed as below: CBC wi lmild leucktoysos at 10.8, neutrophilia. CMP with no significant abnormalities. VBG with slight resp acidosis. Lactate reassuring at 1.8. ESR and CRP elevated but significant downtrended from last labs here in January (49 from 77, 2.5 from 4.6). Procal negative. Trop negative, BNP elevated at 1933. UA not infected. -CXR independently reviewed, no focal pneumonia or significant pulmonary edema on my view; agree with radiology read below. -CT chest/abd/pelvis independently reviewed, no pneumonia/pulmonary edema/bowel obstruction/free fluid on my view, discussed with Dr. Leon radiology anad agree with radiology read below. No evident abscess. Given 40mg lasix for LE edema, toradol for pain, 5mg IV lopressor for hypertension and tachycardia. Vital signs improved with BP now 160's/80's, HR in 120's. Remains on 3-4L NC to maintain O2 sat >90%. Given overall reassuring labs and negative imaging, less likely sepsis; suspect COPD exacerbation with failed outpatient management. Discussed with hospitalist Dr. Hickey and patient accepted to medicine service. Awaiting admission orders and transfer to the floor. Medical Records Medical records reviewed: Yes I reviewed the patient's medical records. Imaging Data Radiologic Study: Imaging: CT Scan Radiologist's impression: IMPRESSION: No acute abnormality. Chronic osseous and atherosclerotic changes as described. Radiologic Study #2: Imaging: X-Ray Radiologist's impression: IMPRESSION: Moderate hypoaeration changes and pulmonary vascular congestion. IMPRESSION: 1. No acute abnormality 2. Heterogeneous appearance of the liver suggesting hepatic venous congestion 3. Chronic osseous and atherosclerotic changes as well as diffuse body wall edema. No abnormal fluid collections evident. 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) Diarrhea (Acute) Urinary incontinence (Acute) Hypokalemia (Acute) Ambulatory dysfunction (Acute) UTI (urinary tract infection) due to Enterococcus (Acute) Anxiety (Chronic) Generalized weakness (Acute) Medical History Essential hypertension (01/21/17) Paroxysmal atrial fibrillation Cervical nerve root disorder Not disorder: Per H&P (R) Cervical medial branch block Tobacco user Spinal stenosis RLS (restless legs syndrome) Pulmonary embolism 8 months ago r/t to diagnosis a-fib Postural dizziness Depressive disorder Chronic pain syndrome COPD (chronic obstructive pulmonary disease) Afib F/u with Dr. Mcconnell 04/2022 Hyperlipidemia Lumbago with sciatica, left side Surgical History 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) History of abdominal surgery (01/21/17) Hx of cholecystectomy H/O cone biopsy of cervix History of breast biopsy Hx of rotator cuff surgery right History of total bilateral knee replacement (TKR) History of carpal tunnel release H/O exploratory laparotomy Hx of cervical spine surgery Hx of colonoscopy Social History (Updated 01/11/24 @ 05:08 by Kenan Grant) Smoking/Tobacco Use Status: Current-Occasional Tobacco Type: cigarettes Smoking risk assessment performed?: Yes Alcohol Intake: former Drug use: Occasionally Substance use type: former substance user and marijuana Housing: apartment Do you feel safe at home: Yes (lives with sister) Do you feel safe in your relationship?: Yes Additional Social history: Lives with sister in [place], retired, gets some help with cleaning/bathing. Quit smoking at recent rehab stay, but still bums a cigarette from sister when she is stressed.
--- NOTE | 2024-02-20 17:27 | RESPIRATORY ---
Respiratry Therapy paged to room. Patient transferring off commode prior to arrival. Sp02 96-97% on room air.
[2024-02-20 17:44] LABS: Lactate 1.8 mmol/L (0.6-1.4)
[2024-02-20 17:46] LABS: Abs Immature Grans 0.06 10^3/uL (0.0-0.06); Absolute Basophil Count 0.03 10^3/uL (0.0-0.2); Absolute Eosinophil Count 0.39 10^3/uL (0.0-0.7); Absolute Lymphocyte Count 1.91 10^3/uL (1.2-3.4); Absolute Monocyte Count 0.64 10^3/uL (0.1-0.8); Basophils % 0.3; Eosinophils % 3.6; HCT 35.7 % (36.0-46.0); HGB 10.1 g/dL (11.2-15.7); Immature Grans % 0.6; Lymphocytes % 17.6; MCH 22.7 pg (27.0-33.0); MCHC 28.3 % (32.0-36.0); MCV 80 fL (80-95); MPV 7.9 fL (8.0-11.0); Monocytes % 5.9; Platelet Count 430 10^3/uL (130-400); RBC 4.45 10^6/uL (3.93-5.22); RDW 19.5 % (11.7-14.6); RDW-SD 56.4 fL; WBC 10.87 10^3/uL (4.4-10.8)
[2024-02-20 17:48] LABS: Absolute Neutrophil Count 7.83 10^3/uL (1.2-6.7)
[2024-02-20 17:49] LABS: ESR 49 mm/hr (0-30)
[2024-02-20 17:53] LABS: Bilirubin Negative (Negative); Blood Negative (Negative); Clarity Clear (Clear); Glucose Negative (Negative); Ketones Negative (Negative); Leukocyte Esterase Negative (Negative); Nitrite Negative (Negative); Specific Gravity 1.015 (1.005-1.025); Urobilinogen 0.2 mg/dL (Up to 0.2)
[2024-02-20 18:01] LABS: Magnesium 2.1 mg/dL (1.8-2.4)
[2024-02-20 18:02] LABS: INR 1.1 (0.9-1.1); PTT Activated 28.8 sec (23.6-32.8); Prothrombin Time 11.1 sec (9.1-11.1)
[2024-02-20 18:03] LABS: C-Reactive Protein 2.56 mg/dL (<or=0.5)
[2024-02-20] MEDS: PIPERACILLIN/TAZO 4.5 GM in Normal Saline 100 ML IVPB (18:05)
[2024-02-20 18:11] LABS: ALT 36 U/L (14-59); AST 20 U/L (15-37); Albumin 3.5 g/dL (3.4-5.0); Alkaline Phosphatase 145 U/L (46-116); Anion Gap 8.8 mmol/L (3-11); BUN 15 mg/dL (7-18); Bilirubin, Total 0.3 mg/dL (0.2-1.0); CO2 30.2 mmol/L (21.0-32.0); CREATININE 0.9 mg/dL (0.55-1.02); Calcium 9.2 mg/dL (8.5-10.1); Chloride 104 mmol/L (98-107); Glucose 92 mg/dL (74-106); NT-proBNP 1933 pg/mL (<300); Potassium 4.4 mmol/L (3.5-5.1); Sodium 143 mmol/L (136-145); Total Protein 8.2 g/dL (6.4-8.2); Troponin I < 50 ng/L (< or =60)
[2024-02-20 18:14] LABS: BE (Venous) 6 mmol/L (-2-3); HCO3 (Venous) 31 mmol/L (23-28); O2 Sat (Venous) 34 %; TCO2 (Venous) 30 mmol/L (24-29); pCO2 (Venous) 54 mmHg (41-51); pH (Venous) 7.38 (7.31-7.41); pO2 (Venous) 21 mmHg
--- NOTE | 2024-02-20 18:15 | NUR.NOTE ---
Nursing Note: Pt rang and c/o feeling SOB, O@ meter found to be malfunction. Replaced with earlobe. PT stating at 89% PT started on 2 L O2 via NC. Now stating at 92% Also provided with ice chips at this time, w/ provider's ok.
--- NOTE | 2024-02-20 18:21 | NUR.NOTE ---
Nursing Note: O2 falling to 89% when speaking O2 increased to 3L via NC at this time.
[2024-02-20 18:33] LABS: Procalcitonin < 0.1 ng/mL
[2024-02-20] MEDS: Normal Saline - Diluent 50 ML VIAL IJ (18:40)
[2024-02-20 18:44] LABS: COVID-19 PCR Negative (Negative); Influenza A PCR Negative (Negative); Influenza B PCR Negative (Negative); RSV PCR Negative (Negative); Source Nasopharynx
--- NOTE | 2024-02-20 18:45 | DI.VRAD_ITS ---
PROCEDURE INFORMATION: Exam: XR Chest Exam date and time: 02/20/2024 6:33 PM Age: 73 years old Clinical indication: Shortness of breath TECHNIQUE: Imaging protocol: Radiologic exam of the chest. Views: 1 view. COMPARISON: CR XR CHEST 1V IN DI DEPT 01/10/2024 8:38 PM FINDINGS: Lungs: Lung volumes are relatively low, producing crowding of the pulmonary vasculature. Pulmonary vasculature appears moderately prominent. No gabbie pulmonary consolidation. Pleural spaces: Unremarkable. No pleural effusion. No pneumothorax. Heart/Mediastinum: Unremarkable. No cardiomegaly. Vasculature: Moderate atherosclerotic calcification of the aortic arch. Bones/joints: Partially visualized orthopedic hardware in the cervical spine. Moderate degenerative changes of the spine and shoulders. IMPRESSION: Moderate hypoaeration changes and pulmonary vascular congestion. Dictated and Authenticated by: Mike Vidal MD. Ordering:ADRIÁN Herman MD
[2024-02-20] MEDS: LINEZOLID 600 MG/300 ML BAG 300 MG IVPB (18:53)
[2024-02-20] MEDS: Acetaminophen 500 MG TAB 1000 MG PO (19:02)
[2024-02-20] MEDS: Ketorolac 15 MG/ML VIAL IVP (19:07)
[2024-02-20] MEDS: Omnipaque 350 MG/ML 100 ML BTL IJ (19:18)
[2024-02-20] MEDS: Normal Saline Flush 10 ML SYR IVP (19:20)
[2024-02-20] MEDS: Furosemide 40 MG/4 ML VIAL IVP (19:28)
--- NOTE | 2024-02-20 19:49 | DI.VRAD_ITS ---
PROCEDURE INFORMATION: Exam: CT Chest With Contrast; Diagnostic Exam date and time: 02/20/2024 7:18 PM Age: 73 years old Clinical indication: Other: Fall, SOB, HX hip abscess TECHNIQUE: Imaging protocol: Diagnostic computed tomography of the chest with contrast. 3D rendering (Not supervised by radiologist): MIP and/or 3D reconstructed images were created by the technologist. Contrast material: OMNIPAQUE 350; Contrast volume: 100 ml; Contrast route: INTRAVENOUS (IV); COMPARISON: CR XR PORTABLE CHEST AP 02/20/2024 6:33 PM FINDINGS: Lungs: Unremarkable. No consolidation. No masses. Pleural spaces: Unremarkable. No pneumothorax. No pleural effusion. Heart: Unremarkable. No cardiomegaly. No pericardial effusion. Coronary arteries: Moderate coronary artery calcifications. Lymph nodes: Unremarkable. No enlarged lymph nodes. Vasculature: Moderate atherosclerotic calcification of the thoracic aorta. No evidence of aortic aneurysm or dissection. Bones/joints: Moderate to severe degenerative disc changes throughout the thoracic spine. No vertebral body compression or acute fracture. Old, healed lateral left 6th rib fracture. Soft tissues: Unremarkable. IMPRESSION: No acute abnormality. Chronic osseous and atherosclerotic changes as described. PROCEDURE INFORMATION: Exam: CT Abdomen And Pelvis With Contrast Exam date and time: 02/20/2024 7:18 PM Age: 73 years old Clinical indication: Other: Fall, SOB, HX hip abscess TECHNIQUE: Imaging protocol: Computed tomography of the abdomen and pelvis with contrast. 3D rendering (Not supervised by radiologist): MIP and/or 3D reconstructed images were created by the technologist. Contrast material: OMNIPAQUE 350; Contrast volume: 100 ml; Contrast route: INTRAVENOUS (IV); COMPARISON: CT ABDOMEN PELVIS W 01/18/2024 4:41 PM FINDINGS: Liver: Liver is enlarged with diffusely heterogeneous parenchymal pattern suggesting hepatic venous congestion. No focal hepatic abnormality. Gallbladder and bile ducts: Gallbladder is surgically absent. Pancreas: Normal. No ductal dilation. Spleen: Normal. No splenomegaly. Adrenal glands: Normal. No mass. Kidneys and ureters: Normal. No hydronephrosis. Stomach and bowel: Unremarkable. No obstruction. No mucosal thickening. Appendix: No evidence of appendicitis. Intraperitoneal space: Unremarkable. No free air. No significant fluid collection. Vasculature: Moderate atherosclerotic calcification of the aorta and iliac arteries. No evidence of aneurysm or dissection. Lymph nodes: Unremarkable. No enlarged lymph nodes. Urinary bladder: Unremarkable as visualized. Reproductive: Unremarkable as visualized. Bones/joints: Left hip prosthesis in place. Slight lumbar scoliosis with severe multilevel degenerative disc changes and facet arthropathy. Mild chronic appearing compression L1. No acute fracture. Soft tissues: Moderate diffuse body wall edema. No abnormal soft tissue fluid collection. IMPRESSION: 1. No acute abnormality 2. Heterogeneous appearance of the liver suggesting hepatic venous congestion 3. Chronic osseous and atherosclerotic changes as well as diffuse body wall edema. No abnormal fluid collections evident. Dictated and Authenticated by: Mike Vidal MD. Ordering:ADRIÁN Herman MD
[2024-02-20] MEDS: Metoprolol 5 MG/5 ML VIAL IVP (20:19)
[2024-02-20] MEDS: LORazepam 2 MG/ML VIAL IVP ×2 (20:19→22:36)
[2024-02-20] MEDS: Albuterol/Ipratropium 3 ML UPD VIAL UPD (20:33)
[2024-02-20 21:02] LABS: Troponin I < 50 ng/L (< or =60)
--- NOTE | 2024-02-20 21:12 | HPE_ITS ---
Date of service: 02/20/24 Time of Service: 21:12 Assessment and Plan Assessment and plan (1) Acute exacerbation of chronic obstructive pulmonary disease: Start date: 02/20/24 Status: Acute Assessment and plan: This is a 73-year-old lady who appears to have failed outpatient therapy of exacerbation of her respiratory status with COPD and increased wheezing. She was initially treated with altered supplementation without need for BiPAP or CPAP having normal pCO2 by VBG. She does have lactic acidosis with a normal procalcitonin and inflammatory markers with recent psoas abscess which has been drained by interventional radiology and imaging of the abdomen and pelvis showed no recurrence of this problem. She has had no fever. She chronically is not on oxygen at home. She did have an episode of altered mental status and a drop in her pulse oximeter which recovered spontaneously. Further evaluation with CT of the chest being performed with patient chronically on Eliquis but this may be inadequate with her morbid obesity. She does have what appears to be sinus tachycardia or ectopic atrial tachycardia with a history of paroxysmal atrial fib. Her troponin is negative and EKG does not show any acute ST-T changes. Her tachycardia may be secondary to her acute respiratory status and for now has been treated with metoprolol with advanced therapy to diltiazem if tachycardia persists and there is no PE or other respiratory pathology to explain her tachycardia. This does not appear to be PSVT or atrial fibrillation with a regular rhythm. She is tolerating her heart rate in the 1 range. No will be minimized as needed but she was initiated on Solu-Medrol and doxycycline. She did discuss a 5-day course of prednisone and a Z-Brian as an outpatient earlier in February. She remains a full code though she has multiple comorbid diseases which are advanced. 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 Her troponin was negative as mentioned and patient does not appear to be having ischemia associated with her tachycardia. Continue O2 supplementation and obtain CT of the chest with PE protocol. If positive despite being on Eliquis, patient should be initiated on heparin infusion. (3) Altered mental status: Start date: 02/20/24 Status: Acute Assessment and plan: Patient is able to carry on conversation and give adequate history though she appears to be very restless at times has pressured speech. She also had an episode of staring without seizure activity or focal neurological events at that time. She had associated hypoxemia with the event with which she awakened. We will obtain CT of the head and continue treating her acute respiratory status changes as well as for ectopic atrial tachycardia as blood pressure allows. She does not appear to be having stroke syndrome and CTA of the head and neck should be considered but not. She did have ordered CT of the abdomen pelvis and now will have this with CT of the chest. I am hesitant to overload her with IV contrast though her renal functions are normal presently. She does have a history of CHF slight lactic acidosis which I am observing for now IV hydration because of question of CHF we will update her echocardiogram. Qualifiers: Altered mental status type: delirium Qualified Code(s): R41.0 - Disorientation, unspecified (4) Paroxysmal atrial fibrillation: Assessment and plan: Patient appears to have ectopic atrial tachycardia or sinus tachycardia presently associate with her respiratory symptoms and is not an atrial flutter or fibrillation and is not responding to metoprolol IV and p.o. If no underlying pulmonary pathology explain her tachycardia, consider diltiazem. She appears to be tolerating her tachycardia at this time with a negative troponin and no acute EKG changes. Treating her underlying problem may help with her tachycardia. Update echocardiogram with no history of CHF on her problem list though she is on chronic torsemide with chronic peripheral edema and obesity. Her troponin was negative which was checked because of her persistent tachycardia. Her TSH was normal. (5) Restless leg syndrome, uncontrolled: Status: Chronic Assessment and plan: Patient has uncontrolled restless legs. This hospitalization with her exacerbation of chronic medical problems. Continue outpatient medical therapy and may need to premedicate with Valium prior to procedure such as CT she is awake and alert other than short episodes of altered mental status with hypoxemia. This may be secondary to chronic pain and lumbar spine disease. (6) Essential hypertension: Assessment and plan: Initially elevated but controlled on metoprolol with treatment of tachycardia. Continue to monitor. (7) Spinal stenosis: Assessment and plan: Patient has history of chronic low back pain on antispasmodics with associated restless leg syndrome she was wheelchair-bound at one time but now is rehabbing with physical therapy. Once she stabilizes with her respiratory and cardiovascular status, consider reinitiation of PT. Qualifiers: Spinal region: lumbar Neurogenic claudication status: without neurogenic claudication Qualified Code(s): M48.061 - Spinal stenosis, lumbar region without neurogenic claudication History of Present Illness History of Present Illness Chief Complaint: Shortness of breath with fatigue and leg edema Narrative: This is a 73-year-old female patient who is seen at the [facility] reported to the ED from prompting from her PCP because of increasing shortness of breath having failed outpatient treatment for COPD exacerbation. She was seen at [facility] ED February 13, 2024 where she was given a pulse of prednisone for 5 days and a Z-Brian. She does have chronic COPD and is morbidly obese but denies having ADONAY. She recently did have a psoas abscess which was drained and this appears to be resolving by imaging repeated in the ED upon admission. She denies any fever or chills but does have extreme fatigue. She was found hypoxic in the ED with pulse ox never below 85% on room air. She has responded to O2 supplementation though she continues to be restless and at times more confused with that short episode of patient staring past the nurse in the room and having her positive drop in the 70% range. She responded quickly to increased O2 supplementation and became more more alert interacting with the nurses again though she continued with restless legs. She denies any chest pain and is not having any complaints of focal neurological symptoms other than her restless legs associate with chronic back pain. She has been wheelchair-bound recently and is having physical therapy but is very debilitated. Patient has had a tachycardic heart rate since admission through the ED which appears to be sinus tachycardia or ectopic atrial tachycardia and at times appears to be flutter though on EKG this is not a atrial flutter rhythm. She is chronically on Eliquis because of paroxysmal atrial fibrillation. She did have a CT of her chest but not a CTA being on anticoagulation though her dosing may be inadequate with her BMI. She does have chronic edema of her legs which appear to be lymphedema as well as CHF. Chest x-ray did suggest pulmonary vascular congestion. She also had mild cardiomegaly. She currently is on torsemide. She states this may have had slight increase in her edema of her legs recently. She does not report weighing herself daily. She does live with her sister. The patient is a vague historian and appears restless throughout the exam. She is a full code. Review of Systems Narrative: 13 point review of systems positive for extreme fatigue recently especially and chronic morbid obesity with disability secondary to chronic back pain and restless legs. She is severely deconditioned but is walking rather than wheelchair-bound recently with PT at home. She does have restless leg but no other focal neurological complaints with chronic low back pain on antispasmodics as well as Ativan for anxiety. She is not on chronic narcotics. 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 Review of systems otherwise unrevealing though markedly positive with chronic issues and otherwise stable. 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) Diarrhea (Acute) Urinary incontinence (Acute) Hypokalemia (Acute) Ambulatory dysfunction (Acute) UTI (urinary tract infection) due to Enterococcus (Acute) Anxiety (Chronic) Generalized weakness (Acute) Medical History Essential hypertension (01/21/17) Paroxysmal atrial fibrillation Cervical nerve root disorder Not disorder: Per H&P (R) Cervical medial branch block Tobacco user Spinal stenosis RLS (restless legs syndrome) Pulmonary embolism 8 months ago r/t to diagnosis a-fib Postural dizziness Depressive disorder Chronic pain syndrome COPD (chronic obstructive pulmonary disease) Afib F/u with Dr. Mcconnell 04/2022 Hyperlipidemia Lumbago with sciatica, left side Surgical History 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) History of abdominal surgery (01/21/17) Hx of cholecystectomy H/O cone biopsy of cervix History of breast biopsy Hx of rotator cuff surgery right History of total bilateral knee replacement (TKR) History of carpal tunnel release H/O exploratory laparotomy Hx of cervical spine surgery Hx of colonoscopy Social History Smoking/Tobacco Use Status: Current-Occasional Tobacco Type: cigarettes Smoking risk assessment performed?: Yes Alcohol Intake: former Drug use: Occasionally Substance use type: former substance user and marijuana Housing: apartment Do you feel safe at home: Yes (lives with sister) Do you feel safe in your relationship?: Yes Additional Social history: Lives with sister in [place], retired, gets some help with cleaning/bathing. Quit smoking at recent rehab stay, but still bums a cigarette from sister when she is stressed. Meds Allergies and Home Medications Allergies Allergy/AdvReac Type Severity Reaction Status Date / Time No Known Allergies Allergy Verified 02/20/24 17:53 Home Medications Medication Instructions Recorded Confirmed Type albuterol sulfate 90 mcg/actuation 2 puff inhalation Q4H PRN 06/07/15 02/20/24 History aerosol inhaler (ProAir HFA) ibuprofen 200 mg tablet (Advil) 1,000 mg PO DAILY PRN 08/08/16 02/20/24 History magnesium oxide 500 mg capsule 500 mg PO BID 08/14/17 02/20/24 History lorazepam 1 mg tablet 1 mg PO TID PRN 06/03/19 02/20/24 History trazodone 150 mg tablet 150 mg PO HS 09/05/20 02/20/24 History fluticasone 250 mcg-salmeterol 50 1 inh inhalation DIRECTED 05/17/21 02/20/24 History mcg/dose blistr powdr for inhalation (Advair Diskus) metoprolol succinate 50 mg 50 mg PO DAILY 02/22/22 02/20/24 History tablet,extended release 24 hr apixaban 5 mg tablet (Eliquis) 1 tab PO BID 06/15/22 02/20/24 History gabapentin 300 mg capsule 600 mg PO TID 06/15/22 02/20/24 History venlafaxine 75 mg capsule,extended 75 mg PO DAILY 06/15/22 02/20/24 History release 24 hr torsemide 20 mg tablet 20 mg PO BID #180 tabs 02/08/23 02/20/24 Rx ropinirole 5 mg tablet 5 mg PO TID 01/13/24 02/20/24 History L. acidophilus,casei,rhamnosus 50 1 cap PO DAILY #24 caps 01/16/24 02/20/24 Rx billion cell capsule,delayed release (Bio-K plus) acetaminophen 325 mg tablet 650 mg (2 x 325 mg) PO Q6H pain 01/16/24 02/20/24 Rx #40 tabs diclofenac sodium 3 % topical gel 100 g topical QID PRN PRN Pain 01/16/24 02/20/24 Rx #100 grams ferrous sulfate 325 mg (65 mg 325 mg PO Q48H #15 tabs 01/16/24 02/20/24 Rx iron) tablet lovastatin 40 mg tablet 40 mg PO DAILY 01/16/24 02/20/24 History omeprazole 10 mg capsule,delayed 10 mg PO DAILY #7 caps 01/16/24 02/20/24 Rx release tizanidine 2 mg tablet 2 mg PO TID PRN 01/16/24 02/20/24 History cyclobenzaprine 10 mg tablet 10 mg PO TID #14 tabs 01/18/24 02/20/24 Rx Exam Narrative Exam Narrative: General: Patient appears older than stated age, flattened affect with mumbling speech but in no acute distress being oriented x 3. She does wander in her conversation is a fair historian though vague. She is constantly moving in bed with her lower extremities brushing the mattress. She is morbidly obese. HEENT: Normocephalic, eyes with pupils equal and reactive to light symmetrically, extraocular movement tachycardia sclera anicteric. Oropharynx with dry mucosa. Neck: Supple without JVD. Carotid pulses are decreased bilaterally with no palpable thrill. Back: Kyphotic without CVA tenderness. Lungs: End expiratory wheeze with slight increased expiratory phase, inspiratory sparse coarse crackles over the right more than left hemithorax with no focalizing. No rhonchi. Overall fair aeration. Heart: Tachycardic rate with regular rhythm. No appreciable murmur or gallop. Breast: Exam deferred. Abdomen: Obese contour, soft nontender to palpation with no palpable hepatosplenomegaly. Bowel sounds positive all quadrants. No guarding or rebound. Large pannus. Genitalia/rectal: Exam deferred. Ko catheter intact draining clear urine. Extremities: Chronic lymphedema which is 4+ over both lower extremities without pitting. Feet with slight pitting edema. No cyanosis or clubbing. Decreased range of motion of back. No joint swelling. Fair capillary refill. Skin: Pale, warm and dry. Chronic skin changes over lower extremities. Neuro: Cranial nerves II through XII appear grossly intact. No focal motor deficits though patient does appear generally weak. No tremor but continuous movement and thrashing of her lower extremities in bed. This is bilateral. Patient did have brief episode altered mental status with hypoxemia which recovered spontaneously and had no focal neurological deficits or seizure-like activity during the episode. She did stare straight ahead past the nurse and attending her. Psych: Flattened affect with pressured speech. Mood appears depressed. Alert and oriented to person, place and time with remote and recent memory grossly intact. Results Imaging Imaging Studies: Exam: CT Chest With Contrast; Diagnostic Exam date and time: 02/20/2024 7:18 PM Age: 73 years old Clinical indication: Other: Fall, SOB, HX hip abscess COMPARISON: CR XR PORTABLE CHEST AP 02/20/2024 6:33 PM FINDINGS: Lungs: Unremarkable. No consolidation. No masses. Pleural spaces: Unremarkable. No pneumothorax. No pleural effusion. Heart: Unremarkable. No cardiomegaly. No pericardial effusion. Coronary arteries: Moderate coronary artery calcifications. Lymph nodes: Unremarkable. No enlarged lymph nodes. Vasculature: Moderate atherosclerotic calcification of the thoracic aorta. No evidence of aortic aneurysm or dissection. Bones/joints: Moderate to severe degenerative disc changes throughout the thoracic spine. No vertebral body compression or acute fracture. Old, healed lateral left 6th rib fracture. Soft tissues: Unremarkable. IMPRESSION: No acute abnormality. Chronic osseous and atherosclerotic changes as described. PROCEDURE INFORMATION: Exam: CT Abdomen And Pelvis With Contrast Exam date and time: 02/20/2024 7:18 PM Age: 73 years old Clinical indication: Other: Fall, SOB, HX hip abscess COMPARISON: CT ABDOMEN PELVIS W 01/18/2024 4:41 PM FINDINGS: Liver: Liver is enlarged with diffusely heterogeneous parenchymal pattern suggesting hepatic venous congestion. No focal hepatic abnormality. Gallbladder and bile ducts: Gallbladder is surgically absent. Pancreas: Normal. No ductal dilation. Spleen: Normal. No splenomegaly. Adrenal glands: Normal. No mass. Kidneys and ureters: Normal. No hydronephrosis. Stomach and bowel: Unremarkable. No obstruction. No mucosal thickening. Appendix: No evidence of appendicitis. Intraperitoneal space: Unremarkable. No free air. No significant fluid collection. Vasculature: Moderate atherosclerotic calcification of the aorta and iliac arteries. No evidence of aneurysm or dissection. Lymph nodes: Unremarkable. No enlarged lymph nodes. Urinary bladder: Unremarkable as visualized. Reproductive: Unremarkable as visualized. Bones/joints: Left hip prosthesis in place. Slight lumbar scoliosis with severe multilevel degenerative disc changes and facet arthropathy. Mild chronic appearing compression L1. No acute fracture. Soft tissues: Moderate diffuse body wall edema. No abnormal soft tissue fluid collection. IMPRESSION: 1. No acute abnormality 2. Heterogeneous appearance of the liver suggesting hepatic venous congestion 3. Chronic osseous and atherosclerotic changes as well as diffuse body wall edema. No abnormal fluid collections evident. Exam: XR Chest Exam date and time: 02/20/2024 6:33 PM Age: 73 years old Clinical indication: Shortness of breath TECHNIQUE: Imaging protocol: Radiologic exam of the chest. Views: 1 view. COMPARISON: CR XR CHEST 1V IN DI DEPT 01/10/2024 8:38 PM FINDINGS: Lungs: Lung volumes are relatively low, producing crowding of the pulmonary vasculature. Pulmonary vasculature appears moderately prominent. No gabibe pulmonary consolidation. Pleural spaces: Unremarkable. No pleural effusion. No pneumothorax. Heart/Mediastinum: Unremarkable. No cardiomegaly. Vasculature: Moderate atherosclerotic calcification of the aortic arch. Bones/joints: Partially visualized orthopedic hardware in the cervical spine. Moderate degenerative changes of the spine and shoulders. IMPRESSION: Moderate hypoaeration changes and pulmonary vascular congestion. Labs 02/21/24 03:55 02/21/24 03:55 Labs: Laboratory Results - last 24 hr 02/20/24 02/20/24 02/20/24 17:34 17:45 18:00 WBC 10.87 H RBC 4.45 Hgb 10.1 L Hct 35.7 L MCV 80 MCH 22.7 L MCHC 28.3 L RDW 19.5 H Plt Count 430 H MPV 7.9 L Immature Gran % 0.6 Neutrophils % 72.0 Lymphocytes % 17.6 Monocytes % 5.9 Eosinophils % 3.6 Basophils % 0.3 Nucleated RBC % 0.0 Absolute Neutrophils 7.83 H Absolute Lymphocytes 1.91 Absolute Monocytes 0.64 Absolute Eosinophils 0.39 Absolute Basophils 0.03 ESR 49 H PT 11.1 INR 1.1 APTT 28.8 VBG pH VBG pCO2 VBG pO2 VBG HCO3 VBG Total CO2 VBG O2 Saturation VBG Base Excess VBG Lactate 1.8 H Sodium 143 Potassium 4.4 Chloride 104 Carbon Dioxide 30.2 Anion Gap 8.8 BUN 15 Creatinine 0.9 Est GFR (CKD-EPI 2020) 67.50 Glucose 92 Calcium 9.2 Magnesium 2.1 Total Bilirubin 0.3 AST 20 ALT 36 Alkaline Phosphatase 145 H Troponin I < 50 C-Reactive Protein 2.56 H NT-Pro-B Natriuret Pep 1933 H Total Protein 8.2 Albumin 3.5 Procalcitonin < 0.1 Urine Color Yellow Urine Clarity Clear Urine pH 7.0 Ur Specific [place] 1.015 Urine Protein Negative Urine Ketones Negative Urine Blood Negative Urine Nitrite Negative Urine Bilirubin Negative Urine Urobilinogen 0.2 Ur Leukocyte Esterase Negative Urine Glucose Negative COVID-19 Source Nasopharynx SARS-CoV-2 (PCR) Negative Influenza Type A (PCR) Negative Influenza Type B (PCR) Negative RSV (PCR) Negative 02/20/24 02/20/24 18:10 20:39 WBC RBC Hgb Hct MCV MCH MCHC RDW Plt Count MPV Immature Gran % Neutrophils % Lymphocytes % Monocytes % Eosinophils % Basophils % Nucleated RBC % Absolute Neutrophils Absolute Lymphocytes Absolute Monocytes Absolute Eosinophils Absolute Basophils ESR PT INR APTT VBG pH 7.38 VBG pCO2 54 H VBG pO2 21 VBG HCO3 31 H VBG Total CO2 30 H VBG O2 Saturation 34 VBG Base Excess 6 H VBG Lactate Sodium Potassium Chloride Carbon Dioxide Anion Gap BUN Creatinine Est GFR (CKD-EPI 2020) Glucose Calcium Magnesium Total Bilirubin AST ALT Alkaline Phosphatase Troponin I < 50 C-Reactive Protein NT-Pro-B Natriuret Pep Total Protein Albumin Procalcitonin Urine Color Urine Clarity Urine pH Ur Specific [place] Urine Protein Urine Ketones Urine Blood Urine Nitrite Urine Bilirubin Urine Urobilinogen Ur Leukocyte Esterase Urine Glucose COVID-19 Source SARS-CoV-2 (PCR) Influenza Type A (PCR) Influenza Type B (PCR) RSV (PCR) Last Vital Signs Temp 36.5 C 02/20/24 17:43 Pulse 126 H 02/20/24 20:28 Resp 15 02/20/24 20:28 BP 141/96 H 02/20/24 20:28 Pulse Ox 92 02/20/24 20:20 Time Spent Time spent with Patient: >75 minutes Time was spent: preparing to see the patient(eg.review tests), obtaining and/or reviewing separately otained hiistory, ordering medications,tests, procedures, indepentently interpreting results and care coordination
[2024-02-20] MEDS: diazePAM 2 MG TAB PO (21:32)
[2024-02-20 21:59] LABS: TSH (W/Ref FT4) 2.04 uIU/mL (0.36-3.74)
[2024-02-20] MEDS: rOPINIRole 1 MG TAB 5 MG PO (22:34)
[2024-02-20] MEDS: Gabapentin 300 MG CAP 600 MG PO (22:35)
[2024-02-20] MEDS: traZODone 50 MG TAB 150 MG PO (22:35)
[2024-02-20] MEDS: methylPREDNISolone SUCC 125 MG VIAL 80 MG IVP (22:35)
[2024-02-20] MEDS: Acetaminophen 325 MG TAB PO (23:23)
[2024-02-21] VITALS (20 sets, daily range): BP systolic 123–156; BP diastolic 72–107; PULSE 90–125; RESP 9–28; TEMP 36.2–37.4; O2SAT 92–99
--- NOTE | 2024-02-21 | DI.CT_ITS ---
Exam(s) CT HEAD WO EXAM: CT HEAD WO CLINICAL HISTORY: Acute confusional state with restless legs. TECHNIQUE: Imaging Protocol: Axial computed tomography images with coronal and sagittal reformatted images were created and reviewed COMPARISON: CT CT HEAD WO from 08/21/2020 FINDINGS: There are no skull fractures. There is no fluid in the visualized paranasal sinuses. There is no evidence of intracranial hemorrhage, mass effect, or shift of midline structures. There are no extra-axial fluid collections. The ventricles are not enlarged or shifted and there is no blo od within the ventricular system nor within the basal cisterns. Is a moderate amount of bilateral periventricular hypodensity consistent with chronic small vessel di sease, unchanged from the prior study of 2019. IMPRESSION: No acute intracranial findings on this noninfused CT scan of the brain. Chronic small-vessel white matter ischemic changes, unchanged from prior CT scan of 2019 RADIATION DOSE DELIVERED: Total DLP DATA REPOSITORY: All CT scans at this facility are submitted to the National Radiology Data Registry (NRDR) Dose Index Registry (DIR) with the [employer] ([employer]). RADIATION OPTIMIZATION: All CT scans at this facility use at least one of these dose optimization te chniques: automated exposure control; mA and/or kV adjustment per patient size (includes targeted exa ms where dose is matched to clinical indication); or iterative reconstruction.
[2024-02-21] MEDS: DOXYCYCLINE 100 MG in Normal Saline 100 ML IVPB ×3 (00:19→21:20)
[2024-02-21] MEDS: Metoprolol 25 MG TAB PO ×5 (00:41→23:06)
[2024-02-21] MEDS: Albuterol/Ipratropium 3 ML UPD VIAL UPD (01:20)
[2024-02-21] MEDS: LORazepam 0.5 MG TAB PO ×4 (01:23→19:44)
[2024-02-21] MEDS: Metoprolol 5 MG/5 ML VIAL IVP (02:41)
[2024-02-21 02:51] LABS: BE (Venous) 6 mmol/L (-2-3); HCO3 (Venous) 30 mmol/L (23-28); pCO2 (Venous) 44 mmHg (41-51); pH (Venous) 7.44 (7.31-7.41); pO2 (Venous) 133 mmHg
--- NOTE | 2024-02-21 03:15 | RT.EKG_ITS ---
APPROVED REPORT Exam: Resting ECG Reason for Exam: aflutter at 124 Patient Location: I HR:124 bpm ECG Measurements Heart Rate 124 AXIS SC 150 P 221 QRSd 85 QRS 70 QT 311 T 252 QTc 447 Conclusion Sinus or ectopic atrial tachycardia...P axis (-45,135), rate> 99 May be atrial flutter Nonspecific repol abnormality, diffuse leads...ST dep, T flat/neg, ant/lat/inf
[2024-02-21 03:30] LABS: *AMPHETAMINES SCREEN URINE Negative (Negative); *BARBITURATES SCREEN URINE Negative (Negative); *BENZODIAZEPINES SCREEN URINE Negative (Negative); Cannabinoids THC Positive (Negative); Cocaine Screen,Urine Negative (Negative); METHADONE URINE SCREEN Negative (Negative); OPIATES URINE SCREEN Negative (Negative)
[2024-02-21 03:31] LABS: Tricyclic Antidepressants Negative (Negative)
[2024-02-21 04:01] LABS: HCT 30.4 % (36.0-46.0); HGB 8.7 g/dL (11.2-15.7); MCHC 28.6 % (32.0-36.0); MCV 80 fL (80-95); MPV 8.1 fL (8.0-11.0); Platelet Count 338 10^3/uL (130-400); RBC 3.79 10^6/uL (3.93-5.22); RDW 19.4 % (11.7-14.6); RDW-SD 56.7 fL; WBC 9.77 10^3/uL (4.4-10.8)
[2024-02-21 04:02] LABS: Lactate 1.6 mmol/L (0.6-1.4)
[2024-02-21 04:28] LABS: Troponin I < 50 ng/L (< or =60)
[2024-02-21 04:55] LABS: ALT 39 U/L (14-59); AST 29 U/L (15-37); Alkaline Phosphatase 138 U/L (46-116); Anion Gap 8.5 mmol/L (3-11); BUN 17 mg/dL (7-18); Bilirubin, Total 0.3 mg/dL (0.2-1.0); CO2 29.5 mmol/L (21.0-32.0); Calcium 8.5 mg/dL (8.5-10.1); Chloride 105 mmol/L (98-107); Estimated GFR 59.49 (mL/min/1.73m2); Glucose 146 mg/dL (74-106); Potassium 4.4 mmol/L (3.5-5.1); Sodium 143 mmol/L (136-145); Total Protein 7.3 g/dL (6.4-8.2)
[2024-02-21] MEDS: methylPREDNISolone SUCC 125 MG VIAL 80 MG IVP ×3 (05:52→22:46)
[2024-02-21] MEDS: diazePAM 2 MG TAB PO (05:52)
--- NOTE | 2024-02-21 08:00 | DI.US_ITS ---
APPROVED REPORT EXAM: Comprehensive 2D, Doppler, and color-flow Echocardiogram Patient Location: In-Patient Business Intelligence Director: Viktoriya Coker RDCS (AE) Indications: Tachycardia with atrial fibrillation?flutter Other Information Study Quality: Poor. Technically limited study due to body habitus, patient terminated exam.. Conclusion Technically difficult and limited study Left ventricular wall thickness chamber size and systolic function appear grossly normal Mildly enlarged right ventricle Both atria appear mildly dilated Aortic valve is sclerotic Normal mitral valve with mild to moderate regurgitation Wall motion Left Ventricle Limited imaging performed. Patient terminated exam. Limited imaging performed. Patient terminated ex am. Right Ventricle Right ventricle is mildly dilated. Right ventricular systolic function could not be assessed. Atria Left atrium is moderately dilated. Right atrium is mildly dilated. Atrial septal aneurysm is present. Aortic Valve The Aortic valve is sclerotic. Number of aortic valve leaflets could not be assessed. Evaluation for aortic stenosis was not complete. Patient terminated exam. Mitral Valve The mitral valve is normal in structure. No evidence of mitral valve stenosis. Mild to moderate layla l regurgitation. Tricuspid Valve Minimal views obtained. The tricuspid valve is grossly normal in structure. Pulmonic Valve Pulmonic valve is not well visualized. Great Vessels The aortic root is normal in size. Ascending aorta is not well visualized. 2D Dimensions Ao Root d 3.01 cm F: 2.7 - 3.3 Auto EF LV EDV A4C 102.2 mL LV EDV A2C LV EDV BP LV ESV A4C 45.8 mL LV ESV A2C LV ESV BP LVEF(%) A4C 55.2 % LVEF(%) A2C LVEF(%) BP LV SV A4C 56.4 ml LV SV A2C LV SV BP LV CO A4C 3.2 L/min LV CO A2C LV CO BP HR A4C 56.60 BPM HR A2C LV EDV Index (BP) LA Volume LA Length A4C 6.4 cm LA Length A2C LA Area A4C s 25.70 cm2 LA Area A2C s LA Vol A4C A-L 87.50 mL LA Vol A2C A-L LA Vol Biplane A-L LA Vol A4C MOD 81.8 mL LA Vol A2C MOD LA Vol BP MOD RA Volume RA Area A4C 16.8 cm2 RA ESV A4C (A-L) 50.0mL RA Vol/BSA A4C A-L RA Length A4C 4.8 cm RA ESV A4C (MOD) 47.3mL Aortic Valve AoV Vmax 1.74 m/s LVOT Vmax 1.06 m/s AoV Peak Grad 12.1 mmHg LVOT Peak Grad 4.5 mmHg AoV Area (Vmax) 1.80 cm2 LVOT VTI 0.200 m AoV VTI 0.351 m LVOT Mean Grad 2.4 mmHg AoV Mean Aaron. 1.23 m/s LVOT SV 59.18 mL AoV Mean Grad 7.1 mmHg LVOT Diam s 1.90 cm AoV Area (VTI) 1.69 cm2 Velocity Ratio 0.61 Mitral Valve MV Vmax TIPS 1.27 m/s MV Mean Grad 3.1 (<2mmHg) MV VTI 0.276 m Tricuspid Valve TR Vmax 2.33 m/s TR Peak Grad 21.7 mmHg
[2024-02-21] MEDS: Normal Saline - Diluent 50 ML VIAL IJ (08:12)
[2024-02-21] MEDS: Omnipaque 350 MG/ML 100 ML BTL IJ (08:13)
--- NOTE | 2024-02-21 08:19 | DI.CT_ITS ---
Exam(s) CT CHEST PE CTA EXAM: CT CHEST PE CTA CLINICAL HISTORY: Acute hypoxemia with tachycardia. TECHNIQUE: Imaging Protocol: CT angiography of the chest was performed using pulmonary embolus yonatan col. Multi planar reconstructions were performed. CONTRAST MATERIAL: Intravenous: Omnipaque 350 Contrast volume: 100 cc COMPARISON: CR,XR XR PORTABLE CHEST AP from 02/20/[address] CHEST/ABD/PEL W from 02/20/2024 FINDINGS: CHEST: Motion artifact limits evaluation. PULMONARY ARTERIES: There are no intraluminal filling defects in the main pulmonary arteries nor out to the segmental level. Opacification distal to this is suboptimal. LUNGS: Increased lung markings noted throughout both lung cardenas, somewhat exaggerated by respiratory motion artifact. There are no confluent infiltrates. No pleural effusions.. MEDIASTINUM: There is no hilar nor mediastinal adenopathy. CARDIAC: Heart size is upper normal. There is no pericardial effusion.Caliber of the thoracic aorta is within normal limits. No evidence of dissection. There is no significant shift of the interventri cular septum. PARTIALLY VISUALIZED UPPERMOST ABDOMEN: No reflux of contrast into the intrahepatic IVC. OSSEOUS: No significant osseous lesions.No fractures.. IMPRESSION: 1. Suboptimal opacification of the pulmonary arterial tree distal to the main pulmonary arteries.Ther e are no central pulmonary emboli nor obvious emboli L to the segmental levels. More distal pulmonar y arteries are difficult to evaluate accurately on this study. 2. No evidence of aortic dissection nor pericardial effusion. Aorta size normal. 3. Increased lung markings bilaterally throughout both lung cardenas which may be exaggerated by respir atory motion artifact. However, there are no confluent infiltrates and there are no pleural effusion s. No intrathoracic adenopathy. RADIATION DOSE DELIVERED: Total DLP DATA REPOSITORY: All CT scans at this facility are submitted to the National Radiology Data Registry (NRDR) Dose Index Registry (DIR) with the [employer] (ACR). RADIATION OPTIMIZATION: All CT scans at this facility use at least one of these dose optimization te chniques: automated exposure control; mA and/or kV adjustment per patient size (includes targeted exa ms where dose is matched to clinical indication); or iterative reconstruction.
[2024-02-21] MEDS: Acetaminophen 325 MG TAB PO ×3 (09:41→21:21)
[2024-02-21] MEDS: Normal Saline Flush 10 ML SYR IVP ×4 (09:42→22:46)
[2024-02-21] MEDS: Ferrous Sulfate 325 MG TAB PO (09:42)
[2024-02-21] MEDS: Gabapentin 300 MG CAP 600 MG PO ×3 (09:42→21:21)
[2024-02-21] MEDS: Venlafaxine 75 MG CAPCR PO (09:43)
[2024-02-21] MEDS: Apixaban 5 MG TAB PO ×2 (09:43→21:20)
[2024-02-21] MEDS: Omeprazole 10 MG CAPCR PO (09:43)
[2024-02-21] MEDS: Torsemide 20 MG TAB PO ×2 (09:43→17:02)
[2024-02-21] MEDS: rOPINIRole 1 MG TAB 5 MG PO ×3 (09:43→21:22)
--- NOTE | 2024-02-21 09:55 | INITIAL_ITS ---
Date of service: 02/21/24 Time of Service: 09:56 Care Management Initial Assmt Initial Assessment REASON FOR HOSPITALIZATION:: COPD PREVIOUS FUNCTIONAL STATUS/SOCIAL/FAMILY SUPPORTS:: Marzena lives in an apartment in [place] with her sister, Gaby. She has one child, a son, who lives in [place]. Marzena has recently been approved for CFC but is not sure of the scope of services she will have. She currently has caregivers from [facility] and home health services for nursing and PT through [facility]. She and her sister receive Meals on Wheels. Marzena uses a walker all the time and she and Gaby both have hospital beds, shower chairs and a commode. Marzena reported that she and Gaby help each other out, and have friends/neighbors that live in their building. 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 Marzena is mostly independent with dressing and feeding herself and can shower by herself. CURRENT FUNCTIONAL STATUS:: Marzena was sitting up in bed when CM met with her. She was polite and agreeable to conversation. Marzena explained that she has recently been approved for CFC but is unsure if she has moderate or highest needs. She has help from both [facility] and [facility]. ADVANCE DIRECTIVES:: on file- [facility] Has patient been provided with info about the portal/API?: Yes Did the patient sign up for the portal?: No CODE STATUS:: Full Code INSURANCE COVERAGE / FINANCIAL ISSUES:: [employer] [facility] CURRENT HOME/COMMUNITY SERVICES/EQUIPMENT:: CFC with caregivers through [facility], and [facility] has a hospital bed, commode, shower chair, walker Meals on Wheels PRIMARY CARE PHYSICIAN:: Dr. Omer at the [facility] POTENTIAL DISCHARGE NEEDS:: follow up with PCP and plan of care PATIENT/FAMILY EDUCATION NEEDS:: Review of discharge instructions, activity, limitations, follow up plan, discuss Ask Me Three TRANSPORTATION:: via private vehicle with friend/family member PLAN:: Anticipate Marzena will be discharged home, possibly with new home health services, when medically cleared. She will follow up with her community providers and plan of care and transport with family/friend. CM will follow and continue to assess for discharge needs. 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) Diarrhea (Acute) Urinary incontinence (Acute) Hypokalemia (Acute) Ambulatory dysfunction (Acute) UTI (urinary tract infection) due to Enterococcus (Acute) Anxiety (Chronic) Generalized weakness (Acute) Medical History Essential hypertension (01/21/17) Paroxysmal atrial fibrillation Cervical nerve root disorder Not disorder: Per H&P (R) Cervical medial branch block Tobacco user Spinal stenosis RLS (restless legs syndrome) Pulmonary embolism 8 months ago r/t to diagnosis a-fib Postural dizziness Depressive disorder Chronic pain syndrome COPD (chronic obstructive pulmonary disease) Afib F/u with Dr. Mcconnell 04/2022 Hyperlipidemia Lumbago with sciatica, left side Surgical History 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) History of abdominal surgery (01/21/17) Hx of cholecystectomy H/O cone biopsy of cervix History of breast biopsy Hx of rotator cuff surgery right History of total bilateral knee replacement (TKR) History of carpal tunnel release H/O exploratory laparotomy Hx of cervical spine surgery Hx of colonoscopy Social History Smoking/Tobacco Use Status: Current-Occasional Tobacco Type: cigarettes Smoking risk assessment performed?: Yes Alcohol Intake: former Drug use: Occasionally Substance use type: former substance user and marijuana Housing: apartment Do you feel safe at home: Yes (lives with sister) Do you feel safe in your relationship?: Yes Additional Social history: Lives with sister in [place], retired, gets some help with cleaning/bathing. Quit smoking at recent rehab stay, but still bums a cigarette from sister when she is stressed. SDOH(Care Management) Screening Will the Patient Participate in the Screening?: Yes Do you worry about having a steady place to live?: no Problems where you live: no known problems In the past 12 months, have you had to go without electric, gas, oil or water in your home?: no Have you or anyone in your house had to go without enough food to eat?: no Has lack of transportation kept you from medical appointments or from doing things needed for daily living?: yes Has anyone in your support network made you feel unsafe for any reason?: no Social Determinants of Health Comments(SDOH Details): Patient lives with her sister, who is also has compromised health. Neither of them drives and patient expresses this is a barrier to getting to appointments and hospital when needed. Health Related Social Needs Health related social needs: transportation insecurity(Z59.82)
[2024-02-21] MEDS: Magnesium Oxide 400 MG TAB PO ×2 (10:53→21:22)
[2024-02-21] MEDS: dilTIAZem 25 MG/5 ML VIAL (12:50)
--- NOTE | 2024-02-21 12:50 | W.PM.PROGNOT ---
Date of Service Date of service: 02/21/24 Time of Service: 12:50 Assessment and Plan Assessment and plan (1) Acute hypoxemic respiratory failure: Status: Resolved Assessment and plan: multifactoral, copd exac and afib with rvr, CHF on diuretics, refused echo d/t discomfort not requiring oxygen now (2) Atrial fibrillation with RVR: Status: Acute Assessment and plan: suspect main cause of SOB. has not been responding to lopressor. will give cardizem and adjust as needed. fully anticoagulated (3) Acute exacerbation of chronic obstructive pulmonary disease: Status: Acute Assessment and plan: being treated with high dose steroids and antibiotics, recently finished a course of antibiotics and steroids with no improvement I question whether her symptoms are more related to her rapid heart rate. continue current therapy (4) Altered mental status: Status: Resolved Assessment and plan: at baseline Qualifiers: Altered mental status type: delirium Qualified Code(s): R41.0 - Disorientation, unspecified (5) Restless leg syndrome, uncontrolled: Status: Chronic (6) Essential hypertension: Status: Acute Assessment and plan: monitor closely while titrating meds for heart rate control (7) Spinal stenosis: Status: Acute Assessment and plan: stable Qualifiers: Neurogenic claudication status: without neurogenic claudication Spinal region: lumbar Qualified Code(s): M48.061 - Spinal stenosis, lumbar region without neurogenic claudication (8) Hyperlipidemia: Status: Acute Assessment and plan: continue home medication but need to decrease dose of statin due to interaction with cardizem per pharmacy recommendations. (9) Psoas abscess, left: Status: Acute Assessment and plan: completed [address] scan shows improvement to 2 cm but not resolved no fever or chills, no increased pain being followed by [facility] check inflammatory markers (10) Left knee pain: Status: Acute Assessment and plan: reports chronic, continue home medication and monitoring. discussed with DR Brewer Subjective Subjective Patient reports: no new complaints, tolerating liquids well, tolerating a regular diet and afebrile; denies voiding w/o difficulty (has herr to gravity drainage) Interval history since last seen: patient HR remains uncontrolled 120-140's since admission Exam Narrative Exam Narrative: Morbidly obese elderly female chronically ill-appearing older than stated age Head is atraumatic eyes normal appearance noninjected nonicteric oral mucosas moist no exudate Neck is supple no JVD full range of motion no meningeal signs Respirations even and unlabored, diminished bases, no wheezing Cardiovascular regular rate and rhythm good pedal pulse Skin no rashes or lesions Moves all extremity extensive lymph edema to bilateral lower unchanged Neurologic awake alert oriented no focal deficits Objective Last Vital Signs Temp 37.1 C 02/21/24 11:12 Pulse 122 H 02/21/24 11:12 Resp 18 02/21/24 11:12 BP 156/89 H 02/21/24 11:12 Pulse Ox 97 02/21/24 11:12 Laboratory Results - last 24 hr 02/20/24 02/20/24 02/20/24 17:34 17:45 18:00 WBC 10.87 H RBC 4.45 Hgb 10.1 L Hct 35.7 L MCV 80 MCH 22.7 L MCHC 28.3 L RDW 19.5 H Plt Count 430 H MPV 7.9 L Immature Gran % 0.6 Neutrophils % 72.0 Lymphocytes % 17.6 Monocytes % 5.9 Eosinophils % 3.6 Basophils % 0.3 Nucleated RBC % 0.0 Absolute Neutrophils 7.83 H Absolute Lymphocytes 1.91 Absolute Monocytes 0.64 Absolute Eosinophils 0.39 Absolute Basophils 0.03 ESR 49 H PT 11.1 INR 1.1 APTT 28.8 VBG pH VBG pCO2 VBG pO2 VBG HCO3 VBG Total CO2 VBG O2 Saturation VBG Base Excess VBG Lactate 1.8 H Sodium 143 Potassium 4.4 Chloride 104 Carbon Dioxide 30.2 Anion Gap 8.8 BUN 15 Creatinine 0.9 Est GFR (CKD-EPI 2020) 67.50 Glucose 92 Calcium 9.2 Magnesium 2.1 Total Bilirubin 0.3 AST 20 ALT 36 Alkaline Phosphatase 145 H Troponin I < 50 C-Reactive Protein 2.56 H NT-Pro-B Natriuret Pep 1933 H Total Protein 8.2 Albumin 3.5 Procalcitonin < 0.1 TSH Urine Color Yellow Urine Clarity Clear Urine pH 7.0 Ur Specific [place] 1.015 Urine Protein Negative Urine Ketones Negative Urine Blood Negative Urine Nitrite Negative Urine Bilirubin Negative Urine Urobilinogen 0.2 Ur Leukocyte Esterase Negative Urine Glucose Negative Urine Opiates Screen Urine Methadone Screen Ur Barbiturates Screen Ur Tricyclics Screen Ur Amphetamines Screen U Benzodiazepines Scrn Urine Cocaine Screen Ur THC Screen COVID-19 Source Nasopharynx SARS-CoV-2 (PCR) Negative Influenza Type A (PCR) Negative Influenza Type B (PCR) Negative RSV (PCR) Negative 02/20/24 02/20/24 02/21/24 18:10 20:39 02:44 WBC RBC Hgb Hct MCV MCH MCHC RDW Plt Count MPV Immature Gran % Neutrophils % Lymphocytes % Monocytes % Eosinophils % Basophils % Nucleated RBC % Absolute Neutrophils Absolute Lymphocytes Absolute Monocytes Absolute Eosinophils Absolute Basophils ESR PT INR APTT VBG pH 7.38 7.44 H VBG pCO2 54 H 44 VBG pO2 21 133 VBG HCO3 31 H 30 H VBG Total CO2 30 H Not Applicable VBG O2 Saturation 34 Not Applicable VBG Base Excess 6 H 6 H VBG Lactate Sodium Potassium Chloride Carbon Dioxide Anion Gap BUN Creatinine Est GFR (CKD-EPI 2020) Glucose Calcium Magnesium Total Bilirubin AST ALT Alkaline Phosphatase Troponin I < 50 C-Reactive Protein NT-Pro-B Natriuret Pep Total Protein Albumin Procalcitonin TSH 2.04 Urine Color Urine Clarity Urine pH Ur Specific [place] Urine Protein Urine Ketones Urine Blood Urine Nitrite Urine Bilirubin Urine Urobilinogen Ur Leukocyte Esterase Urine Glucose Urine Opiates Screen Urine Methadone Screen Ur Barbiturates Screen Ur Tricyclics Screen Ur Amphetamines Screen U Benzodiazepines Scrn Urine Cocaine Screen Ur THC Screen COVID-19 Source SARS-CoV-2 (PCR) Influenza Type A (PCR) Influenza Type B (PCR) RSV (PCR) 02/21/24 02/21/24 03:10 03:55 WBC 9.77 RBC 3.79 L Hgb 8.7 L Hct 30.4 L MCV 80 MCH 23.0 L MCHC 28.6 L RDW 19.4 H Plt Count 338 MPV 8.1 Immature Gran % Neutrophils % Lymphocytes % Monocytes % Eosinophils % Basophils % Nucleated RBC % Absolute Neutrophils Absolute Lymphocytes Absolute Monocytes Absolute Eosinophils Absolute Basophils ESR PT INR APTT VBG pH VBG pCO2 VBG pO2 VBG HCO3 VBG Total CO2 VBG O2 Saturation VBG Base Excess VBG Lactate 1.6 H Sodium 143 Potassium 4.4 Chloride 105 Carbon Dioxide 29.5 Anion Gap 8.5 BUN 17 Creatinine 1.0 Est GFR (CKD-EPI 2020) 59.49 Glucose 146 H Calcium 8.5 Magnesium 2.0 Total Bilirubin 0.3 AST 29 ALT 39 Alkaline Phosphatase 138 H Troponin I < 50 C-Reactive Protein NT-Pro-B Natriuret Pep Total Protein 7.3 Albumin 3.0 L Procalcitonin TSH Urine Color Urine Clarity Urine pH Ur Specific [place] Urine Protein Urine Ketones Urine Blood Urine Nitrite Urine Bilirubin Urine Urobilinogen Ur Leukocyte Esterase Urine Glucose Urine Opiates Screen Negative Urine Methadone Screen Negative Ur Barbiturates Screen Negative Ur Tricyclics Screen Negative Ur Amphetamines Screen Negative U Benzodiazepines Scrn Negative Urine Cocaine Screen Negative Ur THC Screen Positive A COVID-19 Source SARS-CoV-2 (PCR) Influenza Type A (PCR) Influenza Type B (PCR) RSV (PCR) Time Spent with Patient Time Spent with Patient: 35-49 minutes Time was spent: preparing to see the patient(eg.review tests), obtaining and/or reviewing separately otained hiistory, ordering medications,tests, procedures, indepentently interpreting results and counseling the patient
[2024-02-21] MEDS: dilTIAZem 30 MG TAB PO ×3 (13:35→21:21)
[2024-02-21] MEDS: dilTIAZem 25 MG/5 ML VIAL 10 MG IVP (13:36)
--- NOTE | 2024-02-21 15:00 | CHAPLAIN ---
Marzena remember me from her previous admission lasts month, and told me that she received a prayer shawl. She said she is comfortable and feeling better. I left when Respiratory arrived for a procedure.
[2024-02-21] MEDS: traZODone 50 MG TAB 150 MG PO (21:20)
[2024-02-21] MEDS: Lovastatin 20 MG TAB PO (21:21)
[2024-02-21] MEDS: Diclofenac 1% Gel 100 GM TUBE TP (23:06)
[2024-02-22] VITALS (9 sets, daily range): BP systolic 100–141; BP diastolic 66–97; PULSE 66–110; RESP 12–24; TEMP 36–36.4; O2SAT 92–99
--- NOTE | 2024-02-22 | DI.RAD_ITS ---
Exam(s) XR KNEE LT 3V AP,LAT,ANDREW EXAM: XR KNEE LT 3V AP,LAT,ANDREW CLINICAL HISTORY: pain, history of fall. TECHNIQUE: 2D digital imaging was performed of the left knee. Three images were obtained. AP, late ral and PA tunnel views were obtained. COMPARISON: No exams were available for comparison FINDINGS: BONES: No acute fracture is present. No bony destructive lesion is seen. There are enthesophytes at the anterior patella. Osteophytes are seen at the patella. There is a well corticated osseous densi ty superior to the patella which appears chronic. JOINTS: The patient has a left total knee replacement. Orthopedic hardware appears in good position. No joint effusion is seen. No loose body. SOFT TISSUE: Atherosclerotic calcification is present. IMPRESSION: No definite acute fracture or dislocation. DATA REPOSITORY: RADIATION DOSE DELIVERED:
[2024-02-22] MEDS: Diclofenac 1% Gel 100 GM TUBE TP ×5 (04:37→21:03)
[2024-02-22] MEDS: Acetaminophen 325 MG TAB PO (04:38)
[2024-02-22] MEDS: LORazepam 0.5 MG TAB PO ×3 (04:38→22:32)
[2024-02-22] MEDS: Normal Saline Flush 10 ML SYR IVP ×3 (05:36→20:02)
[2024-02-22] MEDS: Metoprolol 25 MG TAB PO ×4 (05:36→23:33)
[2024-02-22] MEDS: methylPREDNISolone SUCC 125 MG VIAL 80 MG IVP (05:36)
[2024-02-22] MEDS: Torsemide 20 MG TAB PO ×2 (08:55→16:02)
[2024-02-22] MEDS: Omeprazole 10 MG CAPCR PO (08:55)
[2024-02-22] MEDS: Gabapentin 300 MG CAP 600 MG PO ×3 (08:55→20:00)
[2024-02-22] MEDS: Apixaban 5 MG TAB PO ×2 (08:55→19:58)
[2024-02-22] MEDS: Magnesium Oxide 400 MG TAB PO ×2 (08:55→20:01)
[2024-02-22] MEDS: rOPINIRole 1 MG TAB 5 MG PO ×3 (08:55→19:59)
[2024-02-22] MEDS: dilTIAZem 30 MG TAB PO ×2 (08:55→12:29)
[2024-02-22] MEDS: Venlafaxine 75 MG CAPCR PO (08:55)
[2024-02-22] MEDS: DOXYCYCLINE 100 MG in Normal Saline 100 ML IVPB (10:30)
--- NOTE | 2024-02-22 10:35 | W.PM.PROGNOT ---
Date of Service Date of service: 02/22/24 Time of Service: 10:35 Assessment and Plan Assessment and plan (1) Acute hypoxemic respiratory failure: Status: Resolved Assessment and plan: multifactoral, copd exac and afib with rvr, CHF on diuretics, refused echo d/t discomfort not requiring oxygen now (2) Atrial fibrillation with RVR: Status: Acute Assessment and plan: suspect main cause of SOB. Better rate control with cardizem will adjust to 45 mg 4 times daily. Continue monitoring on telemetry fully anticoagulated (3) Acute exacerbation of chronic obstructive pulmonary disease: Status: Acute Assessment and plan: being treated with high dose steroids and antibiotics, recently finished a course of antibiotics and steroids with no improvement I question whether her symptoms are more related to her rapid heart rate. Will complete current therapy (4) Altered mental status: Status: Resolved Assessment and plan: at baseline Qualifiers: Altered mental status type: delirium Qualified Code(s): R41.0 - Disorientation, unspecified (5) Restless leg syndrome, uncontrolled: Status: Chronic Assessment and plan: Continue home medications (6) Essential hypertension: Status: Acute Assessment and plan: Stable Continue monitor closely while titrating meds for heart rate control (7) Spinal stenosis: Status: Acute Assessment and plan: stable Qualifiers: Spinal region: lumbar Neurogenic claudication status: without neurogenic claudication Qualified Code(s): M48.061 - Spinal stenosis, lumbar region without neurogenic claudication (8) Hyperlipidemia: Status: Acute Assessment and plan: continue home medication but need to decrease dose of statin due to interaction with cardizem per pharmacy recommendations. (9) Psoas abscess, left: Status: Acute Assessment and plan: completed [address] scan shows improvement to 2 cm but not resolved no fever or chills, no increased pain being followed by [facility] check inflammatory markers (10) Left knee pain: Status: Acute Assessment and plan: reports chronic but states exacerbated at this time denies any trauma but will obtain x-ray to evaluate joint or bone abnormalities. Will schedule acetaminophen and diclofenac gel. Will add tramadol if needed PT consultation Consider ultrasound Saturday to rule out a De Santiago's cyst as this certainly could be a differential discussed with DR Brewer Subjective Subjective Patient reports: still having pain (Posterior left knee, denies trauma), tolerating liquids well, tolerating a regular diet and afebrile; denies shortness of breath Exam Narrative Exam Narrative: Morbidly obese elderly female chronically ill-appearing older than stated age Head is atraumatic eyes normal appearance noninjected nonicteric oral mucosas moist no exudate Neck is supple no JVD full range of motion no meningeal signs Respirations even and unlabored, diminished bases, no wheezing Cardiovascular regular rate and rhythm good pedal pulse Skin no rashes or lesions Moves all extremity extensive lymph edema to bilateral lower unchanged Neurologic awake alert oriented no focal deficits Objective Last Vital Signs Temp 36.0 C L 02/22/24 07:36 Pulse 91 H 02/22/24 07:36 Resp 19 02/22/24 07:36 BP 123/97 H 02/22/24 07:36 Pulse Ox 92 02/22/24 08:00 Time Spent with Patient Time Spent with Patient: 35-49 minutes Time was spent: preparing to see the patient(eg.review tests), obtaining and/or reviewing separately otained hiistory, ordering medications,tests, procedures, indepentently interpreting results and counseling the patient
--- NOTE | 2024-02-22 11:33 | IN_ITS ---
PT Notes Visit Reasons: Exacerbation COPD, Acute hypoxic respiratory Failu Physical Therapy Inpatient Initial Evaluation Date: 02/22/2024 Referring Doctor: Brandie Wiggins NP PT Orders: PT CONSULT: Eval/Treat Precautions: Fall. Standard. Activity as tolerated. Patient Profile/Admitting Diagnosis: Marzena is a 73-year-old female who presented to the ED on 02/19/2023 due to shortness of breath, increasing fatigue, and as well as hip and back pain. Patient is admitted for management of COPD exacerbation, acute hypoxemic respiratory failure, altered mental status, PAF, restless leg syndrome, and spinal stenosis. 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) Diarrhea (Acute) Urinary incontinence (Acute) Hypokalemia (Acute) Ambulatory dysfunction (Acute) UTI (urinary tract infection) due to Enterococcus (Acute) Anxiety (Chronic) Generalized weakness (Acute) Medical History Essential hypertension (01/21/17) Paroxysmal atrial fibrillation Cervical nerve root disorder Not disorder: Per H&P (R) Cervical medial branch block Tobacco user Spinal stenosis RLS (restless legs syndrome) Pulmonary embolism 8 months ago r/t to diagnosis a-fib Postural dizziness Depressive disorder Chronic pain syndrome COPD (chronic obstructive pulmonary disease) Afib F/u with Dr. Mcconnell 04/2022 Hyperlipidemia Lumbago with sciatica, left side Surgical History 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) History of abdominal surgery (01/21/17) Hx of cholecystectomy H/O cone biopsy of cervix History of breast biopsy Hx of rotator cuff surgery right History of total bilateral knee replacement (TKR) History of carpal tunnel release H/O exploratory laparotomy Hx of cervical spine surgery Hx of colonoscopy Social History/Home Situation: Lives with sister in an aprtment with a ramp to enter. Sister is also handicapped and is not able to help her with mobility performance due to a bad back. Received HH support 3x/week for chores, laundry, and grocery shopping. Ambulatory indoors with [facility]. Gets meals on wheels. Equipment Owned/DME: [facility] Subjective: Patient stated that she had her L hip replaced back in September of 2023 and has had spasms as well as worsened restless leg symptoms since which had made her roll/slide off the bed once in October 2023 after [place] and another one after 2023. Per the patient, she was sent to a SNF for more strengthening and was sent home end of November with HH services in place. She adds that her swelling in B LE has been there even before her L hip surgery. Adds that both her legs have been swollen and have added to the difficulty of moving about. Objective: General Observation: Mildly anxious and in pain. Drain inplace. B LE swelling, B legs and feet fibrotic and discolored. Mental Status: Alert and oriented x4 Pain: 8/10 at rest and with movement in the left hip and lateral thigh ROM: Right Upper Extremity: Shoulder Flexion up to about 100 degrees. Shoulder abduction up to 90 degrees. Elbow flexion WFL. Wrist flexion WFL. Opening and closing of hand WFL. Left Upper Extremity: Shoulder Flexion up to about 100 degrees. Shoulder abduction up to 90 degrees. Elbow flexion WFL. Wrist flexion WFL. Opening and closing of hand WFL. Right Lower Extremity: Hip flexion about 90 degrees. Hip abduction WFL. Knee flexion 45 degrees to 100 degrees. Knee extension -45 degrees. Ankle dorsiflexion WFL. Ankle plantarflexion WFL. Left Lower Extremity: Hip flexion unable to lift thigh past 90 degrees. Hip abduction WFL. Knee flexion 60 degrees to 90 degrees. Knee extension -60 degrees. Ankle dorsiflexion to neutral only. Ankle plantarflexion WFL. Strength: Right Upper Extremity: Shoulder flexors 3-/5. Shoulder abductors 3-/5. Elbow flexors 4/5. Elbow extensors 4/5. Satellite Specialist strong. Left Upper Extremity: Shoulder flexors 3-/5. Shoulder abductors 3-/5. Elbow flexors 4/5. Elbow extensors 4/5. Satellite Specialist strong. Right Lower Extremity: Hip flexors 3-/5. Hip abductors 4-/5. Knee flexors 3-/5. Knee extensors 3-/5. Ankle dorsiflexors 3-/5. Ankle plantarflexors 3/5. Left Lower Extremity:Hip flexors 2-/5. Hip abductors 3-/5. Knee flexors 2-/5. Knee extensors 2-/5. Ankle dorsiflexors 3-/5. Ankle plantarflexors 3/5. Sensation: Intact as to pain and light pressure in B LE Bed Mobility/Transfers: MIDDLE SCHOOL SCIENCE TEACHER Jen assisting for safety Minimal cueing provided for use of B hands as needed for support, movement sequence, AD management, and posture to reduce fall risk and minimize pain report Supine to sit modified independent Sit to stand stand by assist Stand to sit stand assist Gait: Facilitated safe and correct performance of level surface ambulation for a distance of 20 feet using front-wheeled walker with step-to gait pattern and pain of 8/10 on left thigh at end of activity. Minimal verbal cueing provided for increased step height and length. MIDDLE SCHOOL SCIENCE TEACHER Jen assisting for safety. Pain in L hip and lateral thigh reported. No report of back pain. Moderate shortness of breath. Balance: Static Sitting: Normal Dynamic Sitting: Normal Static Standing: Fair Dynamic Standing: Fair Special Tests: Mobility Limitations Standardized Measure [facility] 6 clicks Basic Mobility Inpatient Short Form: Raw Score: 23 CMS Score: 11% deficit Informed Consent/Education: Patient instructed in purpose of PT consult and plan of care. Agreeable to proceed with established PT POC to achieve personal goals. Assessment: Marzena requires the use front wheeled walker for all mobility ADL performance, decreased activity tolerance, and pain in the L hip. Marzena is a 73-year-old female who presented to the ED on 02/19/2023 due to shortness of breath, increasing fatigue, and as well as hip and back pain. Patient is admitted for management of COPD exacerbation, acute hypoxemic respiratory failure, altered mental status, PAF, restless leg syndrome, and spinal stenosis. Patient presents with clinical signs and symptoms consistent with current/admitting diagnoses that have resulted to mobility limitations, gait instability, generalized weakness, and impairment of motor control as demonstrated by the following impairment level findings: 1. Decreased strength to left LE major muscle groups 2. Impaired standing balance 3. Impaired activity tolerance 4. Impaired muscle perofrmance Impairments are contributing to the following functional limitations: 1. Inability to safely ambulate without assistive device 2. Increase completion time for mobility ADL performance 3. Increased fall risk Patient is assessed as a 54274 complexity based on the following: History: 73-year-old female with impairment level findings, functional limitations, and past medical history as indicated above Examination: Demonstrable impairment in strength, balance, and mobility level with underlying impairments and functional limitations as documented above Presentation:Evolving Decision Makin moderate complexity Goals: Goals X1 week 1. Supine-Sit independent 2. Sit-Supine independent 3. Sit-Stand independent 4. Stand-Sit independent 5. Bed-Chair independent 6. Chair-Bed independent 7. Independent gait on level surface with use of least restrictive device for at least 300 feet without report of pain nor dyspnea 8. Independent stair negotiation while holding onto bilateral rails for at least 10 steps without report of pain nor dyspnea 9. Independent with home exercise program 10. Good static and dynamic standing balance/tolerance Plan of Care/Treatment Plan: Patient will benefit from skilled physical therapy services including functional mobility training, bed mobility/transfer training, gait and balance training, therapeutic exercises, therapeutic activity, caregiver/staff/family education and training 1x/day, 7 days/week x 1 week. Plan of care has been reviewed with the ASSESSMENT CONSULTANT providing the service under Physical Therapy direction. Initiate Physic al Therapy intervention for strengthening, bed mobility, transfers, gait, stairs, balance training, use of assistive device. DISCHARGE RECOMMENDATIONS: Patient will benefit from home health PT services in order to progress mobility level using least restrictive assistive ambulatory device, assess home safety, identify additional equipment needs, and establish a functional maintenance program that will increase ability of patient to remain at home. TREATMENT CODE/TIME: 24090 x 26 minutes for 1 unit (11:33-11:59). Thank you for the opportunity to participate in the care of this patient. Sonali Sims PT, DPT, CLT [facility] [place], [place]
--- NOTE | 2024-02-22 12:48 | PHA.REVIEW2 ---
Pharmacy Admission Review Admission Clinical Review Admission Pharmacy Review: Atrial fibrillation with RVR (Acute) Spinal stenosis (Acute) Paroxysmal atrial fibrillation (Acute) Essential hypertension (Acute 01/21/17) Hyperlipidemia (Acute) Altered mental status (Acute) Acute exacerbation of chronic obstructive pulmonary disease (Acute) Acute hypoxemic respiratory failure (Acute) No Known Allergies Allergy (Verified 02/20/24 17:53) Resuscitation Status Full Code Height 5 ft 8 in Weight 130.635 kg Pharmacy Admission Review Renal Dosing Renal Dosing: BUN 17 mg/dL (7-18) 02/21/24 03:55 Creatinine 1.0 mg/dL (0.55-1.02) 02/21/24 03:55 Medications needing adjustments: Reviewed (CrCl 71.66 mL/min) Anticoagulation Anticoagulation: Hgb 8.7 g/dL (11.2-15.7) L 02/21/24 03:55 Hct 30.4 % (36.0-46.0) L 02/21/24 03:55 Plt Count 338 10^3/uL (130-400) 02/21/24 03:55 INR 1.1 (0.9-1.1) 02/20/24 17:34 Creatinine 1.0 mg/dL (0.55-1.02) 02/21/24 03:55 DVT Prophylaxis: Reviewed Medications: Apixaban (5mg PO BID) Relevant Labs Relevant Labs: ESR 49 mm/hr (0-30) H 02/20/24 17:34 Sodium 143 mmol/L (136-145) 02/21/24 03:55 Potassium 4.4 mmol/L (3.5-5.1) 02/21/24 03:55 Chloride 105 mmol/L (98-107) 02/21/24 03:55 Magnesium 2.0 mg/dL (1.8-2.4) 02/21/24 03:55 C-Reactive Protein 2.56 mg/dL (<or=0.5) H 02/20/24 17:34 Electrolytes, C-Reactive P, ESR: Reviewed (No new labs for today) Cardiac Review Cardiac Review: Troponin I < 50 ng/L (< or =60) 02/21/24 03:55 NT-Pro-B Natriuret Pep 1933 pg/mL (<300) H 02/20/24 17:34 Blood Pressure 141/79 1131 Blood Pressure 123/97 0736 Blood Pressure 125/94 0551 Blood Pressure 118/70 0350 BP, HR, EF%: Reviewed (BP 141/79 and HR WNL) QTc Review QTc: Reviewed (447 from 02/21/24) IV to PO Switch IV Medications: Reviewed (PRN IV metoprolol ) Home Meds Home Med List reviewed: Intervened Relevent Home Meds Not ordered & why?: Advair (last filled 07/03), ibuprofen (PRN) and Bio-K (backordered) Lovastatin: order is for 20mg daily, takes 40mg daily per home med list. Reached out to provider, dose was decreased due to addition of Cardizem. Recommended max dosing of 20mg/day of lovastatin when used in combination with Cardizem. Current Meds Current Medication Order Review: Reviewed Pharmacy Antibiotic Review Pharmacy Antibiotic Activity: C/S review and IV to PO Comments: Patient was switched today from IV doxycycline to PO doxycycline. Blood cultures showing no growth.
[2024-02-22] MEDS: dilTIAZem 30 MG TAB 45 MG PO ×2 (16:01→20:00)
--- NOTE | 2024-02-22 17:34 | DI.VRAD_ITS ---
PROCEDURE INFORMATION: Exam: XR Left Knee Exam date and time: 02/22/2024 4:58 PM Age: 73 years old Clinical indication: Injury or trauma; Other: Pain, history of fall; Prior surgery; Surgery date: 6+ months; Surgery type: Knee replacement TECHNIQUE: Imaging protocol: Radiologic exam of the left knee. Views: 3 views. COMPARISON: CR XR FOOT LT COMPLETE 01/10/2024 8:41 PM FINDINGS: Bones/joints: The patient is status post total left knee replacement. The left knee prosthesis is in place. On the lateral film there is a small bony fragment superior to the patella. No old studies are available for comparison purposes. This is probably a chronic finding as it appears corticated. There is no suprapatellar effusion. Soft tissues: Normal. Vasculature: There are vascular calcifications. IMPRESSION: Status post total left knee replacement. The left knee prosthesis is in place. Bony fragment superior to the patella as described above. No suprapatellar effusion. Dictated and Authenticated by: Yeison Harris MD. Ordering:FRED Diego MD
[2024-02-22] MEDS: Acetaminophen 325 MG TAB 650 MG PO ×2 (17:40→19:58)
[2024-02-22] MEDS: Lovastatin 20 MG TAB PO (19:58)
[2024-02-22] MEDS: traZODone 50 MG TAB 150 MG PO (19:59)
[2024-02-22] MEDS: Doxycycline Hyclate 100 MG CAP PO (20:00)
[2024-02-22] MEDS: traMADol 50 MG TAB PO (23:28)
[2024-02-23] MEDS: Metoprolol 25 MG TAB PO ×2 (06:06→20:39)
[2024-02-23 06:07] VITALS: BP 111/78; PULSE 97; RESP 13; TEMP 36.3; O2SAT 92
[2024-02-23 06:57] LABS: Abs Immature Grans 0.07 10^3/uL (0.0-0.06); Absolute Basophil Count 0.01 10^3/uL (0.0-0.2); Absolute Lymphocyte Count 0.89 10^3/uL (1.2-3.4); Absolute Monocyte Count 0.54 10^3/uL (0.1-0.8); Absolute Neutrophil Count 10.85 10^3/uL (1.2-6.7); Basophils % 0.1; HCT 30.1 % (36.0-46.0); HGB 8.6 g/dL (11.2-15.7); Immature Grans % 0.6; Lymphocytes % 7.2; MCH 22.5 pg (27.0-33.0); MCHC 28.6 % (32.0-36.0); MCV 79 fL (80-95); MPV 8.4 fL (8.0-11.0); Monocytes % 4.4; Neutrophils % 87.7; Nucleated RBC 0.2 % (0.0-0.3); Platelet Count 364 10^3/uL (130-400); RBC 3.82 10^6/uL (3.93-5.22); RDW 19.7 % (11.7-14.6); RDW-SD 56.1 fL; WBC 12.37 10^3/uL (4.4-10.8)
[2024-02-23 07:09] LABS: ESR 31 mm/hr (0-30)
[2024-02-23 07:16] LABS: Anion Gap 6.4 mmol/L (3-11); BUN 34 mg/dL (7-18); C-Reactive Protein 1.81 mg/dL (<or=0.5); CO2 34.6 mmol/L (21.0-32.0); Calcium 8.7 mg/dL (8.5-10.1); Chloride 103 mmol/L (98-107); Estimated GFR 59.49 (mL/min/1.73m2); Glucose 119 mg/dL (74-106); Potassium 3.8 mmol/L (3.5-5.1); Sodium 144 mmol/L (136-145)
[2024-02-23 07:22] VITALS: BP 122/85; PULSE 110; RESP 19; TEMP 36.2; O2SAT 94
[2024-02-23] MEDS: rOPINIRole 1 MG TAB 5 MG PO ×3 (07:37→20:38)
[2024-02-23] MEDS: Magnesium Oxide 400 MG TAB PO ×2 (07:38→20:39)
[2024-02-23] MEDS: Omeprazole 10 MG CAPCR PO (07:38)
[2024-02-23] MEDS: Doxycycline Hyclate 100 MG CAP PO ×2 (07:38→20:38)
[2024-02-23] MEDS: Venlafaxine 75 MG CAPCR PO (07:38)
[2024-02-23] MEDS: Apixaban 5 MG TAB PO ×2 (07:38→20:39)
[2024-02-23] MEDS: Torsemide 20 MG TAB PO ×2 (07:38→16:14)
[2024-02-23] MEDS: Gabapentin 300 MG CAP 600 MG PO ×3 (07:38→20:40)
[2024-02-23] MEDS: Acetaminophen 325 MG TAB 650 MG PO ×4 (07:38→20:40)
[2024-02-23] MEDS: Normal Saline Flush 10 ML SYR IVP ×2 (07:39→20:40)
[2024-02-23] MEDS: Ferrous Sulfate 325 MG TAB PO (07:39)
[2024-02-23] MEDS: predniSONE 20 MG TAB 40 MG PO (07:44)
[2024-02-23] MEDS: dilTIAZem 30 MG TAB 45 MG PO (07:45)
[2024-02-23] MEDS: Diclofenac 1% Gel 100 GM TUBE TP ×4 (07:48→20:00)
--- NOTE | 2024-02-23 08:37 | W.PM.PROGNOT ---
Date of Service Date of service: 02/23/24 Time of Service: 08:38 Assessment and Plan Assessment and plan (1) Acute hypoxemic respiratory failure: Status: Resolved Assessment and plan: multifactoral, copd exac and afib with rvr, CHF on diuretics, refused echo d/t discomfort not requiring oxygen now (2) Atrial fibrillation with RVR: Status: Acute Assessment and plan: suspect main cause of SOB. Better rate control with cardizem will adjust to 60 mg 4 times daily, decreased lopressor to 25 mg po BID as better response to cardizem and blood pressure trending down. Continue monitoring on telemetry fully anticoagulated (3) Acute exacerbation of chronic obstructive pulmonary disease: Status: Acute Assessment and plan: being treated with high dose steroids and antibiotics, recently finished a course of antibiotics and steroids with no improvement I question whether her symptoms are more related to her rapid heart rate. Will complete current therapy (4) Altered mental status: Status: Resolved Assessment and plan: at baseline Qualifiers: Altered mental status type: delirium Qualified Code(s): R41.0 - Disorientation, unspecified (5) Restless leg syndrome, uncontrolled: Status: Chronic Assessment and plan: Continue home medications (6) Essential hypertension: Status: Acute Assessment and plan: Stable Continue monitor closely while titrating meds for heart rate control (7) Spinal stenosis: Status: Acute Assessment and plan: stable Qualifiers: Neurogenic claudication status: without neurogenic claudication Spinal region: lumbar Qualified Code(s): M48.061 - Spinal stenosis, lumbar region without neurogenic claudication (8) Hyperlipidemia: Status: Acute Assessment and plan: continue home medication but needed to decrease dose of statin due to interaction with cardizem per pharmacy recommendations. (9) Psoas abscess, left: Status: Acute Assessment and plan: completed [address] scan shows improvement to 2 cm but not resolved no fever or chills, no increased pain being followed by [facility] inflammatory markers continue to improve, no fever (10) Left knee pain: Status: Acute Assessment and plan: reports chronic but states exacerbated at this time denies any trauma but will obtain x-ray to evaluate joint or bone abnormalities. Will schedule acetaminophen and diclofenac gel. Will add tramadol if needed PT consultation Consider ultrasound Saturday to rule out a De Santiago's cyst as this certainly could be a differential discussed with DR Brewer Subjective Subjective Patient reports: still having pain (posterior left knee), tolerating liquids well, tolerating a regular diet and afebrile; denies shortness of breath (stable off oxygen) Interval history since last seen: HR still periodically uncontrolled. Exam Narrative Exam Narrative: Morbidly obese elderly female chronically ill-appearing older than stated age Head is atraumatic eyes normal appearance noninjected nonicteric oral mucosas moist no exudate Neck is supple no JVD full range of motion no meningeal signs Respirations even and unlabored, diminished bases, no wheezing Cardiovascular regular rate and rhythm good pedal pulse Skin no rashes or lesions Moves all extremity extensive lymph edema to bilateral lower unchanged Neurologic awake alert oriented no focal deficits Objective Last Vital Signs Temp 36.2 C L 02/23/24 07:22 Pulse 110 H 02/23/24 07:22 Resp 19 02/23/24 07:22 BP 122/85 02/23/24 07:22 Pulse Ox 94 02/23/24 07:22 Laboratory Results - last 24 hr 02/23/24 06:18 WBC 12.37 H RBC 3.82 L Hgb 8.6 L Hct 30.1 L MCV 79 L MCH 22.5 L MCHC 28.6 L RDW 19.7 H Plt Count 364 MPV 8.4 Immature Gran % 0.6 Neutrophils % 87.7 Lymphocytes % 7.2 Monocytes % 4.4 Eosinophils % 0.0 Basophils % 0.1 Nucleated RBC % 0.2 Absolute Neutrophils 10.85 H Absolute Lymphocytes 0.89 L Absolute Monocytes 0.54 Absolute Eosinophils 0.00 Absolute Basophils 0.01 ESR 31 H Sodium 144 Potassium 3.8 Chloride 103 Carbon Dioxide 34.6 H Anion Gap 6.4 BUN 34 H Creatinine 1.0 Est GFR (CKD-EPI 2020) 59.49 Glucose 119 H Calcium 8.7 C-Reactive Protein 1.81 H Time Spent with Patient Time Spent with Patient: 35-49 minutes Time was spent: preparing to see the patient(eg.review tests), obtaining and/or reviewing separately otained hiistory, ordering medications,tests, procedures, indepentently interpreting results and counseling the patient
[2024-02-23] MEDS: LORazepam 0.5 MG TAB PO ×2 (09:54→20:40)
--- NOTE | 2024-02-23 09:57 | PTTR_ITS ---
PT Notes Visit Reasons: Exacerbation COPD, Acute hypoxic respiratory Failu Date: 02/23/2024 PRECAUTIONS: Fall. Standard. Activity as tolerated. SUBJECTIVE: Pt in bed when approached for therapy this morning, pt reports she would like to participate with therapy but would have to use the toilet first before doing the session. OBJECTIVE: ?SCD bilateral LE, ? PAIN: 6/ left LE VITALS: closely monitored by nursing Therapeutic Activities 25765: Direct one-on-one instruction in dynamic activities to improve functional performance. ?? BED MOBILITY/TRANSFERS? Rolling L/R: min A Supine-sit: ? min A ? Sit-supine: ?min A ? Sit-stand: ?CGA high bed ? Stand-sit: ?CGA? Bed-Chair:? min A ? Chair-bed: min A Provided skilled cues and instruction on performance and technique throughout. Gait Training 05823: Direct one-on-one instruction and skilled instruction in: Employing an assistive device Modified weight-bearing status Movement sequencing Turning and movement with proper form Provided verbal cues for equipment management and technique Provided instruction in gait pattern Patient education regarding pacing and breathing techniques to maximize activity tolerance? GAIT? Assistive Device: ??FWW ? Weight bearing: WBAT Assist: ? CGA WC follow for seated rest breaks? Distance:?? ?40' 50', 90' ? Deviation: ? WBOS, anterior trunk lean, slow mara speed, low step height, short step length.? ASSESSMENT:?[facility], static standing for 5mins during perineal care, and move up and down the bed post session supervision. PLAN: Continue with balance training, global strengthening and general conditioning for improved safety, mobility and activity tolerance until pt is ready for DC. TREATMENT CODE/TIME: 26324p6, [id number], 40mins(9:15-9:55am)
[2024-02-23 11:55] VITALS: BP 149/100; PULSE 124; RESP 20; TEMP 36.4; O2SAT 92
[2024-02-23] MEDS: dilTIAZem 30 MG TAB 60 MG PO ×3 (12:15→20:38)
[2024-02-23] MEDS: traMADol 50 MG TAB PO ×2 (13:52→20:39)
[2024-02-23 14:57] VITALS: BP 135/80; PULSE 127; RESP 19; TEMP 35.7; O2SAT 100
[2024-02-23 19:40] VITALS: O2SAT 94
[2024-02-23] MEDS: Lovastatin 20 MG TAB PO (20:39)
[2024-02-23] MEDS: traZODone 50 MG TAB 150 MG PO (20:39)
[2024-02-23 20:43] VITALS: BP 132/71; PULSE 131; RESP 20; TEMP 36.6; O2SAT 98
[2024-02-24] VITALS (11 sets, daily range): BP systolic 86–147; BP diastolic 31–91; PULSE 71–130; RESP 16–20; TEMP 36–36.9; O2SAT 91–96
--- NOTE | 2024-02-24 | DI.US_ITS ---
Exam(s) US LOWER EXTREMITY VENOUS LT EXAM: US LOWER EXTREMITY VENOUS LT CLINICAL HISTORY: posterior left knee pain, ? bakers cyst TECHNIQUE: Left lower extremity venous ultrasound performed using grayscale, color-flow, and spectra l Doppler analysis. COMPARISON: CR,XR XR KNEE LT 3V AP,LAT,ANDREW from 02/22/2024 FINDINGS: The left common femoral, femoral and popliteal veins demonstrate normal compressibility, augmentation , and color Doppler. The posterior tibial veins are patent. The saphenofemoral junction is unremarka ble. There is no evidence of a De Santiago cyst. In the calf proximally and anteriorly there is a 7.2 x 3 .7 x 2.0 cm complex cystic lesion present. No internal blood flow is seen. IMPRESSION: 1. No evidence of a left lower extremity DVT. 2. 7.2 x 3.7 x 2.0 cm complex cystic lesion in the anterior calf. In the setting of trauma, this may represent a resolving hematoma. If there is no such trauma history, further evaluation with an MRI may be considered. DATA REPOSITORY:
[2024-02-24] MEDS: traMADol 50 MG TAB PO ×2 (06:12→23:15)
[2024-02-24 06:58] LABS: Abs Immature Grans 0.06 10^3/uL (0.0-0.06); Absolute Basophil Count 0.01 10^3/uL (0.0-0.2); Absolute Eosinophil Count 0.02 10^3/uL (0.0-0.7); Absolute Lymphocyte Count 2.65 10^3/uL (1.2-3.4); Absolute Monocyte Count 0.77 10^3/uL (0.1-0.8); Absolute Neutrophil Count 6.25 10^3/uL (1.2-6.7); Basophils % 0.1; Eosinophils % 0.2; HCT 35.9 % (36.0-46.0); Immature Grans % 0.6; Lymphocytes % 27.2; MCH 22.2 pg (27.0-33.0); MCHC 27.9 % (32.0-36.0); MCV 80 fL (80-95); MPV 8.1 fL (8.0-11.0); Monocytes % 7.9; Platelet Count 391 10^3/uL (130-400); RBC 4.51 10^6/uL (3.93-5.22); RDW 19.8 % (11.7-14.6); RDW-SD 57.2 fL; WBC 9.76 10^3/uL (4.4-10.8)
[2024-02-24 07:14] LABS: Anion Gap 4.7 mmol/L (3-11); BUN 41 mg/dL (7-18); CO2 40.3 mmol/L (21.0-32.0); CREATININE 1.1 mg/dL (0.55-1.02); Calcium 8.8 mg/dL (8.5-10.1); Chloride 101 mmol/L (98-107); Estimated GFR 53.06 (mL/min/1.73m2); Glucose 85 mg/dL (74-106); Potassium 3.7 mmol/L (3.5-5.1); Sodium 146 mmol/L (136-145)
[2024-02-24 07:31] LABS: Diff Comment RBC Morph Reviewed
[2024-02-24 07:34] LABS: Hypochromasia 2+
[2024-02-24] MEDS: Acetaminophen 325 MG TAB 650 MG PO ×4 (08:48→20:56)
[2024-02-24] MEDS: rOPINIRole 1 MG TAB 5 MG PO ×3 (08:48→20:55)
[2024-02-24] MEDS: dilTIAZem 30 MG TAB 60 MG PO ×4 (08:48→20:56)
[2024-02-24] MEDS: Venlafaxine 75 MG CAPCR PO (08:48)
[2024-02-24] MEDS: Magnesium Oxide 400 MG TAB PO ×2 (08:49→20:55)
[2024-02-24] MEDS: Omeprazole 10 MG CAPCR PO (08:49)
[2024-02-24] MEDS: Doxycycline Hyclate 100 MG CAP PO ×2 (08:49→20:56)
[2024-02-24] MEDS: Metoprolol 25 MG TAB PO ×2 (08:49→20:56)
[2024-02-24] MEDS: Gabapentin 300 MG CAP 600 MG PO ×3 (08:49→20:55)
[2024-02-24] MEDS: Torsemide 20 MG TAB PO ×2 (08:50→16:18)
[2024-02-24] MEDS: Apixaban 5 MG TAB PO ×2 (08:50→20:55)
[2024-02-24] MEDS: predniSONE 20 MG TAB 40 MG PO (08:54)
[2024-02-24] MEDS: Normal Saline Flush 10 ML SYR IVP ×2 (08:57→20:55)
[2024-02-24] MEDS: Diclofenac 1% Gel 100 GM TUBE TP ×4 (08:58→20:54)
--- NOTE | 2024-02-24 09:15 | PDOC.CMPRO ---
Date of service: 02/24/24 Time of Service: 09:15 Care Management Progress Note Progress Note Text Progress Note Text: S/O:Marzena was sitting up in bed when CM met with her. She was pleasant but stated that she is not having a great day. Marzena informed CM that she has been told that she will likely be discharged tomorrow. CM assured her that [facility] had been contacted and that her home health nursing and PT services would resume upon discharge. Clinically she remains tachycardic and,at times, hyopotensive, however she no longer requires oxygen. She was able to ambulate 150 feet with PT this afternoon with SBA using a walker. A: Marzena is a 73 year old woman admitted on 02/20/24 with COPD and afib P:Anticipate Marzena will be discharged home, possibly with a resumption of home health services for nursing and the addition of PT, when medically cleared. She will follow up with her community providers and plan of care and transport with family/friend. CM will follow and continue to assess for discharge needs. SDOH(Care Management) Screening Will the Patient Participate in the Screening?: Yes Do you worry about having a steady place to live?: no Problems where you live: no known problems In the past 12 months, have you had to go without electric, gas, oil or water in your home?: no Have you or anyone in your house had to go without enough food to eat?: no Has lack of transportation kept you from medical appointments or from doing things needed for daily living?: yes Has anyone in your support network made you feel unsafe for any reason?: no Social Determinants of Health Comments(SDOH Details): Patient lives with her sister, who is also has compromised health. Neither of them drives and patient expresses this is a barrier to getting to appointments and hospital when needed. Health Related Social Needs Health related social needs: transportation insecurity(Z59.82)
[2024-02-24] MEDS: LORazepam 0.5 MG TAB PO ×2 (09:16→20:55)
--- NOTE | 2024-02-24 16:22 | PGE_ITS ---
Date of Service Date of service: 02/24/24 Time of Service: 16:22 Assessment and Plan Assessment and plan (1) Acute hypoxemic respiratory failure: Status: Resolved Assessment and plan: multifactoral, copd exac and afib with rvr, CHF on diuretics, refused echo d/t discomfort not requiring oxygen now (2) Atrial fibrillation with RVR: Status: Acute Assessment and plan: suspect main cause of SOB. Better rate control with cardizem will adjust to 60 mg 4 times daily, decreased lopressor to 25 mg po BID as better response to cardizem and blood pressure trending down. Continue monitoring on telemetry fully anticoagulated (3) Acute exacerbation of chronic obstructive pulmonary disease: Status: Acute Assessment and plan: being treated with high dose steroids and antibiotics, recently finished a course of antibiotics and steroids with no improvement I question whether her symptoms are more related to her rapid heart rate. Will complete current therapy (4) Altered mental status: Status: Resolved Assessment and plan: at baseline Qualifiers: Altered mental status type: delirium Qualified Code(s): R41.0 - Disorientation, unspecified (5) Restless leg syndrome, uncontrolled: Status: Chronic Assessment and plan: Continue home medications (6) Essential hypertension: Status: Acute Assessment and plan: Stable Continue monitor closely while titrating meds for heart rate control (7) Spinal stenosis: Status: Acute Assessment and plan: stable Qualifiers: Neurogenic claudication status: without neurogenic claudication Spinal region: lumbar Qualified Code(s): M48.061 - Spinal stenosis, lumbar region without neurogenic claudication (8) Hyperlipidemia: Status: Acute Assessment and plan: continue home medication but needed to decrease dose of statin due to interaction with cardizem per pharmacy recommendations. (9) Psoas abscess, left: Status: Acute Assessment and plan: completed [address] scan shows improvement to 2 cm but not resolved no fever or chills, no increased pain being followed by [facility] [place] inflammatory markers continue to improve, no fever (10) Left knee pain: Status: Acute Assessment and plan: reports chronic but states exacerbated at this time denies any trauma but will obtain x-ray to evaluate joint or bone abnormalities. Will schedule acetaminophen and diclofenac gel. Will add tramadol if needed PT consultation Consider ultrasound Saturday to rule out a De Santiago's cyst as this certainly could be a differential discussed with DR Ahuja Subjective Subjective Patient reports: no new complaints, feels better, pain is less, tolerating liquids well, tolerating a regular diet, voiding w/o difficulty and afebrile; denies shortness of breath Exam Narrative Exam Narrative: Morbidly obese elderly female chronically ill-appearing older than stated age Head is atraumatic eyes normal appearance noninjected nonicteric oral mucosas moist no exudate Neck is supple no JVD full range of motion no meningeal signs Respirations even and unlabored, diminished bases, no wheezing Cardiovascular regular rate and rhythm good pedal pulse Skin no rashes or lesions Moves all extremity extensive lymph edema to bilateral lower unchanged Neurologic awake alert oriented no focal deficits Objective Last Vital Signs Temp 36.0 C L 02/24/24 15:19 Pulse 103 H 02/24/24 15:19 Resp 17 02/24/24 15:19 BP 113/78 02/24/24 15:19 Pulse Ox 92 02/24/24 15:19 Laboratory Results - last 24 hr 02/24/24 06:02 WBC 9.76 RBC 4.51 Hgb 10.0 L Hct 35.9 L MCV 80 MCH 22.2 L MCHC 27.9 L RDW 19.8 H Plt Count 391 MPV 8.1 Immature Gran % 0.6 Neutrophils % 64.0 Lymphocytes % 27.2 Monocytes % 7.9 Eosinophils % 0.2 Basophils % 0.1 Nucleated RBC % 0.0 Absolute Neutrophils 6.25 Absolute Lymphocytes 2.65 Absolute Monocytes 0.77 Absolute Eosinophils 0.02 Absolute Basophils 0.01 RBC Morphology See Below Hypochromasia 2+ Sodium 146 H Potassium 3.7 Chloride 101 Carbon Dioxide 40.3 H Anion Gap 4.7 BUN 41 H Creatinine 1.1 H Est GFR (CKD-EPI 2020) 53.06 Glucose 85 Calcium 8.8 Time Spent with Patient Time Spent with Patient: 25-34 minutes Time was spent: preparing to see the patient(eg.review tests), obtaining and/or reviewing separately otained hiistory, ordering medications,tests, procedures, indepentently interpreting results and counseling the patient
--- NOTE | 2024-02-24 16:25 | PT.INTREAT ---
PT Notes Visit Reasons: Exacerbation COPD, Acute hypoxic respiratory Failu Date: 02/24/2024 PRECAUTIONS: Fall. Standard. Activity as tolerated. SUBJECTIVE: Pt in recliner when approached for therapy this morning, Pt agrees to participating with therapy, pt in recliner when approached for therapy this afternoon OBJECTIVE: ?SCD bilateral LE, ? PAIN: 6/10 left LE VITALS: closely monitored by nursing Therapeutic Activities [id number]: Direct one-on-one instruction in dynamic activities to improve functional performance. ?? BED MOBILITY/TRANSFERS? Rolling L/R: supervision Supine-sit: ? supervision? Sit-supine: ?supervision? Sit-stand: ?CGA high bed ? Stand-sit: ?CGA? Bed-Chair:? CGA? Chair-bed: CGA Provided skilled cues and instruction on performance and technique throughout. Gait Training 23871: Direct one-on-one instruction and skilled instruction in: Employing an assistive device Modified weight-bearing status Movement sequencing Turning and movement with proper form Provided verbal cues for equipment management and technique Provided instruction in gait pattern Patient education regarding pacing and breathing techniques to maximize activity tolerance? GAIT? Assistive Device: ??FWW ? Weight bearing: WBAT Assist: ?SBA WC follow for seated rest breaks? Distance:?? ?50' (am), 150'x2 (pm) ? Deviation: ? WBOS, anterior trunk lean, slow mara speed, low step height, short step length.? ASSESSMENT:?Pt request to get in bed post session to rest, min A for BLE elavation to get on bed. PLAN: Continue with balance training, global strengthening and general conditioning for improved safety, mobility and activity tolerance until pt is ready for DC. TREATMENT CODE/TIME: [id number], [id number],25mins(11:00-11:25am) [id number], [id number] 30mins(3:40-4:10pm)
[2024-02-24] MEDS: Lovastatin 20 MG TAB PO (20:56)
[2024-02-24] MEDS: traZODone 50 MG TAB 150 MG PO (20:56)
--- NOTE | 2024-02-25 | DI.MRI_ITS ---
Exam(s) MR LOWER EXTREMITY LT WO/W EXAM: MR LOWER EXTREMITY LT WO/W CLINICAL HISTORY: complex cyst. TECHNIQUE: Multiplanar multisequence MRI of the was performed. CONTRAST MATERIAL: IV Contrast: 20 mL of Dotarem contrast administered. COMPARISON: CR,XR XR KNEE LT 3V AP,LAT,ANDREW from 02/22/2024 US US LOWER EXTREMITY VENOUS LT from 02/24/2024 FINDINGS: There is artifact from the tibial component of the patient's total knee replacement. BONES/JOINTS: No fracture or contusion pattern. No bone lesions identified. MUSCULOTENDINOUS STRUCTURES: There is mild muscular fatty atrophy. SOFT TISSUES: There is a 7.8 transverse by 5.7 craniocaudad by 4.5 AP cm fluid collection in the subc utaneous tissues in the anterior lower leg. There is thin enhancement of the wall. On the T1 weight ed images, the it the collection is homogeneously hypointense. On the T2 weighted images, the lesion is homogeneously hyperintense. No solid component is seen. It does not involve the underlying musc ulature or bone. There is marked edema seen in the soft tissues subcutaneously in the lower leg. No other fluid collections are seen. OTHER FINDINGS: None. IMPRESSION: 1. There is a 7.8 transverse by 5.7 craniocaudad by 4.5 AP cm homogeneous cystic fluid collection in the subcutaneous tissues in the anterior lower leg. There is no bone or intramuscular involvement. There is no solid component and there is only thin wall enhancement noted. Differential consideratio ns include resolving hematoma or postoperative seroma. Abscess is considered less likely but cannot be entirely excluded. There is marked edema seen in the subcutaneous tissues in the lower leg, but n o other focal fluid collection is identified. 2. There is artifact seen in the proximal tibia consistent with the patient's total knee replacement. DATA REPOSITORY:
[2024-02-25] MEDS: LORazepam 0.5 MG TAB PO ×2 (01:42→23:12)
[2024-02-25 03:33] VITALS: BP 100/70; PULSE 82; RESP 22; TEMP 36.4; O2SAT 95
[2024-02-25 08:15] VITALS: BP 143/102; PULSE 120; RESP 19; TEMP 36.2; O2SAT 96
--- NOTE | 2024-02-25 08:38 | PT.INTREAT ---
PT Notes Visit Reasons: Exacerbation COPD, Acute hypoxic respiratory Failu Date: 02/25/2024 PRECAUTIONS: Fall. Standard. Activity as tolerated. SUBJECTIVE: Pt in recliner when approached for therapy this morning, pt reports she did not sleep well last night, the scott did not work and resulted in pt wetting her bed, pt reports she would like to participate with therapy after her morning ADL's, Pt in bed when approached for therapy in the afternoon, pt requested to use the commode prior to going to her MRI downstairs. OBJECTIVE: ?SCD bilateral LE, ? PAIN: 05/20 left LE VITALS: closely monitored by nursing Therapeutic Activities 46170: Direct one-on-one instruction in dynamic activities to improve functional performance. ?? BED MOBILITY/TRANSFERS? Rolling L/R: supervision Supine-sit: ? supervision? Sit-supine: ?supervision? Sit-stand: ?CGA ? Stand-sit: ?CGA? Bed-Chair:? CGA? Chair-bed: CGA Provided skilled cues and instruction on performance and technique throughout. Gait Training 82840: Direct one-on-one instruction and skilled instruction in: Employing an assistive device Modified weight-bearing status Movement sequencing Turning and movement with proper form Provided verbal cues for equipment management and technique Provided instruction in gait pattern Patient education regarding pacing and breathing techniques to maximize activity tolerance? GAIT? Assistive Device: ??FWW ? Weight bearing: WBAT Assist: ?SBA WC follow for seated rest breaks? Distance:?? ?150'x2 seated rest break in between distance ? Deviation: ? WBOS, anterior trunk lean, slow mara speed, low step height, short step length.? ASSESSMENT:? Pt reports the pain felt a little better post walking, stayed in recliner post session (am), pt able to perform transfer going from EOB to room commode at the far side of the room with supervision, able to perform perinal care post commode activity independently, able to transition from commode to recliner supervision. PLAN: Continue with balance training, global strengthening and general conditioning for improved safety, mobility and activity tolerance until pt is ready for DC. TREATMENT CODE/TIME: [id number], [id number],25mins( 9:05-9:30am) [id number] 15mins( 2:35-2:50pm)
[2024-02-25] MEDS: dilTIAZem 30 MG TAB 60 MG PO ×4 (08:42→19:57)
[2024-02-25] MEDS: Omeprazole 10 MG CAPCR PO (08:43)
[2024-02-25] MEDS: rOPINIRole 1 MG TAB 5 MG PO ×3 (08:43→20:00)
[2024-02-25] MEDS: Torsemide 20 MG TAB PO ×2 (08:43→16:03)
[2024-02-25] MEDS: Gabapentin 300 MG CAP 600 MG PO ×3 (08:43→19:58)
[2024-02-25] MEDS: Ferrous Sulfate 325 MG TAB PO (08:44)
[2024-02-25] MEDS: Apixaban 5 MG TAB PO ×2 (08:44→19:58)
[2024-02-25] MEDS: Magnesium Oxide 400 MG TAB PO ×2 (08:44→20:01)
[2024-02-25] MEDS: Metoprolol 25 MG TAB PO ×2 (08:44→19:58)
[2024-02-25] MEDS: Acetaminophen 325 MG TAB 650 MG PO ×4 (08:44→19:59)
[2024-02-25] MEDS: Venlafaxine 75 MG CAPCR PO (08:44)
[2024-02-25] MEDS: Normal Saline Flush 10 ML SYR IVP ×2 (08:45→20:03)
[2024-02-25] MEDS: Diclofenac 1% Gel 100 GM TUBE TP ×4 (08:48→20:02)
--- NOTE | 2024-02-25 09:23 | PDOC.CMPRO ---
Date of service: 02/25/24 Time of Service: 09:24 Care Management Progress Note Progress Note Text Progress Note Text: S/O:Marzena was sitting up in a chair when CM met with her. She was smiling and engaged well with CM. Marzena informed CM that she might be discharged today but that she felt that there were issues that had not been resolved. She noted that she is still having pain in her left hip and that her heart rate was still high this morning (120). Marzena is scheduled to have an MRI of her hip this afternoon to try to determine the source of her pain. Adjustments are still being made to her medications to address both her blood pressure and heart rate issues. Marzena continues to work with PT and was able to ambulate 150 feet X2 with her walker with SBA. A: Marzena is a 73 year old woman admitted on 02/20/24 with COPD and afib P:Anticipate Marzena will be discharged home, likely with a resumption of home health services for nursing and the addition of PT, when medically cleared. She will follow up with her community providers and plan of care and transport with family/friend. CM will follow and continue to assess for discharge needs. SDOH(Care Management) Screening Will the Patient Participate in the Screening?: Yes Do you worry about having a steady place to live?: no Problems where you live: no known problems In the past 12 months, have you had to go without electric, gas, oil or water in your home?: no Have you or anyone in your house had to go without enough food to eat?: no Has lack of transportation kept you from medical appointments or from doing things needed for daily living?: yes Has anyone in your support network made you feel unsafe for any reason?: no Social Determinants of Health Comments(SDOH Details): Patient lives with her sister, who is also has compromised health. Neither of them drives and patient expresses this is a barrier to getting to appointments and hospital when needed. Health Related Social Needs Health related social needs: transportation insecurity(Z59.82)
[2024-02-25 11:13] VITALS: BP 109/80; PULSE 92; RESP 19; TEMP 36.4; O2SAT 90
[2024-02-25] MEDS: traMADol 50 MG TAB PO ×2 (13:33→23:12)
[2024-02-25] MEDS: Gadoterate meglumine 20 ML SYRINGE IVP (15:24)
[2024-02-25 16:05] VITALS: BP 128/72; PULSE 102; RESP 19; TEMP 36.6; O2SAT 92
--- NOTE | 2024-02-25 17:20 | PGE_ITS ---
Date of Service Date of service: 02/25/24 Time of Service: 17:21 Assessment and Plan Assessment and plan (1) Acute hypoxemic respiratory failure: Status: Resolved Assessment and plan: multifactoral, copd exac and afib with rvr, CHF on diuretics, refused echo d/t discomfort not requiring oxygen now (2) Atrial fibrillation with RVR: Status: Acute Assessment and plan: suspect main cause of SOB. Better rate control with cardizem will adjust to 60 mg 4 times daily, decreased lopressor to 25 mg po BID as better response to cardizem and blood pressure trending down. Continue monitoring on telemetry fully anticoagulated (3) Acute exacerbation of chronic obstructive pulmonary disease: Status: Acute Assessment and plan: Will complete current therapy (4) Altered mental status: Status: Resolved Assessment and plan: at baseline Qualifiers: Altered mental status type: delirium Qualified Code(s): R41.0 - Disorientation, unspecified (5) Restless leg syndrome, uncontrolled: Status: Chronic Assessment and plan: Continue home medications (6) Essential hypertension: Status: Acute Assessment and plan: Stable Continue monitor closely while titrating meds for heart rate control (7) Spinal stenosis: Status: Acute Assessment and plan: stable Qualifiers: Spinal region: lumbar Neurogenic claudication status: without neurogenic claudication Qualified Code(s): M48.061 - Spinal stenosis, lumbar region without neurogenic claudication (8) Hyperlipidemia: Status: Acute Assessment and plan: continue home medication but needed to decrease dose of statin due to interaction with cardizem per pharmacy recommendations. (9) Psoas abscess, left: Status: Acute Assessment and plan: completed [address] scan shows improvement to 2 cm but not resolved no fever or chills, no increased pain being followed [place] [facility] inflammatory markers continue to improve, no fever (10) Left knee pain: Status: Acute Assessment and plan: reports chronic but states exacerbated at this time denies any trauma but will obtain x-ray to evaluate joint or bone abnormalities. Will schedule acetaminophen and diclofenac gel. Will add tramadol if needed PT consultation ultrasound completed Saturday with De Santiago's cyst ruled out but another cyst identified on anterior lower ext. MRI obtained for further evaluation after discussion with radiologist. results pending discussed with DR Ahuja Subjective Subjective Patient reports: no new complaints, feels better, tolerating liquids well, tolerating a regular diet, voiding w/o difficulty and afebrile; denies shortness of breath Exam Narrative Exam Narrative: Morbidly obese elderly female chronically ill-appearing older than stated age Head is atraumatic eyes normal appearance noninjected nonicteric oral mucosas moist no exudate Neck is supple no JVD full range of motion no meningeal signs Respirations even and unlabored, diminished bases, no wheezing Cardiovascular regular rate and rhythm good pedal pulse Skin no rashes or lesions Moves all extremity extensive lymph edema to bilateral lower unchanged Neurologic awake alert oriented no focal deficits Objective Last Vital Signs Temp 36.6 C 02/25/24 16:05 Pulse 102 H 02/25/24 16:05 Resp 19 02/25/24 16:05 BP 128/72 02/25/24 16:05 Pulse Ox 92 02/25/24 16:05 Time Spent with Patient Time Spent with Patient: 25-34 minutes Time was spent: preparing to see the patient(eg.review tests), obtaining and/or reviewing separately otained hiistory, ordering medications,tests, procedures, indepentently interpreting results and counseling the patient
--- NOTE | 2024-02-25 18:16 | DI.VRAD_ITS ---
PROCEDURE INFORMATION: Exam: MR Left Lower Extremity Without and With Contrast, Tibia Fibula Exam date and time: 02/25/2024 3:04 PM Age: 73 years old Clinical indication: Complex cyst TECHNIQUE: Imaging protocol: Magnetic resonance imaging of the left lower extremity without and with contrast. Exam focused on the tibia and fibula. Contrast material: DOTAREM; Contrast volume: 20 ml; Contrast route: INTRAVENOUS (IV); COMPARISON: CR XR FOOT LT COMPLETE 01/10/2024 8:41 PM FINDINGS: Bones/joints: No evidence of significant osseous injury. There is evidence of prior surgery to the tibia. Soft tissues: Edema is noted throughout the soft tissues of the leg. There is a large multilobar cystic structure noted in the subcutaneous tissues medial and anterior to the proximal tibia. The lesion measures approximately 7.3 x 4.4 x 6.2 cm and contains fluid. There is minimal enhancement surrounding the lesion. IMPRESSION: 1. 7.3 cm cyst anteromedially within the left leg. This finding demonstrates no significant nodular enhancement and may be an organized seroma or old hematoma given adjacent tibial surgery. Clinical correlation recommended. 2. Edema noted throughout the leg. Dictated and Authenticated by: Jessica Mcgill MD. Ordering:FRED Diego MD
[2024-02-25 19:34] VITALS: BP 105/69; PULSE 103; RESP 20; O2SAT 96
[2024-02-25] MEDS: Lovastatin 20 MG TAB PO (19:59)
[2024-02-25] MEDS: traZODone 50 MG TAB 150 MG PO (20:11)
[2024-02-25 23:32] VITALS: BP 98/73; PULSE 91; RESP 20; TEMP 35.6; O2SAT 93
[2024-02-26 00:09] VITALS: PULSE 78
[2024-02-26 03:18] VITALS: BP 100/67; PULSE 81; RESP 16; TEMP 36.2; O2SAT 95
[2024-02-26] MEDS: Albuterol 2.5 MG/3 ML INH SOLN VIAL UPD (04:29)
[2024-02-26 08:30] VITALS: BP 134/95; PULSE 119; RESP 16; TEMP 36.1; O2SAT 92
[2024-02-26] MEDS: Diclofenac 1% Gel 100 GM TUBE TP ×2 (09:00→13:04)
[2024-02-26] MEDS: Gabapentin 300 MG CAP 600 MG PO ×2 (09:07→13:03)
[2024-02-26] MEDS: dilTIAZem 30 MG TAB 60 MG PO ×2 (09:07→13:04)
[2024-02-26] MEDS: rOPINIRole 1 MG TAB 5 MG PO ×2 (09:08→13:03)
[2024-02-26] MEDS: traMADol 50 MG TAB PO (09:08)
[2024-02-26] MEDS: Magnesium Oxide 400 MG TAB PO (09:08)
[2024-02-26] MEDS: Omeprazole 10 MG CAPCR PO (09:08)
[2024-02-26] MEDS: Acetaminophen 325 MG TAB 650 MG PO ×2 (09:08→11:07)
[2024-02-26] MEDS: Torsemide 20 MG TAB PO (09:08)
[2024-02-26] MEDS: Metoprolol 25 MG TAB PO (09:08)
[2024-02-26] MEDS: Venlafaxine 75 MG CAPCR PO (09:08)
[2024-02-26] MEDS: Apixaban 5 MG TAB PO (09:08)
[2024-02-26] MEDS: Normal Saline Flush 10 ML SYR IVP (09:09)
--- NOTE | 2024-02-26 09:45 | PDOC.CMPRO ---
Date of service: 02/26/24 Time of Service: 09:46 Care Management Progress Note Progress Note Text Progress Note Text: S/O:Marzena was sitting up in a chair when CM met with her. A: Marzena is a 73 year old woman admitted on 02/20/24 with COPD and afib P:Anticipate Marzena will be discharged home, likely with a resumption of home health services for nursing and the addition of PT, when medically cleared. She will follow up with her community providers and plan of care and transport with family/friend. CM will follow and continue to assess for discharge needs. SDOH(Care Management) Screening Will the Patient Participate in the Screening?: Yes Do you worry about having a steady place to live?: no Problems where you live: no known problems In the past 12 months, have you had to go without electric, gas, oil or water in your home?: no Have you or anyone in your house had to go without enough food to eat?: no Has lack of transportation kept you from medical appointments or from doing things needed for daily living?: yes Has anyone in your support network made you feel unsafe for any reason?: no Social Determinants of Health Comments(SDOH Details): Patient lives with her sister, who is also has compromised health. Neither of them drives and patient expresses this is a barrier to getting to appointments and hospital when needed. Health Related Social Needs Health related social needs: transportation insecurity(Z59.82)
[2024-02-26 11:24] VITALS: BP 127/82; PULSE 117; RESP 18; TEMP 36.5; O2SAT 98
--- NOTE | 2024-02-26 12:15 | W.PM.DS.N ---
Date of service: 02/26/24 Time of Service: 12:16 DS: Diagnosis Discharge Diagnosis (1) Acute hypoxemic respiratory failure: Status: Resolved (2) Atrial fibrillation with RVR: Status: Acute (3) Acute exacerbation of chronic obstructive pulmonary disease: Status: Acute (4) Altered mental status: Status: Resolved (5) Restless leg syndrome, uncontrolled: Status: Chronic (6) Essential hypertension: Status: Acute (7) Spinal stenosis: Status: Acute (8) Hyperlipidemia: Status: Acute (9) Psoas abscess, left: Status: Acute (10) Left knee pain: Status: Acute Discharge Plan Disposition Patient Disposition: Home W/Home Health Services Condition: Improving Discharge Details Reason For Visit: Exacerbation COPD, Acute hypoxic respiratory Failu Admit Date/Time: 02/20/24 21:20 Admit Provider: Marty Hickey Attending Provider: Marty Hickey Primary Care Provider: Unknown,Unknown Hospital Course Hospital Course: This is an obese 73-year-old female admitted with shortness of breath treated for COPD exacerbation. Hospital course complicated with A-fib with RVR which responded to Cardizem, we did try increasing Lopressor but she did not respond. Also complaints of posterior left knee pain. Ultrasound showed no evidence of De Santiago's cyst or etiology for her pain and incidental finding was an anterior lower extremity cyst which was further evaluated by MRI which did show subcutaneous fluid collection most consistent with a hematoma. Mani wrap was applied and she did report improvement in her symptoms. She has been stable on room air with no further respiratory complaints heart rate has been controlled to slightly uncontrolled atrial fibrillation she is fully anticoagulated on apixaban. She has been medically stable and ready for discharge to home being discharged home with resumption of home health services including nursing with addition of PT/OT for routine evaluation, treatment, home safety evaluation, fall program. discussed with DR Ahuja. Home Meds and New Rx's Prescriptions: New diltiazem HCl [Cartia XT] 240 mg capsule,extended release 24hr 240 mg PO DAILY Qty: 30 0RF lovastatin 20 mg Tablet 20 mg PO QPM Qty: 30 0RF Continued torsemide 20 mg tablet 20 mg PO BID Qty: 180 3RF Hold Instructions: Pt Stopped/Never Started Patient Comments: Started takin again about 5 days ago metoprolol succinate 50 mg tablet extended release 24 hr 50 mg PO DAILY albuterol sulfate [ProAir HFA] 8.5 GM HFA aerosol inhaler 2 puff Inhalation Q4H PRN venlafaxine 75 mg capsule,extended release 24hr 75 mg PO DAILY ibuprofen [Advil] 200 MG tablet 1,000 mg PO DAILY PRN magnesium oxide 500 MG capsule 500 mg PO BID trazodone 150 mg tablet 150 mg PO HS Patient Comments: TAKE 1 TABLET BY MOUTH EVERY DAY AT BEDTIME Eliquis 5 mg tablet 1 tab PO BID gabapentin 300 mg capsule 600 mg PO TID Patient Comments: TAKE TWO CAPSULES BY MOUTH THREE TIMES A DAY ropinirole 5 mg tablet 5 mg PO TID Patient Comments: TAKE ONE TABLET BY MOUTH THREE TIMES A DAY, takes first dose around 1400, last dose at bedtime and middle dose in between those two tizanidine 2 mg tablet 2 mg PO TID PRN Patient Comments: TAKE ONE TABLET BY MOUTH THREE TIMES A DAY NEEDED diclofenac sodium 3 % Gel 100 g topical QID PRN PRN (Reason: Pain) Qty: 100 0RF ferrous sulfate 325 mg (65 mg iron) Tablet 325 mg PO Q48H Qty: 15 0RF acetaminophen 325 mg Tablet 650 mg PO Q6H Qty: 40 0RF Patient Comments: 1500 Bio-K plus 50 billion cell capsule,delayed release(DR/EC) 1 cap PO DAILY Qty: 24 0RF omeprazole 10 mg capsule,delayed release(DR/EC) 10 mg PO DAILY Qty: 7 0RF lorazepam 1 mg Tablet 1 mg PO TID PRN fluticasone propion-salmeterol [Advair Diskus] 250-50 mcg/dose blister with device 1 inh INHALATION DIRECTED Patient Comments: INHALE ONE PUFF BY MOUTH TWICE A DAY cyclobenzaprine 10 mg tablet 10 mg PO TID Qty: 14 0RF Discontinued lovastatin 40 mg tablet 40 mg PO DAILY Patient Comments: TAKE ONE TABLET BY MOUTH EVERY DAY Discharge Instructions Instructions: A-fib (Atrial Fibrillation) (DC), COPD (Chronic Obstructive Pulmonary Disease) (DC), Leg Pain (ED) Additional Instructions: MRI of left leg obtained for your leg pain shows a fluid collection in the subcutaneous tissues in the anterior lower leg, which is most likely a resolving hematoma. continue to use mani wrap for comfort as this did help your symptoms. you were started on a new medication to control your heart rate, it interacts with your cholesterol medication (lovastatin) so the dose was reduced per pharmacy recommendations. We did try to update your echocardiogram but you were unable to tolerate the test, you should discuss with your primary care provider whether you should have this scheduled outpatient. Referrals: Will Steen [ [facility] STAFF PHYSICIAN] - Activity:: Activity as Tolerated Equipment/Supplies:: No Equipment Needed Diet:: As Tolerated Discharge Orders Discharge Orders: Discharge Order (Routine); Ordered 02/26/24 Ordered By: Brandie Wiggins DS: Summary Time Spent with Patient providing and/or coordinating discharge services: Greater than 30 minutes Status at Discharge Functional status at discharge: uses cane/walker Overall status at discharge: patient is progressing back to baseline Mental Status: mental status grossly normal Speech and Movement: speech and movement normal Mood: congruent mood Affect: normal affect Quality:SDOH Health Related Social Needs: Health related social needs transpo insecurity Exam Narrative Exam Narrative: Morbidly obese elderly female chronically ill-appearing older than stated age Head is atraumatic eyes normal appearance noninjected nonicteric oral mucosas moist no exudate Neck is supple no JVD full range of motion no meningeal signs Respirations even and unlabored, diminished bases, no wheezing Cardiovascular regular rate and rhythm good pedal pulse Skin no rashes or lesions Moves all extremity extensive lymph edema to bilateral lower unchanged Neurologic awake alert oriented no focal deficits Psych Mental Status: mental status grossly normal Speech and Movement: speech and movement normal Mood: congruent mood Affect: normal affect DS: Data Vitals/I&O Vitals and I&O: Vital Signs Temperature 36.5 C 02/26/24 11:24 Temperature Source Tympanic 02/26/24 11:24 Pulse 117 H 02/26/24 11:24 Pulse Rhythm Regular 02/26/24 05:33 Pulse 130 H 02/20/24 21:40 Respiratory Rate 18 02/26/24 11:24 Respiratory Effort Short of Breath 02/25/24 19:44 Respiratory Depth Shallow 02/26/24 05:33 Respiratory Pattern Normal 02/26/24 05:33 Blood Pressure 127/82 02/26/24 11:24 Blood Pressure Mean 80 02/20/24 21:31 Blood Pressure Position Sitting 02/20/24 17:43 Pulse Oximetry 98 02/26/24 11:24 Oxygen Delivery Method Room Air 02/26/24 11:24 Oxygen Flow Rate 0 02/26/24 11:24 Pain Level 8 02/26/24 11:24 Comment pt reports they are not cold. MAP 82 02/25/24 23:32 Intake & Output 02/25/24 02/26/24 02/26/24 23:59 11:59 23:59 Intake Total 520 / 770 Output Total 1950 / 2650 Balance -1430 / -1880 Weight 122.7 kg Intake: Oral 520 / 770 Output: Urine 1949 / 2650 Other: Urine Color Yellow Yellow Urine Appearance Clear Clear Urine Odor Normal Comment pure whick cannister pt had large unkown void, brief changed linen changed pure-whick changed. 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 Mcconnell 04/2022 Lumbago with sciatica, left side Surgical History 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) History of abdominal surgery (01/21/17) Hx of cholecystectomy H/O cone biopsy of cervix History of breast biopsy Hx of rotator cuff surgery right History of total bilateral knee replacement (TKR) History of carpal tunnel release H/O exploratory laparotomy Hx of cervical spine surgery Hx of colonoscopy Social History Smoking/Tobacco Use Status: Current-Occasional Tobacco Type: cigarettes Smoking risk assessment performed?: Yes Alcohol Intake: former Drug use: Occasionally Substance use type: former substance user and marijuana Housing: apartment Do you feel safe at home: Yes (lives with sister) Do you feel safe in your relationship?: Yes Additional Social history: Lives with sister in [place], retired, gets some help with cleaning/bathing. Quit smoking at recent rehab stay, but still bums a cigarette from sister when she is stressed. Time Spent with Patient Time Spent with Patient: 45-69 minutes Time was spent: preparing to see the patient(eg.review tests), obtaining and/or reviewing separately otained hiistory, ordering medications,tests, procedures, indepentently interpreting results and counseling the patient
--- NOTE | 2024-02-26 14:34 | PT.INTREAT ---
PT Notes Visit Reasons: Exacerbation COPD, Acute hypoxic respiratory Failu Inpatient Physical Therapy Treatment Note [facility] Date: 02/26/24 SUBJECTIVE: Refused PT this am as she just got back into bed and medicated. I will work with you after lunch. Upon entering [employer] room after lunch she states that she is going home. She is looking forward to this but is also anxious as she is still having leg pain and swelling. She reports that she does not want to go for any walks in [place] but rather get ready to go home, as her ride will be here in one hour. OBJECTIVE: []? VITALS: ?monitored by seth. Therapeutic Activities ([id number]): Direct one-on-one instruction in dynamic activities to improve functional performance. ? BED MOBILITY/TRANSFERS? Rolling L/R: I Supine-sit: S ? Sit-stand: S? Stand-sit: S ? Provided skilled cues and instruction on performance and technique throughout. GAIT? Assistive Device: FWW ? Weight bearing: AT Assist: SBA? Distance:? 5'x2? I toileted her to commode. She was able to self awilda-care. I assisted her in getting dressed and brush her hair so she was ready to go when her ride showed up. ? ASSESSMENT:? independent with transfers and functional mobility. No LOB or fatigue noted. No pain or SOB. PLAN: d/c to home with HH. TREATMENT CODE/TIME: 25 min. [id number]
--- NOTE | 2024-02-26 14:37 | CMDISCH_ITS ---
Date of service: 02/26/24 Time of Service: 14:38 LACE Index Scoring Tool Questions: Length of Stay (in days): 4 - 6 Was the patient admitted via the E.D.?: Yes Comorbidities: Chronic Pulmonary Disease E.D. Visits: 5 Answers: Total Score: 13 Risk of Readmission: High Risk Care Management Discharge Plan Reason for Hospitalization: COPD Discharge Plan: Marzena will be discharged home with a resumption of home health services for nursing and the addition of PT. She will follow up with her community providers and plan of care and transport with RCT coordinated by CM. Patient/Family Education Needs: Review of discharge instructions, activity, limitations, follow up plan, discuss Ask Me Three Services Needed at Discharge: Home Health Care Services and Transportation SDOH Health Related Social Needs: Health related social needs risk of homeless, food ins ecurity Health related social needs: transportation insecurity(Z59.82)
== END 2024-02-26 14:51 | disposition home health service (06) | DRG 190 ==
LOC: ER 21:46 → MS 21:48
PROVIDERS: Nurse Practitioner Acute Care; Admitting Provider Family Medicine; Emergency Provider Student in an Organized Health Care Education/Training Program; Visit Provider Family Medicine
DX: J44.1 Chronic obstructive pulmonary disease with (acute) exacerbation (principal); J96.01 Acute respiratory failure with hypoxia; K68.12 Psoas muscle abscess; Z68.41 Body mass index [BMI] 40.0-44.9, adult; E66.01 Morbid (severe) obesity due to excess calories; Z79.01 Long term (current) use of anticoagulants; I48.0 Paroxysmal atrial fibrillation; R41.0 Disorientation, unspecified; G25.81 Restless legs syndrome; M48.061 Spinal stenosis, lumbar region without neurogenic claudication; E78.5 Hyperlipidemia, unspecified; I89.0 Lymphedema, not elsewhere classified; Z79.899 Other long term (current) drug therapy; D64.9 Anemia, unspecified; G47.00 Insomnia, unspecified; F41.9 Anxiety disorder, unspecified; R53.1 Weakness; Z86.711 Personal history of pulmonary embolism; F17.210 Nicotine dependence, cigarettes, uncomplicated; G89.4 Chronic pain syndrome; I11.0 Hypertensive heart disease with heart failure; I50.9 Heart failure, unspecified; M25.562 Pain in left knee; S80.02XA Contusion of left knee, initial encounter; X58.XXXA Exposure to other specified factors, initial encounter
CPT/HCPCS: 00123; 36415; 51701; 71275; 73562; 74177; 80048; 80053; 80307; 82805; 84145; 85027; 85652; 87040; 87637; 93005; 93306; 93308; 94640; 96365; 96366; 96367; 96375; 97116; 97162; 97530; 99285; 70450; 71045; 71260; 73720; 81003; 83605; 83735; 83880; 84443; 84484; 85025; 85610; 85730; 86140; 93010; 93971; 94760; 99223; 99231; 99232; 99239; J1885; J1940; J2020; J2060; J2543; J2919; J3490; J7512; J7613; J7620

== ENCOUNTER 2024-03-09 13:15 | Outpatient (CLI) | payer OTHER, SELFPAY ==
--- NOTE | 2024-03-09 13:45 | RT.EKG_ITS ---
APPROVED REPORT Exam: Resting ECG Reason for Exam: afib Patient Location: O HR:103 bpm ECG Measurements Heart Rate 103 AXIS NE [id number] P [id number] QRSd 91 QRS 35 QT 408 T 256 QTc 534 Conclusion Atrial fibrillation...V-rate 64-115, irreg A-activity Nonspecific repol abnormality, diffuse leads...ST dep, T flat/neg, ant/lat/inf
== END 2024-03-09 13:16 | disposition home or self-care (01) ==
LOC: DI.CARD 13:52
PROVIDERS: Referring Provider Registered Nurse; Visit Provider Internal Medicine Cardiovascular Disease
DX: I48.0 Paroxysmal atrial fibrillation (principal)
CPT/HCPCS: 93010

== ENCOUNTER → 2024-03-09 13:15 | Outpatient (BNVA) | payer OTHER, SELFPAY | PROVIDERS: Referring Provider Registered Nurse; Visit Provider Internal Medicine Cardiovascular Disease | DX: I48.19 Other persistent atrial fibrillation (principal); J96.11 Chronic respiratory failure with hypoxia; J96.12 Chronic respiratory failure with hypercapnia; R94.31 Abnormal electrocardiogram [ECG] [EKG] | CPT/HCPCS: 93005; 99213 ==

== ENCOUNTER 2024-03-15 15:05 | Emergency (ER) | payer OTHER, SELFPAY ==
[2024-03-15 15:15] VITALS: BP 172/91; PULSE 128; RESP 16; TEMP 37; O2SAT 99
--- NOTE | 2024-03-15 15:20 | ED.GENADUL_ITS ---
Discharge Plan Disposition Patient Disposition: Home Condition: Good Discharge Details Clinical Impression: Psoas muscle strain Primary Care Provider: Unknown,Unknown ED Provider: Javy Sloan Home Meds and New Rx's Prescriptions: No Action torsemide 20 mg tablet 20 mg PO BID Qty: 180 3RF Hold Instructions: Pt Stopped/Never Started Patient Comments: Started takin again about 5 days ago 03/09/24 pt states she was taking one a day and PCP told her to take BID which she has not started b/c she had been having too many DrDemario Ashraft. RH, now states 1 a day metoprolol succinate 50 mg tablet extended release 24 hr 50 mg PO DAILY albuterol sulfate [ProAir HFA] 8.5 GM HFA aerosol inhaler 2 puff Inhalation Q4H PRN venlafaxine 75 mg capsule,extended release 24hr 75 mg PO DAILY ibuprofen [Advil] 200 MG tablet 1,000 mg PO DAILY PRN magnesium oxide 500 MG capsule 500 mg PO BID trazodone 150 mg tablet 150 mg PO HS Patient Comments: TAKE 1 TABLET BY MOUTH EVERY DAY AT BEDTIME Eliquis 5 mg tablet 1 tab PO BID gabapentin 300 mg capsule 600 mg PO TID Patient Comments: TAKE TWO CAPSULES BY MOUTH THREE TIMES A DAY ropinirole 5 mg tablet 5 mg PO TID Patient Comments: TAKE ONE TABLET BY MOUTH THREE TIMES A DAY, takes first dose around 1400, last dose at bedtime and middle dose in between those two tizanidine 2 mg tablet 2 mg PO TID PRN Patient Comments: 90 day filled on 03/04/24, pt states only a few left diclofenac sodium 3 % Gel 100 g topical QID PRN PRN (Reason: Pain) Qty: 100 0RF ferrous sulfate 325 mg (65 mg iron) Tablet 325 mg PO Q48H Qty: 15 0RF acetaminophen 325 mg Tablet 650 mg PO Q6H Qty: 40 0RF Patient Comments: 1500 Bio-K plus 50 billion cell capsule,delayed release(DR/EC) 1 cap PO DAILY Qty: 24 0RF omeprazole 10 mg capsule,delayed release(DR/EC) 10 mg PO DAILY Qty: 7 0RF lorazepam 1 mg Tablet 1 mg PO TID PRN Patient Comments: states out of prescription fluticasone propion-salmeterol [Advair Diskus] 250-50 mcg/dose blister with device 1 inh INHALATION DIRECTED Patient Comments: INHALE ONE PUFF BY MOUTH TWICE A DAY diltiazem HCl [Cartia XT] 240 mg capsule,extended release 24hr 240 mg PO DAILY Qty: 30 0RF lovastatin 20 mg Tablet 20 mg PO QPM Qty: 30 0RF Discharge Instructions Additional Instructions: At this time the CT imaging shows evidence of a small fluid collection in the psoas muscle. The images were reviewed with [facility], we reviewed the labs with them, that this time the labs are stable. With the small fluid collection [facility] does not recommend drainage at this time. They recommend continued management and close follow-up with them. They are scheduling surgery for you for your hip. Please continue to take your home medications. If you notice any worsening of your symptoms, or any new symptoms such as vomiting, diarrhea, fever, chills, shortness of breath, chest pain, numbness, weakness, or fainting , please return immediately to the emergency department for reevaluation. Please follow up with your primary care provider as soon as possible for reassessment and reevaluation. As always, it was a pleasure participating in your medical care today. [facility] General Date/Time Provider Initiated Documentation: 03/15/24 15:07 . [facility] Narrative: 73-year-old female with a past medical history of paroxysmal atrial fibrillation on Eliquis, COPD, hypertension, high cholesterol, coronary artery disease, status post left hip replacement, chronic pain syndrome, fibromyalgia, and recent psoas abscess being treated outpatient, currently being evaluated by [facility] and previously requirin a drain placement,(drain was pulled on 02/05/2024), she was recently seen by [facility] orthopedics on 03/05, fluid was aspirated from the area after CT scan was done and showed an an improvement in the size of the infection. However aspirate showed 163,000 and WBCs, with a 97% polymorphonuclear site predominant. There was also evidence of enteric coccus faecalis noted in the joint aspirate. At that time orthopedic surgery/Dr. COLIN recommended revision surgery for PJI. On 03/14/2024 (which was yesterday) she visited [facility] and was evaluated there. She had what appears to be very appropriate workup which demonstrated a white blood cell count of 7.9, procalcitonin less than 0.15, ESR of 48, CRP of 44. After review of the case with [facility], they recommended continued outpatient management and outpatient surgical follow-up for which they are currently coordinating a surgical date. And currently she presents today for continued pain. Patient states that she went home, and then came directly to this hospital because you take care of you r patients. She denies any change in her medical history otherwise. She denies any fever or chills. She does admit to her continued chronic pain. No other modifying factors. Related Data Home Medications Medication Instructions Recorded Confirmed albuterol sulfate 90 mcg/actuation 2 puff inhalation Q4H PRN 06/07/15 03/15/24 aerosol inhaler (ProAir HFA) ibuprofen 200 mg tablet (Advil) 1,000 mg PO DAILY PRN 08/08/16 03/15/24 magnesium oxide 500 mg capsule 500 mg PO BID 08/14/17 03/15/24 lorazepam 1 mg tablet 1 mg PO TID PRN 06/03/03/15/24 trazodone 150 mg tablet 150 mg PO HS 09/05/20 03/15/24 fluticasone 250 mcg-salmeterol 50 1 inh inhalation DIRECTED 05/17/21 03/15/24 mcg/dose blistr powdr for inhalation (Advair Diskus) metoprolol succinate 50 mg 50 mg PO DAILY 02/22/22 03/15/24 tablet,extended release 24 hr apixaban 5 mg tablet (Eliquis) 1 tab PO BID 06/15/22 03/15/24 gabapentin 300 mg capsule 600 mg PO TID 06/15/22 03/15/24 venlafaxine 75 mg capsule,extended 75 mg PO DAILY 06/15/22 03/15/24 release 24 hr torsemide 20 mg tablet 20 mg PO BID #180 tabs 02/08/23 03/15/24 ropinirole 5 mg tablet 5 mg PO TID 01/13/24 03/15/24 L. acidophilus,casei,rhamnosus 50 1 cap PO DAILY #24 caps 01/16/24 03/15/24 billion cell capsule,delayed release (Bio-K plus) acetaminophen 325 mg tablet 650 mg (2 x 325 mg) PO Q6H pain 01/16/24 03/15/24 #40 tabs diclofenac sodium 3 % topical gel 100 g topical QID PRN PRN Pain 01/16/24 03/15/24 #100 grams ferrous sulfate 325 mg (65 mg 325 mg PO Q48H #15 tabs 01/16/24 03/15/24 iron) tablet omeprazole 10 mg capsule,delayed 10 mg PO DAILY #7 caps 01/16/24 03/15/24 release tizanidine 2 mg tablet 2 mg PO TID PRN 01/16/24 03/15/24 diltiazem HCl 240 mg 240 mg PO DAILY #30 caps 02/26/24 03/15/24 capsule,extended release 24 hr (Cartia XT) lovastatin 20 mg tablet 20 mg PO QPM #30 tabs 02/26/24 03/15/24 Previous Rx's Medication Instructions Recorded torsemide 20 mg tablet 20 mg PO BID #180 tabs 02/08/23 L. acidophilus,casei,rhamnosus 50 1 cap PO DAILY #24 caps 01/16/24 billion cell capsule,delayed release (Bio-K plus) acetaminophen 325 mg tablet 650 mg (2 x 325 mg) PO Q6H pain 01/16/24 #40 tabs diclofenac sodium 3 % topical gel 100 g topical QID PRN PRN Pain 01/16/24 #100 grams ferrous sulfate 325 mg (65 mg 325 mg PO Q48H #15 tabs 01/16/24 iron) tablet omeprazole 10 mg capsule,delayed 10 mg PO DAILY #7 caps 01/16/24 release diltiazem HCl 240 mg 240 mg PO DAILY #30 caps 02/26/24 capsule,extended release 24 hr (Cartia XT) lovastatin 20 mg tablet 20 mg PO QPM #30 tabs 02/26/24 Allergies Allergy/AdvReac Type Severity Reaction Status Date / Time No Known Allergies Allergy Verified 03/15/24 15:15 General Stated Complaint: Orthopedic SIDNEY: 3 Review of Systems All systems reviewed & are unremarkable except as noted in HPI and below Exam Narrative Exam Narrative: 1.Const: Well-nourished, Well-developed, appearing stated age, BMI of 60. Inguinal area on the left demonstrates no redness bleeding or drainage. 2.Eyes: PERRL, no conjunctival injection, and symmetrical lids. 3.ENT: Atraumatic external nose and ears. Moist MM. Neck: Symmetric, trachea midline, No thyromegaly. 4.CVS: +S1/S2, No murmurs or gallops. Peripheral pulses 2+ and equal in all extremities. Brisk capillary refill in all extremities. 5.RESP: Unlabored respiratory effort. Clear to auscultation bilaterally. No wheezes rales or rhonchi 6.GI: Soft, Nontender/Nondistended, No hepatosplenomegaly. No guarding or rebound. 7.MSK: Normocephalic/Atraumatic, Extremities w/o deformity or ttp No cyanosis or clubbing, Normal movement of all extremities. Trace pitting edema bilaterally. Post joint aspiration site is clean dry and intact, no redness warmth or signs of infection or drainage. No large mass. Pain with movement of both of her hips bilaterally. No asymmetric pain. No focal erythema in the lower extremities bilaterally. Chronic edema of the lower extremities is noted albeit mild. 8.Skin: Warm, Dry. No rashes or lesions. 9.Neuro: traffic control signaler II-XII grossly intact. Sensation grossly intact, no focal neurologic deficits. 10.Psych: (AAO) x3. Appropriate mood and affect Course Vital Signs Vital signs: Vital Signs Temperature 37.0 C 03/15/24 15:15 Pulse 128 H 03/15/24 15:15 Respiratory Rate 16 03/15/24 15:15 Blood Pressure 172/91 H 03/15/24 15:15 Pulse Oximetry 99 03/15/24 15:15 Temperature 37.0 C 03/15/24 15:15 Temperature Source Temporal Artery Scan 03/15/24 15:15 Pulse 128 H 03/15/24 15:15 Respiratory Rate 16 03/15/24 15:15 Blood Pressure 172/91 H 03/15/24 15:15 Blood Pressure Position Supine 03/15/24 15:15 Pulse Oximetry 99 03/15/24 15:15 Oxygen Delivery Method Room Air 03/15/24 15:15 Oxygen Flow Rate 0 03/15/24 15:15 Pain Level 10 03/15/24 15:15 Medical Decision Making 73-year-old female with a past medical history of paroxysmal atrial fibrillation on Eliquis, COPD, hypertension, high cholesterol, coronary artery disease, status post left hip replacement, chronic pain syndrome, fibromyalgia, and recent psoas abscess being treated outpatient, currently being evaluated by [facility] and previously requirin a drain placement,(drain was pulled on 02/05/2024), she was recently seen by [facility] orthopedics on 03/05, fluid was aspirated from the area after CT scan was done and showed an an improvement in the size of the infection. However aspirate showed 163,000 and WBCs, with a 97% polymorphonuclear site predominant. There was also evidence of enteric coccus faecalis noted in the joint aspirate. At that time orthopedic surgery/Dr. COLIN recommended revision surgery for PJI. On 03/14/2024 (which was yesterday) she visited [facility] and was evaluated there. She had what appears to be very appropriate workup which demonstrated a white blood cell count of 7.9, procalcitonin less than 0.15, ESR of 48, CRP of 44. After review of the case with [facility], they recommended continued outpatient management and outpatient surgical follow-up for which they are currently coordinating a surgical date. And currently she presents today for continued pain. Patient states that she went home, and then came directly to this hospital because you take care of your patients. She denies any change in her medical history otherwise. She denies any fever or chills. She does admit to her continued chronic pain. No other modifying factors. Exam demonstrates well-appearing female, chronic edema of the lower extremities, arthrocentesis site demonstrates no redness warmth or drainage. No unilateral tenderness. Patient has achiness and pain with movement of her lower extremities bilaterally at the hip. She is afebrile. Heart rate is elevated at 128, however unfortunately she did has an elevated heart rate on arrival. However she is afebrile with no evidence of fever or chills otherwise. We will repeat the imaging the patient to make sure there is not a interval increase in the size of the fluid collection. We will get repeat inflammatory markers, treat the patient's pain with Tylenol and Flexeril, monitor closely and reassess. 6:50 PM Laboratory workup has returned, patient has a continued normal white count at 8.29, no bandemia, no left shift. ESR is 70 which appears to be around baseline compared to [facility] and [facility] labs. CRP is 5.56 which also appears to be around baseline for endorsements in [facility] labs. Procalcitonin normal at less than 0.1. The remainder of her workup is otherwise stable. CT scan shows evidence of a similar left psoas collection measuring 2 cm x 2 cm. There did not appear to be clear evidence of this on the previous CAT scan at [facility] about a week ago, however it was present on prior images. I did contact [facility] and discussed the case very specifically with of orthopedics. I carefully explained the labs, the patient's clinical status, and I also discussed the imaging findings, especially in comparison with the CT scan done at [facility] a week ago. We went over all of this multiple times, and after review of this since discussion orthopedics does not recommend any additional changes. No new antibiotics or admission, or surgical intervention. They recommend continued close outpatient follow-up with their orthopedic surgeon for definitive surgical management of the hip. They do not recommend transfer or any other acute interventions at this time. Patient remained stable otherwise. Heart rate is elevated, however no fever. She was given fluids and has tolerated this well. Pain seems to be stabilized. Patient will be discharged home. I discussed all of this including the plan with the patient and she understands. She will follow-up closely outpatient. We will help provide a ride for her through [facility]. I have extensively reviewed the treatment plan and discharge instructions with the patient. I have addressed all patient concerns at this time. The patient was made aware of what symptoms to monitor for that would warrant a return to the emergency department. Discussed the plan with the patient, they demonstrate verbal understanding and agreement with our assessment and plan at this time. The documentation in this chart was dictated using [employer] dictation software. Please excuse any dictation errors. At this time the patient does not demonstrate clinical evidence of septic shock or severe sepsis or bacteremia. FINDINGS: Lungs: Atelectatic changes in both lung bases. Coronary arteries: Mild coronary calcifications. Liver: Similar hepatomegaly. Gallbladder and bile ducts: Post cholecystectomy. Pancreas: Normal. No ductal dilation. Spleen: Normal. No splenomegaly. Adrenal glands: Normal. No mass. Kidneys and ureters: 2 mm nonobstructing stone in the upper pole of the right kidney. No hydronephrosis on either side. Stomach and bowel: There is diverticulosis of the sigmoid colon with no changes of diverticulitis. Appendix: Post appendectomy. Intraperitoneal space: Unremarkable. No free air. No significant fluid collection. Vasculature: Vascular calcifications. Pelvic phleboliths. Lymph nodes: Unremarkable. No enlarged lymph nodes. Urinary bladder: Unremarkable as visualized. Reproductive: Unremarkable as visualized. Bones/joints: Post left hip arthroplasty. Chondrocalcinosis of the symphysis pubis. Mild degenerative disease of bilateral sacroiliac joints and right hip joint. Left L5-S1 assimilation joint, with degenerative disease suggestive of Bertolotti syndrome. Demineralization of the visualized b ones. Curvature of the lumbar spine convex to the right. Mild degenerative of the right joint. Moderate chronic compression deformity of the L1 vertebral body. Mild retrolisthesis of L1 over L2. Multi level moderate degenerative of the lumbar spine with anterior and posterior osteophyte disc complexes, most pronounced at L3-L4 and L4-L5 with mild bony canal narrowing. Mild compression deformity of T10 vertebral body. Soft tissues: Mild subcutaneous fat stranding in both thighs. Other findings: Similar left psoas collection measuring 2 x 2 cm. IMPRESSION: Similar left psoas collection measuring 2 cm. Thank you for allowing us to participate in the care of your patient. Dictated and Authenticated by: Víctor Lehman MD 03/15/2024 5:26 PM Eastern Time ([place] & [place]) Quality:SDOH Health Related Social Needs: Health related social needs transpo insecurity PFSH All Active Problems (Updated 03/15/24 @ 18:35 by Javy Sloan DO) Psoas muscle strain (Acute) Chronic respiratory failure (Acute) Afib (Chronic) F/u with Dr. 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) Diarrhea (Acute) Urinary incontinence (Acute) Hypokalemia (Acute) Ambulatory dysfunction (Acute) UTI (urinary tract infection) due to Enterococcus (Acute) Anxiety (Chronic) Generalized weakness (Acute) Medical History Cervical nerve root disorder Not disorder: Per H&P (R) Cervical medial branch block Tobacco user RLS (restless legs syndrome) Pulmonary embolism 8 months ago r/t to diagnosis a-fib Postural dizziness Depressive disorder Chronic pain syndrome COPD (chronic obstructive pulmonary disease) Lumbago with sciatica, left side Surgical History 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) History of abdominal surgery (01/21/17) Hx of cholecystectomy H/O cone biopsy of cervix History of breast biopsy Hx of rotator cuff surgery right History of total bilateral knee replacement (TKR) History of carpal tunnel release H/O exploratory laparotomy Hx of cervical spine surgery Hx of colonoscopy Social History Smoking/Tobacco Use Status: Current-Occasional Tobacco Type: cigarettes Smoking risk assessment performed?: Yes Alcohol Intake: former Drug use: Occasionally Substance use type: former substance user and marijuana Housing: apartment Do you feel safe at home: Yes (lives with sister) Do you feel safe in your relationship?: Yes Additional Social history: Lives with sister in [place], retired, gets some help with cleaning/bathing. Quit smoking at recent rehab stay, but still bums a cigarette from sister when she is stressed.
[2024-03-15] MEDS: Cyclobenzaprine 10 MG TAB PO (15:32)
[2024-03-15 15:34] LABS: Abs Immature Grans 0.04 10^3/uL (0.0-0.06); Absolute Basophil Count 0.03 10^3/uL (0.0-0.2); Absolute Eosinophil Count 0.41 10^3/uL (0.0-0.7); Absolute Lymphocyte Count 1.24 10^3/uL (1.2-3.4); Absolute Neutrophil Count 5.87 10^3/uL (1.2-6.7); Basophils % 0.4 %; Eosinophils % 4.9 %; HCT 33.9 % (36.0-46.0); HGB 9.5 g/dL (11.2-15.7); Immature Grans % 0.5 %; MCH 22.7 pg (27.0-33.0); MCV 81 fL (80-95); Monocytes % 8.4 %; Neutrophils % 70.8 %; Platelet Count 370 10^3/uL (130-400); RBC 4.18 10^6/uL (3.93-5.22); RDW-SD 60.7 fL; WBC 8.29 10^3/uL (4.4-10.8)
[2024-03-15 15:38] LABS: ESR 70 mm/hr (0-30)
[2024-03-15 15:48] LABS: INR 1.1 (0.9-1.1); PTT Activated 29.8 sec (23.6-32.8); Prothrombin Time 10.8 sec (9.1-11.1)
[2024-03-15 15:49] LABS: Anisocytosis 1+; Diff Comment RBC Morph Reviewed
[2024-03-15 15:51] LABS: ALT 22 U/L (14-59); AST 17 U/L (15-37); Albumin 3.1 g/dL (3.4-5.0); Alkaline Phosphatase 129 U/L (46-116); Anion Gap 6.6 mmol/L (3-11); BUN 14 mg/dL (7-18); Bilirubin, Total 0.3 mg/dL (0.2-1.0); C-Reactive Protein 5.56 mg/dL (<or=0.5); CO2 32.4 mmol/L (21.0-32.0); CREATININE 0.8 mg/dL (0.55-1.02); Calcium 9.3 mg/dL (8.5-10.1); Chloride 106 mmol/L (98-107); Estimated GFR 77.75 (mL/min/1.73m2); Glucose 101 mg/dL (74-106); Potassium 3.9 mmol/L (3.5-5.1); Sodium 145 mmol/L (136-145); Total Protein 7.6 g/dL (6.4-8.2)
[2024-03-15] MEDS: ACETAMINOPHEN 1,000 MG/100 ML BTL 400 MG IVPB (15:58)
[2024-03-15] MEDS: Ketorolac 15 MG/ML VIAL IVP (15:59)
--- NOTE | 2024-03-15 16:00 | DI.CT_ITS ---
Exam(s) CT ABDOMEN PELVIS W EXAM: CT ABDOMEN PELVIS W CLINICAL HISTORY: left psoas abscess, eval for change. TECHNIQUE: Imaging Protocol: Axial computed tomography images with coronal and sagittal reformatted images were created and reviewed CONTRAST MATERIAL: Intravenous: Omnipaque 350 Contrast volume:100 ml Oral: no COMPARISON: CT CT CHEST/ABD/PEL W from 02/20/[address] CHEST PE CTA from 02/21/2024 FINDINGS: ABDOMEN and PELVIS: Lung Bases: No acute findings. Liver: Mildly enlarged. Passive venous congestion no longer visible. Normal density. No suspicious mass. Gallbladder and biliary tract: Status post cholecystectomy. No radiodense calculus. No biliary dila tion. Pancreas: Normal density. No abnormal calcifications or inflammatory process. No evidence of mass. Spleen: Normal. Kidneys: Normal size, contour and axis. 2 millimeter nonobstructing stone upper pole right kidney li carito vascular.. No obstructive uropathy. No suspicious masses seen. Adrenal glands: No masses seen. Vasculature: Abdominal aorta non-dilated. Atherosclerotic changes. Soft tissues: No changes small left psoas abscess, roughly 2 cm diameter. Bladder: No gross wall thickening. No calculi.No focal mass. Bowel: No obstruction. Mild diverticulosis. Status post appendectomy. Peritoneal cavity: No ascites. No focal collection. No mesenteric inflammatory response. Bones: Left hip prosthesis. Advanced degenerative changes in the spine. Scoliosis. Chronic darlin aubrey fracture of L1. Degenerative spondylolisthesis L1-2. Stable mild compression fracture of T10. Hemangioma T12. Reproductive organs: Unremarkable. Lymph nodes: No pathologically enlarged lymph nodes. IMPRESSION:: Stable small left psoas abscess. RADIATION DOSE DELIVERED: Total DLP DATA REPOSITORY: All CT scans at this facility are submitted to the National Radiology Data Registry (NRDR) Dose Index Registry (DIR) with the [employer] (ACR). RADIATION OPTIMIZATION: All CT scans at this facility use at least one of these dose optimization te chniques: automated exposure control; mA and/or kV adjustment per patient size (includes targeted exa ms where dose is matched to clinical indication); or iterative reconstruction.
[2024-03-15] MEDS: Omnipaque 350 MG/ML 100 ML BTL IJ (16:06)
[2024-03-15] MEDS: Normal Saline - Diluent 50 ML VIAL IJ (16:07)
[2024-03-15 16:14] LABS: Procalcitonin < 0.1 ng/mL
--- NOTE | 2024-03-15 17:27 | DI.VRAD_ITS ---
PROCEDURE INFORMATION: Exam: CT Abdomen And Pelvis With Contrast Exam date and time: 03/15/2024 4:21 PM Age: 73 years old Clinical indication: Condition or disease; Abscess location: L psoas; Patient HX: Left psoas abscess, eval for change TECHNIQUE: Imaging protocol: Computed tomography of the abdomen and pelvis with contrast. COMPARISON: CT CHEST/ABD/PEL W 02/20/2024 7:18 PM FINDINGS: Lungs: Atelectatic changes in both lung bases. Coronary arteries: Mild coronary calcifications. Liver: Similar hepatomegaly. Gallbladder and bile ducts: Post cholecystectomy. Pancreas: Normal. No ductal dilation. Spleen: Normal. No splenomegaly. Adrenal glands: Normal. No mass. Kidneys and ureters: 2 mm nonobstructing stone in the upper pole of the right kidney. No hydronephrosis on either side. Stomach and bowel: There is diverticulosis of the sigmoid colon with no changes of diverticulitis. Appendix: Post appendectomy. Intraperitoneal space: Unremarkable. No free air. No significant fluid collection. Vasculature: Vascular calcifications. Pelvic phleboliths. Lymph nodes: Unremarkable. No enlarged lymph nodes. Urinary bladder: Unremarkable as visualized. Reproductive: Unremarkable as visualized. Bones/joints: Post left hip arthroplasty. Chondrocalcinosis of the symphysis pubis. Mild degenerative disease of bilateral sacroiliac joints and right hip joint. Left L5-S1 assimilation joint, with degenerative disease suggestive of Bertolotti syndrome. Demineralization of the visualized bones. Curvature of the lumbar spine convex to the right. Mild degenerative of the right joint. Moderate chronic compression deformity of the L1 vertebral body. Mild retrolisthesis of L1 over L2. Multilevel moderate degenerative of the lumbar spine with anterior and posterior osteophyte disc complexes, most pronounced at L3-L4 and L4-L5 with mild bony canal narrowing. Mild compression deformity of T10 vertebral body. Soft tissues: Mild subcutaneous fat stranding in both thighs. Other findings: Similar left psoas collection measuring 2 x 2 cm. IMPRESSION: Similar left psoas collection measuring 2 cm. Dictated and Authenticated by: Víctor Lehman MD. Ordering:TERENCE Palafox MD
[2024-03-15] MEDS: diazePAM 10 MG/2 ML SYR 5 MG IVP (17:57)
[2024-03-15] MEDS: Normal Saline 500 ML IV (17:58)
--- NOTE | 2024-03-16 10:55 | NUR.NOTE ---
Accessed chart to see if a note was put in regarding authorization for [facility]. Nursing Note:
--- NOTE | 2024-03-16 11:01 | NUR.NOTE ---
[facility] authorization form filled out and faxed to them. Nursing Note:
== END 2024-03-15 19:09 | disposition home or self-care (01) ==
PROVIDERS: Emergency Provider Student in an Organized Health Care Education/Training Program
DX: K68.12 Psoas muscle abscess (principal); R00.0 Tachycardia, unspecified; J44.9 Chronic obstructive pulmonary disease, unspecified; I10 Essential (primary) hypertension; E78.5 Hyperlipidemia, unspecified; I25.10 Atherosclerotic heart disease of native coronary artery without angina pectoris; Z86.711 Personal history of pulmonary embolism; I48.0 Paroxysmal atrial fibrillation; Z79.01 Long term (current) use of anticoagulants; F17.210 Nicotine dependence, cigarettes, uncomplicated
CPT/HCPCS: 80053; 84145; 85652; 96374; 99285; 74177; 85025; 85610; 85730; 86140; 99284; J0131; J1885; J3360; J3490

== ENCOUNTER 2024-12-07 16:21 | Observation (INO) | payer MEDICARE, MEDICAID, SELFPAY ==
[2024-12-07] VITALS (65 sets, daily range): BP systolic 109–173; BP diastolic 51–160; PULSE 48–132; RESP 4–28; TEMP 36.3; O2SAT 93–100
--- NOTE | 2024-12-07 16:30 | RT.EKG_ITS ---
APPROVED REPORT Exam: Resting ECG Reason for Exam: SOB Patient Location: E HR:50 bpm ECG Measurements Heart Rate 50 AXIS MO [id number] P [id number] QRSd 93 QRS 70 QT 480 T -28 QTc 469 Conclusion Atrial flutter 50 no stemi
[2024-12-07 16:44] LABS: BE (Venous) 12 mmol/L (-2-3); HCO3 (Venous) 38 mmol/L (23-28); O2 Sat (Venous) 59 %; TCO2 (Venous) 36 mmol/L (24-29); pH (Venous) 7.32 (7.31-7.41); pO2 (Venous) 34 mmHg
[2024-12-07 16:46] LABS: Abs Immature Grans 0.03 10^3/uL (0.0-0.06); Absolute Basophil Count 0.04 10^3/uL (0.0-0.2); Absolute Eosinophil Count 0.46 10^3/uL (0.0-0.7); Absolute Lymphocyte Count 1.61 10^3/uL (1.2-3.4); Absolute Monocyte Count 0.45 10^3/uL (0.1-0.8); Absolute Neutrophil Count 4.63 10^3/uL (1.2-6.7); Basophils % 0.6 %; Eosinophils % 6.4 %; HCT 37.2 % (36.0-46.0); HGB 10.3 g/dL (11.2-15.7); Immature Grans % 0.4 %; Lymphocytes % 22.3 %; MCHC 27.7 % (32.0-36.0); MCV 98 fL (80-95); MPV 8.5 fL (8.0-11.0); Monocytes % 6.2 %; Neutrophils % 64.1 %; Platelet Count 248 10^3/uL (130-400); RBC 3.81 10^6/uL (3.93-5.22); RDW 17.3 % (11.7-14.6); RDW-SD 62.4 fL; WBC 7.22 10^3/uL (4.4-10.8)
[2024-12-07 16:47] LABS: pCO2 (Venous) 73 mmHg (41-51)
[2024-12-07 16:52] LABS: Basophilic Stippling Present; Hypochromasia 1+; Polychromasia Present
--- NOTE | 2024-12-07 16:58 | W.ED.GENAD ---
Discharge Plan Disposition Patient Disposition: Admit to [facility] Condition: Serious Discharge Details Chief Complaint: SOB Clinical Impression: Hypercarbia, Chronic respiratory failure Admit Date/Time: 12/07/24 21:46 Admit Provider: Marty Padilla Attending Provider: Marty Padilla Primary Care Provider: Unknown,Unknown ED Provider: Francisca Ray Discharge Data Discharge Date/Time-TO BE ENTERED AT DEPARTURE: 12/07/24 21:54 HPI General Date/Time Provider Initiated Documentation: 12/07/24 16:22. HPI Narrative: This 74-year-old female with history of respiratory failure, atrial fibrillation, hypertension, anemia, COPD presents with reports of low blood pressure tiredness and chest pressure which were yesterday. Denies any fever or chills. Taking Eliquis as prescribed. States she has had a rash on the left side of her abdomen unsure what this is. Denies any current pain in her tract or new calf pain or swelling. Currently there is a COVID outbreak at the rehabilitation center. Takes torsemide daily reportedly. Related Data Home Medications ?Medication ?Instructions ?Recorded ?Confirmed lorazepam 1 mg tablet 1 mg PO TID PRN 06/03/19 12/07/24 trazodone 150 mg tablet 150 mg PO HS 09/05/20 12/07/24 metoprolol succinate 50 mg 50 mg PO DAILY 02/22/22 12/07/24 tablet,extended release 24 hr apixaban 5 mg tablet (Eliquis) 1 tab PO BID 06/15/22 12/07/24 gabapentin 300 mg capsule 600 mg PO TID 06/15/22 12/07/24 venlafaxine 75 mg capsule,extended 75 mg PO DAILY 06/15/22 12/07/24 release 24 hr ropinirole 5 mg tablet 5 mg PO TID 01/13/24 12/07/24 L. acidophilus,casei,rhamnosus 50 1 cap PO DAILY #24 caps 01/16/24 12/07/24 billion cell capsule,delayed release (Bio-K plus) tizanidine 2 mg tablet 4 mg PO BID 01/16/24 12/07/24 diltiazem HCl 240 mg 240 mg PO DAILY #30 caps 02/26/24 12/07/24 capsule,extended release 24 hr (Cartia XT) lovastatin 20 mg tablet 20 mg PO QPM #30 tabs 02/26/24 12/07/24 acetaminophen 500 mg capsule 1,000 mg PO Q6H PRN 12/07/24 12/07/24 aspirin 81 mg tablet,delayed 81 mg PO DAILY 12/07/24 12/07/24 release (Adult Low Dose Aspirin) cholecalciferol (vitamin D3) 50 50 mcg PO DAILY 12/07/24 12/07/24 mcg (2,000 unit) capsule ferrous sulfate 325 mg (65 mg 325 mg PO DAILY 12/07/24 12/07/24 iron) tablet ipratropium 0.5 mg-albuterol 3 mg 3 ml inhalation Q6H PRN 12/07/24 12/07/24 (2.5 mg base)/3 mL nebulization soln magnesium 200 mg tablet 400 mg PO DAILY 12/07/24 12/07/24 oxycodone 5 mg tablet 5 mg PO Q6H 12/07/24 12/07/24 potassium chloride 20 mEq oral 20 meq PO DAILY 12/07/24 12/07/24 packet torsemide 10 mg tablet 10 mg PO DAILY 12/07/24 12/07/24 Previous Rx's ?Medication ?Instructions ?Recorded L. acidophilus,casei,rhamnosus 50 1 cap PO DAILY #24 caps 01/16/24 billion cell capsule,delayed release (Bio-K plus) diltiazem HCl 240 mg 240 mg PO DAILY #30 caps 02/26/24 capsule,extended release 24 hr (Cartia XT) lovastatin 20 mg tablet 20 mg PO QPM #30 tabs 02/26/24 Allergies Allergy/AdvReac Type Severity Reaction Status Date / Time No Known Allergies Allergy Verified 12/07/24 16:43 General Stated Complaint: SOB SIDNEY: 3 Exam Narrative Exam Narrative: Alert and oriented 24-year-old female presenting with dyspnea, dyspneic with speech but not hypoxic, pupils equal round reactive to light and accommodation, anasarca on the abdomen, noted predominantly on left side, lungs with rhonchi crackles and diminished, no significant respiratory distress, alert and oriented, no abdominal tenderness, alert and oriented x 4, 3+ edema to bilateral lower extremities with lymphedema Course Vital Signs Vital signs: Vital Signs Temperature 36.3 C L 12/07/24 16:22 Pulse 68 12/07/24 16:22 Respiratory Rate 20 12/07/24 16:22 Blood Pressure 120/74 12/07/24 16:22 Pulse Oximetry 98 12/07/24 16:22 Temperature 36.3 C L 12/07/24 16:30 Temperature Source Temporal Artery Scan 12/07/24 16:30 Pulse 68 12/07/24 16:30 Respiratory Rate 18 12/07/24 16:51 Respiratory Effort Normal, Non-Labored 12/07/24 16:51 Respiratory Depth Normal 12/07/24 16:51 Respiratory Pattern Normal 12/07/24 16:51 Blood Pressure 120/74 12/07/24 16:30 Pulse Oximetry 98 12/07/24 16:30 Oxygen Delivery Method Nasal Cannula 12/07/24 16:30 Oxygen Flow Rate 2 12/07/24 16:30 Lab/Test Results Lab/Test Results: Laboratory Tests Range/Units 12/07/24 16:40 WBC (4.4-10.8) 10^3/uL 7.22 RBC (3.93-5.22) 10^6/uL 3.81 L Hgb (11.2-15.7) g/dL 10.3 L Hct (36.0-46.0) % 37.2 MCV (80-95) fL 98 H MCH (27.0-33.0) pg 27.0 MCHC (32.0-36.0) % 27.7 L RDW (11.7-14.6) % 17.3 H Plt Count (130-400) 10^3/uL 248 MPV (8.0-11.0) fL 8.5 Immature Gran % % 0.4 Neutrophils % % 64.1 Lymphocytes % % 22.3 Monocytes % % 6.2 Eosinophils % % 6.4 Basophils % % 0.6 Nucleated RBC % (0.0-0.3) % 0.0 Absolute Neutrophils (1.2-6.7) 10^3/uL 4.63 Absolute Lymphocytes (1.2-3.4) 10^3/uL 1.61 Absolute Monocytes (0.1-0.8) 10^3/uL 0.45 Absolute Eosinophils (0.0-0.7) 10^3/uL 0.46 Absolute Basophils (0.0-0.2) 10^3/uL 0.04 RBC Morphology See Below Polychromasia Present Hypochromasia 1+ Basophilic Stippling Present VBG pH (7.31-7.41) 7.32 VBG pCO2 (41-51) mmHg 73 H* VBG pO2 mmHg 34 VBG HCO3 (23-28) mmol/L 38 H VBG Total CO2 (24-29) mmol/L 36 H VBG O2 Saturation % 59 VBG Base Excess (-2-3) mmol/L 12 H VBG Lactate (<or=2.0) mmol/L 1.0 Medical Decision Making 74-year-old female with history of CHF and COPD presenting with hypoxia and report of hypotension from the assisted living. On arrival patient is hypoxic speaking in complete sentences. She is diminished with crackles at bases so neb was given. I also give a dose of Lasix as patient does have a history of CHF and COPD. VBG was ordered and patient was found to be hypercarbic. She was on oxygen and did not actually require it as removed upon arrival and she was 99% on room air so I did recheck a VBG and she remains elevated at 72. At this time, patient is hypercarbic although she is in no acute distress. This is a challenging case because well patient appears well she is actually hypercarbic and is not improving with neb and Lasix administration. At this time I think patient would benefit from admission for BiPAP administration and reassessment of due to GI in the morning. Patient contracted urinary output. I did order CT for further evaluation and does not look like patient has volume overload status on CT nor evidence of infiltrate. Patient is agreeable to admission at this time and I suspect given CT findings of this may be more of a COPD exacerbation would likely benefit from prednisone administration perhaps an antibiotic to treat empirically for bronchitis. Case was discussed with Dr. Padilla who will admit patient for observation BiPAP in place for hypercarbia. Patient is alert, oriented, speaking in complete sentences throughout this encounter Quality:SDOH Health Related Social Needs: No Data to Display Critical Care Time Critical Care Time Attestation: 35 minutes of critical care time secondary to acute hypercarbia in the presence of COPD and CHF, CT interpretation review, diagnostic lab interpretation and review, EKG interpretation and review, PFS All Active Problems (Updated 12/07/24 @ 23:21 by CALEB Henry) Hypercarbia (Acute) Chronic respiratory failure (Acute) Afib (Chronic) F/u with Dr. 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) Diarrhea (Acute) Urinary incontinence (Acute) Hypokalemia (Acute) Ambulatory dysfunction (Acute) UTI (urinary tract infection) due to Enterococcus (Acute) Anxiety (Chronic) Generalized weakness (Acute) Medical History Cervical nerve root disorder Not disorder: Per H&P (R) Cervical medial branch block Tobacco user RLS (restless legs syndrome) Pulmonary embolism 8 months ago r/t to diagnosis a-fib Postural dizziness Depressive disorder Chronic pain syndrome COPD (chronic obstructive pulmonary disease) Lumbago with sciatica, left side Surgical History 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) History of abdominal surgery (01/21/17) Hx of cholecystectomy H/O cone biopsy of cervix History of breast biopsy Hx of rotator cuff surgery right History of total bilateral knee replacement (TKR) History of carpal tunnel release H/O exploratory laparotomy Hx of cervical spine surgery Hx of colonoscopy Social History Smoking/Tobacco Use Status: Current-Occasional Tobacco Type: cigarettes Smoking risk assessment performed?: Yes Alcohol Intake: former Drug use: Occasionally Substance use type: former substance user and marijuana Housing: senior living Do you feel safe at home: Yes (lives with sister) Do you feel safe in your relationship?: Yes Additional Social history: Lives with sister in [place], retired, gets some help with cleaning/bathing. Quit smoking at recent rehab stay, but still bums a cigarette from sister when she is stressed.
[2024-12-07 17:17] LABS: ALT 15 U/L (14-59); AST 18 U/L (15-37); Albumin 2.9 g/dL (3.4-5.0); Alkaline Phosphatase 152 U/L (46-116); Anion Gap 0.4 mmol/L (3-11); BUN 11 mg/dL (7-18); Bilirubin, Total 0.33 mg/dL (0.2-1.0); CO2 39.6 mmol/L (21.0-32.0); CREATININE 0.9 mg/dL (0.55-1.02); Calcium 9.4 mg/dL (8.5-10.1); Chloride 103 mmol/L (98-107); Estimated GFR 67.08 (mL/min/1.73m2); Glucose 109 mg/dL (74-106); Magnesium 2.2 mg/dL (1.8-2.4); NT-proBNP 977 pg/mL (<300); Potassium 4.6 mmol/L (3.5-5.1); Sodium 143 mmol/L (136-145); TSH (W/Ref FT4) 3.11 uIU/mL (0.36-3.74); Total Protein 7.8 g/dL (6.4-8.2); Troponin I 5 ng/L (<or=51)
[2024-12-07] MEDS: Albuterol/Ipratropium 3 ML UPD VIAL UPD ×2 (17:31→21:15)
[2024-12-07 18:17] LABS: COVID-19 PCR Negative (Negative); Influenza A PCR Negative (Negative); Influenza B PCR Negative (Negative); RSV PCR Negative (Negative)
[2024-12-07 18:23] LABS: Source NASOPHARYNX
[2024-12-07] MEDS: Furosemide 40 MG/4 ML VIAL IVP (18:40)
[2024-12-07 18:52] LABS: BE (Venous) 12 mmol/L (-2-3); HCO3 (Venous) 38 mmol/L (23-28); O2 Sat (Venous) 27 %; TCO2 (Venous) 36 mmol/L (24-29); pH (Venous) 7.33 (7.31-7.41); pO2 (Venous) 21 mmHg
[2024-12-07 18:54] LABS: pCO2 (Venous) 72 mmHg (41-51)
[2024-12-07 19:11] LABS: Troponin I 6 ng/L (<or=51)
--- NOTE | 2024-12-07 19:57 | DI.CT_ITS ---
Exam(s) CT CHEST WO EXAM: CT CHEST WO CLINICAL HISTORY: dyspnea, recurrent. TECHNIQUE: Multi planar reconstructions were performed. CONTRAST MATERIAL: None COMPARISON: CT CT CHEST PE CTA from 02/21/[address] ABDOMEN PELVIS W from 03/15/2024 FINDINGS: CHEST: LUNGS: There is subpleural infiltrate in the posterior and lateral basal segments of the left lower l obe, not previously evident on CT scan of 02/21/2024. There is also mild atelectasis and infiltrate in the posterior basal segment of the right lower lobe. There is also mild infiltrate in the superio r segment of the left lower lobe and in the posterior segment of the right upper lobe adjacent to the upper aspect of the major fissure, all these findings not previously present on prior CT scan of Feb. MEDIASTINUM: No hilar nor mediastinal adenopathy. CARDIAC: Heart size upper normal. Diameter of the ascending thoracic aorta is slightly prominent champ suring 4 cm. No pericardial effusion. OSSEOUS: There is a finding in the right-side of the T12 vertebral body which is most probably a sis gn intraosseous hemangioma, unchanged from previous. Superior endplate compression fracture of L1 is again noted. Also mild compression fracture of T10 again noted, unchanged. No new fractures eviden t. No new osseous lesions in the field of view.. IMPRESSION: 1. Bilateral lower lobe subpleural infiltrates involving the posterior basal segments of both lower l obes as well as superior segment of the left lower lobe. There are no significant pleural effusions. 2. The diameter of the ascending thoracic aorta is is slightly prominent measuring 4 cm. There is mi ld cardiomegaly. RADIATION DOSE DELIVERED: 374.2mGy.cm Total DLP DATA REPOSITORY: All CT scans at this facility are submitted to the National Radiology Data Registry (NRDR) Dose Index Registry (DIR) with the [employer] (ACR). RADIATION OPTIMIZATION: All CT scans at this facility use at least one of these dose optimization te chniques: automated exposure control; mA and/or kV adjustment per patient size (includes targeted exa ms where dose is matched to clinical indication); or iterative reconstruction.
--- NOTE | 2024-12-07 21:02 | HPE_ITS ---
Date of service: 12/07/24 Time of Service: 21:02 Assessment and Plan Assessment and plan (1) COPD (chronic obstructive pulmonary disease): Assessment and plan: COPD. The patient appears entirely comfortable and the hypercarbia is somewhat surprising (notably the pH is nearly in lower end of range so I suspect her baseline CO2 has shifted upward since the last check in February). In any case I suggest repeat VBG; if trending back toward range I think patient could reasonably be returned to Rehab; if remains significantly hypercarbic would advise trial BiPap overnight and regimen of steroids and updrafts. PS: Repeat VBG7.36, pCO2 71. A/P: With virtually normal pH I have a suspicion that the hypercarbia is quite possibly her new normal, a compensated respiratory acidosis secondary to COPD and Pickwickian syndrome. Nevertheless a normal pCO2 in the 70s is unusual and think it might be safest to at least observe overnight to ensure no deterioration, along with continued treatment for COPD and trial of gentle BiPap. History of Present Illness History of Present Illness Chief Complaint: SOB Narrative: 74 female with h/o COPD, AFib-flutter, no known h/o CHF but last ECHO limited (but did show normal LV systolic function) -- here with 1-2 days of SOB, question of some CP yesterday. In ER received duoneb and 40 Lasix IV. Initial work up of note for white count 7.2, Hct 37; VBG 7.32 with pCO2 73 (repeat 7.33, CO2 72); chest CT negative save for minimal left pleural effusion; EKG baseline AFl with variable block and troponin negative x 2. Viral swab is triple negative. I was asked to evaluate for possible admission. Patient states she feels entirely well; specifically denies CP or SOB. Does report some chronic leg pain but this is at baseline. Review of Systems Narrative: per HPI PFSH All Active Problems (Updated 04/15/24 @ 00:09 by LORY DELGADO) Chronic respiratory failure (Acute) Afib (Chronic) F/u with Dr. 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) Diarrhea (Acute) Urinary incontinence (Acute) Hypokalemia (Acute) Ambulatory dysfunction (Acute) UTI (urinary tract infection) due to Enterococcus (Acute) Anxiety (Chronic) Generalized weakness (Acute) Medical History Cervical nerve root disorder Not disorder: Per H&P (R) Cervical medial branch block Tobacco user RLS (restless legs syndrome) Pulmonary embolism 8 months ago r/t to diagnosis a-fib Postural dizziness Depressive disorder Chronic pain syndrome COPD (chronic obstructive pulmonary disease) Lumbago with sciatica, left side Surgical History 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) History of abdominal surgery (01/21/17) Hx of cholecystectomy H/O cone biopsy of cervix History of breast biopsy Hx of rotator cuff surgery right History of total bilateral knee replacement (TKR) History of carpal tunnel release H/O exploratory laparotomy Hx of cervical spine surgery Hx of colonoscopy Social History Smoking/Tobacco Use Status: Current-Occasional Tobacco Type: cigarettes Smoking risk assessment performed?: Yes Alcohol Intake: former Drug use: Occasionally Substance use type: former substance user and marijuana Housing: retirement Do you feel safe at home: Yes (lives with sister) Do you feel safe in your relationship?: Yes Additional Social history: Lives with sister in [place], retired, gets some help with cleaning/bathing. Quit smoking at recent rehab stay, but still bums a cigarette from sister when she is stressed. Meds Allergies and Home Medications Allergies Allergy/AdvReac Type Severity Reaction Status Date / Time No Known Allergies Allergy Verified 12/07/24 16:43 Home Medications ?Medication ?Instructions ?Recorded ?Confirmed ?Type lorazepam 1 mg tablet 1 mg PO TID PRN 06/03/19 12/07/24 History trazodone 150 mg tablet 150 mg PO HS 09/05/20 12/07/24 History metoprolol succinate 50 mg 50 mg PO DAILY 02/22/22 12/07/24 History tablet,extended release 24 hr apixaban 5 mg tablet (Eliquis) 1 tab PO BID 06/15/22 12/07/24 History gabapentin 300 mg capsule 600 mg PO TID 06/15/22 12/07/24 History venlafaxine 75 mg capsule,extended 75 mg PO DAILY 06/15/22 12/07/24 History release 24 hr ropinirole 5 mg tablet 5 mg PO TID 01/13/24 12/07/24 History L. acidophilus,casei,rhamnosus 50 1 cap PO DAILY #24 caps 01/16/24 12/07/24 Rx billion cell capsule,delayed release (Bio-K plus) tizanidine 2 mg tablet 4 mg PO BID 01/16/24 12/07/24 History diltiazem HCl 240 mg 240 mg PO DAILY #30 caps 02/26/24 12/07/24 Rx capsule,extended release 24 hr (Cartia XT) lovastatin 20 mg tablet 20 mg PO QPM #30 tabs 02/26/24 12/07/24 Rx acetaminophen 500 mg capsule 1,000 mg PO Q6H PRN 12/07/24 12/07/24 History aspirin 81 mg tablet,delayed 81 mg PO DAILY 12/07/24 12/07/24 History release (Adult Low Dose Aspirin) cholecalciferol (vitamin D3) 50 50 mcg PO DAILY 12/07/24 12/07/24 History mcg (2,000 unit) capsule ferrous sulfate 325 mg (65 mg 325 mg PO DAILY 12/07/24 12/07/24 History iron) tablet ipratropium 0.5 mg-albuterol 3 mg 3 ml inhalation Q6H PRN 12/07/24 12/07/24 History (2.5 mg base)/3 mL nebulization soln magnesium 200 mg tablet 400 mg PO DAILY 12/07/24 12/07/24 History oxycodone 5 mg tablet 5 mg PO Q6H 12/07/24 12/07/24 History potassium chloride 20 mEq oral 20 meq PO DAILY 12/07/24 12/07/24 History packet torsemide 10 mg tablet 10 mg PO DAILY 12/07/24 12/07/24 History Exam Narrative Exam Narrative: 120/74, 60, 36.3, 16, 94%. Patient sitting comfortably in stretcher and very chatty. HEENT atraumatic; neck supple, cannot read JVP; lungs clear; heart irr/irr; abdomen soft and NT; extremities chronic lymphedema; neuro Ox3, lucid, moves all 4s Results Labs 12/07/24 16:40 12/07/24 16:40 Labs: Laboratory Results - last 24 hr 12/07/24 12/07/24 12/07/24 16:40 17:31 18:49 WBC 7.22 RBC 3.81 L Hgb 10.3 L Hct 37.2 MCV 98 H MCH 27.0 MCHC 27.7 L RDW 17.3 H Plt Count 248 MPV 8.5 Immature Gran % 0.4 Neutrophils % 64.1 Lymphocytes % 22.3 Monocytes % 6.2 Eosinophils % 6.4 Basophils % 0.6 Nucleated RBC % 0.0 Absolute Neutrophils 4.63 Absolute Lymphocytes 1.61 Absolute Monocytes 0.45 Absolute Eosinophils 0.46 Absolute Basophils 0.04 RBC Morphology See Below Polychromasia Present Hypochromasia 1+ Basophilic Stippling Present VBG pH 7.32 7.33 VBG pCO2 73 H* 72 H* VBG pO2 34 21 VBG HCO3 38 H 38 H VBG Total CO2 36 H 36 H VBG O2 Saturation 59 27 VBG Base Excess 12 H 12 H VBG Lactate 1.0 Sodium 143 Potassium 4.6 Chloride 103 Carbon Dioxide 39.6 H Anion Gap 0.4 L BUN 11 Creatinine 0.9 Est GFR (CKD-EPI 2020) 67.08 Glucose 109 H Calcium 9.4 Magnesium 2.2 Total Bilirubin 0.33 AST 18 ALT 15 Alkaline Phosphatase 152 H Troponin I 5 6 NT-Pro-B Natriuret Pep 977 H Total Protein 7.8 Albumin 2.9 L TSH 3.11 COVID-19 Source NASOPHARYNX SARS-CoV-2 (PCR) Negative Influenza Type A (PCR) Negative Influenza Type B (PCR) Negative RSV (PCR) Negative Last Vital Signs Temp 36.3 C L 12/07/24 16:30 Pulse 60 12/07/24 17:31 Resp 16 12/07/24 17:31 BP 120/74 12/07/24 16:30 Pulse Ox 93 12/07/24 17:31 Time Spent Time spent with Patient: 55-74 minutes Time was spent: preparing to see the patient(eg.review tests), obtaining and/or reviewing separately otained hiistory, ordering medications,tests, procedures, referring, communicating with other health child care centre director and indepentently interpreting results
[2024-12-07 21:03] LABS: Troponin I 6 ng/L (<or=51)
--- NOTE | 2024-12-07 21:03 | DI.VRAD_ITS ---
PROCEDURE INFORMATION: Exam: CT Chest Without Contrast; Diagnostic Exam date and time: 12/07/2024 7:51 PM Age: 74 years old Clinical indication: Dyspnea TECHNIQUE: Imaging protocol: Diagnostic computed tomography of the chest without contrast. 3D rendering (Not supervised by radiologist): MIP and/or 3D reconstructed images were created by the technologist. Radiation optimization: All CT scans at this facility use at least one of these dose optimization techniques: automated exposure control; mA and/or kV adjustment per patient size (includes targeted exams where dose is matched to clinical indication); or iterative reconstruction. COMPARISON: CT CHEST PE CTA 02/21/2024 8:12 AM FINDINGS: Lungs: Linear scarring or atelectasis both lung bases. No consolidation. Pleural spaces: Minimal left pleural effusion. Heart: Unremarkable. No cardiomegaly. No pericardial effusion. Coronary arteries: Coronary artery calcifications. Lymph nodes: Unremarkable. No enlarged lymph nodes. Vasculature: Aorta demonstrates mild atherosclerotic calcification. Gallbladder and biliary ducts: Gallbladder surgically absent. Bones/joints: Old compression fractures T10 and L1. Soft tissues: Unremarkable. IMPRESSION: Minimal left pleural effusion. Dictated and Authenticated by: Marty Dexter MD. Orderin Cory Espinosa MD
[2024-12-07 21:16] LABS: BE (Venous) 15 mmol/L (-2-3); HCO3 (Venous) 40 mmol/L (23-28); O2 Sat (Venous) 43 %; TCO2 (Venous) 38 mmol/L (24-29); pH (Venous) 7.36 (7.31-7.41); pO2 (Venous) 26 mmHg
[2024-12-07 21:21] LABS: pCO2 (Venous) 71 mmHg (41-51)
[2024-12-07 22:55] LABS: Bilirubin Negative (Negative); Blood Small (Negative); Clarity Sl Cloudy (Clear); Glucose Negative (Negative); Ketones Negative (Negative); Leukocyte Esterase Trace (Negative); Nitrite Negative (Negative); Specific Gravity 1.015 (1.005-1.025); Urobilinogen 0.2 mg/dL (Up to 0.2)
[2024-12-07] MEDS: methylPREDNISolone SUCC 40 MG VIAL 60 MG IVP (22:55)
[2024-12-07] MEDS: Gabapentin 300 MG CAP 600 MG PO (22:55)
[2024-12-07] MEDS: Acetaminophen 500 MG TAB 1000 MG PO (22:55)
[2024-12-07] MEDS: Apixaban 5 MG TAB PO (22:56)
[2024-12-07] MEDS: LORazepam 1 MG TAB PO (22:56)
[2024-12-07 22:59] LABS: Bacteria Rare HPF (Negative); C & S Indicated? No; Casts Negative LPF (Negative); Crystals Negative HPF (Negative); Epithelial Cells Rare HPF (Negative); Mucus Negative (Negative)
[2024-12-08] VITALS (19 sets, daily range): BP systolic 107–151; BP diastolic 69–105; PULSE 82–107; RESP 10–21; TEMP 36.4–37.4; O2SAT 92–100
--- NOTE | 2024-12-08 01:33 | W.PC.ACHO ---
Registration Status: Primary Language: Preferred Language: ED Information & Data Chief Complaint SOB 12/07/24 17:00 Triage Note Pt reports that the facility 12/07/24 16:22 she lives at was concerned she has low BP, increased tiredness, chest pressure yesterday Medical / Surgical History (Last Reviewed 03/15/24 @ 15:56 by Javy Sloan DO) Cervical nerve root disorder Tobacco user RLS (restless legs syndrome) Pulmonary embolism Postural dizziness Depressive disorder Chronic pain syndrome COPD (chronic obstructive pulmonary disease) Lumbago with sciatica, left side (Last Reviewed 03/15/24 @ 15:56 by Javy Sloan DO) 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) History of abdominal surgery (01/21/17) Hx of cholecystectomy H/O cone biopsy of cervix History of breast biopsy Hx of rotator cuff surgery History of total bilateral knee replacement (TKR) History of carpal tunnel release H/O exploratory laparotomy Hx of cervical spine surgery Hx of colonoscopy Most Recent Vital Signs Temperature 36.3 C L 12/07/24 16:30 Temperature Source Temporal Artery Scan 12/07/24 16:30 Pulse 104 H 12/08/24 01:10 Pulse 97 H 12/08/24 01:20 Respiratory Rate 11 L 12/08/24 01:20 Respiratory Effort Normal, Non-Labored 12/07/24 16:51 Respiratory Depth Normal 12/07/24 16:51 Respiratory Pattern Normal 12/07/24 16:51 Blood Pressure 130/84 12/07/24 21:01 Blood Pressure Mean 99 12/07/24 21:01 Pulse Oximetry 100 12/08/24 01:10 Oxygen Delivery Method Room Air 12/07/24 17:31 Oxygen Flow Rate 0 12/07/24 17:31 Fraction of Inspired Oxygen (FIO2) 40 12/08/24 00:50 Allergies No Known Allergies Allergy (Verified 12/07/24 16:43) Precautions Isolation Standard precaution 12/07/24 16:51 Active Medications Generic Name Dose Route Start Last Admin Trade Name Freq PRN Reason Stop Dose Admin Acetaminophen 1,000 mg 12/07/24 22:36 12/07/24 22:55 Acetaminophen 500 Mg Tab PO 1,000 mg Q6H PRN PRN Administration Apixaban 5 mg 12/07/24 22:30 12/07/24 22:56 Apixaban 5 Mg Tab PO 5 mg BID ROSS Administration Gabapentin 600 mg 12/07/24 22:30 12/07/24 22:55 Gabapentin 300 Mg Cap PO 600 mg TID ROSS Administration Lorazepam 1 mg 12/07/24 21:48 12/07/24 22:56 Lorazepam 1 Mg Tab PO 1 mg TID PRN PRN Administration IV IV Catheter Type [Right Saline Lock Antecubital] IV Catheter Gauge [Right 20 Antecubital] Diet Orders Category Date Time Status Low Sodium [DIET] Nutrition 12/08/24 Breakfast Active Diagnostics 12/08/24 12/08/24 12/07/24 Range/Units 06:00 02:00 22:46 WBC (4.4-10.8) 10^3/uL RBC (3.93-5.22) 10^6/uL Hgb (11.2-15.7) g/dL Hct (36.0-46.0) % MCV (80-95) fL MCH (27.0-33.0) pg MCHC (32.0-36.0) % RDW (11.7-14.6) % Plt Count (130-400) 10^3/uL MPV (8.0-11.0) fL Immature Gran % % Neutrophils % % Lymphocytes % % Monocytes % % Eosinophils % % Basophils % % Nucleated RBC % (0.0-0.3) % Absolute Neutrophils (1.2-6.7) 10^3/uL Absolute Lymphocytes (1.2-3.4) 10^3/uL Absolute Monocytes (0.1-0.8) 10^3/uL Absolute Eosinophils (0.0-0.7) 10^3/uL Absolute Basophils (0.0-0.2) 10^3/uL RBC Morphology Polychromasia Hypochromasia Basophilic Stippling VBG pH Pending Pending (7.31-7.41) VBG pCO2 Pending Pending (41-51) mmHg VBG pO2 Pending Pending mmHg VBG HCO3 Pending Pending (23-28) mmol/L VBG Total CO2 Pending Pending (24-29) mmol/L VBG O2 Saturation Pending Pending % VBG Base Excess Pending Pending (-2-3) mmol/L VBG Lactate (<or=2.0) mmol/L Sodium (136-145) mmol/L Potassium (3.5-5.1) mmol/L Chloride (98-107) mmol/L Carbon Dioxide (21.0-32.0) mmol/L Anion Gap (3-11) mmol/L BUN (7-18) mg/dL Creatinine (0.55-1.02) mg/dL Est GFR (CKD-EPI 2020) (mL/min/1.73m2) Glucose (74-106) mg/dL Calcium (8.5-10.1) mg/dL Magnesium (1.8-2.4) mg/dL Total Bilirubin (0.2-1.0) mg/dL AST (15-37) U/L ALT (14-59) U/L Alkaline Phosphatase (46-116) U/L Troponin I (<or=51) ng/L NT-Pro-B Natriuret Pep (<300) pg/mL Total Protein (6.4-8.2) g/dL Albumin (3.4-5.0) g/dL TSH (0.36-3.74) uIU/mL Urine Color Yellow (Yellow) Urine Clarity Sl Cloudy (Clear) Urine pH 7.0 (5-8) Ur Specific [place] 1.015 (1.005-1.025) Urine Protein Negative (Neg-Trace) mg/dL Urine Ketones Negative (Negative) mg/dL Urine Blood Small H (Negative) Urine Nitrite Negative (Negative) Urine Bilirubin Negative (Negative) Urine Urobilinogen 0.2 (Up to 0.2) mg/dL Ur Leukocyte Esterase Trace H (Negative) Urine RBC 5-10 H (0-2) HPF Urine WBC 3-5 (0-5) HPF Ur Epithelial Cells Rare (Negative) HPF Urine Crystals Negative (Negative) HPF Urine Bacteria Rare (Negative) HPF Urine Casts Negative (Negative) LPF Urine Mucus Negative (Negative) Ur Culture Indicated? No Urine Glucose Negative (Negative) mg/dL COVID-19 Source SARS-CoV-2 (PCR) (Negative) Influenza Type A (PCR) (Negative) Influenza Type B (PCR) (Negative) RSV (PCR) (Negative) 12/07/24 12/07/24 12/07/24 Range/Units 21:12 20:38 18:49 WBC (4.4-10.8) 10^3/uL RBC (3.93-5.22) 10^6/uL Hgb (11.2-15.7) g/dL Hct (36.0-46.0) % MCV (80-95) fL MCH (27.0-33.0) pg MCHC (32.0-36.0) % RDW (11.7-14.6) % Plt Count (130-400) 10^3/uL MPV (8.0-11.0) fL Immature Gran % % Neutrophils % % Lymphocytes % % Monocytes % % Eosinophils % % Basophils % % Nucleated RBC % (0.0-0.3) % Absolute Neutrophils (1.2-6.7) 10^3/uL Absolute Lymphocytes (1.2-3.4) 10^3/uL Absolute Monocytes (0.1-0.8) 10^3/uL Absolute Eosinophils (0.0-0.7) 10^3/uL Absolute Basophils (0.0-0.2) 10^3/uL RBC Morphology Polychromasia Hypochromasia Basophilic Stippling VBG pH 7.36 7.33 (7.31-7.41) VBG pCO2 71 H* 72 H* (41-51) mmHg VBG pO2 26 21 mmHg VBG HCO3 40 H 38 H (23-28) mmol/L VBG Total CO2 38 H 36 H (24-29) mmol/L VBG O2 Saturation 43 27 % VBG Base Excess 15 H 12 H (-2-3) mmol/L VBG Lactate (<or=2.0) mmol/L Sodium (136-145) mmol/L Potassium (3.5-5.1) mmol/L Chloride (98-107) mmol/L Carbon Dioxide (21.0-32.0) mmol/L Anion Gap (3-11) mmol/L BUN (7-18) mg/dL Creatinine (0.55-1.02) mg/dL Est GFR (CKD-EPI 2020) (mL/min/1.73m2) Glucose (74-106) mg/dL Calcium (8.5-10.1) mg/dL Magnesium (1.8-2.4) mg/dL Total Bilirubin (0.2-1.0) mg/dL AST (15-37) U/L ALT (14-59) U/L Alkaline Phosphatase (46-116) U/L Troponin I 6 6 (<or=51) ng/L NT-Pro-B Natriuret Pep (<300) pg/mL Total Protein (6.4-8.2) g/dL Albumin (3.4-5.0) g/dL TSH (0.36-3.74) uIU/mL Urine Color (Yellow) Urine Clarity (Clear) Urine pH (5-8) Ur Specific [place] (1.005-1.025) Urine Protein (Neg-Trace) mg/dL Urine Ketones (Negative) mg/dL Urine Blood (Negative) Urine Nitrite (Negative) Urine Bilirubin (Negative) Urine Urobilinogen (Up to 0.2) mg/dL Ur Leukocyte Esterase (Negative) Urine RBC (0-2) HPF Urine WBC (0-5) HPF Ur Epithelial Cells (Negative) HPF Urine Crystals (Negative) HPF Urine Bacteria (Negative) HPF Urine Casts (Negative) LPF Urine Mucus (Negative) Ur Culture Indicated? Urine Glucose (Negative) mg/dL COVID-19 Source SARS-CoV-2 (PCR) (Negative) Influenza Type A (PCR) (Negative) Influenza Type B (PCR) (Negative) RSV (PCR) (Negative) 12/07/24 12/07/24 Range/Units 17:31 16:40 WBC 7.22 (4.4-10.8) 10^3/uL RBC 3.81 L (3.93-5.22) 10^6/uL Hgb 10.3 L (11.2-15.7) g/dL Hct 37.2 (36.0-46.0) % MCV 98 H (80-95) fL MCH 27.0 (27.0-33.0) pg MCHC 27.7 L (32.0-36.0) % RDW 17.3 H (11.7-14.6) % Plt Count 248 (130-400) 10^3/uL MPV 8.5 (8.0-11.0) fL Immature Gran % 0.4 % Neutrophils % 64.1 % Lymphocytes % 22.3 % Monocytes % 6.2 % Eosinophils % 6.4 % Basophils % 0.6 % Nucleated RBC % 0.0 (0.0-0.3) % Absolute Neutrophils 4.63 (1.2-6.7) 10^3/uL Absolute Lymphocytes 1.61 (1.2-3.4) 10^3/uL Absolute Monocytes 0.45 (0.1-0.8) 10^3/uL Absolute Eosinophils 0.46 (0.0-0.7) 10^3/uL Absolute Basophils 0.04 (0.0-0.2) 10^3/uL RBC Morphology See Below Polychromasia Present Hypochromasia 1+ Basophilic Stippling Present VBG pH 7.32 (7.31-7.41) VBG pCO2 73 H* (41-51) mmHg VBG pO2 34 mmHg VBG HCO3 38 H (23-28) mmol/L VBG Total CO2 36 H (24-29) mmol/L VBG O2 Saturation 59 % VBG Base Excess 12 H (-2-3) mmol/L VBG Lactate 1.0 (<or=2.0) mmol/L Sodium 143 (136-145) mmol/L Potassium 4.6 (3.5-5.1) mmol/L Chloride 103 (98-107) mmol/L Carbon Dioxide 39.6 H (21.0-32.0) mmol/L Anion Gap 0.4 L (3-11) mmol/L BUN 11 (7-18) mg/dL Creatinine 0.9 (0.55-1.02) mg/dL Est GFR (CKD-EPI 2020) 67.08 (mL/min/1.73m2) Glucose 109 H (74-106) mg/dL Calcium 9.4 (8.5-10.1) mg/dL Magnesium 2.2 (1.8-2.4) mg/dL Total Bilirubin 0.33 (0.2-1.0) mg/dL AST 18 (15-37) U/L ALT 15 (14-59) U/L Alkaline Phosphatase 152 H (46-116) U/L Troponin I 5 (<or=51) ng/L NT-Pro-B Natriuret Pep 977 H (<300) pg/mL Total Protein 7.8 (6.4-8.2) g/dL Albumin 2.9 L (3.4-5.0) g/dL TSH 3.11 (0.36-3.74) uIU/mL Urine Color (Yellow) Urine Clarity (Clear) Urine pH (5-8) Ur Specific [place] (1.005-1.025) Urine Protein (Neg-Trace) mg/dL Urine Ketones (Negative) mg/dL Urine Blood (Negative) Urine Nitrite (Negative) Urine Bilirubin (Negative) Urine Urobilinogen (Up to 0.2) mg/dL Ur Leukocyte Esterase (Negative) Urine RBC (0-2) HPF Urine WBC (0-5) HPF Ur Epithelial Cells (Negative) HPF Urine Crystals (Negative) HPF Urine Bacteria (Negative) HPF Urine Casts (Negative) LPF Urine Mucus (Negative) Ur Culture Indicated? Urine Glucose (Negative) mg/dL COVID-19 Source NASOPHARYNX SARS-CoV-2 (PCR) Negative (Negative) Influenza Type A (PCR) Negative (Negative) Influenza Type B (PCR) Negative (Negative) RSV (PCR) Negative (Negative) Intake and Output - 24 Hour Total 12/07/24 16:17 thru 12/07/24 23:00 Intake Total 10 Balance 10 Weight 159.2 kg Intake: IV 10 Other: Urine Color Pale Yellow Urine Appearance Clear Urinary Catheter Urinary Catheter Date of 12/07/24 Insertion [Urethral (Herr)] Time of insertion [Urethral ( 23:00 Herr)] Falls Risk Assessment History of Falls No History 12/07/24 16:51 Contributing Factors No Factors 12/07/24 16:51 Ambulatory Aids Independent 12/07/24 16:51 Fall Total Score 0 12/07/24 16:51 Level of Risk Standard/Low Risk 12/07/24 16:51 Problems (Last Reviewed 03/15/24 @ 15:56 by Javy Sloan DO) Hypercarbia (Acute) Chronic respiratory failure (Acute) v v v v v v v v v Sending and/or Receiving Nurses: Please use comment section below to note any information pertinent to the patient hand-off not included above. Information / Comments: a+ox3, does not ambulate, bilateral edema, red rash along left torso to hip. herr placed after lasix administered. Report received from: Andrew Cooper RN
[2024-12-08] MEDS: Albuterol/Ipratropium 3 ML UPD VIAL UPD (05:20)
[2024-12-08] MEDS: oxyCODONE 5 MG TAB PO ×3 (06:16→20:12)
[2024-12-08 06:28] LABS: BE (Venous) 11 mmol/L (-2-3); HCO3 (Venous) 36 mmol/L (23-28); O2 Sat (Venous) 61 %; TCO2 (Venous) 34 mmol/L (24-29); pH (Venous) 7.36 (7.31-7.41); pO2 (Venous) 34 mmHg
[2024-12-08 06:32] LABS: pCO2 (Venous) 64 mmHg (41-51)
[2024-12-08] MEDS: Acetaminophen 500 MG TAB 1000 MG PO ×3 (06:32→20:11)
[2024-12-08] MEDS: Normal Saline Flush 10 ML SYR (06:39)
[2024-12-08] MEDS: Venlafaxine 75 MG CAPCR PO (09:01)
[2024-12-08] MEDS: Potassium Chloride Liquid 20 MEQ PKT PO (09:01)
[2024-12-08] MEDS: Gabapentin 300 MG CAP 600 MG PO ×3 (09:02→20:12)
[2024-12-08] MEDS: Torsemide 10 MG TAB PO (09:02)
[2024-12-08] MEDS: Apixaban 5 MG TAB PO ×2 (09:02→21:53)
[2024-12-08] MEDS: Magnesium Oxide 400 MG TAB PO (09:02)
[2024-12-08] MEDS: dilTIAZem CD 120 MG CAPCR 240 MG PO (09:02)
[2024-12-08] MEDS: Aspirin E.C. 81 MG TABEC PO (09:02)
[2024-12-08] MEDS: Metoprolol CR 50 MG TABCR PO (09:02)
[2024-12-08] MEDS: LORazepam 1 MG TAB PO ×2 (09:07→22:18)
--- NOTE | 2024-12-08 16:01 | CHAPLAIN ---
Marzena was sitting up in bed when I visited. There were a few people coming in and out of the room while I was there and that distracted Marzena. I explained my role and offered support. Marzena invited me to come back another time when fewer people were there.
--- NOTE | 2024-12-08 17:50 | INITIAL_ITS ---
Date of service: 12/08/24 Time of Service: 15:33 Care Management Initial Assmt Initial Assessment Reason for Hospitalization: COPD exacerbation Functional Status/Living Situation Patient Presentation: Marzena was admitted yesterday afternoon through the ED for reports of low blood pressure tiredness and chest pressure . She was hypoxic on arrival and was given a dose of lasix and a nebulizer. She was hypercarbic and required bipap. Marzena was lying in the bed when met with her. She was pleasant. Her only true concern at that time was that she didn't have her phone. Marzena is pres ently residing at [facility]. She stated to that she has been there for months after breaking her hip. She is hoping to return home. She had previously been living with her sister, Gaby, in [place] and was supported by [facility], [employer], and meals on wheels. She has a case manger through her local [employer] Marzena knows she will be returning to the rehab at discharge. Town of Residence: [facility] Significant Other/Family: Out of area (son lives in [place]) Natural Supports: sister, Gaby Overton is biggest support and [employer], brother Kenan Overton Employment Status: Retired Instrumental Activities of Daily Living (ADLs): Requires support Activities/Hobbies/SocialSupport: Marzena used to love to ride her motorcycle Physical Functioning/Mobility Assistive Device: can barely use the walker any more Advance Directives Advance Directives: Do you have an Advance Directive: Y 07/06/16 11:07 AD On File at [facility]: Y 09/20/16 14:01 Date Asked AD Date Reviewed 12/08/24 12/08/24 01:53 COLST On File at [facility] COLST Date Scanned Code Status Resuscitation Status Full Code Insurance Coverage/Financial Issues Insurance: AARP/[id number].[id number] Mcr Replacement Patient reports alf medicaid - have asked access to verify this. Care Team Visit Care Team Role Provider Type Unknown Unknown Primary Care Provider STAFF PHYSICIAN CALEB Henry Emergency Provider PHYSICIANS BLENDER/BRAZE APPLICATOR Marty Padilla MD Admit Provider [facility] STAFF PHYSICIAN Attending Provider Discharge Potential Discharge Needs: Other (f/u with facility provider at [facility]) Anticipated Barriers to Discharge: None Identified Patient/Family Education Needs: Review discharge instructions, discuss Ask Me Three Transportation: [facility] Plan: Anticipate that Marzena will return to [facility] once medically stable. She will f/u with the facility provider and per her plan of care. She will transport via [facility]. CM will continue to follow. Social Determinants of Health Screening Will the Patient Participate in the Screening?: Declined to provide Social Determinants of Health Comments(MIOH Details): pt resides at [facility] All Active Problems (Updated 12/07/24 @ 23:21 by CALEB Henry) Hypercarbia (Acute) Chronic respiratory failure (Acute) Afib (Chronic) F/u with Dr. 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) Diarrhea (Acute) Urinary incontinence (Acute) Hypokalemia (Acute) Ambulatory dysfunction (Acute) UTI (urinary tract infection) due to Enterococcus (Acute) Anxiety (Chronic) Generalized weakness (Acute) Medical History Cervical nerve root disorder Not disorder: Per H&P (R) Cervical medial branch block Tobacco user RLS (restless legs syndrome) Pulmonary embolism 8 months ago r/t to diagnosis a-fib Postural dizziness Depressive disorder Chronic pain syndrome COPD (chronic obstructive pulmonary disease) Lumbago with sciatica, left side Surgical History 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) History of abdominal surgery (01/21/17) Hx of cholecystectomy H/O cone biopsy of cervix History of breast biopsy Hx of rotator cuff surgery right History of total bilateral knee replacement (TKR) History of carpal tunnel release H/O exploratory laparotomy Hx of cervical spine surgery Hx of colonoscopy Social History Smoking/Tobacco Use Status: Current-Occasional Tobacco Type: cigarettes Smoking risk assessment performed?: Yes Alcohol Intake: former Drug use: Occasionally Substance use type: former substance user and marijuana Housing: [facility] Do you feel safe at home: Yes (lives with sister) Do you feel safe in your relationship?: Yes Additional Social history: Lives with sister in [place], retired, gets some help with cleaning/bathing. Quit smoking at recent rehab stay, but still bums a cigarette from sister when she is stressed. Readmission Within the Past 30 Days Yes or No: No
--- NOTE | 2024-12-08 20:11 | W.PM.PROGNOT ---
Date of Service Date of service: 12/08/24 Time of Service: 13:00 Assessment and Plan Assessment and plan (1) COPD (chronic obstructive pulmonary disease): Assessment and plan: VBG ordered for am Hypercarbia is quite possibly her new normal, a compensated respiratory acidosis secondary to COPD and Pickwickian syndrome. RT consult continue albuteol nebs, duo nebs, azithromycin started, solumedrol 60 mg q 8h IV Return to Rehab when stable No fevers, vss, SPO2 (2) Pleural effusion: Status: Acute Assessment and plan: Rec'd lasix in ED - no SOB, no crackles noted CT - Bilateral lower lobe subpleural infiltrates involving the posterior basal segments of both lower lobes as well as superior segment of the left lower lobe Azithromycin started Torsemide 10 mg increased to 20 mg daily Subjective Subjective Patient reports: no new complaints, tolerating liquids well, tolerating a regular diet, voiding w/o difficulty, bowel movement and afebrile; denies diarrhea, nausea, vomiting or shortness of breath Interval history since last seen: Awkae, alert, conversant, pleasant. Looking for her cell phone she left at [facility] Exam Narrative Exam Narrative: Morbidly obese elderly female chronically ill-appearing older than stated age Head is atraumatic eyes normal appearance noninjected nonicteric oral mucosas moist no exudate Neck is supple no JVD full range of motion no meningeal signs Respirations even and unlabored, diminished bases, no wheezing Cardiovascular regular rate and rhythm good pedal pulse Skin no rashes or lesions Moves all extremity extensive lymph edema to bilateral lower unchanged Neurologic awake alert oriented no focal deficits Psych Mental Status: mental status grossly normal Speech and Movement: speech and movement normal Mood: congruent mood Affect: normal affect Objective Last Vital Signs Temp 36.8 C 12/08/24 16:06 Pulse 105 H 12/08/24 16:06 Resp 18 12/08/24 16:06 BP 132/79 12/08/24 16:06 Pulse Ox 92 12/08/24 16:06 Laboratory Results - last 24 hr 12/07/24 12/07/24 12/07/24 20:38 21:12 22:46 VBG pH 7.36 VBG pCO2 71 H* VBG pO2 26 VBG HCO3 40 H VBG Total CO2 38 H VBG O2 Saturation 43 VBG Base Excess 15 H Troponin I 6 Urine Color Yellow Urine Clarity Sl Cloudy Urine pH 7.0 Ur Specific [place] 1.015 Urine Protein Negative Urine Ketones Negative Urine Blood Small H Urine Nitrite Negative Urine Bilirubin Negative Urine Urobilinogen 0.2 Ur Leukocyte Esterase Trace H Urine RBC 5-10 H Urine WBC 3-5 Ur Epithelial Cells Rare Urine Crystals Negative Urine Bacteria Rare Urine Casts Negative Urine Mucus Negative Ur Culture Indicated? No Urine Glucose Negative 12/08/24 12/08/24 02:00 06:20 VBG pH Cancelled 7.36 VBG pCO2 Cancelled 64 H* VBG pO2 Cancelled 34 VBG HCO3 Cancelled 36 H VBG Total CO2 Cancelled 34 H VBG O2 Saturation Cancelled 61 VBG Base Excess Cancelled 11 H Troponin I Urine Color Urine Clarity Urine pH Ur Specific [place] Urine Protein Urine Ketones Urine Blood Urine Nitrite Urine Bilirubin Urine Urobilinogen Ur Leukocyte Esterase Urine RBC Urine WBC Ur Epithelial Cells Urine Crystals Urine Bacteria Urine Casts Urine Mucus Ur Culture Indicated? Urine Glucose Time Spent with Patient Time Spent with Patient: 25-34 minutes Time was spent: preparing to see the patient(eg.review tests), ordering medications,tests, procedures, referring, communicating with other health career development engineer, indepentently interpreting results, counseling the patient and care coordination
[2024-12-08] MEDS: Lovastatin 20 MG TAB PO (20:12)
[2024-12-08] MEDS: rOPINIRole 1 MG TAB 5 MG PO (21:51)
[2024-12-08] MEDS: tiZANidine 4 MG TABLET PO (21:51)
[2024-12-08] MEDS: methylPREDNISolone SUCC 125 MG VIAL 60 MG IVP (21:51)
[2024-12-08] MEDS: traZODone 50 MG TAB 150 MG PO (21:51)
[2024-12-08] MEDS: AZITHROMYCIN 500 MG in Normal Saline 250 ML 250 MG IVPB (22:18)
[2024-12-09 03:40] VITALS: BP 158/103; PULSE 95; RESP 16; TEMP 36.6; O2SAT 92
[2024-12-09 04:19] VITALS: BP 126/94
[2024-12-09] MEDS: methylPREDNISolone SUCC 125 MG VIAL 60 MG IVP ×2 (04:57→13:54)
[2024-12-09] MEDS: oxyCODONE 5 MG TAB PO (06:32)
[2024-12-09 07:20] LABS: BE (Venous) 10 mmol/L (-2-3); HCO3 (Venous) 35 mmol/L (23-28); O2 Sat (Venous) 96 %; TCO2 (Venous) 32 mmol/L (24-29); pCO2 (Venous) 54 mmHg (41-51); pH (Venous) 7.42 (7.31-7.41); pO2 (Venous) 70 mmHg
[2024-12-09 07:23] LABS: Abs Immature Grans 0.06 10^3/uL (0.0-0.06); Absolute Lymphocyte Count 0.54 10^3/uL (1.2-3.4); Absolute Monocyte Count 0.17 10^3/uL (0.1-0.8); Absolute Neutrophil Count 7.53 10^3/uL (1.2-6.7); HGB 9.7 g/dL (11.2-15.7); Immature Grans % 0.7 %; Lymphocytes % 6.5 %; MCH 26.6 pg (27.0-33.0); MCHC 28.5 % (32.0-36.0); MCV 93 fL (80-95); MPV 8.7 fL (8.0-11.0); Neutrophils % 90.8 %; Platelet Count 243 10^3/uL (130-400); RBC 3.64 10^6/uL (3.93-5.22); RDW 17.7 % (11.7-14.6); RDW-SD 61.1 fL
[2024-12-09 07:41] LABS: Anion Gap 0.2 mmol/L (3-11); BUN 15 mg/dL (7-18); CO2 36.8 mmol/L (21.0-32.0); CREATININE 0.8 mg/dL (0.55-1.02); Calcium 9.1 mg/dL (8.5-10.1); Chloride 104 mmol/L (98-107); Estimated GFR 77.27 (mL/min/1.73m2); Glucose 137 mg/dL (74-106); Magnesium 2.1 mg/dL (1.8-2.4); Potassium 4.2 mmol/L (3.5-5.1); Sodium 141 mmol/L (136-145)
[2024-12-09 08:22] VITALS: BP 139/101; PULSE 100; RESP 15; TEMP 36.9; O2SAT 94
[2024-12-09] MEDS: dilTIAZem CD 120 MG CAPCR 240 MG PO (08:39)
[2024-12-09] MEDS: rOPINIRole 1 MG TAB 5 MG PO ×2 (08:40→14:12)
[2024-12-09] MEDS: Metoprolol CR 50 MG TABCR PO (08:41)
[2024-12-09] MEDS: tiZANidine 4 MG TABLET PO (08:42)
[2024-12-09] MEDS: Torsemide 10 MG TAB 20 MG PO (08:42)
[2024-12-09] MEDS: Acetaminophen 500 MG TAB 1000 MG PO (08:43)
[2024-12-09] MEDS: Magnesium Oxide 400 MG TAB PO (08:44)
[2024-12-09] MEDS: Apixaban 5 MG TAB PO (08:44)
[2024-12-09] MEDS: Aspirin E.C. 81 MG TABEC PO (08:44)
[2024-12-09] MEDS: Venlafaxine 75 MG CAPCR PO (08:45)
[2024-12-09] MEDS: Gabapentin 300 MG CAP 600 MG PO ×2 (08:45→14:12)
[2024-12-09] MEDS: Potassium Chloride Liquid 20 MEQ PKT PO (08:46)
--- NOTE | 2024-12-09 12:08 | PDOC.CMDIS ---
Date of service: 12/09/24 Time of Service: 12:08 LACE Index Scoring Tool Questions: Length of Stay (in days): 2 Was the patient admitted via the E.D.?: Yes Comorbidities: Chronic Pulmonary Disease E.D. Visits: 1 Answers: Total Score: 8 Risk of Readmission: Low Risk Care Management Discharge Plan Reason for Hospitalization: COPD exacerbation Discharge Plan: Marzena will be discharged back to [facility] this afternoon. She will f/u with the facility provider and continue per her plan of care. She will transport via EMS as coordinated by CM. Patient/Family Education Needs: Review of discharge instructions, activity, limitations and review ask me 3. SDOH Health Related Social Needs: No Data to Display
--- NOTE | 2024-12-09 13:44 | DSE_ITS ---
Date of service: 12/09/24 Time of Service: 13:44 DS: Diagnosis Discharge Diagnosis (1) COPD (chronic obstructive pulmonary disease): (2) Pleural effusion: Status: Acute Discharge Plan Disposition Patient Disposition: [facility](SNF[facility] Condition: Serious Condition: Fair Discharge Details Reason For Visit: COPD Admit Date/Time: 12/07/24 21:46 Admit Provider: Marty Padilla Attending Provider: Marty Padilla Primary Care Provider: Unknown,Unknown Hospital Course Hospital Course: Patient: Marzena, 74 years old, female Medical History: Chronic Obstructive Pulmonary Disease, Atrial Fibrillation, Hypertension, Anemia, Congestive Heart Failure Admission Reason: Exacerbation of COPD, suspected chest pain, and hypoxia Hospital Course: Marzena presented to the [facility] ED with a 1-2 day history of shortness of breath and chest pressure. Upon arrival, she was hypoxic, but able to speak in complete sentences. She had diminished breath sounds with crackles at the bases of her lungs. She received a nebulizer treatment and 40 mg of Lasix intravenously in the emergency room. Initial lab results showed a white blood cell count of 7.2, hematocrit of 37, and a blood gas with a pCO2 of 73, indicating hypercapnia. A repeat blood gas revealed a similar pCO2 of 72. A chest CT scan showed a minimal left pleural effusion but no signs of pneumonia or other acute pathology. An EKG showed a baseline atrial flutter with variable block, and troponin levels were negative on three tests. A viral swab returned negative for common respiratory viruses. During her hospital stay, Marzena denied any new chest pain or shortness of breath. She did report chronic leg pain, but this was at baseline and not worsened. Her hypoxia and hypercapnia did not significantly improve with nebulizer or Lasix therapy, suggesting a COPD exacerbation with associated hypercarbia. Given her history of CHF and COPD, she was started on IV solumedrol a course of azithromycin. The decision was made to admit her for observation and to initiate BiPAP therapy if necessary for further respiratory support. Social Determinants of Health: Marzena is currently residing at [facility] following a hip fracture. She has been there for several months and is hoping to return home. Prior to her hospitalization, she lived with her sister and received support from visiting nurses, [facility] services, and [employer] Whe[employer]. A corrections caseworker from the local [place] [facility] is also involved in her care. Patient's condition improved, and she returned to baseline, with no further significant issues reported. Discharge Plan: * Continue azithromycin 250 mg orally daily for 5 days. * Continue prednisone 40 mg orally daily for 5 days. * Continue all medications as prescribed prior to admission, including Eliquis and torsemide. * Monitor respiratory status and follow-up with her primary care provider as needed. Disposition: Marzena was stable at the time of discharge and did not experience any new or worsening symptoms and will follow up as needed with outpatient providers. Discharge Diagnosis: * COPD exacerbation (resolved) * Hypercapnia (resolved) * Atrial fibrillation (chronic) * Hypertension * Anemia * History of CHF Recommendations: * Continue current prescribed medications. * Follow-up with primary care provider for ongoing management of COPD, CHF, and atrial fibrillation. Disposition: Discharged to rehabilitation center for continued care. Discharge Diagnosis: * COPD exacerbation * Hypercapnia * Atrial fibrillation (chronic) * Hypertension * Anemia * History of CHF Disposition: Return to rehabilitation center for continued care and observation via EMS Home Meds and New Rx's Prescriptions: New prednisone 20 mg tablet 40 mg PO BID 5 Days Qty: 20 0RF azithromycin 250 mg tablet 250 mg PO DAILY 5 Days Qty: 5 0RF Continued metoprolol succinate 50 mg tablet extended release 24 hr 50 mg PO DAILY venlafaxine 75 mg capsule,extended release 24hr 75 mg PO DAILY trazodone 150 mg tablet 150 mg PO HS Patient Comments: TAKE 1 TABLET BY MOUTH EVERY DAY AT BEDTIME Eliquis 5 mg tablet 1 tab PO BID gabapentin 300 mg capsule 600 mg PO TID Patient Comments: TAKE TWO CAPSULES BY MOUTH THREE TIMES A DAY ropinirole 5 mg tablet 5 mg PO TID Patient Comments: TAKE ONE TABLET BY MOUTH THREE TIMES A DAY, takes first dose around 1400, last dose at bedtime and middle dose in between those two tizanidine 2 mg tablet 4 mg PO BID Bio-K plus 50 billion cell capsule,delayed release(DR/EC) 1 cap PO DAILY Qty: 24 0RF aspirin [Adult Low Dose Aspirin] 81 mg tablet,delayed release (DR/EC) 81 mg PO DAILY cholecalciferol (vitamin D3) 50 mcg (2,000 unit) capsule 50 mcg PO DAILY magnesium 200 mg tablet 400 mg PO DAILY potassium chloride 20 mEq packet 20 meq PO DAILY torsemide 10 mg tablet 10 mg PO DAILY Rx Instructions: Take 1 time daily for FVO for 30 days- started 11/20/24 acetaminophen 500 mg capsule 1,000 mg PO Q6H PRN oxycodone 5 mg tablet 5 mg PO Q6H PRN ferrous sulfate 325 mg (65 mg iron) Tablet 325 mg PO DAILY ipratropium-albuterol 0.5 mg-3 mg(2.5 mg base)/3 mL solution for nebulization 3 ml INHALATION Q6H PRN lorazepam 1 mg Tablet 1 mg PO TID PRN Patient Comments: states out of prescription diltiazem HCl [Cartia XT] 240 mg capsule,extended release 24hr 240 mg PO DAILY Qty: 30 0RF lovastatin 20 mg Tablet 20 mg PO QPM Qty: 30 0RF Discharge Instructions Activity:: Activity as Tolerated Equipment/Supplies:: Oxygen (L/min Below) Diet:: As Tolerated Discharge Orders Discharge Orders: Discharge Order (Routine); Ordered 12/09/24 Ordered By: Chela Leiva DS: Summary Time Spent with Patient providing and/or coordinating discharge services: Greater than 30 minutes Status at Discharge Functional status at discharge: uses cane/walker Overall status at discharge: patient is back to baseline Mental Status: mental status grossly normal Speech and Movement: speech and movement normal Mood: congruent mood Affect: normal affect Quality:SDOH Health Related Social Needs: No Data to Display Exam Narrative Exam Narrative: Morbidly obese elderly female chronically ill-appearing older than stated age Head is atraumatic eyes normal appearance noninjected nonicteric oral mucosas moist no exudate Neck is supple no JVD full range of motion no meningeal signs Respirations even and unlabored, diminished bases, no wheezing Cardiovascular regular rate and rhythm good pedal pulse Skin no rashes or lesions Moves all extremity extensive lymph edema to bilateral lower unchanged Neurologic awake alert oriented no focal deficits Psych Mental Status: mental status grossly normal Speech and Movement: speech and movement normal Mood: congruent mood Affect: normal affect DS: Data Vitals/I&O Vitals and I&O: Vital Signs Temperature 36.9 C 12/09/24 08:22 Temperature Source Temporal Artery Scan 12/09/24 08:22 Pulse 100 H 12/09/24 08:22 Pulse Rhythm Irregular 12/08/24 02:06 Pulse 97 H 12/08/24 01:20 Respiratory Rate 15 12/09/24 08:22 Respiratory Effort Incrsd Work of Breathing 12/08/24 02:06 Respiratory Depth Shallow 12/08/24 02:06 Respiratory Pattern Normal 12/08/24 02:06 Blood Pressure 139/101 H 12/09/24 08:22 Blood Pressure Mean 99 12/07/24 21:01 Pulse Oximetry 94 12/09/24 08:22 Oxygen Delivery Method Room Air 12/09/24 08:22 Oxygen Flow Rate 0 12/09/24 08:22 Fraction of Inspired Oxygen (FIO2) 40 12/08/24 00:50 Pain Level 7 12/08/24 14:51 Comment RN notified, BP taken twice with straight arm and legs uncrossed. 12/09/24 08:22 Intake & Output 12/08/24 12/09/24 12/09/24 23:59 11:59 23:59 Intake Total 200 / 640 250 / 250 Output Total 1200 / 2850 2870 / 4470 1600 / 4470 Balance -1000 / -2210 -2620 / -4220 -1600 / -4220 Intake: IV 250 / 250 Oral 200 / 640 Output: Urine 1200 / 2850 2870 / 4470 1600 / 4470 Other: Urine Color Yellow Yellow Pale Yellow Urine Appearance Clear Cloudy Clear Urine Odor Strong Stool Size Large Stool Characteristics Soft Data Completed and Pending Labs on day of discharge: Labs from last 24 hours 12/09/24 07:03 WBC 8.30 RBC 3.64 L Hgb 9.7 L Hct 34.0 L MCV 93 D MCH 26.6 L MCHC 28.5 L RDW 17.7 H Plt Count 243 MPV 8.7 Immature Gran % 0.7 Neutrophils % 90.8 Lymphocytes % 6.5 Monocytes % 2.0 Eosinophils % 0.0 Basophils % 0.0 Nucleated RBC % 0.0 Absolute Neutrophils 7.53 H Absolute Lymphocytes 0.54 L Absolute Monocytes 0.17 Absolute Eosinophils 0.00 Absolute Basophils 0.00 VBG pH 7.42 H VBG pCO2 54 H VBG pO2 70 VBG HCO3 35 H VBG Total CO2 32 H VBG O2 Saturation 96 VBG Base Excess 10 H Sodium 141 Potassium 4.2 Chloride 104 Carbon Dioxide 36.8 H Anion Gap 0.2 L BUN 15 Creatinine 0.8 Est GFR (CKD-EPI 2020) 77.27 Glucose 137 H Calcium 9.1 Magnesium 2.1 PFSH All Active Problems (Updated 12/08/24 @ 20:19 by Chela Leiva NP) Pleural effusion (Acute) Hypercarbia (Acute) Chronic respiratory failure (Acute) Afib (Chronic) F/u with Dr. 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) Diarrhea (Acute) Urinary incontinence (Acute) Hypokalemia (Acute) Ambulatory dysfunction (Acute) UTI (urinary tract infection) due to Enterococcus (Acute) Anxiety (Chronic) Generalized weakness (Acute) Medical History Cervical nerve root disorder Not disorder: Per H&P (R) Cervical medial branch block Tobacco user RLS (restless legs syndrome) Pulmonary embolism 8 months ago r/t to diagnosis a-fib Postural dizziness Depressive disorder Chronic pain syndrome COPD (chronic obstructive pulmonary disease) Lumbago with sciatica, left side Surgical History 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) History of abdominal surgery (01/21/17) Hx of cholecystectomy H/O cone biopsy of cervix History of breast biopsy Hx of rotator cuff surgery right History of total bilateral knee replacement (TKR) History of carpal tunnel release H/O exploratory laparotomy Hx of cervical spine surgery Hx of colonoscopy Social History Smoking/Tobacco Use Status: Current-Occasional Tobacco Type: cigarettes Smoking risk assessment performed?: Yes Alcohol Intake: former Drug use: Occasionally Substance use type: former substance user and marijuana Housing: detention Do you feel safe at home: Yes (lives with sister) Do you feel safe in your relationship?: Yes Additional Social history: Lives with sister in [place], retired, gets some help with cleaning/bathing. Quit smoking at recent rehab stay, but still bums a cigarette from sister when she is stressed. Time Spent with Patient Time Spent with Patient: 45-69 minutes Time was spent: preparing to see the patient(eg.review tests), ordering medications,tests, procedures, referring, communicating with other health animal care taker, indepentently interpreting results, counseling the patient and care coordination
[2024-12-09] MEDS: Normal Saline Flush 10 ML SYR (13:56)
--- NOTE | 2024-12-09 15:28 | NUR.NOTE ---
Nursing Note: Full nurse to nurse report was given to [facility]. Confirmed with Chela RICHARDS patient is to be sent with [facility]. Patient was discharged via EMS.
== END 2024-12-09 15:20 | disposition skilled nursing facility (03) ==
LOC: ER 17:09 → EDHOLD 21:53 → MS 12-08 01:55
PROVIDERS: Nurse Practitioner Family; Admitting Provider General Practice; Emergency Provider Physician Assistant; Visit Provider General Practice
DX: J44.1 Chronic obstructive pulmonary disease with (acute) exacerbation (principal); J96.10 Chronic respiratory failure, unspecified whether with hypoxia or hypercapnia; I50.9 Heart failure, unspecified; I48.20 Chronic atrial fibrillation, unspecified; I48.92 Unspecified atrial flutter; I11.0 Hypertensive heart disease with heart failure; E78.5 Hyperlipidemia, unspecified; G25.81 Restless legs syndrome; G47.00 Insomnia, unspecified; D64.9 Anemia, unspecified; R53.1 Weakness; F41.9 Anxiety disorder, unspecified; R32 Unspecified urinary incontinence; Z96.653 Presence of artificial knee joint, bilateral; M54.42 Lumbago with sciatica, left side; F17.210 Nicotine dependence, cigarettes, uncomplicated; Z79.01 Long term (current) use of anticoagulants; Z79.899 Other long term (current) drug therapy; R07.89 Other chest pain
CPT/HCPCS: 00123; 36415; 51702; 71250; 80048; 80053; 82805; 87637; 93005; 94640; 96365; 96366; 96375; 96376; 99291; 81003; 81015; 83605; 83735; 83880; 84443; 84484; 85025; 93010; 94760; 99223; 99232; 99239; J0456; J1940; J2919; J3490; J7620

== ENCOUNTER 2025-01-07 11:20 | Outpatient (REF) | payer MEDICARE, MEDICAID, SELFPAY ==
[2025-01-07 12:55] LABS: Bilirubin Negative (Negative); Blood Moderate (Negative); Clarity Sl Cloudy (Clear); Glucose Negative (Negative); Ketones Negative (Negative); Leukocyte Esterase Moderate (Negative); Nitrite Positive (Negative); Specific Gravity 1.015 (1.005-1.025); Urobilinogen 0.2 mg/dL (Up to 0.2)
[2025-01-07 13:27] LABS: Bacteria Moderate HPF (Negative); Crystals Many Amorphous HPF (Negative); Epithelial Cells Rare HPF (Negative); Mucus Negative (Negative); WBC 20-50 HPF (0-5)
[2025-01-07 13:28] LABS: C & S Indicated? Yes; Casts Negative LPF (Negative)
== END 2025-01-07 11:21 | disposition home or self-care (01) ==
LOC: LBN 11:20
PROVIDERS: Visit Provider Family Medicine Geriatric Medicine
DX: R33.9 Retention of urine, unspecified (principal)
CPT/HCPCS: 87077; 81003; 81015; 87086; 87186

== ENCOUNTER 2025-01-20 22:42 | Outpatient (REF) | payer MEDICARE, MEDICAID, SELFPAY ==
[2025-01-20 22:16] LABS: Bilirubin Negative (Negative); Blood Moderate (Negative); Clarity Sl Cloudy (Clear); Glucose Negative (Negative); Ketones Negative (Negative); Leukocyte Esterase Moderate (Negative); Nitrite Positive (Negative); Urobilinogen 0.2 mg/dL (Up to 0.2); pH 7.5 (5-8)
[2025-01-20 22:30] LABS: Bacteria Many HPF (Negative); C & S Indicated? C&S Done As Ordered; Crystals Moderate Triple Phos HPF (Negative); Epithelial Cells Moderate HPF (Negative); Mucus Negative (Negative)
== END 2025-01-20 22:43 | disposition home or self-care (01) ==
LOC: LBN 22:42
PROVIDERS: Visit Provider Family Medicine Geriatric Medicine
DX: D64.9 Anemia, unspecified (principal)
CPT/HCPCS: 87077; 81003; 81015; 87086; 87186

== ENCOUNTER 2025-02-01 17:53 | Outpatient (REF) | payer MEDICARE, MEDICAID, SELFPAY ==
[2025-02-01 19:41] LABS: Abs Immature Grans 0.05 10^3/uL (0.0-0.06); Absolute Basophil Count 0.05 10^3/uL (0.0-0.2); Absolute Lymphocyte Count 1.41 10^3/uL (1.2-3.4); Absolute Monocyte Count 0.46 10^3/uL (0.1-0.8); Basophils % 0.6 %; Eosinophils % 5.1 %; HCT 46.3 % (36.0-46.0); HGB 13.6 g/dL (11.2-15.7); Immature Grans % 0.6 %; Lymphocytes % 17.9 %; MCH 26.7 pg (27.0-33.0); MCHC 29.4 % (32.0-36.0); MCV 91 fL (80-95); MPV 8.7 fL (8.0-11.0); Monocytes % 5.8 %; Platelet Count 273 10^3/uL (130-400); RDW 17.2 % (11.7-14.6); RDW-SD 57.9 fL; WBC 7.87 10^3/uL (4.4-10.8)
[2025-02-01 20:03] LABS: ALT 22 U/L (14-59); AST 27 U/L (15-37); Albumin 3.2 g/dL (3.4-5.0); Alkaline Phosphatase 120 U/L (46-116); Anion Gap 6.8 mmol/L (3-11); BUN 8 mg/dL (7-18); Bilirubin, Total 0.5 mg/dL (0.2-1.0); CO2 34.2 mmol/L (21.0-32.0); CREATININE 0.7 mg/dL (0.55-1.02); Calcium 9.7 mg/dL (8.5-10.1); Chloride 107 mmol/L (98-107); Glucose 119 mg/dL (74-106); NT-proBNP 586 pg/mL (<300); Potassium 3.6 mmol/L (3.5-5.1); Sodium 148 mmol/L (136-145); Total Protein 6.8 g/dL (6.4-8.2)
== END 2025-02-01 17:54 | disposition home or self-care (01) ==
LOC: LBN 17:53
PROVIDERS: Visit Provider Family Medicine Geriatric Medicine
DX: J44.1 Chronic obstructive pulmonary disease with (acute) exacerbation (principal); D64.9 Anemia, unspecified
CPT/HCPCS: 80053; 83880; 85025

== ENCOUNTER 2025-02-12 16:09 | Outpatient (REF) | payer MEDICARE, MEDICAID, SELFPAY ==
[2025-02-12 17:43] LABS: Bilirubin Negative (Negative); Blood Moderate (Negative); Clarity Clear (Clear); Glucose Negative (Negative); Ketones Negative (Negative); Leukocyte Esterase Moderate (Negative); Nitrite Positive (Negative); Urobilinogen 0.2 mg/dL (Up to 0.2)
[2025-02-12 17:54] LABS: Bacteria Moderate HPF (Negative); C & S Indicated? C&S Done As Ordered; Casts Negative LPF (Negative); Crystals Negative HPF (Negative); Epithelial Cells Negative HPF (Negative); Mucus Negative (Negative)
== END 2025-02-12 16:10 | disposition home or self-care (01) ==
LOC: LBN 16:09
PROVIDERS: Visit Provider Family Medicine Geriatric Medicine
DX: M62.81 Muscle weakness (generalized) (principal)
CPT/HCPCS: 87077; 81003; 81015; 87086; 87186

== ENCOUNTER 2025-02-24 13:10 | Emergency (ER) | payer MEDICARE, MEDICAID, SELFPAY ==
[2025-02-24 13:17] VITALS: BP 95/56; PULSE 61; RESP 16; TEMP 37.4; O2SAT 98
[2025-02-24 13:20] VITALS: BP 95/56; PULSE 61; RESP 16; TEMP 37.4; O2SAT 98
--- NOTE | 2025-02-24 13:45 | DI.CT_ITS ---
Exam(s) CT CERVICAL SPINE WO EXAM: CT CERVICAL SPINE WO CLINICAL HISTORY: prior fusion, pain after kira in wheelchair. TECHNIQUE: Imaging Protocol: Axial computed tomography images with coronal and sagittal reformatted images were created and reviewed CONTRAST MATERIAL: Noncontrast COMPARISON: None FINDINGS: Bones: There is posterior fusion hardware noted from the C2 through C6 levels. There is no evidence of lucency around the pedicle screws. No hardware fracture is seen. Laminectomy defects are noted a t C3 and C4. No acute fracture or dislocations are seen. There is bony fusion across the facet joint s as well as some fusion across the disc spaces at these levels. The alignment of the cervical spine is normal including the cervicovertebral junction and cervicothor acic junction. Soft Tissues: The soft tissues of the neck are unremarkable. No large disk herniations are identified . The visualized portions of the lung apices are clear. No pneumothorax is seen. The visualized portions of the brain are unremarkable. The mastoid air cells are clear. There is mu cous retention in the right sphenoid sinus. IMPRESSION: Postsurgical changes of posterior fusion from C2 through C6. No acute abnormalities identified. RADIATION DOSE DELIVERED: Total DLP DATA REPOSITORY: All CT scans at this facility are submitted to the National Radiology Data Registry (NRDR) Dose Index Registry (DIR) with the [employer] ([employer]). RADIATION OPTIMIZATION: All CT scans at this facility use at least one of these dose optimization te chniques: automated exposure control; mA and/or kV adjustment per patient size (includes targeted exa ms where dose is matched to clinical indication); or iterative reconstruction.
[2025-02-24 14:02] LABS: Abs Immature Grans 0.04 10^3/uL (0.0-0.06); Absolute Basophil Count 0.04 10^3/uL (0.0-0.2); Absolute Eosinophil Count 0.38 10^3/uL (0.0-0.7); Absolute Lymphocyte Count 1.75 10^3/uL (1.2-3.4); Absolute Monocyte Count 0.46 10^3/uL (0.1-0.8); Absolute Neutrophil Count 4.12 10^3/uL (1.2-6.7); Basophils % 0.6 %; Eosinophils % 5.6 %; Immature Grans % 0.6 %; Lactate 0.8 mmol/L (<or=2.0); Lymphocytes % 25.8 %; MCH 27.2 pg (27.0-33.0); MCV 91 fL (80-95); MPV 8.6 fL (8.0-11.0); Monocytes % 6.8 %; Neutrophils % 60.6 %; Platelet Count 212 10^3/uL (130-400); RBC 4.41 10^6/uL (3.93-5.22); RDW 16.7 % (11.7-14.6); RDW-SD 56.2 fL; WBC 6.79 10^3/uL (4.4-10.8)
--- NOTE | 2025-02-24 14:13 | NUR.NOTE ---
Nursing Note: PT asked for C-Collar to be removed gave PT cons of removal, Provider aware. C-Collar removed at this time.
[2025-02-24 14:20] LABS: ALT 17 U/L (14-59); AST 19 U/L (15-37); Albumin 3.2 g/dL (3.4-5.0); Alkaline Phosphatase 106 U/L (46-116); Anion Gap 1.2 mmol/L (3-11); BUN 11 mg/dL (7-18); Bilirubin, Total 0.5 mg/dL (0.2-1.0); CO2 35.8 mmol/L (21.0-32.0); CREATININE 0.8 mg/dL (0.55-1.02); Calcium 9.6 mg/dL (8.5-10.1); Chloride 103 mmol/L (98-107); Estimated GFR 77.27 (mL/min/1.73m2); Glucose 96 mg/dL (74-106); Potassium 4.6 mmol/L (3.5-5.1); Sodium 140 mmol/L (136-145)
[2025-02-24 14:25] LABS: Bilirubin Negative (Negative); Blood Trace-intact (Negative); Clarity Clear (Clear); Glucose Negative (Negative); Ketones Negative (Negative); Leukocyte Esterase Moderate (Negative); Nitrite Negative (Negative); Urobilinogen 0.2 mg/dL (Up to 0.2); pH 6.5 (5-8)
--- NOTE | 2025-02-24 14:35 | ED.GENADUL_ITS ---
Discharge Plan Disposition Patient Disposition: Shelter Facility(SNF) Condition: Stable Discharge Details Clinical Impression: Acute hypotension, Neck pain Primary Care Provider: Unknown,Unknown ED Provider: Abdirahman Morris Home Meds and New Rx's Prescriptions: New cephalexin 500 mg capsule 500 mg PO QID Qty: 39 0RF Continued metoprolol succinate 50 mg tablet extended release 24 hr 50 mg PO DAILY venlafaxine 75 mg capsule,extended release 24hr 75 mg PO DAILY Eliquis 5 mg tablet 1 tab PO BID gabapentin 300 mg capsule 600 mg PO TID Patient Comments: TAKE TWO CAPSULES BY MOUTH THREE TIMES A DAY ropinirole 5 mg tablet 5 mg PO TID Patient Comments: TAKE ONE TABLET BY MOUTH THREE TIMES A DAY, takes first dose around 1400, last dose at bedtime and middle dose in between those two tizanidine 2 mg tablet 4 mg PO BID Bio-K plus 50 billion cell capsule,delayed release(DR/EC) 1 cap PO DAILY Qty: 24 0RF aspirin [Adult Low Dose Aspirin] 81 mg tablet,delayed release (DR/EC) 81 mg PO DAILY cholecalciferol (vitamin D3) 50 mcg (2,000 unit) capsule 50 mcg PO DAILY magnesium 200 mg tablet 400 mg PO DAILY potassium chloride 20 mEq packet 20 meq PO DAILY acetaminophen 500 mg capsule 1,000 mg PO Q6H PRN oxycodone 5 mg tablet 5 mg PO Q6H PRN ferrous sulfate 325 mg (65 mg iron) Tablet 325 mg PO DAILY ipratropium-albuterol 0.5 mg-3 mg(2.5 mg base)/3 mL solution for nebulization 3 ml INHALATION Q6H PRN vitamin B complex [Vitamins B Complex] Capsule 1 cap PO DAILY docusate sodium [Col-Rite] 100 mg capsule 100 mg PO DAILY furosemide 20 mg tablet 20 mg PO DAILY oxybutynin chloride 5 mg tablet extended release 24hr 5 mg PO DAILY fluoxetine 20 mg capsule 20 mg PO DAILY artificial tears (gonioscopic) Drops 2 drp ophthalmic (eye) BID PRN lorazepam 1 mg Tablet 1 mg PO TID PRN Patient Comments: states out of prescription diltiazem HCl [Cartia XT] 240 mg capsule,extended release 24hr 240 mg PO DAILY Qty: 30 0RF lovastatin 20 mg Tablet 20 mg PO QPM Qty: 30 0RF Discharge Instructions Instructions: Chronic Neck Pain (DC), Urinary Tract Infection, Adult ED Additional Instructions: Please take full course of antibiotic as prescribed. Please follow-up with urology for complicated UTI. Call tomorrow to schedule timely follow-up. Regarding your neck pain, you may wish to wear a soft collar for support. Please follow-up with your spinal specialist. Please follow-up with your primary care physician. Drink plenty of fluids to stay hydrated. Your antihypertensive medication dosing may need to be changed. Please discuss this with your doctor tomorrow. Return to the emergency department immediately for any worsening or new concerning symptoms. Referrals: [facility] [Provider Group] Discharge Data Discharge Date/Time-TO BE ENTERED AT DEPARTURE: 02/24/25 17:59 HPI General Mode of arrival: EMS . Date/Time Provider Initiated Documentation: 02/24/25 13:22 . Limitations to Documentation: no limitations . Information obtained by: patient . HPI Narrative: 74-year-old female presents from nursing facility with concern for dizziness. Patient notes she felt dizzy and generally weak this morning. She states she has chronic intermittent urinary tract infections and is intermittently catheterized. She currently has Ok catheter in place. She notes she recently finished antibiotic course for UTI. She states recently she has had bladder spasms that are severe at times. She notes just now she had an overwhelming urge to urinate out of bladder spasm and urinated around the catheter. Patient denies fever. She does note custodial staff checked her blood pressure and she was told it was low this morning. Patient also notes chronic neck pain post spinal fusion but that a week or so ago she kira her neck while being transported in wheelchair and think she may have reinjured it. She has not had imaging after this event and notes persistent pain in her neck. No associated numbness or weakness of her hands. Related Data Home Medications ?Medication ?Instructions ?Recorded ?Confirmed lorazepam 1 mg tablet 1 mg PO TID PRN 06/03/19 02/24/25 metoprolol succinate 50 mg 50 mg PO DAILY 02/22/22 02/24/25 tablet,extended release 24 hr apixaban 5 mg tablet (Eliquis) 1 tab PO BID 06/15/22 02/24/25 gabapentin 300 mg capsule 600 mg PO TID 06/15/22 02/24/25 venlafaxine 75 mg capsule,extended 75 mg PO DAILY 06/15/22 02/24/25 release 24 hr ropinirole 5 mg tablet 5 mg PO TID 01/13/24 02/24/25 L. acidophilus,casei,rhamnosus 50 1 cap PO DAILY #24 caps 01/16/24 02/24/25 billion cell capsule,delayed release (Bio-K plus) tizanidine 2 mg tablet 4 mg PO BID 01/16/24 02/24/25 diltiazem HCl 240 mg 240 mg PO DAILY #30 caps 02/26/24 02/24/25 capsule,extended release 24 hr (Cartia XT) lovastatin 20 mg tablet 20 mg PO QPM #30 tabs 02/26/24 02/24/25 acetaminophen 500 mg capsule 1,000 mg PO Q6H PRN 12/07/24 02/24/25 aspirin 81 mg tablet,delayed 81 mg PO DAILY 12/07/24 02/24/25 release (Adult Low Dose Aspirin) cholecalciferol (vitamin D3) 50 50 mcg PO DAILY 12/07/24 02/24/25 mcg (2,000 unit) capsule ferrous sulfate 325 mg (65 mg 325 mg PO DAILY 12/07/24 02/24/25 iron) tablet ipratropium 0.5 mg-albuterol 3 mg 3 ml inhalation Q6H PRN 12/07/24 02/24/25 (2.5 mg base)/3 mL nebulization soln magnesium 200 mg tablet 400 mg PO DAILY 12/07/24 02/24/25 oxycodone 5 mg tablet 5 mg PO Q6H PRN 12/07/24 02/24/25 potassium chloride 20 mEq oral 20 meq PO DAILY 12/07/24 02/24/25 packet artificial tears (gonioscopic) 2 drp ophthalmic (eye) BID PRN 02/24/25 02/24/25 cephalexin 500 mg capsule 500 mg PO QID #39 caps 02/24/25 docusate sodium 100 mg capsule 100 mg PO DAILY 02/24/25 02/24/25 (Col-Rite) fluoxetine 20 mg capsule 20 mg PO DAILY 02/24/25 02/24/25 furosemide 20 mg tablet 20 mg PO DAILY 02/24/25 02/24/25 oxybutynin chloride 5 mg 5 mg PO DAILY 02/24/25 02/24/25 tablet,extended release 24 hr vitamin B complex (Vitamins B 1 cap PO DAILY 02/24/25 02/24/25 Complex capsule) Previous Rx's ?Medication ?Instructions ?Recorded L. acidophilus,casei,rhamnosus 50 1 cap PO DAILY #24 caps 01/16/24 billion cell capsule,delayed release (Bio-K plus) diltiazem HCl 240 mg 240 mg PO DAILY #30 caps 02/26/24 capsule,extended release 24 hr (Cartia XT) lovastatin 20 mg tablet 20 mg PO QPM #30 tabs 02/26/24 cephalexin 500 mg capsule 500 mg PO QID #39 caps 02/24/25 Allergies Allergy/AdvReac Type Severity Reaction Status Date / Time No Known Allergies Allergy Verified 12/07/24 16:43 General Stated Complaint: Urinary SIDNEY: 3 Review of Systems All systems reviewed & are unremarkable except as noted in HPI and below Constitutional Constitutional: Denies fever(s) Genitourinary Genitourinary: Reports as per HPI Exam Const General: cooperative Orientation: alert Other: Intermittent painful bladder spasms HENMT Mouth: moist mucous membranes Eyes Conjunctivae: normal conjunctivae Sclera: normal sclerae Resp Auscultation: clear to auscultation bilaterally, no rales, no rhonchi and no wheezes Cardio Rate: regular rate and not tachycardic Rhythm: regular rhythm GI Palpation: soft, not firm, no guarding, no masses, not rigid and nontender Other: Incontinent of urine, Ko catheter intact with dark yellow urine with sediment. Back/Spine/Pelvis Cervical Spine: No collar present, cervical spinal tenderness and No step off deformity Skin General skin exam: no rashes or lesions noted Neuro General: patient alert, patient awake and patient oriented x3 Extrem General: no edema Psych Appearance: grossly normal Mental Status: mental status grossly normal Course Vital Signs Vital signs: Vital Signs Temperature 37.4 C 02/24/25 13:17 Pulse 61 02/24/25 13:17 Respiratory Rate 16 02/24/25 13:17 Blood Pressure 95/56 L 02/24/25 13:17 Pulse Oximetry 98 02/24/25 13:17 Temperature 37.4 C 02/24/25 13:20 Pulse 61 02/24/25 13:20 Respiratory Rate 16 02/24/25 13:20 Blood Pressure 95/56 L 02/24/25 13:20 Pulse Oximetry 98 02/24/25 13:20 Oxygen Delivery Method Room Air 02/24/25 13:20 Oxygen Flow Rate 0 02/24/25 13:20 Lab/Test Results Lab/Test Results: 02/24/25 13:47 Blood Blood Culture - Pending 02/24/25 13:47 Blood Blood Culture - Pending Laboratory Tests Range/Units 02/24/25 02/24/25 13:50 14:08 WBC (4.4-10.8) 10^3/uL 6.79 RBC (3.93-5.22) 10^6/uL 4.41 Hgb (11.2-15.7) g/dL 12.0 Hct (36.0-46.0) % 40.0 MCV (80-95) fL 91 MCH (27.0-33.0) pg 27.2 MCHC (32.0-36.0) % 30.0 L RDW (11.7-14.6) % 16.7 H Plt Count (130-400) 10^3/uL 212 MPV (8.0-11.0) fL 8.6 Immature Gran % % 0.6 Neutrophils % % 60.6 Lymphocytes % % 25.8 Monocytes % % 6.8 Eosinophils % % 5.6 Basophils % % 0.6 Nucleated RBC % (0.0-0.3) % 0.0 Absolute Neutrophils (1.2-6.7) 10^3/uL 4.12 Absolute Lymphocytes (1.2-3.4) 10^3/uL 1.75 Absolute Monocytes (0.1-0.8) 10^3/uL 0.46 Absolute Eosinophils (0.0-0.7) 10^3/uL 0.38 Absolute Basophils (0.0-0.2) 10^3/uL 0.04 VBG Lactate (<or=2.0) mmol/L 0.8 Sodium (136-145) mmol/L 140 Potassium (3.5-5.1) mmol/L 4.6 Chloride (98-107) mmol/L 103 Carbon Dioxide (21.0-32.0) mmol/L 35.8 H Anion Gap (3-11) mmol/L 1.2 L BUN (7-18) mg/dL 11 Creatinine (0.55-1.02) mg/dL 0.8 Est GFR (CKD-EPI 2020) (mL/min/1.73m2) 77.27 Glucose (74-106) mg/dL 96 Calcium (8.5-10.1) mg/dL 9.6 Total Bilirubin (0.2-1.0) mg/dL 0.5 AST (15-37) U/L 19 ALT (14-59) U/L 17 Alkaline Phosphatase (46-116) U/L 106 Total Protein (6.4-8.2) g/dL 7.0 Albumin (3.4-5.0) g/dL 3.2 L Urine Color (Yellow) Yellow Urine Clarity (Clear) Clear Urine pH (5-8) 6.5 Ur Specific [place] (1.005-1.025) 1.010 Urine Protein (Neg-Trace) mg/dL Negative Urine Ketones (Negative) mg/dL Negative Urine Blood (Negative) Trace-intact H Urine Nitrite (Negative) Negative Urine Bilirubin (Negative) Negative Urine Urobilinogen (Up to 0.2) mg/dL 0.2 Ur Leukocyte Esterase (Negative) Moderate H Urine Glucose (Negative) mg/dL Negative Medical Decision Making 1443 -- 74-year-old female with multiple medical problems including history of chronic hip pain, postural dizziness, COPD, pulmonary embolism, intermittent urinary tract infections, Ko catheter in place, transferred from custodial with concern for dizziness this morning, low blood pressure and recent UTI that was treated with unknown antibiotic. Patient has relatively low blood pressure 95/56 compared to prior. She is not tachycardic. Saturating well in no respiratory distress. No fever with temp 37.4C. Concern for potential resistant UTI. Consider urosepsis. Patient given IV fluid bolus. Consider C-spine fracture versus acute on chronic pain. Plan to obtain CT of the cervical spine. Plan to apply cervical collar. This was refused by the patient. Pain treated with Dilaudid IV and acetaminophen IV. Initial labs reviewed: No leukocytosis. Electrolytes normal. Lactate normal. Labs not consistent with sepsis. Ko catheter was replaced. Urinalysis on new Ko specimen reveals 20-50 WBCs, 3-5 RBCs with moderate leukocyte esterase and rare epithelial cells. Concern for persistent UTI. Urine culture pending. I reviewed urine culture from 02/12/2025 which is growing Proteus mirabilis with resistance to ampicillin, Cipro, Macrobid and Bactrim. Sensitive to cephalosporins. Plan to initiate treatment with ceftriaxone IV. -- CT of the cervical spine was interpreted by radiology: Postsurgical changes of posterior fusion from C2-C6. No acute abnormalities identified. Patient reassessed and continued pain in her posterior neck. I suspect this is acute exacerbation of chronic pain. I will give Toradol IV and oxycodone as prescribed. Repeat vitals are reassuring with improved blood pressure after IVF. Plan for discharge back to nursing facility. Lab Data Lab results reviewed: Yes I reviewed the patient's lab results. Labs: 02/24/25 14:08 Urine - Reflex from Ua Urine Culture - Pending 02/24/25 13:47 Blood Blood Culture - Pending 02/24/25 13:47 Blood Blood Culture - Pending Laboratory Tests Range/Units 02/24/25 02/24/25 13:50 14:08 WBC (4.4-10.8) 10^3/uL 6.79 RBC (3.93-5.22) 10^6/uL 4.41 Hgb (11.2-15.7) g/dL 12.0 Hct (36.0-46.0) % 40.0 MCV (80-95) fL 91 MCH (27.0-33.0) pg 27.2 MCHC (32.0-36.0) % 30.0 L RDW (11.7-14.6) % 16.7 H Plt Count (130-400) 10^3/uL 212 MPV (8.0-11.0) fL 8.6 Immature Gran % % 0.6 Neutrophils % % 60.6 Lymphocytes % % 25.8 Monocytes % % 6.8 Eosinophils % % 5.6 Basophils % % 0.6 Nucleated RBC % (0.0-0.3) % 0.0 Absolute Neutrophils (1.2-6.7) 10^3/uL 4.12 Absolute Lymphocytes (1.2-3.4) 10^3/uL 1.75 Absolute Monocytes (0.1-0.8) 10^3/uL 0.46 Absolute Eosinophils (0.0-0.7) 10^3/uL 0.38 Absolute Basophils (0.0-0.2) 10^3/uL 0.04 VBG Lactate (<or=2.0) mmol/L 0.8 Sodium (136-145) mmol/L 140 Potassium (3.5-5.1) mmol/L 4.6 Chloride (98-107) mmol/L 103 Carbon Dioxide (21.0-32.0) mmol/L 35.8 H Anion Gap (3-11) mmol/L 1.2 L BUN (7-18) mg/dL 11 Creatinine (0.55-1.02) mg/dL 0.8 Est GFR (CKD-EPI 2020) (mL/min/1.73m2) 77.27 Glucose (74-106) mg/dL 96 Calcium (8.5-10.1) mg/dL 9.6 Total Bilirubin (0.2-1.0) mg/dL 0.5 AST (15-37) U/L 19 ALT (14-59) U/L 17 Alkaline Phosphatase (46-116) U/L 106 Total Protein (6.4-8.2) g/dL 7.0 Albumin (3.4-5.0) g/dL 3.2 L Urine Color (Yellow) Yellow Urine Clarity (Clear) Clear Urine pH (5-8) 6.5 Ur Specific [place] (1.005-1.025) 1.010 Urine Protein (Neg-Trace) mg/dL Negative Urine Ketones (Negative) mg/dL Negative Urine Blood (Negative) Trace-intact H Urine Nitrite (Negative) Negative Urine Bilirubin (Negative) Negative Urine Urobilinogen (Up to 0.2) mg/dL 0.2 Ur Leukocyte Esterase (Negative) Moderate H Urine RBC (0-2) HPF 3-5 H Urine WBC (0-5) HPF 20-50 H Ur Epithelial Cells (Negative) HPF Rare Urine Crystals (Negative) HPF Negative Urine Bacteria (Negative) HPF Moderate Urine Casts (Negative) LPF Negative Urine Mucus (Negative) Negative Urine Other (Negative) Rare Renal Ur Culture Indicated? Yes Urine Glucose (Negative) mg/dL Negative Quality:SDOH Health Related Social Needs: No Data to Display PFSH All Active Problems (Updated 02/24/25 @ 17:02 by Abdirahman Morris MD) Neck pain (Acute) Acute hypotension (Acute) Pleural effusion (Acute) Hypercarbia (Acute) Chronic respiratory failure (Acute) Afib (Chronic) F/u with Dr. 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) Diarrhea (Acute) Urinary incontinence (Acute) Hypokalemia (Acute) Ambulatory dysfunction (Acute) UTI (urinary tract infection) due to Enterococcus (Acute) Anxiety (Chronic) Generalized weakness (Acute) Medical History Cervical nerve root disorder Not disorder: Per H&P (R) Cervical medial branch block Tobacco user RLS (restless legs syndrome) Pulmonary embolism 8 months ago r/t to diagnosis a-fib Postural dizziness Depressive disorder Chronic pain syndrome COPD (chronic obstructive pulmonary disease) Lumbago with sciatica, left side Surgical History 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) History of abdominal surgery (01/21/17) Hx of cholecystectomy H/O cone biopsy of cervix History of breast biopsy Hx of rotator cuff surgery right History of total bilateral knee replacement (TKR) History of carpal tunnel release H/O exploratory laparotomy Hx of cervical spine surgery Hx of colonoscopy Social History Smoking/Tobacco Use Status: Current-Occasional Tobacco Type: cigarettes Smoking risk assessment performed?: Yes Alcohol Intake: former Drug use: Occasionally Substance use type: former substance user and marijuana Housing: custodial Do you feel safe at home: Yes (lives with sister) Do you feel safe in your relationship?: Yes Additional Social history: Lives with sister in [place], retired, gets some help with cleaning/bathing. Quit smoking at recent rehab stay, but still bums a cigarette from sister when she is stressed.
[2025-02-24 14:36] LABS: Bacteria Moderate HPF (Negative); C & S Indicated? Yes; Casts Negative LPF (Negative); Crystals Negative HPF (Negative); Epithelial Cells Rare HPF (Negative); Mucus Negative (Negative); Other Cells Rare Renal (Negative); WBC 20-50 HPF (0-5)
[2025-02-24] MEDS: HYDROmorphone 2 MG/ML SYR 1 MG IVP (14:47)
[2025-02-24] MEDS: ACETAMINOPHEN 500 MG/50 ML BAG 200 MG IVPB (14:47)
[2025-02-24] MEDS: Lactated Ringers 500 ML 1000 ML IV (14:48)
[2025-02-24] MEDS: cefTRIAXone 1 GM/50 ML BAG IVPB (15:21)
[2025-02-24 15:47] VITALS: BP 112/59; PULSE 64; PULSE 66; RESP 10; O2SAT 93
[2025-02-24] MEDS: Ketorolac 15 MG/ML VIAL IVP (16:44)
[2025-02-24] MEDS: oxyCODONE 5 MG TAB PO (16:44)
--- NOTE | 2025-02-24 18:00 | NUR.NOTE ---
Nursing Note: PT declined soft collar she stated she has one at the [facility]&
== END 2025-02-24 17:59 | disposition skilled nursing facility (03) ==
PROVIDERS: Emergency Provider Student in an Organized Health Care Education/Training Program
DX: I95.9 Hypotension, unspecified (principal); M54.2 Cervicalgia; N39.0 Urinary tract infection, site not specified; I10 Essential (primary) hypertension; J44.9 Chronic obstructive pulmonary disease, unspecified; F17.210 Nicotine dependence, cigarettes, uncomplicated; Z98.1 Arthrodesis status
CPT/HCPCS: 80053; 87040; 87077; 96361; 96365; 96375; 99284; 72125; 81003; 81015; 83605; 85025; 87086; 87186; J0131; J0696; J1171; J1885

== ENCOUNTER 2025-03-25 09:05 | Outpatient (REF) | payer MEDICARE, MEDICAID, SELFPAY ==
[2025-03-25 11:36] LABS: Bilirubin Negative (Negative); Blood Negative (Negative); Clarity Clear (Clear); Glucose Negative (Negative); Ketones Negative (Negative); Leukocyte Esterase Moderate (Negative); Nitrite Positive (Negative); Urobilinogen 0.2 mg/dL (Up to 0.2); pH 5.5 (5-8)
[2025-03-25 12:00] LABS: Epithelial Cells Rare HPF (Negative); Other Cells Rare Transitional (Negative); WBC >50 HPF (0-5)
[2025-03-25 12:01] LABS: Bacteria Moderate HPF (Negative); C & S Indicated? C&S Done As Ordered; Casts Negative LPF (Negative); Mucus Negative (Negative)
[2025-03-25 12:03] LABS: Crystals Few Calcium Oxalate HPF (Negative)
== END 2025-03-25 09:06 | disposition home or self-care (01) ==
LOC: LBN 09:05
PROVIDERS: Visit Provider Nurse Practitioner Gerontology
DX: R82.90 Unspecified abnormal findings in urine (principal); B95.2 Enterococcus as the cause of diseases classified elsewhere
CPT/HCPCS: 87077; 81003; 81015; 87086; 87186

== ENCOUNTER 2025-05-20 12:22 | Observation (INO) | payer MEDICARE, MEDICAID, SELFPAY ==
[2025-05-20] VITALS (48 sets, daily range): BP systolic 93–139; BP diastolic 33–109; PULSE 59–83; RESP 14–29; TEMP 36.3–36.5; O2SAT 90–98
--- NOTE | 2025-05-20 12:15 | RT.EKG_ITS ---
APPROVED REPORT Exam: Resting ECG Reason for Exam: dyspnea Patient Location: E HR:65 bpm ECG Measurements Heart Rate 65 AXIS FL [id number] P [id number] QRSd 93 QRS 67 QT 441 T 258 QTc 473 Conclusion Atrial flutter with predominant 3:1 AV block...A-rate 205, multiple Ps Nonspecific repol abnormality, inferior leads...ST dep, T neg, II III aVF No Occlusion PA
--- NOTE | 2025-05-20 12:25 | W.ED.GENAD ---
Discharge Plan Disposition Patient Disposition: Admit to [facility] Discharge Details Clinical Impression: Acute respiratory failure with hypoxia and hypercarbia, Acute exacerbation of chronic obstructive pulmonary disease (COPD) Primary Care Provider: Unknown,Unknown ED Provider: Kenan Martinez [place] Meds and New Rx's Prescriptions: No Action metoprolol succinate 50 mg tablet extended release 24 hr 50 mg PO DAILY Eliquis 5 mg tablet 1 tab PO BID gabapentin 300 mg capsule 300 mg PO TID tizanidine 2 mg tablet 2 mg PO BID aspirin [Adult Low Dose Aspirin] 81 mg tablet,delayed release (DR/EC) 81 mg PO DAILY cholecalciferol (vitamin D3) 50 mcg (2,000 unit) capsule 50 mcg PO DAILY magnesium 200 mg tablet 400 mg PO DAILY acetaminophen 500 mg capsule 1,000 mg PO Q6H PRN oxycodone 5 mg tablet 5 mg PO BID ferrous sulfate 325 mg (65 mg iron) Tablet 325 mg PO DAILY ipratropium-albuterol 0.5 mg-3 mg(2.5 mg base)/3 mL solution for nebulization 3 ml INHALATION Q6H PRN vitamin B complex [Vitamins B Complex] Capsule 1 cap PO DAILY docusate sodium [Col-Rite] 100 mg capsule 100 mg PO DAILY furosemide 20 mg tablet 20 mg PO DAILY oxybutynin chloride 5 mg tablet extended release 24hr 5 mg PO DAILY artificial tears (gonioscopic) Drops 1 drp ophthalmic (eye) TID Bio-K plus 50 billion cell capsule,delayed release(DR/EC) 1 cap PO BID lorazepam 1 mg Tablet 0.5 mg PO Q6H PRN diltiazem HCl [Cartia XT] 240 mg capsule,extended release 24hr 240 mg PO DAILY Qty: 30 0RF lovastatin 20 mg Tablet 20 mg PO QPM Qty: 30 0RF HPI General Date/Time Provider Initiated Documentation: 05/20/25 12:25. HPI Narrative: MDM This is a 77-year-old afebrile and not tachycardic female with reported productive cough left-sided rhonchi concerning for possibility of pneumonia for which patient will receive blood cultures broad-spectrum antibiotics given transient episode of hypotension with a MAP of 58 mmHg. No pain out of proportion to suggest necrotizing soft tissue infection. Patient does have chronic appearing non pitting lower extremity edema so I am not suspicious for acute heart failure. She is on apixaban and does not have calf pain so my suspicion is relatively low for blood clot however will obtain a D-dimer. Patient is not pale appearing nor tachycardic so I am not suspicious for acute blood loss anemia. No dysuria nor frequency so my suspicion is low for UTI. Nonetheless in setting of sepsis we will obtain straight cath urinalysis. No head strike nor acute encephalopathy as I do not feel the patient requires CT scan of her head. No trauma to chest to suggest pneumothorax so no indication for tube thoracostomy. Will obtain a venous blood gas. At the moment patient saturating well on room air. Uvula midline so not suspicious for peritonsillar abscess. Good range of motion in neck so I am not suspicious for retropharyngeal abscess. No significant posterior oropharynx erythema to suggest strep. Will reassess. 4PM She requires hospitalization in the setting of acute respiratory failure with hypoxia and hypercarbia requiring 2 L nasal cannula. She had a positive D-dimer but no obvious PNA on CT scan. Radiology reported that patient has signs of mild CHF on CT. I covered her for COPD exacerbation with doxycycline and prednisone. Patient does have mild hypercarbia but is not in any respiratory distress and has no tachypnea so I did not feel that she required rescue BiPAP.She does have nitrite positive urinalysis but no dysuria nor frequency. My suspicion is higher for COPD compared to CHF however given mixed picture we will also treat with 20 mg furosemide. I was in touch with Dr. Grant who graciously agreed to accept the patient for hospitalization. HPI This is a patient with a history of COPD presenting with a sore throat and breathing difficulties. The patient has been experiencing a progressively worsening sore throat for the past week, which initially started as a sore throat. She was tested for COVID-19 recently. She reports no fever but has experienced vomiting. She also mentions chest pain, which intensifies with frequent coughing. Her primary concerns at present are her breathing difficulties and persistent cough. She does not smoke and does not use inhalers on a daily basis. She reports no history of blood clots in her legs or lungs. The patient also reports having a bad neck. She previously fell down, broke her hip, and hit her head. The head injury was significant, but treatment was delayed until the hip was addressed to prevent infection. These issues are not currently bothering her. Exam General: Elderly-appearing in no acute distress speaking in complete sentences. Head: Normocephalic, atraumatic. Eye: Extraocular eye movements intact. No conjunctival injection. No scleral icterus. Ear, nose, mouth, throat: Grossly normal inspection. Normal voice, handling secretions normally. Uvula midline. No significant posterior oropharynx erythema. Neck: Trachea midline. No nuchal rigidity. Good range of motion in neck. Cardiovascular: Well-perfused distal extremities. Regular rate and rhythm Respiratory: Nonlabored respiration. Left-sided rhonchi. No crackles. No respiratory distress. Gastrointestinal: Nondistended abdomen. Obese soft abdomen. Musculoskeletal: Mild bilateral 1+ nonpitting lower extremity edema. Moving all 4 extremities spontaneously. Skin: Normal for age and race, grossly normal temperature and turgor. No acute rash. Neurologic: Alert and appropriate, no apparent acute deficits. GCS 15. Psychiatric: Mood and manner are appropriate. Grooming and personal hygiene are appropriate. Related Data Home Medications ?Medication ?Instructions ?Recorded ?Confirmed lorazepam 1 mg tablet 0.5 mg PO Q6H PRN 06/03/19 05/20/25 metoprolol succinate 50 mg 50 mg PO DAILY 02/22/22 05/20/25 tablet,extended release 24 hr apixaban 5 mg tablet (Eliquis) 1 tab PO BID 06/15/22 05/20/25 gabapentin 300 mg capsule 300 mg PO TID 06/15/22 05/20/25 tizanidine 2 mg tablet 2 mg PO BID 01/16/24 05/20/25 diltiazem HCl 240 mg 240 mg PO DAILY #30 caps 02/26/24 05/20/25 capsule,extended release 24 hr (Cartia XT) lovastatin 20 mg tablet 20 mg PO QPM #30 tabs 02/26/24 05/20/25 acetaminophen 500 mg capsule 1,000 mg PO Q6H PRN 12/07/24 05/20/25 aspirin 81 mg tablet,delayed 81 mg PO DAILY 12/07/24 05/20/25 release (Adult Low Dose Aspirin) cholecalciferol (vitamin D3) 50 50 mcg PO DAILY 12/07/24 05/20/25 mcg (2,000 unit) capsule ferrous sulfate 325 mg (65 mg 325 mg PO DAILY 12/07/24 05/20/25 iron) tablet ipratropium 0.5 mg-albuterol 3 mg 3 ml inhalation Q6H PRN 12/07/24 05/20/25 (2.5 mg base)/3 mL nebulization soln magnesium 200 mg tablet 400 mg PO DAILY 12/07/24 05/20/25 oxycodone 5 mg tablet 5 mg PO BID 12/07/24 05/20/25 artificial tears (gonioscopic) 1 drp ophthalmic (eye) TID 02/24/25 05/20/25 docusate sodium 100 mg capsule 100 mg PO DAILY 02/24/25 05/20/25 (Col-Rite) furosemide 20 mg tablet 20 mg PO DAILY 02/24/25 05/20/25 oxybutynin chloride 5 mg 5 mg PO DAILY 02/24/25 05/20/25 tablet,extended release 24 hr vitamin B complex (Vitamins B 1 cap PO DAILY 02/24/25 05/20/25 Complex capsule) L. acidophilus,casei,rhamnosus 50 1 cap PO BID 05/20/25 05/20/25 billion cell capsule,delayed release (Bio-K plus) Previous Rx's ?Medication ?Instructions ?Recorded diltiazem HCl 240 mg 240 mg PO DAILY #30 caps 02/26/24 capsule,extended release 24 hr (Cartia XT) lovastatin 20 mg tablet 20 mg PO QPM #30 tabs 02/26/24 Allergies Allergy/AdvReac Type Severity Reaction Status Date / Time No Known Allergies Allergy Verified 05/20/25 12:35 General SIDNEY: 3 PFSH All Active Problems (Updated 05/20/25 @ 15:55 by Kenan Martinez MD) Acute exacerbation of chronic obstructive pulmonary disease (COPD) (Acute) Acute respiratory failure with hypoxia and hypercarbia (Acute) Pleural effusion (Acute) Hypercarbia (Acute) Chronic respiratory failure (Acute) Afib (Chronic) F/u with Dr. 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) Diarrhea (Acute) Urinary incontinence (Acute) Hypokalemia (Acute) Ambulatory dysfunction (Acute) UTI (urinary tract infection) due to Enterococcus (Acute) Anxiety (Chronic) Generalized weakness (Acute) Medical History Cervical nerve root disorder Not disorder: Per H&P (R) Cervical medial branch block Tobacco user RLS (restless legs syndrome) Pulmonary embolism 8 months ago r/t to diagnosis a-fib Postural dizziness Depressive disorder Chronic pain syndrome COPD (chronic obstructive pulmonary disease) Lumbago with sciatica, left side Surgical History 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) History of abdominal surgery (01/21/17) Hx of cholecystectomy H/O cone biopsy of cervix History of breast biopsy Hx of rotator cuff surgery right History of total bilateral knee replacement (TKR) History of carpal tunnel release H/O exploratory laparotomy Hx of cervical spine surgery Hx of colonoscopy Social History Smoking/Tobacco Use Status: Current-Occasional Tobacco Type: cigarettes Smoking risk assessment performed?: Yes Alcohol Intake: former Drug use: Occasionally Substance use type: former substance user and marijuana Housing: alf Do you feel safe at home: Yes (lives with sister) Do you feel safe in your relationship?: Yes Additional Social history: Lives with sister in [place], retired, gets some help with cleaning/bathing. Quit smoking at recent rehab stay, but still bums a cigarette from sister when she is stressed.
--- NOTE | 2025-05-20 12:30 | DI.RAD_ITS ---
Exam(s) XR PORTABLE CHEST AP EXAM: XR PORTABLE CHEST AP CLINICAL HISTORY: sob. TECHNIQUE: 2D digital imaging was performed. COMPARISON: CR,XR XR PORTABLE CHEST AP from 02/20/[address] CHEST WO from 12/07/2024 FINDINGS: Single AP portable view. Multilevel posterior fusion rods are noted in the cervical spine. Heart size is upper normal. The mediastinum is not widened. There are no confluent infiltrates but there increased interstitial markings in both lung cardenas. This may be exaggerated by the portable AP technique. There are no Kade B lines. No pleural effusions. IMPRESSION: Increased interstitial markings both lung cardenas. Recommend nonportable PA and lateral views when clinically possible. DATA REPOSITORY: RADIATION DOSE DELIVERED:
[2025-05-20 13:46] LABS: BE (Venous) 7 mmol/L (-2-3); HCO3 (Venous) 33 mmol/L (23-28); O2 Sat (Venous) 85 %; TCO2 (Venous) 30 mmol/L (24-29); pCO2 (Venous) 58 mmHg (41-51); pO2 (Venous) 49 mmHg
[2025-05-20 13:52] LABS: Abs Immature Grans 0.06 10^3/uL (0.0-0.06); HCT 37.3 % (36.0-46.0); HGB 11.5 g/dL (11.2-15.7); Immature Grans % 0.7 %; MCH 29.0 pg (27.0-33.0); MCHC 30.8 % (32.0-36.0); MCV 94 fL (80-95); MPV 8.4 fL (8.0-11.0); Platelet Count 256 10^3/uL (130-400); RBC 3.97 10^6/uL (3.93-5.22); RDW 14.7 % (11.7-14.6); RDW-SD 51.4 fL; WBC 8.02 10^3/uL (4.4-10.8)
[2025-05-20] MEDS: PIPERACILLIN/TAZO 3.375 GM in Normal Saline 50 ML IVPB ×2 (13:54→21:14)
[2025-05-20] MEDS: Doxycycline Hyclate 100 MG CAP PO (13:54)
[2025-05-20 13:56] LABS: COVID-19 PCR Negative (Negative); RSV PCR Negative (Negative)
[2025-05-20 14:17] LABS: Anion Gap 4.0 mmol/L (3-11); BUN 10 mg/dL (7-18); CO2 34.0 mmol/L (21.0-32.0); Calcium 9.2 mg/dL (8.5-10.1); Chloride 104 mmol/L (98-107); D-Dimer 2486 ng/mlFEU (<500); Estimated GFR 90.70 (mL/min/1.73m2); Glucose 110 mg/dL (74-106); Magnesium 2.0 mg/dL (1.8-2.4); NT-proBNP 363 pg/mL (<300); Potassium 3.8 mmol/L (3.5-5.1); Sodium 142 mmol/L (136-145); Troponin I 9 ng/L (<or=51)
--- NOTE | 2025-05-20 14:30 | DI.CT_ITS ---
Exam(s) CT CHEST PE CTA EXAM: CT CHEST PE CTA CLINICAL HISTORY: sob. TECHNIQUE: Imaging Protocol: Axial CT angiography was performed with multi- slice acquisition and multi-planar reconstructions as well as axial, coronal and sagittal MIP reconstructions. Computer aided detection (CAD) was utilized. CONTRAST MATERIAL: Intravenous: Omnipaque 350 Contrast volume:100 ml COMPARISON: CT CT CHEST WO from 12/07/2024 CR XR PORTABLE CHEST AP from 05/20/2025 FINDINGS: Pulmonary Arteries: No evidence of filling defect to suggest pulmonary emboli. Mild pulmonary artery prominence. Mediastinum and Carmen: No dominant adenopathy or fluid collection. Pulmonary parenchyma: Mild amount of fluid in the fissures. Mild interlobular septal thickening. Mild peribronchial thickening. No consolidation or dominant measurable mass. Pleura: No effusion or pneumothorax. Heart: The heart is moderately dilated. Coronary artery calcifications are seen. Aorta: Thoracic aorta non-dilated. No dissection. Upper abdomen: No acute findings. Bones: Degenerative changes. Stable mild T10 compression fracture. Tubes, Catheters, and Lines: None Soft tissues: Unremarkable. IMPRESSION: No evidence of pulmonary embolism. Cardiomegaly and mild CHF. Findings called to Dr. Martinez of the emergency department. RADIATION DOSE DELIVERED: Total DLP DATA REPOSITORY: All CT scans at this facility are submitted to the National Radiology Data Registry (NRDR) Dose Index Registry (DIR) with the [employer] (ACR). RADIATION OPTIMIZATION: All CT scans at this facility use at least one of these dose optimization techniques: automated exposure control; mA and/or kV adjustment per patient size (includes targeted exams where dose is matched to clinical indication); or iterative reconstruction.
[2025-05-20] MEDS: VANCOMYCIN/WATER (PEG) 2 GM/400 ML BAG IV (14:49)
[2025-05-20] MEDS: Normal Saline - Diluent 50 ML VIAL IJ (15:04)
[2025-05-20] MEDS: Omnipaque 350 MG/ML 100 ML BTL IJ (15:05)
[2025-05-20 15:18] LABS: Troponin I 8 ng/L (<or=51)
[2025-05-20 15:25] LABS: MRSA PCR Negative (Negative)
[2025-05-20 15:39] LABS: Glucose Negative (Negative)
[2025-05-20] MEDS: Acetaminophen 500 MG TAB 1000 MG PO ×2 (15:45→18:23)
[2025-05-20] MEDS: predniSONE 20 MG TAB 60 MG PO (15:45)
[2025-05-20 15:59] LABS: RBC 0-2 HPF (0-2)
[2025-05-20 16:00] LABS: C & S Indicated? Yes
--- NOTE | 2025-05-20 16:17 | W.PM.HP.N ---
Date of service: 05/20/25 Time of Service: 16:26 Assessment and Plan Assessment and plan (1) Acute respiratory failure with hypoxia and hypercarbia: Status: Acute Assessment and plan: New o2 supplementation at 2l/min in the ED in the setting of point 2 (2) Acute exacerbation of chronic obstructive pulmonary disease (COPD): Status: Acute Assessment and plan: As per HPI on doxycycline and oral prednisone No clear infiltrates on imaging , vanco X1 in ED - MRSA PCR ordered (3) UTI (urinary tract infection): Status: Acute Assessment and plan: As per UA Not meeting sepsis criteria but blood Cx pending on Zosyn urine Cx pending (4) COPD (chronic obstructive pulmonary disease): Assessment and plan: Not oxygen dependent at home and as above (5) Paroxysmal atrial fibrillation: Status: Acute Assessment and plan: Continue home meds (6) Essential hypertension: Status: Acute Assessment and plan: Continue home meds (7) Hyperlipidemia: Status: Acute Assessment and plan: continue home meds Discussed with Dr. Grant History of Present Illness History of Present Illness Chief Complaint: SOB Narrative: This 77 years old female patient leaving at a local [facility] facility with past medical history of hypertension, COPD, paroxysmal A-fib on Cardizem and Eliquis, hyperlipidemia, presented to the ED at [facility] for complaints of difficulty breathing and productive cough. In the ED the patient required new oxygen requirement of 2 L via nasal cannula for hypoxia. The patient was normotensive, nontachycardic, and afebrile. VBG showed hypercapnia with pH of 736 and a PCO2 at 58, bicarb 23 and negative lactate. Workup in the ED was positive for D-dimer over [address] angio negative for PE. Positive for nitrate and leuk esterase; blood work otherwise unremarkable. EKG showed a flutter rate 65 without sign of artery coronary occlusion and troponins were negative. Hospitalist was contacted by the ED provider and the patient was admitted to the medical surgical floor for acute hypoxic respiratory failure with hypercapnia, COPD exacerbation and UTI. Patient denied chest pain, dysuria, reports headache , SOB, difficulty breathing, intermittent abdominal pain. Review of Systems All systems reviewed & are unremarkable except as noted in HPI and below PFSH All Active Problems (Updated 05/20/25 @ 17:44 by María Meza APRN) UTI (urinary tract infection) (Acute) Paroxysmal atrial fibrillation (Acute) Acute exacerbation of chronic obstructive pulmonary disease (COPD) (Acute) Acute respiratory failure with hypoxia and hypercarbia (Acute) Pleural effusion (Acute) Hypercarbia (Acute) Chronic respiratory failure (Acute) Afib (Chronic) F/u with Dr. 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) Diarrhea (Acute) Urinary incontinence (Acute) Hypokalemia (Acute) Ambulatory dysfunction (Acute) UTI (urinary tract infection) due to Enterococcus (Acute) Anxiety (Chronic) Generalized weakness (Acute) Medical History Cervical nerve root disorder Not disorder: Per H&P (R) Cervical medial branch block Tobacco user RLS (restless legs syndrome) Pulmonary embolism 8 months ago r/t to diagnosis a-fib Postural dizziness Depressive disorder Chronic pain syndrome COPD (chronic obstructive pulmonary disease) Lumbago with sciatica, left side Surgical History 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) History of abdominal surgery (01/21/17) Hx of cholecystectomy H/O cone biopsy of cervix History of breast biopsy Hx of rotator cuff surgery right History of total bilateral knee replacement (TKR) History of carpal tunnel release H/O exploratory laparotomy Hx of cervical spine surgery Hx of colonoscopy Social History Smoking/Tobacco Use Status: Current-Occasional Tobacco Type: cigarettes Smoking risk assessment performed?: Yes Alcohol Intake: former Drug use: Occasionally Substance use type: former substance user and marijuana Housing: detention Do you feel safe at home: Yes (lives with sister) Do you feel safe in your relationship?: Yes Additional Social history: Lives with sister in [place], retired, gets some help with cleaning/bathing. Quit smoking at recent rehab stay, but still bums a cigarette from sister when she is stressed. Meds Allergies and Home Medications Allergies Allergy/AdvReac Type Severity Reaction Status Date / Time No Known Allergies Allergy Verified 05/20/25 12:35 Home Medications ?Medication ?Instructions ?Recorded ?Confirmed ?Type lorazepam 1 mg tablet 0.5 mg PO Q6H PRN 06/03/19 05/20/25 History metoprolol succinate 50 mg 50 mg PO DAILY 02/22/22 05/20/25 History tablet,extended release 24 hr apixaban 5 mg tablet (Eliquis) 1 tab PO BID 06/15/22 05/20/25 History gabapentin 300 mg capsule 300 mg PO TID 06/15/22 05/20/25 History tizanidine 2 mg tablet 2 mg PO BID 01/16/24 05/20/25 History diltiazem HCl 240 mg 240 mg PO DAILY #30 caps 02/26/24 05/20/25 Rx capsule,extended release 24 hr (Cartia XT) lovastatin 20 mg tablet 20 mg PO QPM #30 tabs 02/26/24 05/20/25 Rx acetaminophen 500 mg capsule 1,000 mg PO Q6H PRN 12/07/24 05/20/25 History aspirin 81 mg tablet,delayed 81 mg PO DAILY 12/07/24 05/20/25 History release (Adult Low Dose Aspirin) cholecalciferol (vitamin D3) 50 50 mcg PO DAILY 12/07/24 05/20/25 History mcg (2,000 unit) capsule ferrous sulfate 325 mg (65 mg 325 mg PO DAILY 12/07/24 05/20/25 History iron) tablet ipratropium 0.5 mg-albuterol 3 mg 3 ml inhalation Q6H PRN 12/07/24 05/20/25 History (2.5 mg base)/3 mL nebulization soln magnesium 200 mg tablet 400 mg PO DAILY 12/07/24 05/20/25 History oxycodone 5 mg tablet 5 mg PO BID 12/07/24 05/20/25 History artificial tears (gonioscopic) 1 drp ophthalmic (eye) TID 02/24/25 05/20/25 History docusate sodium 100 mg capsule 100 mg PO DAILY 02/24/25 05/20/25 History (Col-Rite) furosemide 20 mg tablet 20 mg PO DAILY 02/24/25 05/20/25 History oxybutynin chloride 5 mg 5 mg PO DAILY 02/24/25 05/20/25 History tablet,extended release 24 hr vitamin B complex (Vitamins B 1 cap PO DAILY 02/24/25 05/20/25 History Complex capsule) L. acidophilus,casei,rhamnosus 50 1 cap PO BID 05/20/25 05/20/25 History billion cell capsule,delayed release (Bio-K plus) Exam Narrative Exam Narrative: Alert and oriented X2 , no acute distress, coarse breath sound - with air flow-throughout lung cardenas, S1, S2 regular , no murmur, abdomen is non-acute, no bladder distention, moves all 4 ext. Results Labs 05/20/25 13:33 05/20/25 13:33 Labs: Laboratory Results - last 24 hr 05/20/25 05/20/25 05/20/25 13:11 13:33 14:55 WBC 8.02 RBC 3.97 Hgb 11.5 Hct 37.3 MCV 94 MCH 29.0 MCHC 30.8 L RDW 14.7 H Plt Count 256 MPV 8.4 Immature Gran % 0.7 Neutrophils % 62.5 Lymphocytes % 24.8 Monocytes % 6.0 Eosinophils % 5.6 Basophils % 0.4 Nucleated RBC % 0.0 Absolute Neutrophils 5.01 Absolute Lymphocytes 1.99 Absolute Monocytes 0.48 Absolute Eosinophils 0.45 Absolute Basophils 0.03 D-Dimer 2486 H VBG pH 7.36 VBG pCO2 58 H VBG pO2 49 VBG HCO3 33 H VBG Total CO2 30 H VBG O2 Saturation 85 VBG Base Excess 7 H VBG Lactate 0.9 Sodium 142 Potassium 3.8 Chloride 104 Carbon Dioxide 34.0 H Anion Gap 4.0 BUN 10 Creatinine 0.7 Est GFR (CKD-EPI 2020) 90.70 Glucose 110 H Calcium 9.2 Magnesium 2.0 Troponin I 9 8 NT-Pro-B Natriuret Pep 363 H Urine Color Urine Clarity Urine pH Ur Specific [place] Urine Protein Urine Ketones Urine Blood Urine Nitrite Urine Bilirubin Urine Urobilinogen Ur Leukocyte Esterase Urine RBC Urine WBC Ur Epithelial Cells Urine Crystals Urine Bacteria Urine Mucus Ur Culture Indicated? Urine Glucose COVID-19 Source Not Applicable SARS-CoV-2 (PCR) Negative Influenza Type A (PCR) Negative Influenza Type B (PCR) Negative RSV (PCR) Negative MRSA (TEM-PCR) Negative ABO/Rh O Positive Antibody Screen NEGATIVE 05/20/25 05/20/25 15:29 15:34 WBC RBC Hgb Hct MCV MCH MCHC RDW Plt Count MPV Immature Gran % Neutrophils % Lymphocytes % Monocytes % Eosinophils % Basophils % Nucleated RBC % Absolute Neutrophils Absolute Lymphocytes Absolute Monocytes Absolute Eosinophils Absolute Basophils D-Dimer VBG pH VBG pCO2 VBG pO2 VBG HCO3 VBG Total CO2 VBG O2 Saturation VBG Base Excess VBG Lactate Sodium Potassium Chloride Carbon Dioxide Anion Gap BUN Creatinine Est GFR (CKD-EPI 2020) Glucose Calcium Magnesium Troponin I Cancelled NT-Pro-B Natriuret Pep Urine Color Yellow Urine Clarity Clear Urine pH 6.0 Ur Specific [place] 1.020 Urine Protein Negative Urine Ketones Negative Urine Blood Negative Urine Nitrite Positive H Urine Bilirubin Negative Urine Urobilinogen 0.2 Ur Leukocyte Esterase Small H Urine RBC 0-2 Urine WBC 10-20 H Ur Epithelial Cells Rare Urine Crystals Rare Calcium Oxalate Urine Bacteria Many Urine Mucus Negative Ur Culture Indicated? Yes Urine Glucose Negative COVID-19 Source SARS-CoV-2 (PCR) Influenza Type A (PCR) Influenza Type B (PCR) RSV (PCR) MRSA (TEM-PCR) ABO/Rh Antibody Screen Last Vital Signs Temp 36.3 C L 05/20/25 12:29 Pulse 72 05/20/25 15:30 Resp 19 05/20/25 15:30 BP 106/70 05/20/25 14:46 Pulse Ox 95 05/20/25 15:30 Time Spent Time spent with Patient: >75 minutes Time was spent: preparing to see the patient(eg.review tests), obtaining and/or reviewing separately otained hiistory, ordering medications,tests, procedures, referring, communicating with other health home health care case manager, indepentently interpreting results, counseling the patient and care coordination
[2025-05-20] MEDS: Furosemide 20 MG/2 ML VIAL IVP (16:27)
--- NOTE | 2025-05-20 17:21 | W.PC.ACHO ---
Registration Status: REG ER Primary Language: Preferred Language: Malay ED Information & Data Chief Complaint SOB 05/20/25 12:29 Chief Complaint SOB 05/20/25 12:25 Triage Note SOB that started about 1 05/20/25 12:25 week ago- non-productive cough Medical / Surgical History (Last Reviewed 02/24/25 @ 14:38 by Abdirahman Morris MD) Cervical nerve root disorder Tobacco user RLS (restless legs syndrome) Pulmonary embolism Postural dizziness Depressive disorder Chronic pain syndrome COPD (chronic obstructive pulmonary disease) Lumbago with sciatica, left side (Last Reviewed 02/24/25 @ 14:38 by Abdirahman Morris MD) 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) History of abdominal surgery (01/21/17) Hx of cholecystectomy H/O cone biopsy of cervix History of breast biopsy Hx of rotator cuff surgery History of total bilateral knee replacement (TKR) History of carpal tunnel release H/O exploratory laparotomy Hx of cervical spine surgery Hx of colonoscopy Most Recent Vital Signs Temperature 36.3 C L 05/20/25 12:29 Temperature Source Temporal Artery Scan 05/20/25 12:29 Pulse 70 05/20/25 16:31 Pulse 71 05/20/25 16:41 Respiratory Rate 26 H 05/20/25 16:41 Respiratory Effort Short of Breath 05/20/25 13:42 Respiratory Depth Normal 05/20/25 13:42 Respiratory Pattern Normal 05/20/25 13:42 Blood Pressure 111/33 L 05/20/25 16:31 Blood Pressure Mean 62 05/20/25 16:31 Blood Pressure Position Sitting 05/20/25 12:29 Pulse Oximetry 97 05/20/25 16:20 Oxygen Delivery Method Nasal Cannula 05/20/25 12:29 Oxygen Flow Rate 2 05/20/25 12:29 Pain Level 7 05/20/25 12:29 Comment Pt only uses oxygen when she feels like she cant breathe- oxygen turned off to see where she is at without it 05/20/25 12:29 Allergies No Known Allergies Allergy (Verified 05/20/25 12:35) Precautions Isolation Standard precaution 05/20/25 12:29 Active Medications Generic Name Dose Route Start Last Admin Trade Name Freq PRN Reason Stop Dose Admin Iohexol 100 ml 05/20/25 15:15 05/20/25 15:05 Omnipaque 350 Mg/Ml 100 Ml Btl IJ 06/19/25 23:59 100 ml DIRECTED ROSS Administration Sodium Chloride 50 ml 05/20/25 15:15 05/20/25 15:04 Normal Saline - Diluent 50 Ml Vial IJ 50 ml .FOR DI USE ROSS Administration IV IV Catheter Type [Left Diffusic Antecubital] IV Catheter Type [Right Peripheral IV Antecubital] IV Catheter Gauge [Left 20 Antecubital] IV Catheter Gauge [Right 18 Antecubital] Diagnostics 05/20/25 05/20/25 05/20/25 Range/Units 15:34 15:29 14:55 WBC (4.4-10.8) 10^3/uL RBC (3.93-5.22) 10^6/uL Hgb (11.2-15.7) g/dL Hct (36.0-46.0) % MCV (80-95) fL MCH (27.0-33.0) pg MCHC (32.0-36.0) % RDW (11.7-14.6) % Plt Count (130-400) 10^3/uL MPV (8.0-11.0) fL Immature Gran % % Neutrophils % % Lymphocytes % % Monocytes % % Eosinophils % % Basophils % % Nucleated RBC % (0.0-0.3) % Absolute Neutrophils (1.2-6.7) 10^3/uL Absolute Lymphocytes (1.2-3.4) 10^3/uL Absolute Monocytes (0.1-0.8) 10^3/uL Absolute Eosinophils (0.0-0.7) 10^3/uL Absolute Basophils (0.0-0.2) 10^3/uL D-Dimer (<500) ng/mlFEU VBG pH (7.31-7.41) VBG pCO2 (41-51) mmHg VBG pO2 mmHg VBG HCO3 (23-28) mmol/L VBG Total CO2 (24-29) mmol/L VBG O2 Saturation % VBG Base Excess (-2-3) mmol/L VBG Lactate (<or=2.0) mmol/L Sodium (136-145) mmol/L Potassium (3.5-5.1) mmol/L Chloride (98-107) mmol/L Carbon Dioxide (21.0-32.0) mmol/L Anion Gap (3-11) mmol/L BUN (7-18) mg/dL Creatinine (0.55-1.02) mg/dL Est GFR (CKD-EPI 2020) (mL/min/1.73m2) Glucose (74-106) mg/dL Calcium (8.5-10.1) mg/dL Magnesium (1.8-2.4) mg/dL Troponin I Cancelled 8 (<or=51) ng/L NT-Pro-B Natriuret Pep (<300) pg/mL Urine Color Yellow (Yellow) Urine Clarity Clear (Clear) Urine pH 6.0 (5-8) Ur Specific [place] 1.020 (1.005-1.025) Urine Protein Negative (Neg-Trace) mg/dL Urine Ketones Negative (Negative) mg/dL Urine Blood Negative (Negative) Urine Nitrite Positive H (Negative) Urine Bilirubin Negative (Negative) Urine Urobilinogen 0.2 (Up to 0.2) mg/dL Ur Leukocyte Esterase Small H (Negative) Urine RBC 0-2 (0-2) HPF Urine WBC 10-20 H (0-5) HPF Ur Epithelial Cells Rare (Negative) HPF Urine Crystals Rare Calcium Oxalate (Negative) HPF Urine Bacteria Many (Negative) HPF Urine Mucus Negative (Negative) Ur Culture Indicated? Yes Urine Glucose Negative (Negative) mg/dL COVID-19 Source SARS-CoV-2 (PCR) (Negative) Influenza Type A (PCR) (Negative) Influenza Type B (PCR) (Negative) RSV (PCR) (Negative) MRSA (TEM-PCR) (Negative) ABO/Rh Antibody Screen 05/20/25 05/20/25 Range/Units 13:33 13:11 WBC 8.02 (4.4-10.8) 10^3/uL RBC 3.97 (3.93-5.22) 10^6/uL Hgb 11.5 (11.2-15.7) g/dL Hct 37.3 (36.0-46.0) % MCV 94 (80-95) fL MCH 29.0 (27.0-33.0) pg MCHC 30.8 L (32.0-36.0) % RDW 14.7 H (11.7-14.6) % Plt Count 256 (130-400) 10^3/uL MPV 8.4 (8.0-11.0) fL Immature Gran % 0.7 % Neutrophils % 62.5 % Lymphocytes % 24.8 % Monocytes % 6.0 % Eosinophils % 5.6 % Basophils % 0.4 % Nucleated RBC % 0.0 (0.0-0.3) % Absolute Neutrophils 5.01 (1.2-6.7) 10^3/uL Absolute Lymphocytes 1.99 (1.2-3.4) 10^3/uL Absolute Monocytes 0.48 (0.1-0.8) 10^3/uL Absolute Eosinophils 0.45 (0.0-0.7) 10^3/uL Absolute Basophils 0.03 (0.0-0.2) 10^3/uL D-Dimer 2486 H (<500) ng/mlFEU VBG pH 7.36 (7.31-7.41) VBG pCO2 58 H (41-51) mmHg VBG pO2 49 mmHg VBG HCO3 33 H (23-28) mmol/L VBG Total CO2 30 H (24-29) mmol/L VBG O2 Saturation 85 % VBG Base Excess 7 H (-2-3) mmol/L VBG Lactate 0.9 (<or=2.0) mmol/L Sodium 142 (136-145) mmol/L Potassium 3.8 (3.5-5.1) mmol/L Chloride 104 (98-107) mmol/L Carbon Dioxide 34.0 H (21.0-32.0) mmol/L Anion Gap 4.0 (3-11) mmol/L BUN 10 (7-18) mg/dL Creatinine 0.7 (0.55-1.02) mg/dL Est GFR (CKD-EPI 2020) 90.70 (mL/min/1.73m2) Glucose 110 H (74-106) mg/dL Calcium 9.2 (8.5-10.1) mg/dL Magnesium 2.0 (1.8-2.4) mg/dL Troponin I 9 (<or=51) ng/L NT-Pro-B Natriuret Pep 363 H (<300) pg/mL Urine Color (Yellow) Urine Clarity (Clear) Urine pH (5-8) Ur Specific Larsen (1.005-1.025) Urine Protein (Neg-Trace) mg/dL Urine Ketones (Negative) mg/dL Urine Blood (Negative) Urine Nitrite (Negative) Urine Bilirubin (Negative) Urine Urobilinogen (Up to 0.2) mg/dL Ur Leukocyte Esterase (Negative) Urine RBC (0-2) HPF Urine WBC (0-5) HPF Ur Epithelial Cells (Negative) HPF Urine Crystals (Negative) HPF Urine Bacteria (Negative) HPF Urine Mucus (Negative) Ur Culture Indicated? Urine Glucose (Negative) mg/dL COVID-19 Source Not Applicable SARS-CoV-2 (PCR) Negative (Negative) Influenza Type A (PCR) Negative (Negative) Influenza Type B (PCR) Negative (Negative) RSV (PCR) Negative (Negative) MRSA (TEM-PCR) Negative (Negative) ABO/Rh O Positive Antibody Screen NEGATIVE 05/20/25 15:29 Urine Culture - Pending Urine - Reflex from Ua 05/20/25 13:48 Blood Culture - Pending Blood 05/20/25 13:33 Blood Culture - Pending Blood Intake and Output - 24 Hour Total 05/20/25 12:20 thru 05/20/25 16:37 Intake Total 70 Output Total 300 Balance -230 Weight 151.6 kg Intake: IV 70 Output: Urine 300 Falls Risk Assessment History of Falls No History 05/20/25 13:44 Contributing Factors No Factors 05/20/25 13:44 Ambulatory Aids Uses ambulatory device 05/20/25 13:44 Tubes/Lines None 05/20/25 13:44 Gait Evaluation W/no contributing factors 05/20/25 13:44 Cognition No cognitive impairment 05/20/25 13:44 Fall Total Score 25 05/20/25 13:44 Level of Risk Moderate Risk 05/20/25 13:44 Problems (Last Reviewed 02/24/25 @ 14:38 by Abdirahman Morris MD) Paroxysmal atrial fibrillation (Acute) Acute exacerbation of chronic obstructive pulmonary disease (COPD) (Acute) Acute respiratory failure with hypoxia and hypercarbia (Acute) Essential hypertension (Acute 01/21/17) Hyperlipidemia (Acute) v v v v v v v v v Sending and/or Receiving Nurses: Please use comment section below to note any information pertinent to the patient hand-off not included above. Information / Comments: Report received from:krista
[2025-05-20] MEDS: LORazepam 1 MG TAB 0.5 MG PO (18:29)
[2025-05-20 18:42] LABS: BE (Venous) 7 mmol/L (-2-3); HCO3 (Venous) 33 mmol/L (23-28); O2 Sat (Venous) 69 %; TCO2 (Venous) 31 mmol/L (24-29); pO2 (Venous) 39 mmHg
[2025-05-20 18:50] LABS: pCO2 (Venous) 69 mmHg (41-51)
[2025-05-20 19:50] LABS: MRSA PCR Negative (Negative)
[2025-05-20] MEDS: oxyCODONE 5 MG TAB PO (21:13)
[2025-05-20] MEDS: guaiFENesin 600 MG TABCR PO (21:13)
[2025-05-20] MEDS: Lovastatin 20 MG TAB PO (21:13)
[2025-05-20] MEDS: Benzonatate 100 MG CAP PO (21:13)
[2025-05-20] MEDS: Lactobacillus Acidophilus CAP 1 CAP PO (21:13)
[2025-05-20] MEDS: Gabapentin 300 MG CAP PO (21:13)
[2025-05-20] MEDS: Apixaban 5 MG TAB PO (21:13)
[2025-05-20] MEDS: Refresh PLUS Eye Drops 0.4ml 1 EACH OP (21:14)
[2025-05-21] VITALS (11 sets, daily range): BP systolic 129–137; BP diastolic 78–85; PULSE 83–105; RESP 16–20; TEMP 36.7–36.9; O2SAT 90–97
[2025-05-21] MEDS: Albuterol/Ipratropium 3 ML UPD VIAL UPD ×5 (01:31→23:50)
[2025-05-21] MEDS: DOXYCYCLINE 100 MG in Normal Saline 100 ML IVPB (01:31)
[2025-05-21] MEDS: PIPERACILLIN/TAZO 3.375 GM in Normal Saline 50 ML IVPB ×4 (04:16→21:06)
[2025-05-21] MEDS: Acetaminophen 500 MG TAB 1000 MG PO ×3 (04:16→21:02)
[2025-05-21] MEDS: LORazepam 1 MG TAB 0.5 MG PO ×2 (04:17→16:44)
[2025-05-21 07:30] LABS: Abs Immature Grans 0.09 10^3/uL (0.0-0.06); HCT 36.2 % (36.0-46.0); HGB 11.3 g/dL (11.2-15.7); Immature Grans % 0.9 %; MCH 29.0 pg (27.0-33.0); MCHC 31.2 % (32.0-36.0); MCV 93 fL (80-95); MPV 8.7 fL (8.0-11.0); Platelet Count 274 10^3/uL (130-400); RBC 3.90 10^6/uL (3.93-5.22); RDW 14.2 % (11.7-14.6); RDW-SD 48.5 fL; WBC 9.92 10^3/uL (4.4-10.8)
[2025-05-21 07:49] LABS: Anion Gap 9.1 mmol/L (3-11); BUN 11 mg/dL (7-18); CO2 29.9 mmol/L (21.0-32.0); Calcium 9.1 mg/dL (8.5-10.1); Chloride 103 mmol/L (98-107); Estimated GFR 90.70 (mL/min/1.73m2); Glucose 116 mg/dL (74-106); Magnesium 1.9 mg/dL (1.8-2.4); Potassium 3.9 mmol/L (3.5-5.1); Sodium 142 mmol/L (136-145)
[2025-05-21] MEDS: oxyCODONE 5 MG TAB PO ×2 (09:09→21:01)
[2025-05-21] MEDS: Furosemide 20 MG TAB PO (09:10)
[2025-05-21] MEDS: Lactobacillus Acidophilus CAP 1 CAP PO ×2 (09:10→21:01)
[2025-05-21] MEDS: Metoprolol CR 50 MG TABCR PO (09:10)
[2025-05-21] MEDS: Apixaban 5 MG TAB PO ×2 (09:10→21:05)
[2025-05-21] MEDS: guaiFENesin 600 MG TABCR PO (09:10)
[2025-05-21] MEDS: Cholecalciferol (Vitamin D3) 1,000 UNIT TAB 2000 UNITS PO (09:10)
[2025-05-21] MEDS: predniSONE 20 MG TAB 40 MG PO (09:10)
[2025-05-21] MEDS: Docusate Sodium 100 MG CAP PO ×2 (09:10→13:12)
[2025-05-21] MEDS: dilTIAZem CD 120 MG CAPCR 240 MG PO (09:11)
[2025-05-21] MEDS: Refresh PLUS Eye Drops 0.4ml 1 EACH OP ×3 (09:11→21:05)
[2025-05-21] MEDS: Gabapentin 300 MG CAP PO ×3 (09:11→21:00)
[2025-05-21] MEDS: Vitamins B Comp w/C TAB 1 TAB PO (09:11)
[2025-05-21] MEDS: Magnesium Oxide 400 MG TAB PO (09:11)
[2025-05-21] MEDS: Ferrous Sulfate 325 MG TAB PO (09:11)
[2025-05-21] MEDS: Benzonatate 100 MG CAP PO ×3 (09:11→21:05)
[2025-05-21] MEDS: Aspirin E.C. 81 MG TABEC PO (09:11)
--- NOTE | 2025-05-21 09:16 | INITIAL_ITS ---
Date of service: 05/21/25 Time of Service: 09:16 Care Management Initial Assmt Initial Assessment Reason for Hospitalization: COPD Functional Status/Living Situation Patient Presentation: marzena was sitting up in bed when CM met with her. She was alert and oriented and easily engaged with CM. Marzena has been residing at [facility] for almost 2 years. She still has a 2 bedroom apartment she is paying for as she hopes to be able to return home. She shared the apartment with her sister, but her sister a month and a half ago. Marzena has one child, a son named Maverick, who live in [place]. Unfortunately, they have been estranged for about 4-5 years. 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 A lot of the work was classified so Marzena was not able to share more details. Marzena talked a lot about the health challenges she has faced in the last few years. She has COPD for which she was admitted. From her comments, it sounds like she may still be smoking. She also has spinal stenosis, which causes her a great deal of chronic pain and weakness. She has a lot of pain in her neck and s ometimes wears a cervical collar for comfort. It has also caused her arms to be weak making the use of her walker and self-repositioning difficult. A PT consult has been ordered but no report is available yet. Marzena stated she had been working with PT at the SNF but that is on hold until she sees her specialist at [facility] Residence: [facility] Resides with: Other ([facility]) Significant Other/Family: Out of area (son lives in [place]) Natural Supports: friends and brother Kenan Overton Employment Status: Retired Instrumental Activities of Daily Living (ADLs): Independent (mostly independent with ADLs, needs some assistance) Medications Medication Management: No Issues/Barriers identified Physical Functioning/Mobility Assistive Device: walker, wheelchair Advance Directives Advance Directives: Do you have an Advance Directive: Y , 11:07 AD On File at [facility]: Y 09/20/16, 14:01 Date Asked 05/20/25 05/20/25, 12:24 AD Date Reviewed 02/24/25 02/24/25, 13:38 COLST On File at [facility] COLST Date Scanned Code Status Resuscitation Status Full Code Portal Pt does not currently have a portal and education provided: Yes Insurance Coverage/Financial Issues Insurance: Medicaid Medicare Care Team Visit Care Team Role Provider Type María Meza APRN MD [facility] STAFF PHYSICIAN Unknown Unknown Primary Care Provider STAFF PHYSICIAN InPatient Colt Rodriguez Other Providers OTHER Kenan Martinez MD Emergency Provider [facility] STAFF PHYSICIAN Carrington Grant MD Admit Provider [facility] STAFF PHYSICIAN Attending Provider Discharge Potential Discharge Needs: Other (return to SNF) Anticipated Barriers to Discharge: None Identified Patient/Family Education Needs: Review discharge instructions, discuss Ask Me Three Transportation: [facility] Plan: Anticipate Marzena will return to [facility] when medically cleared. She will follow up with the facility providers and plan of acre and transport via RCT. CM will follow and continue to support discharge planning efforts. Social Determinants of Health Screening Will the Patient Participate in the Screening?: Unable to obtain Do you worry about having a steady place to live?: no PFSH All Active Problems (Updated 05/21/25 @ 12:24 by María Meza APRN) Constipation (Acute) UTI (urinary tract infection) (Acute) Paroxysmal atrial fibrillation (Acute) Acute exacerbation of chronic obstructive pulmonary disease (COPD) (Acute) Acute respiratory failure with hypoxia and hypercarbia (Acute) Pleural effusion (Acute) Hypercarbia (Acute) Chronic respiratory failure (Acute) Afib (Chronic) F/u with Dr. 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) Diarrhea (Acute) Urinary incontinence (Acute) Hypokalemia (Acute) Ambulatory dysfunction (Acute) UTI (urinary tract infection) due to Enterococcus (Acute) Anxiety (Chronic) Generalized weakness (Acute) Medical History Cervical nerve root disorder Not disorder: Per H&P (R) Cervical medial branch block Tobacco user RLS (restless legs syndrome) Pulmonary embolism 8 months ago r/t to diagnosis a-fib Postural dizziness Depressive disorder Chronic pain syndrome COPD (chronic obstructive pulmonary disease) Lumbago with sciatica, left side Surgical History 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) History of abdominal surgery (01/21/17) Hx of cholecystectomy H/O cone biopsy of cervix History of breast biopsy Hx of rotator cuff surgery right History of total bilateral knee replacement (TKR) History of carpal tunnel release H/O exploratory laparotomy Hx of cervical spine surgery Hx of colonoscopy Social History Smoking/Tobacco Use Status: Current-Occasional Tobacco Type: cigarettes Smoking risk assessment performed?: Yes Alcohol Intake: former Drug use: Occasionally Substance use type: former substance user and marijuana Housing: senior care Do you feel safe at home: Yes (lives with sister) Do you feel safe in your relationship?: Yes Additional Social history: Lives with sister in [place], retired, gets some help with cleaning/bathing. Quit smoking at recent rehab stay, but still bums a cigarette from sister when she is stressed.
--- NOTE | 2025-05-21 10:24 | PGE_ITS ---
Date of Service Date of service: 05/21/25 Time of Service: 10:24 Assessment and Plan Assessment and plan (1) Acute respiratory failure with hypoxia and hypercarbia: Status: Acute Assessment and plan: New O2 supplementation at 2l/min in the ED in the setting of point 2 PE negative As resolved now and back on RA (2) Acute exacerbation of chronic obstructive pulmonary disease (COPD): Status: Acute Assessment and plan: Ongoing doxycycline and oral prednisone No clear infiltrates on imaging , vanco X1 in ED - MRSA PCR negative - will not pursue unless deteriorating into sepsis Increased margin on CXR but on Zosyn for UTI as per point 3 (3) UTI (urinary tract infection): Status: Acute Assessment and plan: As per UA Not meeting sepsis criteria blood Cx negative this PM urine Cx GNR - further results pending continue Zosyn (4) COPD (chronic obstructive pulmonary disease): Assessment and plan: Not oxygen dependent at home and as above (5) Paroxysmal atrial fibrillation: Status: Acute Assessment and plan: Continue home meds (6) Essential hypertension: Status: Acute Assessment and plan: Continue home meds (7) Constipation: Status: Acute Assessment and plan: No BM Colace TID now -and de-escalate once BM (8) Hyperlipidemia: Status: Acute Assessment and plan: continue home medicine regimen Discussed with Dr. Grant Subjective Subjective Patient reports: feels better, tolerating liquids well, tolerating a regular diet, voiding w/o difficulty and flatus; denies diarrhea, nausea, vomiting, shortness of breath or fever Exam Narrative Exam Narrative: Alert and oriented X4 , no acute distress, coarse breath sounds to upper airway, unable to clear secretions - scattered ronchi no wheezing- with air flow- throughout lung cardenas, S1, S2 regular , no murmur, abdomen is non-acute, no bladder distention, moves all 4 ext. Objective Last Vital Signs Temp 36.7 C 05/21/25 08:27 Pulse 101 H 05/21/25 08:27 Resp 16 05/21/25 08:27 BP 137/82 05/21/25 08:27 Pulse Ox 95 05/21/25 08:27 Laboratory Results - last 24 hr 05/20/25 05/20/25 05/20/25 13:11 13:33 14:55 WBC 8.02 RBC 3.97 Hgb 11.5 Hct 37.3 MCV 94 MCH 29.0 MCHC 30.8 L RDW 14.7 H Plt Count 256 MPV 8.4 Immature Gran % 0.7 Neutrophils % 62.5 Lymphocytes % 24.8 Monocytes % 6.0 Eosinophils % 5.6 Basophils % 0.4 Nucleated RBC % 0.0 Absolute Neutrophils 5.01 Absolute Lymphocytes 1.99 Absolute Monocytes 0.48 Absolute Eosinophils 0.45 Absolute Basophils 0.03 D-Dimer 2486 H VBG pH 7.36 VBG pCO2 58 H VBG pO2 49 VBG HCO3 33 H VBG Total CO2 30 H VBG O2 Saturation 85 VBG Base Excess 7 H VBG Lactate 0.9 Sodium 142 Potassium 3.8 Chloride 104 Carbon Dioxide 34.0 H Anion Gap 4.0 BUN 10 Creatinine 0.7 Est GFR (CKD-EPI 2020) 90.70 Glucose 110 H Calcium 9.2 Magnesium 2.0 Troponin I 9 8 NT-Pro-B Natriuret Pep 363 H Urine Color Urine Clarity Urine pH Ur Specific [place] Urine Protein Urine Ketones Urine Blood Urine Nitrite Urine Bilirubin Urine Urobilinogen Ur Leukocyte Esterase Urine RBC Urine WBC Ur Epithelial Cells Urine Crystals Urine Bacteria Urine Mucus Ur Culture Indicated? Urine Glucose COVID-19 Source Not Applicable SARS-CoV-2 (PCR) Negative Influenza Type A (PCR) Negative Influenza Type B (PCR) Negative RSV (PCR) Negative MRSA (TEM-PCR) Negative ABO/Rh O Positive Antibody Screen NEGATIVE 05/20/25 05/20/25 05/20/25 15:29 15:34 18:25 WBC RBC Hgb Hct MCV MCH MCHC RDW Plt Count MPV Immature Gran % Neutrophils % Lymphocytes % Monocytes % Eosinophils % Basophils % Nucleated RBC % Absolute Neutrophils Absolute Lymphocytes Absolute Monocytes Absolute Eosinophils Absolute Basophils D-Dimer VBG pH VBG pCO2 VBG pO2 VBG HCO3 VBG Total CO2 VBG O2 Saturation VBG Base Excess VBG Lactate Sodium Potassium Chloride Carbon Dioxide Anion Gap BUN Creatinine Est GFR (CKD-EPI 2020) Glucose Calcium Magnesium Troponin I Cancelled NT-Pro-B Natriuret Pep Urine Color Yellow Urine Clarity Clear Urine pH 6.0 Ur Specific [place] 1.020 Urine Protein Negative Urine Ketones Negative Urine Blood Negative Urine Nitrite Positive H Urine Bilirubin Negative Urine Urobilinogen 0.2 Ur Leukocyte Esterase Small H Urine RBC 0-2 Urine WBC 10-20 H Ur Epithelial Cells Rare Urine Crystals Rare Calcium Oxalate Urine Bacteria Many Urine Mucus Negative Ur Culture Indicated? Yes Urine Glucose Negative COVID-19 Source SARS-CoV-2 (PCR) Influenza Type A (PCR) Influenza Type B (PCR) RSV (PCR) MRSA (TEM-PCR) Negative ABO/Rh Antibody Screen 05/20/25 05/21/25 18:30 06:12 WBC 9.92 RBC 3.90 L Hgb 11.3 Hct 36.2 MCV 93 MCH 29.0 MCHC 31.2 L RDW 14.2 Plt Count 274 MPV 8.7 Immature Gran % 0.9 Neutrophils % 85.6 Lymphocytes % 10.2 Monocytes % 3.0 Eosinophils % 0.2 Basophils % 0.1 Nucleated RBC % 0.0 Absolute Neutrophils 8.49 H Absolute Lymphocytes 1.01 L Absolute Monocytes 0.30 Absolute Eosinophils 0.02 Absolute Basophils 0.01 D-Dimer VBG pH 7.29 L VBG pCO2 69 H* VBG pO2 39 VBG HCO3 33 H VBG Total CO2 31 H VBG O2 Saturation 69 VBG Base Excess 7 H VBG Lactate Sodium 142 Potassium 3.9 Chloride 103 Carbon Dioxide 29.9 Anion Gap 9.1 BUN 11 Creatinine 0.7 Est GFR (CKD-EPI 2020) 90.70 Glucose 116 H Calcium 9.1 Magnesium 1.9 Troponin I NT-Pro-B Natriuret Pep Urine Color Urine Clarity Urine pH Ur Specific [place] Urine Protein Urine Ketones Urine Blood Urine Nitrite Urine Bilirubin Urine Urobilinogen Ur Leukocyte Esterase Urine RBC Urine WBC Ur Epithelial Cells Urine Crystals Urine Bacteria Urine Mucus Ur Culture Indicated? Urine Glucose COVID-19 Source SARS-CoV-2 (PCR) Influenza Type A (PCR) Influenza Type B (PCR) RSV (PCR) MRSA (TEM-PCR) ABO/Rh Antibody Screen Time Spent with Patient Time Spent with Patient: >50 minutes Time was spent: preparing to see the patient(eg.review tests), obtaining and/or reviewing separately otained hiistory, ordering medications,tests, procedures, referring, communicating with other health healthcare sales representative, indepentently i nterpreting results, counseling the patient and care coordination
[2025-05-21] MEDS: Lovastatin 20 MG TAB PO (21:00)
[2025-05-21] MEDS: guaiFENesin 600 MG TABCR 1200 MG PO (21:01)
[2025-05-22 00:07] VITALS: PULSE 103
[2025-05-22] MEDS: PIPERACILLIN/TAZO 3.375 GM in Normal Saline 50 ML IVPB ×2 (03:00→09:15)
[2025-05-22] MEDS: Acetaminophen 500 MG TAB 1000 MG PO ×2 (04:57→12:19)
[2025-05-22 05:52] VITALS: PULSE 106; RESP 18; O2SAT 95
[2025-05-22] MEDS: Albuterol/Ipratropium 3 ML UPD VIAL UPD ×2 (05:52→12:52)
[2025-05-22 05:58] VITALS: PULSE 106
[2025-05-22 07:24] VITALS: BP 144/94; PULSE 105; RESP 16; TEMP 36.1; O2SAT 94
--- NOTE | 2025-05-22 08:28 | IN_ITS ---
Date of service: 05/22/25 Time of Service: 07:35 PT Notes Visit Reasons: COPD exacerbation Inpatient Physical Therapy Evaluation I certify the need for these services as being medically necessary and skilled as furnished under this plan of treatment while under my care. Please sign and return within 14 days if you agree with the plan of care listed below.? Thank you for this referral! ? Referring Physician? Date Referring Doctor:? María Meza PT Orders: PT CONSULT for safety consult for d/c, eval for assistive device Precautions: fall risk, O2 level Patient Profile/Admitting Diagnosis:? The patient is a 74 yo female adm on 05/20/25 for acute hypoxic respiratory failure with hypercapnia, COPD exacerbation and UTI. Past Medical History: Patient reports a fall ~2 years ago with left fracture, ? repaired with hemiarthroplasty vs AURELIA. reports infection with spacer placed and then THR (reports in October 2024) PFSH All Active Problems (Updated 05/20/25 @ 17:44 by María Meza APRN) UTI (urinary tract infection) (Acute) Paroxysmal atrial fibrillation (Acute) Acute exacerbation of chronic obstructive pulmonary disease (COPD) (Acute) Acute respiratory failure with hypoxia and hypercarbia (Acute) Pleural effusion (Acute) Hypercarbia (Acute) Chronic respiratory failure (Acute) Afib (Chronic) F/u with Dr. 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) Diarrhea (Acute) Urinary incontinence (Acute) Hypokalemia (Acute) Ambulatory dysfunction (Acute) UTI (urinary tract infection) due to Enterococcus (Acute) Anxiety (Chronic) Generalized weakness (Acute) Medical History Cervical nerve root disorder Not disorder: Per H&P (R) Cervical medial branch blockTobacco user RLS (restless legs syndrome) Pulmonary embolism 8 months ago r/t to diagnosis a-fibPostural dizziness Depressive disorder Chronic pain syndrome COPD (chronic obstructive pulmonary disease) Lumbago with sciatica, left side Surgical History 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) History of abdominal surgery (01/21/17) Hx of cholecystectomy H/O cone biopsy of cervix History of breast biopsy Hx of rotator cuff surgery right History of total bilateral knee replacement (TKR) History of carpal tunnel release H/O exploratory laparotomy Hx of cervical spine surgery- ?fusion of C2-C7 Hx of colonoscopy Medications: See chart Social History/Home Situation: Normally a resident at [facility] and has lived there for 2 years. Had and apartment with her sister, who recently passed. Still has the apartment but would like to clean out the apartment so she can stop paying rent. Has been performing sit to stand transfers with 2 assist at the residential. Stopped PT secondary to lack of progress secondary to neck pain. Holding PT until spine consult for her neck, which she reports is not until August. Subjective: I want to go home (back to [place]) Objective: issued leg food and beverage analyst and recommended working on left LE movement as able. Spoke with FORREST who amilcar notify patient's nurse about patient c/o pain in her IV after today's movement Mental Status: Patient is alert and oriented. Pain: Reports chronic neck and low back pain Vital Signs: 7:24 am today by FORREST 144/94, 105 bpm, 36.1 temp, 94% on RA ROM/Strength: Upper extremities: able to move against gravity Lower extremities: able to perform active heel slides bilaterally Sensation: Reports bilaterally LE tingling upon sitting on the edge of the bed. Reports this is not new Soft tissue/edema: Bilateral LE edema with very dry skin Bed Mobility: Supine to sit with HOB elevated, bed railed, leg food and beverage analyst for left LE and min assist from PT. Constant cuing for movements and breathing. Transfers: unable to attempt. sitting on edge of bed with supervision only x 5 mins. cuing for breathing Gait: unable Balance: sitting on edge of bed with supervision only [facility] AM-PAC 6 clicks Basic Mobility Inpatient Short Form: Raw Score:??8? CMS Score:86.62% Informed Consent/Education:? Patient instructed in purpose of PT consult and plan of care and is agreeable Assessment:? Patient is a?74 yo female adm on 05/20/25 for acute hypoxic respiratory failure with hypercapnia, COPD exacerbation and UTI..? Patient presents with neck and low back pain, decreased strength, decreased functional mobility, decreased balance and inability to ambulate. The patient would benefit from skilled inpatient services to improve these impairments to maximize function and safety. Patient is assessed as:? Low 35459?? based on the following: History: overweight, duration of symptoms Examination: see above Presentation: Stable and uncomplicated? Decision Making:? Low (0 history, 1-2 exam, stable/predictable, easy 20) Physical Therapy Goals: 4 days Able to get in/out of bed with min assist and leg food and beverage analyst only. Able to perform sit to/from stand with mod assist x 2 Able to perform SPT with walker with mod assist x 2. Independent with home exercise program Plan of Care/Treatment Plan: 1x/day, 7 days/week x 1 week. Plan of care has been reviewed with the BURGL[employer] AL[employer] ASSEMBLER providing the service under Physical Therapy direction. Initiate Physical Therapy intervention for strengthening, bed mobility, transfers, gait, stairs, balance training, use of assistive device. DISCHARGE RECOMMENDATIONS: Back to [place] when medically cleared. ? reevaluation by PT upon her return Informed consent Prior to the start and throughout the course of the examination and treatment, patient was made aware of the specifics and purpose of the physical assessment and treatment procedures. Appropriate draping procedures were utilized to protect modesty where applicable. Billing Charges: Treatment Units Time Duration Manual Therapy(47879) Hands-on techniques to modulate pain increase joint range of motion reduce or eliminate soft tissue swelling, inflammation, or restriction facilitate relaxation and improve contractile and non-contractile tissue extensibility ? ? Therapeutic Procedures (44489) Instruction in therapeutic exercises to develop strength and endurance, range of motion and flexibility. HEP instruction and review: Provided skilled instruction in proper exercise performance: Provided skilled manual cues to facilitate proper muscle recruitment and/or movement pattern Neurological Re-Education(04466) To improve balance, coordination, kinesthetic and proprioceptive sensations. ? ? Ultrasound(59388) To promote healing. ? ? Gait Training(52549) ? ? Therapeutic Activity(03510) Instruction in dynamic activities with one on one patient contact by the provider to improve functional performance as follows: ?3 ?40 Self Care Training(34826) ? ? E-Stim (Attended)(35191) ? ? Low IE(49469) 1 25 Mod IE(43600) ? ? High IE(26067) ? ? Time Coded Treatment Time ? 40 Total Treatment Time ? 65
[2025-05-22] MEDS: Metoprolol CR 50 MG TABCR PO (09:12)
[2025-05-22] MEDS: Furosemide 20 MG TAB PO (09:12)
[2025-05-22] MEDS: Vitamins B Comp w/C TAB 1 TAB PO (09:12)
[2025-05-22] MEDS: Lactobacillus Acidophilus CAP 1 CAP PO (09:12)
[2025-05-22] MEDS: Apixaban 5 MG TAB PO (09:12)
[2025-05-22] MEDS: Docusate Sodium 100 MG CAP PO ×2 (09:13→13:29)
[2025-05-22] MEDS: oxyCODONE 5 MG TAB PO (09:13)
[2025-05-22] MEDS: Ferrous Sulfate 325 MG TAB PO (09:13)
[2025-05-22] MEDS: Aspirin E.C. 81 MG TABEC PO (09:13)
[2025-05-22] MEDS: Cholecalciferol (Vitamin D3) 1,000 UNIT TAB 2000 UNITS PO (09:14)
[2025-05-22] MEDS: Magnesium Oxide 400 MG TAB PO (09:14)
[2025-05-22] MEDS: guaiFENesin 600 MG TABCR 1200 MG PO (09:14)
[2025-05-22] MEDS: Benzonatate 100 MG CAP PO ×2 (09:14→13:29)
[2025-05-22] MEDS: predniSONE 20 MG TAB 40 MG PO (09:15)
[2025-05-22] MEDS: LORazepam 1 MG TAB 0.5 MG PO (09:15)
[2025-05-22] MEDS: dilTIAZem CD 120 MG CAPCR 240 MG PO (09:15)
[2025-05-22] MEDS: Refresh PLUS Eye Drops 0.4ml 1 EACH OP ×2 (09:15→13:29)
[2025-05-22] MEDS: Gabapentin 300 MG CAP PO ×2 (09:16→13:29)
--- NOTE | 2025-05-22 12:39 | W.PM.DS.N ---
Date of service: 05/22/25 Time of Service: 12:39 DS: Diagnosis Discharge Diagnosis (1) Acute respiratory failure with hypoxia and hypercarbia: Status: Acute (2) Acute exacerbation of chronic obstructive pulmonary disease (COPD): Status: Acute (3) UTI (urinary tract infection): Status: Acute (4) COPD (chronic obstructive pulmonary disease): (5) Paroxysmal atrial fibrillation: Status: Acute (6) Essential hypertension: Status: Acute (7) Constipation: Status: Acute (8) Hyperlipidemia: Status: Acute Discharge Plan Disposition Patient Disposition: Long Term Facility(SNF) Condition: Stable Condition: Stable Discharge Details Reason For Visit: COPD exacerbation Admit Date/Time: 05/20/25 16:26 Admit Provider: Carrington Grant Attending Provider: Carrington Grant Primary Care Provider: Unknown,Unknown Hospital Course Hospital Course: This is a 74-year-old female patient past medical history significant for hypertension COPD paroxysmal atrial fibrillation anticoagulated on apixaban presented to the emergency department with shortness of breath and productive cough. She was found to have acute hypoxic respiratory failure with a new oxygen requirement. The rest of her workup included CT for PE protocol after having an elevated D-dimer which was negative. Ultimately diagnosed with COPD exacerbation. She was started on steroids and antibiotics and admitted to the medical surgical unit. Hemodynamically she remained stable. She was eating and drinking. White count remained normal. She was weaned off oxygen and returning to her baseline. She is now taking good oral intake and stable for discharge back to [facility] and rehab. She will be discharged on 3 more days to complete a steroid burst and antibiotics down stepped to Augmentin for 3 more days to complete her course. Discharge discussed with DR Grant [place] Meds and New Rx's Prescriptions: New prednisone 20 mg Tablet 40 mg PO DAILY Qty: 6 0RF benzonatate 100 mg Capsule 100 mg PO TID Qty: 20 0RF guaifenesin [Mucus Relief ER] 600 mg Tablet Extended Release 12hr 600 mg PO BID Qty: 12 0RF Continued metoprolol succinate 50 mg tablet extended release 24 hr 50 mg PO DAILY Eliquis 5 mg tablet 1 tab PO BID gabapentin 300 mg capsule 300 mg PO TID tizanidine 2 mg tablet 2 mg PO BID aspirin [Adult Low Dose Aspirin] 81 mg tablet,delayed release (DR/EC) 81 mg PO DAILY cholecalciferol (vitamin D3) 50 mcg (2,000 unit) capsule 50 mcg PO DAILY magnesium 200 mg tablet 400 mg PO DAILY acetaminophen 500 mg capsule 1,000 mg PO Q6H PRN oxycodone 5 mg tablet 5 mg PO BID ferrous sulfate 325 mg (65 mg iron) Tablet 325 mg PO DAILY ipratropium-albuterol 0.5 mg-3 mg(2.5 mg base)/3 mL solution for nebulization 3 ml INHALATION Q6H PRN vitamin B complex [Vitamins B Complex] Capsule 1 cap PO DAILY docusate sodium [Col-Rite] 100 mg capsule 100 mg PO DAILY furosemide 20 mg tablet 20 mg PO DAILY oxybutynin chloride 5 mg tablet extended release 24hr 5 mg PO DAILY artificial tears (gonioscopic) Drops 1 drp ophthalmic (eye) TID Bio-K plus 50 billion cell capsule,delayed release(DR/EC) 1 cap PO BID diltiazem HCl 240 mg tablet extended release 24 hr 240 mg PO DAILY lorazepam 1 mg Tablet 0.5 mg PO Q6H PRN lovastatin 20 mg Tablet 20 mg PO QPM Qty: 30 0RF Discharge Instructions Instructions: COPD Exacerbation, Adult ED Referrals: Unknown,Unknown [Primary Care Provider, Unknown] Activity:: Activity as Tolerated Equipment/Supplies:: No Equipment Needed Diet:: As Tolerated Discharge Orders Discharge Orders: Discharge Order (Routine); Ordered 05/22/25 Ordered By: Brandie Wiggins DS: Summary Time Spent with Patient providing and/or coordinating discharge services: Greater than 30 minutes Status at Discharge Functional status at discharge: wheelchair bound Overall status at discharge: patient is progressing back to baseline Mental Status: mental status grossly normal Speech and Movement: speech and movement normal Mood: congruent mood Affect: normal affect Exam Narrative Exam Narrative: White female of stated age no acute distress, chronically ill-appearing older than stated age head is atraumatic eyes nonicteric noninjected oral mucosas moist neck is supple full range of motion cardiovascular regular rate and rhythm respirations even and unlabored no wheezing or coarse breath sounds noted abdomen round soft nontender moves bilateral lower extremities. Neurologic she is awake alert oriented no focal deficits psychiatric appropriate mood and affect Psych Mental Status: mental status grossly normal Speech and Movement: speech and movement normal Mood: congruent mood Affect: normal affect DS: Data Vitals/I&O Vitals and I&O: Vital Signs Temperature 36.1 C L 05/22/25 07:24 Temperature Source Temporal Artery Scan 05/22/25 07:24 Pulse 105 H 05/22/25 07:24 Pulse Rhythm Regular 05/20/25 17:48 Pulse 71 05/20/25 16:41 Respiratory Rate 16 05/22/25 07:24 Respiratory Effort Short of Breath 05/20/25 17:48 Respiratory Depth Normal 05/20/25 17:48 Respiratory Pattern Normal 05/20/25 17:48 Blood Pressure 144/94 H 05/22/25 07:24 Blood Pressure Mean 110 05/22/25 07:24 Blood Pressure Position Sitting 05/20/25 12:29 Pulse Oximetry 94 05/22/25 07:24 Oxygen Delivery Method Room Air 05/22/25 07:24 Oxygen Flow Rate 0 05/22/25 07:24 Pain Level 4 05/22/25 12:19 Comment LT UPPER ARM 05/20/25 21:11 Intake & Output 05/21/25 05/22/25 05/22/25 23:59 11:59 23:59 Intake Total 500 / 900 350 / 350 Balance 500 / 900 350 / 350 Intake: IV 100 / 300 100 / 100 Oral 400 / 600 250 / 250 Other: Urine Color Yellow Yellow Urine Odor Normal Normal Stool Size Copious Large Stool Characteristics Soft Soft Brown Data Completed and Pending Labs on day of discharge: Preliminary micro results at discharge 05/20/25 15:29 Urine - Reflex from Ua Urine Culture - Preliminary Escherichia coli Gram positive wilman, mixed 05/20/25 13:48 Blood Blood Culture - Preliminary NO GROWTH 24 HOURS 05/20/25 13:33 Blood Blood Culture - Preliminary NO GROWTH 24 HOURS PFSH All Active Problems (Updated 05/21/25 @ 12:24 by María Meza APRN) Constipation (Acute) UTI (urinary tract infection) (Acute) Paroxysmal atrial fibrillation (Acute) Acute exacerbation of chronic obstructive pulmonary disease (COPD) (Acute) Acute respiratory failure with hypoxia and hypercarbia (Acute) Pleural effusion (Acute) Hypercarbia (Acute) Chronic respiratory failure (Acute) Afib (Chronic) F/u with Dr. 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) Diarrhea (Acute) Urinary incontinence (Acute) Hypokalemia (Acute) Ambulatory dysfunction (Acute) UTI (urinary tract infection) due to Enterococcus (Acute) Anxiety (Chronic) Generalized weakness (Acute) Medical History Cervical nerve root disorder Not disorder: Per H&P (R) Cervical medial branch block Tobacco user RLS (restless legs syndrome) Pulmonary embolism 8 months ago r/t to diagnosis a-fib Postural dizziness Depressive disorder Chronic pain syndrome COPD (chronic obstructive pulmonary disease) Lumbago with sciatica, left side Surgical History 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) History of abdominal surgery (01/21/17) Hx of cholecystectomy H/O cone biopsy of cervix History of breast biopsy Hx of rotator cuff surgery right History of total bilateral knee replacement (TKR) History of carpal tunnel release H/O exploratory laparotomy Hx of cervical spine surgery Hx of colonoscopy Social History Smoking/Tobacco Use Status: Current-Occasional Tobacco Type: cigarettes Smoking risk assessment performed?: Yes Alcohol Intake: former Drug use: Occasionally Substance use type: former substance user and marijuana Housing: long-term Do you feel safe at home: Yes (lives with sister) Do you feel safe in your relationship?: Yes Additional Social history: Lives with sister in [place], retired, gets some help with cleaning/bathing. Quit smoking at recent rehab stay, but still bums a cigarette from sister when she is stressed. Time Spent with Patient Time Spent with Patient: 45-69 minutes Time was spent: preparing to see the patient(eg.review tests), obtaining and/or reviewing separately otained hiistory, ordering medications,tests, procedures, referring, communicating with other health care trainer and counseling the patient
[2025-05-22 12:52] VITALS: PULSE 105; RESP 22; O2SAT 95
[2025-05-22 12:57] VITALS: PULSE 109
[2025-05-22] MEDS: Diclofenac 1% Gel 100 GM TUBE TP (12:58)
--- NOTE | 2025-05-22 14:37 | PTTR_ITS ---
Date of service: 05/22/25 Time of Service: 14:25 PT Notes Visit Reasons: COPD exacerbation SUBJECTIVE: I haven't done this in a while. OBJECTIVE:? Treatment: Supine to sit with min assist x 1 with cuing with HOB elevated. Sit to stand with min assist x 1. SPT with walker with cuing for foot movement and assist for walker movement. stand to sit with min assist x 1 with cuing and assist for hand placment. Assessment: Patient is a?74 yo female adm on 05/20/25 for acute hypoxic respiratory failure with hypercapnia, COPD exacerbation and UTI. Able to weight bear and needing min asist x2 for SPT. Plan: Expect d/c back to her home later today Billing Charges: Treatment Units Time Duration Manual Therapy (92982) Hands-on techniques to modulate pain increase joint range of motion reduce or eliminate soft tissue swelling, inflammation, or restriction facilitate relaxation and improve contractile and non-contractile tissue extensibility Therapeutic Procedures (79568) Instruction in therapeutic exercises to develop strength and endurance, range of motion and flexibility. HEP instruction and review: Provided skilled instruction in proper exercise performance: Provided skilled manual cues to facilitate proper muscle recruitment and/or movement?pattern: Neurological Re-Education (14647) to improve balance, coordination, kinesthetic and proprioceptive sensations. Ultrasound (82066) to promote healing Gait Training (21621) Therapeutic Activity (08717) instruction in dynamic activitie s with one on one patient contact by the provider to improve functional performance as follows: 1 11 Self Care Training (96470) Time Coded Treatment Minutes: 11 Total Treatment Time: 11
--- NOTE | 2025-05-22 18:25 | PDOC.CMDIS ---
Date of service: 05/22/25 Time of Service: 18:25 LACE Index Scoring Tool Questions: Length of Stay (in days): 2 Was the patient admitted via the E.D.?: Yes Comorbidities: Chronic Pulmonary Disease E.D. Visits: 3 Answers: Total Score: 10 Risk of Readmission: High Risk Care Management Discharge Plan Reason for Hospitalization: COPD exacerbation Discharge Plan: Marzena was transferred back to [facility] earlier this afternoon. She will f/u with the facility provider and continue per her plan of care. She was transported via [facility] wheelchair van, as coordinated by CM. Patient/Family Education Needs: Review of discharge instructions, activity, and discuss Ask me 3.
== END 2025-05-22 14:37 | disposition skilled nursing facility (03) ==
LOC: ER 16:35 → MS 17:37
PROVIDERS: Nurse Practitioner Acute Care; Admitting Provider Family Medicine; Emergency Provider Emergency Medicine; Responsible Provider Nurse Practitioner Acute Care; Visit Provider Family Medicine
DX: J44.1 Chronic obstructive pulmonary disease with (acute) exacerbation (principal); J96.01 Acute respiratory failure with hypoxia; J96.02 Acute respiratory failure with hypercapnia; N39.0 Urinary tract infection, site not specified; I10 Essential (primary) hypertension; I48.0 Paroxysmal atrial fibrillation; E78.5 Hyperlipidemia, unspecified; K59.00 Constipation, unspecified; Z79.01 Long term (current) use of anticoagulants; R79.1 Abnormal coagulation profile; M48.00 Spinal stenosis, site unspecified; G25.81 Restless legs syndrome; G47.00 Insomnia, unspecified; D64.9 Anemia, unspecified; F41.9 Anxiety disorder, unspecified; R53.1 Weakness; R26.2 Difficulty in walking, not elsewhere classified; M47.812 Spondylosis without myelopathy or radiculopathy, cervical region; Z86.711 Personal history of pulmonary embolism; G89.4 Chronic pain syndrome; F17.210 Nicotine dependence, cigarettes, uncomplicated; Z96.653 Presence of artificial knee joint, bilateral; B96.20 Unspecified Escherichia coli [E. coli] as the cause of diseases classified elsewhere
CPT/HCPCS: 00123; 36415; 71275; 80048; 82805; 86850; 86900; 86901; 87040; 87077; 87637; 87641; 93005; 94640; 96365; 96366; 96367; 96375; 96376; 97161; 97530; 99285; 71045; 81003; 81015; 83605; 83735; 83880; 84484; 85025; 85379; 87086; 87186; 93010; 94664; 94760; 99223; 99233; 99239; G0378; J1938; J2543; J3373; J3490; J7512; J7620

== ENCOUNTER 2025-06-02 16:30 | Emergency (ER) | payer MEDICARE, MEDICAID, SELFPAY ==
[2025-06-02] VITALS (31 sets, daily range): BP systolic 95–125; BP diastolic 58–92; PULSE 52–75; RESP 8–26; TEMP 37; O2SAT 91–100
[2025-06-02 16:55] LABS: Abs Immature Grans 0.08 10^3/uL (0.0-0.06); HCT 40.8 % (36.0-46.0); HGB 12.2 g/dL (11.2-15.7); Immature Grans % 0.8 %; MCH 28.8 pg (27.0-33.0); MCHC 29.9 % (32.0-36.0); MCV 96 fL (80-95); MPV 8.5 fL (8.0-11.0); Platelet Count 248 10^3/uL (130-400); RBC 4.24 10^6/uL (3.93-5.22); RDW 15.2 % (11.7-14.6); RDW-SD 53.6 fL; WBC 10.02 10^3/uL (4.4-10.8)
[2025-06-02 17:12] LABS: ALT 25 U/L (14-59); AST 15 U/L (15-37); Albumin 3.5 g/dL (3.4-5.0); Alkaline Phosphatase 98 U/L (46-116); Anion Gap 5.4 mmol/L (3-11); BUN 17 mg/dL (7-18); Bilirubin, Total 0.4 mg/dL (0.2-1.0); CO2 35.6 mmol/L (21.0-32.0); Calcium 9.1 mg/dL (8.5-10.1); Chloride 102 mmol/L (98-107); Estimated GFR 67.08 (mL/min/1.73m2); Glucose 99 mg/dL (74-106); Lipase 18 U/L (<78); Magnesium 2.2 mg/dL (1.8-2.4); Potassium 4.1 mmol/L (3.5-5.1); Sodium 143 mmol/L (136-145); Total Protein 7.6 g/dL (6.4-8.2)
--- NOTE | 2025-06-02 17:59 | W.ED.GENAD ---
Discharge Plan Disposition Patient Disposition: Home Condition: Stable Discharge Details Clinical Impression: Hiatal hernia Primary Care Provider: Unknown,Unknown ED Provider: Javy Mcclain Home Meds and New Rx's Prescriptions: New pantoprazole 20 mg tablet,delayed release (DR/EC) 20 mg PO DAILY Qty: 30 0RF ondansetron 4 mg tablet,disintegrating 4 mg PO Q8H PRNQty: 30 0RF Continued metoprolol succinate 50 mg tablet extended release 24 hr 50 mg PO DAILY Eliquis 5 mg tablet 1 tab PO BID gabapentin 300 mg capsule 300 mg PO TID tizanidine 2 mg tablet 2 mg PO BID aspirin [Adult Low Dose Aspirin] 81 mg tablet,delayed release (DR/EC) 81 mg PO DAILY cholecalciferol (vitamin D3) 50 mcg (2,000 unit) capsule 50 mcg PO DAILY magnesium 200 mg tablet 400 mg PO DAILY acetaminophen 500 mg capsule 1,000 mg PO Q6H PRN oxycodone 5 mg tablet 5 mg PO BID ferrous sulfate 325 mg (65 mg iron) Tablet 325 mg PO DAILY ipratropium-albuterol 0.5 mg-3 mg(2.5 mg base)/3 mL solution for nebulization 3 ml INHALATION Q6H PRN vitamin B complex [Vitamins B Complex] Capsule 1 cap PO DAILY docusate sodium [Col-Rite] 100 mg capsule 100 mg PO DAILY furosemide 20 mg tablet 20 mg PO DAILY oxybutynin chloride 5 mg tablet extended release 24hr 5 mg PO DAILY artificial tears (gonioscopic) Drops 1 drp ophthalmic (eye) TID Bio-K plus 50 billion cell capsule,delayed release(DR/EC) 1 cap PO BID diltiazem HCl 240 mg tablet extended release 24 hr 240 mg PO DAILY prednisone 20 mg Tablet 40 mg PO DAILY Qty: 6 0RF benzonatate 100 mg Capsule 100 mg PO TID Qty: 20 0RF guaifenesin [Mucus Relief ER] 600 mg Tablet Extended Release 12hr 600 mg PO BID Qty: 12 0RF lorazepam 1 mg Tablet 0.5 mg PO Q6H PRN lovastatin 20 mg Tablet 20 mg PO QPM Qty: 30 0RF Discharge Instructions Instructions: Hiatal hernia, Ondansetron, Pantoprazole Additional Instructions: You were seen in the emergency department for your nausea and vomiting, you have a new hiatal hernia seen on CT, you need to follow-up with appointment with general surgery by referral from your primary care provider. I have sent you a prescription for pantoprazole to help with your symptoms of acid reflux due to your hiatal hernia as well as some Zofran to help with nausea. Please return to the emergency department for any intractable nausea or vomiting, any other emergent concerns like chest pain shortness of breath. Referrals: [facility] [Provider Group] Discharge Data Discharge Date/Time-TO BE ENTERED AT DEPARTURE: 06/02/25 21:00 HPI General Date/Time Provider Initiated Documentation: 06/02/25 16:40. HPI Narrative: 74 year-old female presents to ED today by EMS from [facility], with a chief complaint of nausea/vomiting this morning- which happens frequently, given Zofran by EMS with resolution of vomiting, with onset chronically. Patient is concerned she may have stomach cancer, as she has two relatives with this. Quality described as generalized nausea/vomiting, no radiation to chest pain, shortness of breath, black/bloody stools, hematemesis, altered mentation, patient endorses anxiety. Severity is described as moderate. Palliating factors include Zofran per EMS with relief of vomiting. Provoking factors include nothing specific. Patient is anticoagulated on Eliquis. Related Data Home Medications ?Medication ?Instructions ?Recorded ?Confirmed lorazepam 1 mg tablet 0.5 mg PO Q6H PRN 06/03/19 06/02/25 metoprolol succinate 50 mg 50 mg PO DAILY 02/22/22 06/02/25 tablet,extended release 24 hr apixaban 5 mg tablet (Eliquis) 1 tab PO BID 06/15/22 06/02/25 gabapentin 300 mg capsule 300 mg PO TID 06/15/22 06/02/25 tizanidine 2 mg tablet 2 mg PO BID 01/16/24 06/02/25 lovastatin 20 mg tablet 20 mg PO QPM #30 tabs 02/26/24 06/02/25 acetaminophen 500 mg capsule 1,000 mg PO Q6H PRN 12/07/24 06/02/25 aspirin 81 mg tablet,delayed 81 mg PO DAILY 12/07/24 06/02/25 release (Adult Low Dose Aspirin) cholecalciferol (vitamin D3) 50 50 mcg PO DAILY 12/07/24 06/02/25 mcg (2,000 unit) capsule ferrous sulfate 325 mg (65 mg 325 mg PO DAILY 12/07/24 06/02/25 iron) tablet ipratropium 0.5 mg-albuterol 3 mg 3 ml inhalation Q6H PRN 12/07/24 06/02/25 (2.5 mg base)/3 mL nebulization soln magnesium 200 mg tablet 400 mg PO DAILY 12/07/24 06/02/25 oxycodone 5 mg tablet 5 mg PO BID 12/07/24 06/02/25 artificial tears (gonioscopic) 1 drp ophthalmic (eye) TID 02/24/25 06/02/25 docusate sodium 100 mg capsule 100 mg PO DAILY 02/24/25 06/02/25 (Col-Rite) furosemide 20 mg tablet 20 mg PO DAILY 02/24/25 06/02/25 oxybutynin chloride 5 mg 5 mg PO DAILY 02/24/25 06/02/25 tablet,extended release 24 hr vitamin B complex (Vitamins B 1 cap PO DAILY 02/24/25 06/02/25 Complex capsule) L. acidophilus,casei,rhamnosus 50 1 cap PO BID 05/20/25 06/02/25 billion cell capsule,delayed release (Bio-K plus) diltiazem HCl 240 mg 240 mg PO DAILY 05/20/25 06/02/25 tablet,extended release 24 hr benzonatate 100 mg capsule 100 mg PO TID #20 caps 05/22/25 06/02/25 guaifenesin 600 mg tablet, 600 mg PO BID #12 tabs 05/22/25 06/02/25 extended release 12 hr (Mucus Relief ER) prednisone 20 mg tablet 40 mg (2 x 20 mg) PO DAILY #6 tabs 05/22/25 06/02/25 ondansetron 4 mg disintegrating 4 mg PO Q8H PRN #30 tabs 06/02/25 tablet pantoprazole 20 mg tablet,delayed 20 mg PO DAILY #30 tabs 06/02/25 release Previous Rx's ?Medication ?Instructions ?Recorded lovastatin 20 mg tablet 20 mg PO QPM #30 tabs 02/26/24 benzonatate 100 mg capsule 100 mg PO TID #20 caps 05/22/25 guaifenesin 600 mg tablet, 600 mg PO BID #12 tabs 05/22/25 extended release 12 hr (Mucus Relief ER) prednisone 20 mg tablet 40 mg (2 x 20 mg) PO DAILY #6 tabs 05/22/25 ondansetron 4 mg disintegrating 4 mg PO Q8H PRN #30 tabs 06/02/25 tablet pantoprazole 20 mg tablet,delayed 20 mg PO DAILY #30 tabs 06/02/25 release Allergies Allergy/AdvReac Type Severity Reaction Status Date / Time No Known Allergies Allergy Verified 06/02/25 16:32 General Stated Complaint: Abd Prob SIDNEY: 3 Review of Systems All systems reviewed & are unremarkable except as noted in HPI and below Exam Narrative Exam Narrative: GENERAL APPEARANCE: Well-nourished, non-toxic, awake and alert, atraumatic, no acute distress. SKIN: Warm, pink, dry, intact, without rashes/lesions/ulcerations. HEAD: Normocephalic, atraumatic, normal hair distribution for gender/age. EYES: Normal conjunctiva, no exudates on lids/lashes. ENT: Nares patent, no circumoral cyanosis, no facial swelling NECK: Supple, trachea midline, painless cervical ROM. LUNGS/CHEST: Lungs CTA bilaterally- no rhonchi/rales/wheezes diffusely, non-labored respirations, normal A/P diameter, symmetrical expansion, no chest wall deformity HEART (CV/PV): Regular rate and rhythm without murmur, no peripheral edema, no JVD. ABDOMEN: Soft, non-distended, no guarding, epigastric tenderness, negative Luis's sign, no CVA tenderness to percussion bilaterally, negative Rovsing's MSK: Normal ROM, no swelling/deformity to bilateral UEs or LEs, moving all extremities without weakness, no cyanosis, spine midline without tenderness, normal curvature. NEURO: Mental Status AAOx4 - alert to person, place, time, events No facial droop, no forehead involvement. Motor: No focal weakness - strength 5/5 in bilateral UEs and LEs, proximal and distal, symmetric. Sensory: sensation intact to light touch globally. Gait NT. PSYCH: dysthymic, cooperative, pleasant, appropriate speech- tangential Course Vital Signs Vital signs: Vital Signs Temperature 37.0 C 06/02/25 16:26 Pulse 65 06/02/25 16:26 Respiratory Rate 20 06/02/25 16:26 Pulse Oximetry 100 06/02/25 16:26 Temperature 37.0 C 06/02/25 16:31 Pulse 65 06/02/25 16:31 Respiratory Rate 20 06/02/25 16:31 Blood Pressure 125/92 H 06/02/25 16:31 Blood Pressure Mean 103 06/02/25 16:31 Blood Pressure Position Supine 06/02/25 16:26 Pulse Oximetry 100 06/02/25 16:31 Oxygen Delivery Method Nasal Cannula 06/02/25 16:31 Oxygen Flow Rate 2 06/02/25 16:31 Lab/Test Results Lab/Test Results: Laboratory Tests Range/Units 06/02/25 16:38 WBC (4.4-10.8) 10^3/uL 10.02 RBC (3.93-5.22) 10^6/uL 4.24 Hgb (11.2-15.7) g/dL 12.2 Hct (36.0-46.0) % 40.8 MCV (80-95) fL 96 H MCH (27.0-33.0) pg 28.8 MCHC (32.0-36.0) % 29.9 L RDW (11.7-14.6) % 15.2 H Plt Count (130-400) 10^3/uL 248 MPV (8.0-11.0) fL 8.5 Immature Gran % % 0.8 Neutrophils % % 62.3 Lymphocytes % % 25.3 Monocytes % % 6.9 Eosinophils % % 4.2 Basophils % % 0.5 Nucleated RBC % (0.0-0.3) % 0.0 Absolute Neutrophils (1.2-6.7) 10^3/uL 6.24 Absolute Lymphocytes (1.2-3.4) 10^3/uL 2.54 Absolute Monocytes (0.1-0.8) 10^3/uL 0.69 Absolute Eosinophils (0.0-0.7) 10^3/uL 0.42 Absolute Basophils (0.0-0.2) 10^3/uL 0.05 VBG Lactate (<or=2.0) mmol/L 0.9 Sodium (136-145) mmol/L 143 Potassium (3.5-5.1) mmol/L 4.1 Chloride (98-107) mmol/L 102 Carbon Dioxide (21.0-32.0) mmol/L 35.6 H Anion Gap (3-11) mmol/L 5.4 BUN (7-18) mg/dL 17 Creatinine (0.55-1.02) mg/dL 0.9 Est GFR (CKD-EPI 2020) (mL/min/1.73m2) 67.08 Glucose (74-106) mg/dL 99 Calcium (8.5-10.1) mg/dL 9.1 Magnesium (1.8-2.4) mg/dL 2.2 Total Bilirubin (0.2-1.0) mg/dL 0.4 AST (15-37) U/L 15 ALT (14-59) U/L 25 Alkaline Phosphatase (46-116) U/L 98 Total Protein (6.4-8.2) g/dL 7.6 Albumin (3.4-5.0) g/dL 3.5 Lipase (<78) U/L 18 Medical Decision Making This dictation utilizes [id number] dictation software and may contain unedited grammatical errors. 74 year-old female presents [facility] ED [facility], with a chief complaint of nausea/vomiting this morning- which happens frequently, given Zofran by EMS with resolution of vomiting, with onset chronically. Patient is concerned she may have stomach cancer, as she has two relatives with this. Quality described as generalized nausea/vomiting, no radiation to chest pain, shortness of breath, black/bloody stools, hematemesis, altered mentation, patient endorses anxiety. Severity is described as moderate. Palliating factors include Zofran per EMS with relief of vomiting. Provoking factors include nothing specific. Patients' medical history: Pulmonary embolism, COPD, constipation, atrial fibrillation, chronic respiratory failure, hypertension, spinal stenosis, ambulatory dysfunction. Family and social history: [facility], eats normal diet, no exercise regimen, no tobacco or EtOH use. Pertinent exam findings / vital signs include mild epigastric tenderness, no active vomiting, baseline cardiopulmonary status, neuro intact, anxious. Differential / pathologies of concern include gastritis, gastroenteritis, gastroparesis, constipation, SBO, biliary colic. Diagnostic studies of: - CBC, CMP, lactate, magnesium, lipase, CT ABD/pelvis with contrast. - CBC shows no leukocytosis, no anemia - Lactate negative - CMP shows no actionable abnormality - Magnesium within normal limits - Lipase negative - CT shows a new moderate hiatal hernia, shows possible wall thickening of bladder but patient is not reporting any complaints of UTI Interventions of: - IV Zofran, IV Protonix, patient felt better asking for discharge, counseled on follow-up with general surgery for EGD. ED Course/Assessment/Plan: 74-year-old female presents by EMS from [facility] for nausea and vomiting concerned that she has gastric cancer, she was given Zofran by EMS is not actively vomiting here in the department, CT was performed and shows a new hiatal hernia which is the likely cause of her symptoms, I did give her IV Protonix and Zofran and she felt better and asked to return home, her electrolytes are within normal limits, lactate negative do not suspect sepsis, lipase negative do not suspect any abnormalities of the biliary tree, magnesium is within normal limits, she has no concerns for UTI at this time, I do recommend she follow-up with her primary care provider or return for any acute worsening despite treatment especially with intractable nausea or vomiting, fevers, chest pain or shortness of breath or any other emergent concern. Recommend she follow with gen surg for hiatal hernia Findings not consistent with SBO, sepsis, biliary colic, electrolyte derangement. Disposition of hiatal hernia. Patient verbalized understanding of the plan and return to ED criteria and engaged in shared decision making. Medical Records Medical records reviewed: Yes I reviewed the patient's medical records. Imaging Data Radiologic Study: Attestation: I personally reviewed and interpreted this imaging study as follows: Imaging: CT Scan Radiologist's impression: Exam: CT Abdomen And Pelvis With Contrast Exam date and time: 06/02/2025 19:00 Age: 74 years old Clinical indication: Nausea and vomiting; Prior surgery; Surgery date: 6+ months; Surgery type: Cholecystectomy; Intractable nausea/vomiting TECHNIQUE: Imaging protocol: Computed tomography of the abdomen and pelvis with contrast. Radiation optimization: All CT scans at this facility use at least one of these dose optimization techniques: automated exposure control; mA and/or kV adjustment per patient size (includes targeted exams where dose is matched to clinical indication); or iterative reconstruction. Contrast material: [id number]; Contrast volume: 100 ml; Contrast route: INTRAVENOUS (IV); COMPARISON: CT ABDOMEN PELVIS W 03/15/2024 16:21 FINDINGS: Liver: Liver contour is nodular. Gallbladder and biliary ducts: Cholecystectomy. Mild intrahepatic and extrahepatic biliary dilation most compatible with benign reservoir effect in the setting of cholecystectomy. Pancreas: No ductal dilation. No mass . Spleen: No splenomegaly or suspicious lesions. Adrenal glands: No suspicious mass. Kidneys and ureters: Scattered small bilateral renal stones without obstruction again seen. No renal masses or hydronephrosis bilaterally. Stomach and bowel: New moderate hiatal hernia with evidence of GE reflux into the visualized distal esophagus. No significant obstruction or inflammation of stomach or duodenum. Colonic diverticulosis without diverticulitis. No focal pathology in the small bowel. Minor mid small bowel small bowel feces sign could reflect dysmotility. No wall thickening or significant obstruction. Appendix: No evidence of appendicitis. Intraperitoneal space: No free air. No significant fluid collection. Vasculature: Atherosclerosis. Lymph nodes: No significantly enlarged lymph nodes. Urinary bladder: Suspected mild, asymmetric wall thickening of the urinary bladder slightly more pronounced on the right, new since prior, suboptimally assessed due to decompression. Reproductive: Unremarkable as visualized. Bones/joints: Left total hip arthroplasty, intact as visualized. Chronic bony changes with no acute fracture. Soft tissues: Moderate edema partially assessed upper-outer left thigh, similar to prior. IMPRESSION: 1. New moderate hiatal hernia with evidence of GE reflux into the visualized distal esophagus. No small bowel obstruction. 2. Moderate edema or cellulitis partially assessed upper-outer left thigh, similar to prior. 3. Suspected mild, asymmetric wall thickening of the urinary bladder slightly more pronounced on the right, new since prior, suboptimally assessed due to decompression. Could reflect asymmetric cystitis, chronic neurogenic changes, malignancy difficult to exclude. 4. Incidental findings as described. Dictated and Authenticated by: Nisha Lilly MD. Lab Data Lab results reviewed: Yes I reviewed the patient's lab results. Labs: Laboratory Tests Range/Units 06/02/25 16:38 WBC (4.4-10.8) 10^3/uL 10.02 RBC (3.93-5.22) 10^6/uL 4.24 Hgb (11.2-15.7) g/dL 12.2 Hct (36.0-46.0) % 40.8 MCV (80-95) fL 96 H MCH (27.0-33.0) pg 28.8 MCHC (32.0-36.0) % 29.9 L RDW (11.7-14.6) % 15.2 H Plt Count (130-400) 10^3/uL 248 MPV (8.0-11.0) fL 8.5 Immature Gran % % 0.8 Neutrophils % % 62.3 Lymphocytes % % 25.3 Monocytes % % 6.9 Eosinophils % % 4.2 Basophils % % 0.5 Nucleated RBC % (0.0-0.3) % 0.0 Absolute Neutrophils (1.2-6.7) 10^3/uL 6.24 Absolute Lymphocytes (1.2-3.4) 10^3/uL 2.54 Absolute Monocytes (0.1-0.8) 10^3/uL 0.69 Absolute Eosinophils (0.0-0.7) 10^3/uL 0.42 Absolute Basophils (0.0-0.2) 10^3/uL 0.05 VBG Lactate (<or=2.0) mmol/L 0.9 Sodium (136-145) mmol/L 143 Potassium (3.5-5.1) mmol/L 4.1 Chloride (98-107) mmol/L 102 Carbon Dioxide (21.0-32.0) mmol/L 35.6 H Anion Gap (3-11) mmol/L 5.4 BUN (7-18) mg/dL 17 Creatinine (0.55-1.02) mg/dL 0.9 Est GFR (CKD-EPI 2020) (mL/min/1.73m2) 67.08 Glucose (74-106) mg/dL 99 Calcium (8.5-10.1) mg/dL 9.1 Magnesium (1.8-2.4) mg/dL 2.2 Total Bilirubin (0.2-1.0) mg/dL 0.4 AST (15-37) U/L 15 ALT (14-59) U/L 25 Alkaline Phosphatase (46-116) U/L 98 Total Protein (6.4-8.2) g/dL 7.6 Albumin (3.4-5.0) g/dL 3.5 Lipase (<78) U/L 18 PFSH All Active Problems (Updated 06/02/25 @ 20:32 by CALEB Mota) Hiatal hernia (Chronic) Constipation (Acute) UTI (urinary tract infection) (Acute) Paroxysmal atrial fibrillation (Acute) Acute exacerbation of chronic obstructive pulmonary disease (COPD) (Acute) Acute respiratory failure with hypoxia and hypercarbia (Acute) Pleural effusion (Acute) Hypercarbia (Acute) Chronic respiratory failure (Acute) Afib (Chronic) F/u with Dr. 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) Diarrhea (Acute) Urinary incontinence (Acute) Hypokalemia (Acute) Ambulatory dysfunction (Acute) UTI (urinary tract infection) due to Enterococcus (Acute) Anxiety (Chronic) Generalized weakness (Acute) Medical History Cervical nerve root disorder Not disorder: Per H&P (R) Cervical medial branch block Tobacco user RLS (restless legs syndrome) Pulmonary embolism 8 months ago r/t to diagnosis a-fib Postural dizziness Depressive disorder Chronic pain syndrome COPD (chronic obstructive pulmonary disease) Lumbago with sciatica, left side Surgical History 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) History of abdominal surgery (01/21/17) Hx of cholecystectomy H/O cone biopsy of cervix History of breast biopsy Hx of rotator cuff surgery right History of total bilateral knee replacement (TKR) History of carpal tunnel release H/O exploratory laparotomy Hx of cervical spine surgery Hx of colonoscopy Social History Smoking/Tobacco Use Status: Current-Occasional Tobacco Type: cigarettes Smoking risk assessment performed?: Yes Alcohol Intake: former Drug use: Occasionally Substance use type: former substance user and marijuana Housing: [facility] Do you feel safe at home: Yes (lives with sister) Do you feel safe in your relationship?: Yes Additional Social history: Lives with sister in [place], retired, gets some help with cleaning/bathing. Quit smoking at recent rehab stay, but still bums a cigarette from sister when she is stressed.
[2025-06-02] MEDS: Omnipaque 350 MG/ML 100 ML BTL IJ (19:08)
[2025-06-02] MEDS: Normal Saline - Diluent 50 ML VIAL IJ (19:09)
--- NOTE | 2025-06-02 19:17 | DI.CT_ITS ---
Exam(s) CT ABDOMEN PELVIS W EXAM: CT ABDOMEN PELVIS W CLINICAL HISTORY: intractable nausea/vomiting. TECHNIQUE: Imaging Protocol: Axial computed tomography images with coronal and sagittal reformatted images were created and reviewed CONTRAST MATERIAL: Intravenous: Omnipaque 350 Contrast volume:100 ml Oral: no COMPARISON: CT CT ABDOMEN PELVIS W from 03/15/2024 FINDINGS: ABDOMEN and PELVIS: Lung Bases: No acute findings. Liver: Normal density. No suspicious mass. Gallbladder and biliary tract: Cholecystectomy. Stable mild biliary dilation. Pancreas: Normal density. No abnormal calcifications or inflammatory process. No evidence of mass. Spleen: Normal. Kidneys: Normal size, contour and axis. Small bilateral nonobstructing calculi. No obstructive uropathy. No suspicious masses seen. Adrenal glands: No masses seen. Vasculature: Abdominal aorta non-dilated. Soft tissues: Edema in the subcutaneous fat greatest at the level of the left hip. Bladder: Partially obscured by artifact from hip prosthesis. Not well distended. Question of mild wall thickening. Clinical correlation recommended. No calculi.No focal mass. Bowel: There is new moderate size hiatal hernia. There is some ingested material at the fundus of the stomach. There stomach beneath the diaphragm is nearly empty. This may indicate an element of obstruction. There is fluid a dilated distal esophagus consistent with reflux. No evidence of esophageal wall thickening. No small or large bowel wall thickening. Appendix normal. Moderate to increased quantity of stool throughout the colon. Mild diverticulosis. Peritoneal cavity: No ascites. No focal collection. No mesenteric inflammatory response. No free air. Bones: Left hip prosthesis. Advanced degenerative changes in the spine as well as scoliosis. Stable mild L1 compression fracture. Reproductive organs: Unremarkable. Lymph nodes: No pathologically enlarged lymph nodes. IMPRESSION:: New moderate-sized hiatal hernia with fundus of stomach extending above the diaphragm. The stomach inferior to the diaphragm is nearly empty. The findings could indicate an element of obstruction. The distal esophagus is dilated and fluid-filled consistent with reflux. Mild bladder wall thickening. Bladder is not well distended. Clinical correlation recommended The preliminary [facility] report was reviewed. RADIATION DOSE DELIVERED: 1,772.32mGy.cm Total DLP DATA REPOSITORY: All CT scans at this facility are submitted to the National Radiology Data Registry (NRDR) Dose Index Registry (DIR) with the [employer] ([employer]). RADIATION OPTIMIZATION: All CT scans at this facility use at least one of these dose optimization techniques: automated exposure control; mA and/or kV adjustment per patient size (includes targeted exams where dose is matched to clinical indication); or iterative reconstruction.
--- NOTE | 2025-06-02 19:38 | DI.[facility]AD_ITS ---
PROCEDURE INFORMATION: Exam: CT Abdomen And Pelvis With Contrast Exam date and time: 06/02/2025 19:00 Age: 74 years old Clinical indication: Nausea and vomiting; Prior surgery; Surgery date: 6+ months; Surgery type: Cholecystectomy; Intractable nausea/vomiting TECHNIQUE: Imaging protocol: Computed tomography of the abdomen and pelvis with contrast. Radiation optimization: All CT scans at this facility use at least one of these dose optimization techniques: automated exposure control; mA and/or kV adjustment per patient size (includes targeted exams where dose is matched to clinical indication); or iterative reconstruction. Contrast material: [id number]; Contrast volume: 100 ml; Contrast route: INTRAVENOUS (IV); COMPARISON: CT ABDOMEN PELVIS W 03/15/2024 16:21 FINDINGS: Liver: Liver contour is nodular. Gallbladder and biliary ducts: Cholecystectomy. Mild intrahepatic and extrahepatic biliary dilation most compatible with benign reservoir effect in the setting of cholecystectomy. Pancreas: No ductal dilation. No mass . Spleen: No splenomegaly or suspicious lesions. Adrenal glands: No suspicious mass. Kidneys and ureters: Scattered small bilateral renal stones without obstruction again seen. No renal masses or hydronephrosis bilaterally. Stomach and bowel: New moderate hiatal hernia with evidence of GE reflux into the visualized distal esophagus. No significant obstruction or inflammation of stomach or duodenum. Colonic diverticulosis without diverticulitis. No focal pathology in the small bowel. Minor mid small bowel small bowel feces sign could reflect dysmotility. No wall thickening or significant obstruction. Appendix: No evidence of appendicitis. Intraperitoneal space: No free air. No significant fluid collection. Vasculature: Atherosclerosis. Lymph nodes: No significantly enlarged lymph nodes. Urinary bladder: Suspected mild, asymmetric wall thickening of the urinary bladder slightly more pronounced on the right, new since prior, suboptimally assessed due to decompression. Reproductive: Unremarkable as visualized. Bones/joints: Left total hip arthroplasty, intact as visualized. Chronic bony changes with no acute fracture. Soft tissues: Moderate edema partially assessed upper-outer left thigh, similar to prior. IMPRESSION: 1. New moderate hiatal hernia with evidence of GE reflux into the visualized distal esophagus. No small bowel obstruction. 2. Moderate edema or cellulitis partially assessed upper-outer left thigh, similar to prior. 3. Suspected mild, asymmetric wall thickening of the urinary bladder slightly more pronounced on the right, new since prior, suboptimally assessed due to decompression. Could reflect asymmetric cystitis, chronic neurogenic changes, malignancy difficult to exclude. 4. Incidental findings as described. Dictated and Authenticated by: Nisha Lilly MD. Orderin Johny Palafox MD
[2025-06-02] MEDS: Ondansetron 4 MG/2 ML VIAL IVP (20:21)
[2025-06-02] MEDS: Pantoprazole 40 MG VIAL IVP (20:49)
== END 2025-06-02 21:00 | disposition home or self-care (01) ==
PROVIDERS: Emergency Provider Physician Assistant
DX: K44.9 Diaphragmatic hernia without obstruction or gangrene (principal); J44.9 Chronic obstructive pulmonary disease, unspecified; I48.91 Unspecified atrial fibrillation; E78.5 Hyperlipidemia, unspecified; F17.210 Nicotine dependence, cigarettes, uncomplicated; Z79.82 Long term (current) use of aspirin; Z86.711 Personal history of pulmonary embolism
CPT/HCPCS: 36415; 80053; 83690; 87426; 96374; 96375; 99285; 74177; 83605; 83735; 85025; 99284; J2405; J2470; J3490

== ENCOUNTER 2025-06-07 16:06 | Outpatient (REF) | payer MEDICARE, MEDICAID, SELFPAY ==
[2025-06-07 11:05] LABS: Glucose Negative (Negative)
== END 2025-06-07 16:07 | disposition home or self-care (01) ==
LOC: LBN 16:06
PROVIDERS: Visit Provider Family Medicine
DX: N39.0 Urinary tract infection, site not specified (principal)
CPT/HCPCS: 81003

== ENCOUNTER 2025-06-24 20:06 | Emergency (ER) | payer MEDICARE, MEDICAID, SELFPAY ==
[2025-06-24] VITALS (19 sets, daily range): BP systolic 147–173; BP diastolic 90–122; PULSE 106–111; RESP 13–34; TEMP 36.8; O2SAT 86–99
--- NOTE | 2025-06-24 20:15 | DI.RAD_ITS ---
Exam(s) XR ANKLE RT COMPLETE XR FOOT RT COMPLETE EXAM: XR ANKLE RT COMPLETE CLINICAL HISTORY: concern for fracture, twist. TECHNIQUE: 2D digital imaging was performed. Three views of the ankle and foot. COMPARISON: CR,XR XR FOOT RT COMPLETE from 06/24/2025 FINDINGS: BONES: The bones appear osteopenic. There is a nondisplaced fracture at the base of the 5th metatarsal. No additional fractures I and srikanth. No bony destructive lesion is seen. JOINTS: The ankle mortise is normally aligned. Chronic appearing flexion deformities of the toes. SOFT TISSUE: Diffuse edema. IMPRESSION: Nondisplaced fracture at the base of 5th metatarsal. The preliminary [facility] report was reviewed. DATA REPOSITORY: RADIATION DOSE DELIVERED:
--- NOTE | 2025-06-24 20:15 | DI.CT_ITS ---
Exam(s) CT HEAD CERVICAL SPINE WO EXAM: CT HEAD CERVICAL SPINE WO CLINICAL HISTORY: fall on eliquis. TECHNIQUE: Imaging Protocol: Axial computed tomography images with coronal and sagittal reformatted images were created and reviewed COMPARISON: CT CT HEAD WO from 02/21/[address] CERVICAL SPINE WO from 02/24/2025 FINDINGS: Head CT Ventricles and Extra axial spaces: Normal in size and morphology for the patient's age. Hemorrhage: None. Cerebral parenchyma: No evidence of mass or acute infarct. Mild atrophy. Moderate bilateral areas of hypodensity in the white matter consistent with chronic microvascular changes. Midline shift: None. Brainstem/Cerebellum: Normal. Calvarium: Normal. Visualized Paranasal sinuses/Mastoids: Clear. Soft tissues: Unremarkable. Cervical Spine CT The exam is somewhat limited due to artifact from hardware and patient body habitus. BONES: Vertebral body heights are maintained. Postsurgical changes with posterior fusion hardware in place from C2 through C6. Laminectomy defects at these levels. Stable appearance from prior. There is no evidence of acute fracture. Severe degenerative disc changes and facet degenerative changes are seen . SOFT TISSUES: No paraspinal hematoma. The airway appears intact. No pneumothorax is seen at the lung apices. IMPRESSION: Head CT: No acute abnormality. C-spine CT: Degenerative changes, no acute abnormality. The preliminary [facility] report was reviewed. RADIATION DOSE DELIVERED: 1,410.89mGy.cm Total DLP DATA REPOSITORY: All CT scans at this facility are submitted to the National Radiology Data Registry (NRDR) Dose Index Registry (DIR) with the [employer] ([employer]). RADIATION OPTIMIZATION: All CT scans at this facility use at least one of these dose optimization techniques: automated exposure control; mA and/or kV adjustment per patient size (includes targeted exams where dose is matched to clinical indication); or iterative reconstruction.
--- NOTE | 2025-06-24 20:15 | DI.RAD_ITS ---
Exam(s) XR TIB/FIB RT EXAM: XR TIB/FIB RT CLINICAL HISTORY: twisting injury. TECHNIQUE: 2D digital imaging was performed. Two views. COMPARISON: No exams were available for comparison FINDINGS: BONES: No acute fracture is present. No bony destructive lesion is seen. There is a knee prosthesis. The ankle is unremarkable as visualized. SOFT TISSUE: Diffuse lower extremity edema. IMPRESSION: Edema. No evidence of fracture. DATA REPOSITORY: RADIATION DOSE DELIVERED:
--- NOTE | 2025-06-24 20:15 | DI.RAD_ITS ---
Exam(s) XR CHEST 1V IN DI DEPT EXAM: XR CHEST 1V IN DI DEPT CLINICAL HISTORY: ankle injury TECHNIQUE: 2D digital imaging was performed. COMPARISON: CT CT CHEST PE CTA from 05/20/2025 CR XR PORTABLE CHEST AP from 05/20/2025 FINDINGS: LUNGS: No visible focal infiltrate. No pleural abnormality seen. HEART: Enlarged. There is pulmonary vascular congestion. AORTA: Tortuous and calcified. BONES: Hardware in cervical spine. Soft tissues: Unremarkable. IMPRESSION: Pulmonary vascular prominence could indicate mild CHF. The preliminary [facility] report was reviewed. DATA REPOSITORY: RADIATION DOSE DELIVERED:
[2025-06-24] MEDS: MORPHine 4 MG/ML SYR IM (21:34)
[2025-06-24] MEDS: oxyCODONE 5 MG TAB PO (21:34)
--- NOTE | 2025-06-24 21:35 | DI.VRAD_ITS ---
PROCEDURE INFORMATION: Exam: CT Head Without Contrast Exam date and time: 06/24/2025 8:41 PM Age: 75 years old Clinical indication: Injury or trauma; Other: Fall on eliquis; Prior surgery; Surgery date: 6+ months; Surgery type: Sn/juan fusion 5 years ago TECHNIQUE: Imaging protocol: Computed tomography of the head without contrast. COMPARISON: CT HEAD WO 02/21/2024 8:10 AM FINDINGS: Brain: Cerebral volume loss noted. Scattered areas of decreased attenuation in the deep periventricular white matter consistent with small vessel ischemic change. No evidence for acute intracranial hemorrhage. Cerebral ventricles: No ventriculomegaly. Paranasal sinuses: Visualized sinuses are unremarkable. No fluid levels. Mastoid air cells: Visualized mastoid air cells are well aerated. Bones: Unremarkable. No acute fracture. Soft tissues: Unremarkable. IMPRESSION: Senescent changes noted. No acute intracranial abnormality. PROCEDURE INFORMATION: Exam: CT Cervical Spine Without Contrast Exam date and time: 06/24/2025 8:41 PM Age: 75 years old Clinical indication: Injury or trauma; Other: Fall on eliquis; Prior surgery; Surgery date: 6+ months; Surgery type: Sn/juan fusion 5 years ago TECHNIQUE: Imaging protocol: Computed tomography of the cervical spine without contrast. COMPARISON: CT CERVICAL SPINE WO 02/24/2025 4:00 PM FINDINGS: Bones: Status post posterior fusion C2-C6. Spinal alignment is otherwise anatomic without evidence for fracture or dislocation. Vertebral body height is well preserved. No stenosis. Lungs: Lung apices are normal. Soft tissues: Unremarkable. IMPRESSION: No evidence for acute posttraumatic abnormality. Dictated and Authenticated by: Selena Ibanez MD. Orderin Cory Espinosa MD
--- NOTE | 2025-06-24 21:46 | DI.VRAD_ITS ---
PROCEDURE INFORMATION: Exam: XR Right Tibia and Fibula Exam date and time: 06/24/2025 9:00 PM Age: 75 years old Clinical indication: Injury or trauma; Fall; Other: Concern for fracture, twist TECHNIQUE: Imaging protocol: Radiologic exam of the right tibia and fibula. Views: 2 views. COMPARISON: CR XR ANKLE RT COMPLETE 06/24/2025 8:57 PM FINDINGS: Bones/joints: Prior right knee arthroplasty. No visible fracture or dislocation. Soft tissues: Diffuse lower leg soft tissue edema. IMPRESSION: Diffuse lower leg soft tissue edema. Dictated and Authenticated by: Darcie Durham MD. Orderin Cory Espinosa MD
--- NOTE | 2025-06-24 21:47 | DI.VRAD_ITS ---
PROCEDURE INFORMATION: Exam: XR Right Foot Exam date and time: 06/24/2025 9:06 PM Age: 75 years old Clinical indication: Injury or trauma; Fall; Other: Concern for fracture, twist TECHNIQUE: Imaging protocol: Radiologic exam of the right foot. Views: 3 or more views. COMPARISON: CR XR TIB/FIB RT 06/24/2025 9:00 PM FINDINGS: Bones/joints: Oblique nondisplaced fracture through the base of the 5th metatarsal, age indeterminate. Diffuse osteopenia. Moderate degenerative changes of the 3rd and 4th MTPs. Soft tissues: Moderate diffuse soft tissue edema. IMPRESSION: 1. Oblique nondisplaced fracture through the base of the 5th metatarsal, age indeterminate. 2. Moderate diffuse soft tissue edema. Dictated and Authenticated by: Darcie Durham MD. Orderin Cory Espinosa MD
--- NOTE | 2025-06-24 21:48 | DI.VRAD_ITS ---
PROCEDURE INFORMATION: Exam: XR Right Ankle Exam date and time: 06/24/2025 8:57 PM Age: 75 years old Clinical indication: Injury or trauma; Fall; Other: Concern for fracture, twist TECHNIQUE: Imaging protocol: Radiologic exam of the right ankle. Views: 3 or more views. COMPARISON: No relevant prior studies available. FINDINGS: Bones/joints: Fracture through the base of the 5th metatarsal, nondisplaced. Diffuse bone demineralization. Soft tissues: Diffuse soft tissue edema. IMPRESSION: Fracture through the base of the 5th metatarsal, nondisplaced. Dictated and Authenticated by: Darcie Durham MD. Orderin Cory Espinosa MD
--- NOTE | 2025-06-24 21:48 | DI.VRAD_ITS ---
PROCEDURE INFORMATION: Exam: XR Chest Exam date and time: 06/24/2025 9:12 PM Age: 75 years old Clinical indication: Injury or trauma; Fall; Blunt trauma (contusions or hematomas) TECHNIQUE: Imaging protocol: Radiologic exam of the chest. Views: 1 view. COMPARISON: CT CHEST PE CTA 05/20/2025 3:11 PM FINDINGS: Lungs: Moderate vascular congestion. Pleural spaces: Unremarkable. No pleural effusion. No pneumothorax. Heart/Mediastinum: The heart demonstrates diffuse enlargement. Vasculature: Moderate atherosclerotic calcifications of the thoracic aorta. Bones/joints: Postsurgical changes in the lower cervical spine IMPRESSION: Moderate vascular congestion. Dictated and Authenticated by: Darcie Durham MD. Orderin Cory Espinosa MD
--- NOTE | 2025-06-24 22:43 | W.ED.GENAD ---
Discharge Plan Disposition Patient Disposition: Home Condition: Stable Discharge Details Clinical Impression: Closed fracture of fifth metatarsal bone Primary Care Provider: Unknown,Unknown ED Provider: Francisca Ray Home Meds and New Rx's Prescriptions: Continued metoprolol succinate 50 mg tablet extended release 24 hr 50 mg PO DAILY Eliquis 5 mg tablet 1 tab PO BID gabapentin 300 mg capsule 300 mg PO TID tizanidine 2 mg tablet 2 mg PO BID aspirin [Adult Low Dose Aspirin] 81 mg tablet,delayed release (DR/EC) 81 mg PO DAILY cholecalciferol (vitamin D3) 50 mcg (2,000 unit) capsule 50 mcg PO DAILY magnesium 200 mg tablet 400 mg PO DAILY acetaminophen 500 mg capsule 1,000 mg PO Q6H PRN oxycodone 5 mg tablet 5 mg PO BID ferrous sulfate 325 mg (65 mg iron) Tablet 325 mg PO DAILY ipratropium-albuterol 0.5 mg-3 mg(2.5 mg base)/3 mL solution for nebulization 3 ml INHALATION Q6H PRN vitamin B complex [Vitamins B Complex] Capsule 1 cap PO DAILY docusate sodium [Col-Rite] 100 mg capsule 100 mg PO DAILY furosemide 20 mg tablet 20 mg PO DAILY oxybutynin chloride 5 mg tablet extended release 24hr 5 mg PO DAILY artificial tears (gonioscopic) Drops 1 drp ophthalmic (eye) TID Bio-K plus 50 billion cell capsule,delayed release(DR/EC) 1 cap PO BID diltiazem HCl 240 mg tablet extended release 24 hr 240 mg PO DAILY prednisone 20 mg Tablet 40 mg PO DAILY Qty: 6 0RF benzonatate 100 mg Capsule 100 mg PO TID Qty: 20 0RF guaifenesin [Mucus Relief ER] 600 mg Tablet Extended Release 12hr 600 mg PO BID Qty: 12 0RF lorazepam 1 mg Tablet 0.5 mg PO Q6H PRN lovastatin 20 mg Tablet 20 mg PO QPM Qty: 30 0RF pantoprazole 20 mg tablet,delayed release (DR/EC) 20 mg PO DAILY Qty: 30 0RF ondansetron 4 mg tablet,disintegrating 4 mg PO Q8H PRNQty: 30 0RF Discharge Instructions Instructions: Foot Fracture (DC) Additional Instructions: wear your boot until you follow-up with podiatry I am placing a referral to podiatry Continue taking your oxycodone and Tylenol You may need to increase your oxycodone to 7.5 mg during the day, as needed You may apply ice Please return should you develop new or worsening complaints Referrals: said [Other] Liza Booth DPM [[facility], Podiatry] HPI General Date/Time Provider Initiated Documentation: 06/24/25 20:06. HPI Narrative: This chronically ill 75-year-old female with ambulatory dysfunction residing at the rehabilitation center secondary to hip fracture and limited weightbearing presents with report of fall months twisting and injury landing on her right foot underneath her. She denies loss of consciousness but is unsure as to whether or not she hit her head. She is on chronic anticoagulation. She denies any back or abdominal pain. She denies any chest pain weakness. She denies any numbness or tingling predominantly she states the pain is in her right foot and ankle. She has been unable to weight-bear since the event occurred. Related Data Home Medications ?Medication ?Instructions ?Recorded ?Confirmed lorazepam 1 mg tablet 0.5 mg PO Q6H PRN 06/03/19 06/24/25 metoprolol succinate 50 mg 50 mg PO DAILY 02/22/22 06/24/25 tablet,extended release 24 hr apixaban 5 mg tablet (Eliquis) 1 tab PO BID 06/15/22 06/24/25 gabapentin 300 mg capsule 300 mg PO TID 06/15/22 06/24/25 tizanidine 2 mg tablet 2 mg PO BID 01/16/24 06/24/25 lovastatin 20 mg tablet 20 mg PO QPM #30 tabs 02/26/24 06/24/25 acetaminophen 500 mg capsule 1,000 mg PO Q6H PRN 12/07/24 06/24/25 aspirin 81 mg tablet,delayed 81 mg PO DAILY 12/07/24 06/24/25 release (Adult Low Dose Aspirin) cholecalciferol (vitamin D3) 50 50 mcg PO DAILY 12/07/24 06/24/25 mcg (2,000 unit) capsule ferrous sulfate 325 mg (65 mg 325 mg PO DAILY 12/07/24 06/24/25 iron) tablet ipratropium 0.5 mg-albuterol 3 mg 3 ml inhalation Q6H PRN 12/07/24 06/24/25 (2.5 mg base)/3 mL nebulization soln magnesium 200 mg tablet 400 mg PO DAILY 12/07/24 06/24/25 oxycodone 5 mg tablet 5 mg PO BID 12/07/24 06/24/25 artificial tears (gonioscopic) 1 drp ophthalmic (eye) TID 02/24/25 06/24/25 docusate sodium 100 mg capsule 100 mg PO DAILY 02/24/25 06/24/25 (Col-Rite) furosemide 20 mg tablet 20 mg PO DAILY 02/24/25 06/24/25 oxybutynin chloride 5 mg 5 mg PO DAILY 02/24/25 06/24/25 tablet,extended release 24 hr vitamin B complex (Vitamins B 1 cap PO DAILY 02/24/25 06/24/25 Complex capsule) L. acidophilus,casei,rhamnosus 50 1 cap PO BID 05/20/25 06/24/25 billion cell capsule,delayed release (Bio-K plus) diltiazem HCl 240 mg 240 mg PO DAILY 05/20/25 06/24/25 tablet,extended release 24 hr benzonatate 100 mg capsule 100 mg PO TID #20 caps 05/22/25 06/24/25 guaifenesin 600 mg tablet, 600 mg PO BID #12 tabs 05/22/25 06/24/25 extended release 12 hr (Mucus Relief ER) prednisone 20 mg tablet 40 mg (2 x 20 mg) PO DAILY #6 tabs 05/22/25 06/24/25 ondansetron 4 mg disintegrating 4 mg PO Q8H PRN #30 tabs 06/02/25 06/24/25 tablet pantoprazole 20 mg tablet,delayed 20 mg PO DAILY #30 tabs 06/02/25 06/24/25 release Previous Rx's ?Medication ?Instructions ?Recorded lovastatin 20 mg tablet 20 mg PO QPM #30 tabs 02/26/24 benzonatate 100 mg capsule 100 mg PO TID #20 caps 05/22/25 guaifenesin 600 mg tablet, 600 mg PO BID #12 tabs 05/22/25 extended release 12 hr (Mucus Relief ER) prednisone 20 mg tablet 40 mg (2 x 20 mg) PO DAILY #6 tabs 05/22/25 ondansetron 4 mg disintegrating 4 mg PO Q8H PRN #30 tabs 06/02/25 tablet pantoprazole 20 mg tablet,delayed 20 mg PO DAILY #30 tabs 06/02/25 release Allergies Allergy/AdvReac Type Severity Reaction Status Date / Time No Known Allergies Allergy Verified 06/02/25 16:32 General Stated Complaint: Orthopedic SIDNEY: 3 Exam Narrative Exam Narrative: 75-year-old female presenting in acute distress despite having received fentanyl by EMS, no visible sign of head injury or neck tenderness no visible sign of chest wall injury mild increased work of breathing oxygen dependent mild sinus tachycardia no abdominal tenderness or visible evidence of trauma GCS 15 alert and oriented x 4, extremities, tenderness to ankle and foot no tenderness to right hip or left hip, neurovascularly intact Course Vital Signs Vital signs: Vital Signs Pulse 110 H 06/24/25 20:08 Respiratory Rate 20 06/24/25 20:08 Pulse Oximetry 95 06/24/25 20:08 Temperature 36.8 C 06/24/25 20:12 Temperature Source Oral 06/24/25 20:12 Pulse 106 H 06/24/25 22:08 Pulse 107 H 06/24/25 22:01 Respiratory Rate 28 H 06/24/25 22:08 Blood Pressure 173/122 H 06/24/25 22:08 Blood Pressure Mean 134 06/24/25 22:01 Blood Pressure Position Sitting 06/24/25 20:08 Pulse Oximetry 98 06/24/25 22:08 Oxygen Delivery Method Room Air 06/24/25 20:08 Oxygen Flow Rate 0 06/24/25 20:08 Medical Decision Making - X-rays: - 1/5 metatarsal fracture - Tib-fib and chest x-ray without acute abnormality - CT: - Head and cervical spine without acute abnormality per radiology interpretation of my review Initial Assessment: 75-year-old female with right ankle and foot injury after fall. ED Course: - X-rays show 1/5 metatarsal fracture - CT head and cervical spine without acute abnormality - Tib-fib and chest x-ray without acute abnormality - Placed in boot, tolerating well - Given 4 mg i.m. morphine and 5 mg oxycodone Final Assessment: Right fifth metatarsal fracture confirmed by imaging. Pain managed with morphine and oxycodone. Neurovascularly intact. Clinical Impression: - Right fifth metatarsal fracture Disposition: - Discharge home, return precautions reviewed and understood Follow-Up: - Referral to podiatry - Follow up with podiatry this week Patient Education: Return precautions reviewed and understood PFSH All Active Problems (Updated 06/24/25 @ 21:55 by CALEB Henry) Closed fracture of fifth metatarsal bone (Acute) Hiatal hernia (Chronic) Paroxysmal atrial fibrillation (Acute) Acute exacerbation of chronic obstructive pulmonary disease (COPD) (Acute) Acute respiratory failure with hypoxia and hypercarbia (Acute) Pleural effusion (Acute) Hypercarbia (Acute) Chronic respiratory failure (Acute) Afib (Chronic) F/u with Dr. 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) Diarrhea (Acute) Urinary incontinence (Acute) Hypokalemia (Acute) Ambulatory dysfunction (Acute) UTI (urinary tract infection) due to Enterococcus (Acute) Anxiety (Chronic) Generalized weakness (Acute) Medical History Cervical nerve root disorder Not disorder: Per H&P (R) Cervical medial branch block Tobacco user RLS (restless legs syndrome) Pulmonary embolism 8 months ago r/t to diagnosis a-fib Postural dizziness Depressive disorder Chronic pain syndrome COPD (chronic obstructive pulmonary disease) Lumbago with sciatica, left side Surgical History 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) History of abdominal surgery (01/21/17) Hx of cholecystectomy H/O cone biopsy of cervix History of breast biopsy Hx of rotator cuff surgery right History of total bilateral knee replacement (TKR) History of carpal tunnel release H/O exploratory laparotomy Hx of cervical spine surgery Hx of colonoscopy Social History Smoking/Tobacco Use Status: Current-Occasional Tobacco Type: cigarettes Smoking risk assessment performed?: Yes Alcohol Intake: former Drug use: Occasionally Substance use type: former substance user and marijuana Housing: [facility] Do you feel safe at home: Yes (lives with sister) Do you feel safe in your relationship?: Yes
--- NOTE | 2025-06-26 12:58 | NUR.NOTE ---
Access chart to print the demographic sheet for [facility] billing requisition. Nursing Note:
--- NOTE | 2025-07-13 06:46 | NUR.NOTE ---
Accessed Pt chart to print off visit notes for [facility]
== END 2025-06-24 22:08 | disposition home or self-care (01) ==
PROVIDERS: Emergency Provider Physician Assistant
DX: S92.353A Displaced fracture of fifth metatarsal bone, unspecified foot, initial encounter for closed fracture (principal); W19.XXXA Unspecified fall, initial encounter
CPT/HCPCS: 99284 ×2; 28470; 80053; 70450; 71045; 72125; 73590; 73610; 73630; 85025; J2270

== ENCOUNTER 2025-06-25 18:59 | Outpatient (REF) | payer MEDICARE, MEDICAID, SELFPAY ==
[2025-06-25 19:01] LABS: Glucose Negative (Negative)
[2025-06-25 19:09] LABS: C & S Indicated? Yes
== END 2025-06-25 19:00 | disposition home or self-care (01) ==
LOC: LBN 18:59
PROVIDERS: Visit Provider Family Medicine
DX: R41.0 Disorientation, unspecified (principal)
CPT/HCPCS: 87077; 81003; 81015; 87086; 87186

== ENCOUNTER → 2025-07-05 08:36 | Outpatient (BNVA) | payer MEDICARE, MEDICAID, SELFPAY | PROVIDERS: Visit Provider Podiatrist | DX: S92.354A Nondisplaced fracture of fifth metatarsal bone, right foot, initial encounter for closed fracture (principal); W19.XXXA Unspecified fall, initial encounter; I89.0 Lymphedema, not elsewhere classified; I73.89 Other specified peripheral vascular diseases; L60.3 Nail dystrophy; B35.1 Tinea unguium; R09.89 Other specified symptoms and signs involving the circulatory and respiratory systems; M20.41 Other hammer toe(s) (acquired), right foot; M20.42 Other hammer toe(s) (acquired), left foot; R23.4 Changes in skin texture; L60.2 Onychogryphosis; L60.8 Other nail disorders | CPT/HCPCS: 99214; 11721 ==

== ENCOUNTER → 2025-09-01 10:26 | Outpatient (BNVA) | payer MEDICARE, MEDICAID, SELFPAY | PROVIDERS: PCP Family Medicine; Visit Provider Podiatrist | DX: S92.354A Nondisplaced fracture of fifth metatarsal bone, right foot, initial encounter for closed fracture (principal); I89.0 Lymphedema, not elsewhere classified; I73.89 Other specified peripheral vascular diseases; L60.3 Nail dystrophy; B35.1 Tinea unguium; X58.XXXA Exposure to other specified factors, initial encounter | CPT/HCPCS: 99214 ==

== ENCOUNTER 2025-09-02 13:47 | Outpatient (REF) | payer MEDICARE, MEDICAID, SELFPAY ==
[2025-09-02 13:55] LABS: Abs Immature Grans 0.07 10^3/uL (0.0-0.06); HCT 41.2 % (36.0-46.0); HGB 12.1 g/dL (11.2-15.7); Immature Grans % 1.1 %; MCH 28.1 pg (27.0-33.0); MCHC 29.4 % (32.0-36.0); MCV 96 fL (80-95); MPV 8.4 fL (8.0-11.0); Platelet Count 237 10^3/uL (130-400); RBC 4.30 10^6/uL (3.93-5.22); RDW 14.4 % (11.7-14.6); RDW-SD 50.5 fL; WBC 6.12 10^3/uL (4.4-10.8)
[2025-09-02 14:11] LABS: Anion Gap 6.3 mmol/L (3-11); BUN 5 mg/dL (7-18); CO2 34.7 mmol/L (21.0-32.0); Calcium 8.7 mg/dL (8.5-10.1); Chloride 103 mmol/L (98-107); Estimated GFR 90.14 (mL/min/1.73m2); Glucose 106 mg/dL (74-106); NT-proBNP 551 pg/mL (<300); Potassium 4.1 mmol/L (3.5-5.1); Sodium 144 mmol/L (136-145)
== END 2025-09-02 13:48 | disposition home or self-care (01) ==
LOC: LBN 13:47
PROVIDERS: PCP Family Medicine; Visit Provider Nurse Practitioner Adult Health
DX: I50.9 Heart failure, unspecified (principal)
CPT/HCPCS: 80048; 83880; 85025

== ENCOUNTER 2025-09-03 09:39 | Emergency (ER) | payer MEDICARE, MEDICAID, SELFPAY ==
[2025-09-03] VITALS (20 sets, daily range): BP systolic 80–124; BP diastolic 49–73; PULSE 88–104; RESP 12–18; TEMP 36.3; O2SAT 94–100
--- NOTE | 2025-09-03 09:54 | W.ED.GENAD ---
Discharge Plan Disposition Patient Disposition: Home Discharge Details Clinical Impression: Headache, unspecified Primary Care Provider: Pedro Pablo Alcala ED Provider: Kenan Martinez Donnelly Meds and New Rx's Prescriptions: Continued polyethylene glycol 3350 17 gram/dose powder 17 g PO DAILY ropinirole 5 mg tablet 5 mg PO TID ketoconazole 2 % cream 1 applic topical DAILY Qty: 120 6RF Rx Instructions: Apply to 1g to skin and toenails once daily metoprolol succinate 50 mg tablet extended release 24 hr 50 mg PO DAILY urea 40 % cream 1 applic topical BID lorazepam [Ativan] 0.5 mg tablet 0.5 mg PO DAILY PRN venlafaxine 225 mg tablet extended release 24hr 225 mg PO DAILY Eliquis 5 mg tablet 1 tab PO BID gabapentin 300 mg capsule 300 mg PO TID tizanidine 2 mg tablet 2 mg PO BID aspirin [Adult Low Dose Aspirin] 81 mg tablet,delayed release (DR/EC) 81 mg PO DAILY cholecalciferol (vitamin D3) 50 mcg (2,000 unit) capsule 50 mcg PO DAILY magnesium 200 mg tablet 400 mg PO DAILY acetaminophen 500 mg capsule 1,000 mg PO Q6H PRN oxycodone 5 mg tablet 5 mg PO BID ferrous sulfate 325 mg (65 mg iron) Tablet 325 mg PO DAILY ipratropium-albuterol 0.5 mg-3 mg(2.5 mg base)/3 mL solution for nebulization 3 ml INHALATION Q6H PRN vitamin B complex [Vitamins B Complex] Capsule 1 cap PO DAILY docusate sodium [Col-Rite] 100 mg capsule 100 mg PO DAILY furosemide 20 mg tablet 20 mg PO DAILY oxybutynin chloride 5 mg tablet extended release 24hr 5 mg PO DAILY artificial tears (gonioscopic) Drops 1 drp ophthalmic (eye) TID Bio-K plus 50 billion cell capsule,delayed release(DR/EC) 1 cap PO BID benzonatate 100 mg Capsule 100 mg PO TID Qty: 20 0RF guaifenesin [Mucus Relief ER] 600 mg Tablet Extended Release 12hr 600 mg PO BID Qty: 12 0RF lorazepam 1 mg Tablet 0.5 mg PO Q6H PRN lovastatin 20 mg Tablet 20 mg PO QPM Qty: 30 0RF pantoprazole 20 mg tablet,delayed release (DR/EC) 20 mg PO DAILY Qty: 30 0RF ondansetron 4 mg tablet,disintegrating 4 mg PO Q8H PRNQty: 30 0RF Discharge Instructions Additional Instructions: You were seen in the emergency department for your neck and head pain. You are found to have some chronic appearing narrowed arteries. You may benefit from follow-up outpatient ultrasound of your neck. You also may benefit from an MRI of your cervical spine to assess your cervical spinal fusions. Please return if you develop nausea or vomiting does not stop or if you have any fevers. Please continue taking your medications as previously prescribed. Please follow-up with podiatry. Discharge Data Discharge Date/Time-TO BE ENTERED AT DEPARTURE: 09/03/25 14:25 HPI General Date/Time Provider Initiated Documentation: 09/03/25 09:48. HPI Narrative: MDM This is a chronically ill afebrile and mildly tachycardic 75-year-old female with acute on chronic neck pain and headache for which she will undergo CT angiogram of head and neck to assess for subarachnoid hemorrhage given duration of time since symptoms began. She had no tonic-clonic activity to suggest seizure so I did not feel that she required an EEG. No chiropractic manipulation to suggest increased risk for cervical arterial dissection. Patient not on any hormones to suggest increased risk for cerebral venous sinus thrombosis. No generator exposure to suggest carbon monoxide toxicity. She is handling her secretions and some not suspicious for esophageal food bolus. No nuchal rigidity to suggest meningitis and no fevers so we will defer lumbar puncture. She has no focal neurological deficits to suggest CVA so I do not feel that she requires an MRI. She has no pain out of proportion to suggest necrotizing soft tissue infection. I considered sepsis however in the absence of any fevers hypotension and source of infection did not feel patient required broad-spectrum antibiotics blood cultures no assessment of lactate. No dysuria or frequency to suggest UTI. She does have lower extremity edema and carries a history of lymphedema. She has no superimposed cellulitis. She has a soft nontender abdomen so I am not suspicious for intra-abdominal infection. Denies dysuria and frequency. No chest pain shortness of breath or nausea to suggest ACS so I did not obtain an ECG nor send her troponin. She does have a history of reactive airway disease but does not appear in acute distress and as result I felt the risks of steroids outweighed the benefits. Chart reviewed from [facility] notes that patient has a history of C2-C6 posterior cervical fusion. She has been diagnosed with cervical radiculopathy in the past. Will reassess following imaging. 11:50 AM Basic metabolic panel no JAMES. Mild elevation of bicarbonate similar to prior. CBC shows macrocytosis without anemia. No thrombocytopenia. No leukocytosis. 3:[address] had a CT angiogram which was reassuring of aneurysm and subarachnoid hemorrhage. She did have some stenosis but in the absence of any acute neurological deficits I did not feel that she required an emergent neurological consult nor would be a candidate for any emergent vascular interventions. Given her apixaban use and the duration of time since her symptoms began and symptoms that originate in her neck rather than her head I felt that the risks of lumbar puncture to assess for xanthochromia outweighed the benefits. She was having no dizziness nor nystagmus to suggest posterior circulation CVA so do not feel she requires an MRI. She also had intact sensation and motor function of bilateral upper extremities so I am not concerned for any cervical cord compression. She requested an x-ray of her chest and out of her right foot. She has not been weightbearing on her right foot and follows with podiatry in the setting of a chronic nondisplaced fracture of her right fifth metatarsal bone. Her chest x-ray was reassuring against any acute cardiopulmonary process. Her x-ray was read of her foot is unremarkable. At the time of discharge patient's tachycardia resolved. Her blood pressure was slightly low at 95/58. In reviewing her prior blood pressure readings she had had previous episodes of mild hypotension. She continues to be mentating well. Patient I discussed that given her chronic comorbidities and her limited mobility which places her at high risk for numerous medical conditions. She does not appear to be having any acute medical conditions that would require hospitalization. She and I discussed the risks and benefits of hospitalization. Given that she is close by across the street and she has had a reassuring evaluation I do not feel that she requires hospitalization at the moment. Will treat her pain with her home oxycodone. We discussed that she should return if she developed any fevers nausea or vomiting or if she had any other concerns. She understood her return indications and was discharged with an empiric trial of expectant outpatient management. HPI This is a 74-year-old female with a history of arthritis and hip fracture presenting with neck pain, headaches, and dysphagia. The patient reports significant neck pain that has affected her arms, similar to the period before her neck surgery. She describes a sensation of weakness and is currently attempting to regain her ability to walk. She is experiencing spasms or zaps that radiate down to her legs, accompanied by leg edema. Approximately 2 weeks ago, she began experiencing pain originating from the middle of her head, a symptom that has occurred several times since. She resides in a rehabilitation facility and has not sought rn care transition. She reports headaches with sharp pain coming from the middle of her head. She has not experienced any loss of consciousness. The patient occasionally experiences difficulty swallowing, with food getting stuck in her throat, leading to nausea. She has had 2 appointments with a speech therapist who suggested that her symptoms may be psychosomatic. PAST SURGICAL HISTORY: Hip surgery following a fracture Neck fusion surgery Exam General: Chronically ill-appearing in no acute distress speaking in complete sentences. Wearing nasal cannula 1 L. Head: Normocephalic, atraumatic. Eye:[Pupils equal, round reactive to light.] Extraocular eye movements intact. No conjunctival injection. No scleral icterus. Ear, nose, mouth, throat: Grossly normal inspection. Normal voice, handling secretions normally. Neck: Trachea midline. Cardiovascular: Well-perfused distal extremities. Regular rate and rhythm. Respiratory: Nonlabored respiration. Decreased breath sounds bilateral bases. Gastrointestinal: Nondistended abdomen. Soft. Nontender. Musculoskeletal: Mild bilateral 1+ nonpitting edema. Moving all 4 extremities spontaneously. Skin: Normal for age and race, grossly normal temperature and turgor. No acute rash. Neurologic: Alert and appropriate, no apparent acute deficits. Cranial nerves II through XII intact grossly. Psychiatric: Mood and manner are appropriate. Grooming and personal hygiene are appropriate. Related Data Home Medications ?Medication ?Instructions ?Recorded ?Confirmed lorazepam 1 mg tablet 0.5 mg PO Q6H PRN 06/03/19 09/03/25 metoprolol succinate 50 mg 50 mg PO DAILY 02/22/22 09/03/25 tablet,extended release 24 hr apixaban 5 mg tablet (Eliquis) 1 tab PO BID 06/15/22 09/03/25 gabapentin 300 mg capsule 300 mg PO TID 06/15/22 09/03/25 tizanidine 2 mg tablet 2 mg PO BID 01/16/24 09/03/25 lovastatin 20 mg tablet 20 mg PO QPM #30 tabs 02/26/24 09/03/25 acetaminophen 500 mg capsule 1,000 mg PO Q6H PRN 12/07/24 09/03/25 aspirin 81 mg tablet,delayed 81 mg PO DAILY 12/07/24 09/03/25 release (Adult Low Dose Aspirin) cholecalciferol (vitamin D3) 50 50 mcg PO DAILY 12/07/24 09/03/25 mcg (2,000 unit) capsule ferrous sulfate 325 mg (65 mg 325 mg PO DAILY 12/07/24 09/03/25 iron) tablet ipratropium 0.5 mg-albuterol 3 mg 3 ml inhalation Q6H PRN 12/07/24 09/03/25 (2.5 mg base)/3 mL nebulization soln magnesium 200 mg tablet 400 mg PO DAILY 12/07/24 09/03/25 oxycodone 5 mg tablet 5 mg PO BID 12/07/24 09/03/25 artificial tears (gonioscopic) 1 drp ophthalmic (eye) TID 02/24/25 09/03/25 docusate sodium 100 mg capsule 100 mg PO DAILY 02/24/25 09/03/25 (Col-Rite) furosemide 20 mg tablet 20 mg PO DAILY 02/24/25 09/03/25 oxybutynin chloride 5 mg 5 mg PO DAILY 02/24/25 09/03/25 tablet,extended release 24 hr vitamin B complex (Vitamins B 1 cap PO DAILY 02/24/25 09/03/25 Complex capsule) L. acidophilus,casei,rhamnosus 50 1 cap PO BID 05/20/25 09/03/25 billion cell capsule,delayed release (Bio-K plus) benzonatate 100 mg capsule 100 mg PO TID #20 caps 05/22/25 09/03/25 guaifenesin 600 mg tablet, 600 mg PO BID #12 tabs 05/22/25 09/03/25 extended release 12 hr (Mucus Relief ER) ondansetron 4 mg disintegrating 4 mg PO Q8H PRN #30 tabs 06/02/25 09/03/25 tablet pantoprazole 20 mg tablet,delayed 20 mg PO DAILY #30 tabs 06/02/25 09/03/25 release ketoconazole 2 % topical cream 1 applic topical DAILY #120 grams 07/05/25 09/03/25 polyethylene glycol 3350 17 17 g PO DAILY 07/05/25 09/03/25 gram/dose oral powder ropinirole 5 mg tablet 5 mg PO TID 07/05/25 09/03/25 lorazepam 0.5 mg tablet (Ativan) 0.5 mg PO DAILY PRN 07/29/25 09/03/25 urea 40 % topical cream 1 applic topical BID 07/29/25 09/03/25 venlafaxine 225 mg tablet,extended 225 mg PO DAILY 07/29/25 09/03/25 release 24 hr Previous Rx's ?Medication ?Instructions ?Recorded lovastatin 20 mg tablet 20 mg PO QPM #30 tabs 02/26/24 benzonatate 100 mg capsule 100 mg PO TID #20 caps 05/22/25 guaifenesin 600 mg tablet, 600 mg PO BID #12 tabs 05/22/25 extended release 12 hr (Mucus Relief ER) ondansetron 4 mg disintegrating 4 mg PO Q8H PRN #30 tabs 06/02/25 tablet pantoprazole 20 mg tablet,delayed 20 mg PO DAILY #30 tabs 06/02/25 release ketoconazole 2 % topical cream 1 applic topical DAILY #120 grams 07/05/25 Allergies Allergy/AdvReac Type Severity Reaction Status Date / Time No Known Allergies Allergy Verified 09/03/25 09:55 General Stated Complaint: Headache SIDNEY: 3 Course Vital Signs Vital signs: Vital Signs Temperature 36.3 C L 09/03/25 09:41 Pulse 102 H 09/03/25 09:41 Respiratory Rate 18 09/03/25 09:41 Blood Pressure 120/73 09/03/25 09:41 Pulse Oximetry 98 09/03/25 09:41 Temperature 36.3 C L 09/03/25 09:47 Pulse 102 H 09/03/25 09:47 Respiratory Rate 18 09/03/25 09:47 Blood Pressure 120/73 09/03/25 09:47 Pulse Oximetry 98 09/03/25 09:47 Oxygen Delivery Method Room Air 09/03/25 09:47 Oxygen Flow Rate 0 09/03/25 09:47 Pain Level 7 09/03/25 09:47 PFSH All Active Problems (Updated 09/03/25 @ 14:05 by Kenan Martinez MD) Headache, unspecified (Acute) Dystrophia unguium (Acute) Onychomycosis (Acute) PAD (peripheral artery disease) (Acute) Edema (Acute) Lymphedema (Acute) Nondisplaced fracture of fifth metatarsal bone of right foot (Acute) Paroxysmal atrial fibrillation (Acute) Acute exacerbation of chronic obstructive pulmonary disease (COPD) (Acute) Acute respiratory failure with hypoxia and hypercarbia (Acute) Pleural effusion (Acute) Hypercarbia (Acute) Chronic respiratory failure (Acute) Afib (Chronic) F/u with Dr. 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) Diarrhea (Acute) Urinary incontinence (Acute) Hypokalemia (Acute) Ambulatory dysfunction (Acute) UTI (urinary tract infection) due to Enterococcus (Acute) Anxiety (Chronic) Generalized weakness (Acute) Medical History Constipation UTI (urinary tract infection) Cervical nerve root disorder Not disorder: Per H&P (R) Cervical medial branch block Tobacco user RLS (restless legs syndrome) Pulmonary embolism 8 months ago r/t to diagnosis a-fib Postural dizziness Depressive disorder Chronic pain syndrome COPD (chronic obstructive pulmonary disease) Lumbago with sciatica, left side Surgical History 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) History of abdominal surgery (01/21/17) Hx of cholecystectomy H/O cone biopsy of cervix History of breast biopsy Hx of rotator cuff surgery right History of total bilateral knee replacement (TKR) History of carpal tunnel release H/O exploratory laparotomy Hx of cervical spine surgery Hx of colonoscopy Social History Smoking/Tobacco Use Status: Current-Occasional Tobacco Type: cigarettes Smoking risk assessment performed?: Yes Alcohol Intake: former Drug use: Occasionally Substance use type: former substance user and marijuana Housing: [facility] Do you feel safe at home: Yes (lives with sister) Do you feel safe in your relationship?: Yes
--- NOTE | 2025-09-03 10:00 | DI.CT_ITS ---
Exam(s) CT BRAIN NECK CTA EXAM: CT BRAIN NECK CTA CLINICAL HISTORY: Headache neck pain. TECHNIQUE: Imaging Protocol: Axial CT angiography was performed with multi- slice acquisition and multi-planar and MIP reconstructions. CONTRAST MATERIAL: Intravenous: Omnipaque 350 Contrast volume:100 ml COMPARISON: CT CT HEAD CERVICAL SPINE WO from 06/24/2025 FINDINGS: CT Head W/O and W contrast: Ventricles and Extra axial spaces: Normal in size and morphology for the patient's age. Hemorrhage: None. Cerebral parenchyma: No evidence of acute infarct or mass. Stable moderate microvascular changes. Mild atrophy. Midline shift: None. Brainstem/Cerebellum: No acute findings.. Calvarium: Normal. Visualized Paranasal sinuses/Mastoids: Clear. Soft Tissues: Unremarkable. Enhancement: Normal. Venous sinuses are patent. CTA Brain W: Internal Carotid Arteries: Right: Calcification at the posterior genu causing moderate stenosis. No aneurysm, occlusion or dissection. Left: Calcification at the posterior genu causing moderate stenosis. No aneurysm, occlusion or dissection. Middle Cerebral Arteries: Right: No aneurysm, occlusion or significant stenosis. Left: No aneurysm, occlusion or significant stenosis. Anterior Cerebral Arteries: Right: No aneurysm, occlusion or significant stenosis. Left: No aneurysm, occlusion or significant stenosis. Posterior cerebral Arteries: Right: No aneurysm, occlusion or significant stenosis. Left: No aneurysm, occlusion or significant stenosis. Vertebral Arteries: Right: No aneurysm, occlusion or significant stenosis. Left: No aneurysm, occlusion or significant stenosis. Basilar Artery: No aneurysm, occlusion or significant stenosis. CTA Neck W: Visualized aorta: Unremarkable. Visualized pulmonary arteries: Unremarkable. Subclavian arteries: Unremarkable. Common Carotid: Right: No dissection, occlusion or significant stenosis. Left: No dissection, occlusion or significant stenosis. External Carotid: Right: No dissection, occlusion or significant stenosis. Left: No dissection, occlusion or significant stenosis. Internal Carotid: Right: Heavy calcific plaque at the proximal internal carotid artery causing severe stenosis. No dissection. Tortuous distally. Left: Heavy calcific plaque proximally causing severe stenosis. No dissection.. Tortuous in the midportion. Vertebral Artery: Right: Tortuous proximally. No dissection, occlusion or significant stenosis. Left: Tortuous proximally. No dissection, occlusion or significant stenosis. Lung Apices: No acute findings. Bones: No acute abnormality. Postsurgical changes from C2 through C6 with hardware in place. Soft Tissues: Normal. IMPRESSION: 1. CTA brain: No evidence of aneurysm. Moderate stenosis at the posterior genu of the internal carotid arteries very to calcific plaque. 2. Head CT: No acute abnormality. Moderate microvascular changes. 3. CTA neck: Severe stenosis at the proximal internal carotid artery secondary to severe calcific plaque. The vertebral arteries are normal in diameter. Findings called to Dr. Martinez of the emergency department. RADIATION DOSE DELIVERED: 2,485.81mGy.cm Total DLP DATA REPOSITORY: All CT scans at this facility are submitted to the National Radiology Data Registry (NRDR) Dose Index Registry (DIR) with the [employer] (A[employer]). RADIATION OPTIMIZATION: All CT scans at this facility use at least one of these dose optimization techniques: automated exposure control; mA and/or kV adjustment per patient size (includes targeted exams where dose is matched to clinical indication); or iterative reconstruction.
[2025-09-03] MEDS: ACETAMINOPHEN 1,000 MG/100 ML BAG 400 MG IVPB (10:35)
[2025-09-03 10:37] LABS: Abs Immature Grans 0.06 10^3/uL (0.0-0.06); HCT 38.4 % (36.0-46.0); HGB 11.4 g/dL (11.2-15.7); Immature Grans % 0.9 %; MCH 28.4 pg (27.0-33.0); MCHC 29.7 % (32.0-36.0); MCV 96 fL (80-95); MPV 8.2 fL (8.0-11.0); Platelet Count 220 10^3/uL (130-400); RBC 4.02 10^6/uL (3.93-5.22); RDW 14.5 % (11.7-14.6); RDW-SD 50.4 fL; WBC 7.03 10^3/uL (4.4-10.8)
[2025-09-03 10:55] LABS: Anion Gap 2.0 mmol/L (3-11); BUN 7 mg/dL (7-18); CO2 37.0 mmol/L (21.0-32.0); Calcium 8.7 mg/dL (8.5-10.1); Chloride 103 mmol/L (98-107); Estimated GFR 66.67 (mL/min/1.73m2); Glucose 107 mg/dL (74-106); Potassium 4.3 mmol/L (3.5-5.1); Sodium 142 mmol/L (136-145)
[2025-09-03] MEDS: Omnipaque 350 MG/ML 100 ML BTL IJ (11:13)
[2025-09-03] MEDS: Normal Saline - Diluent 50 ML VIAL IJ (11:13)
[2025-09-03] MEDS: oxyCODONE 10 MG TAB PO (12:16)
--- NOTE | 2025-09-03 13:26 | DI.RAD_ITS ---
Exam(s) XR CHEST 1V IN DI DEPT EXAM: XR CHEST 1V IN DI DEPT CLINICAL HISTORY: Acute on chronic shortness of breath TECHNIQUE: 2D digital imaging was performed. COMPARISON: CR,XR XR CHEST 1V IN DI DEPT from 06/24/2025 FINDINGS: A exam is limited by patient body habitus. LUNGS: Clear. No pleural abnormality seen. HEART: Enlarged. AORTA: Normal diameter. Calcification at arch. BONES: Unremarkable for age. Soft tissues: Unremarkable. IMPRESSION: No acute findings. DATA REPOSITORY: RADIATION DOSE DELIVERED:
--- NOTE | 2025-09-03 13:26 | DI.RAD_ITS ---
Exam(s) XR FOOT RT COMPLETE EXAM: XR FOOT RT COMPLETE CLINICAL HISTORY: Acute on chronic right foot pain. TECHNIQUE: 2D digital imaging was performed. Three views. COMPARISON: CR,XR XR FOOT RT COMPLETE from 06/24/2025 FINDINGS: BONES: Significant overlap of the toes due to positioning. No acute fracture is present. No bony destructive lesion is seen. JOINTS: No dislocation present. SOFT TISSUE: Diffuse soft tissue swelling greater at the dorsum of foot. No foreign body or abnormal gas collection. IMPRESSION: Prominent soft tissue swelling. No acute bony abnormalities are identified. DATA REPOSITORY: RADIATION DOSE DELIVERED:
--- NOTE | 2025-09-03 14:20 | NUR.NOTE ---
Nursing Note: attempted to call report to HR, no answer, discharge packet sent with patient
== END 2025-09-03 14:25 | disposition home or self-care (01) ==
PROVIDERS: Emergency Provider Emergency Medicine; PCP Family Medicine
DX: R51.9 Headache, unspecified (principal); M54.2 Cervicalgia; G89.29 Other chronic pain
CPT/HCPCS: 70496; 70498; 80048; 96365; 99285; 71045; 73630; 85025; 99284; J0131; J3490

== ENCOUNTER → 2025-09-16 02:21 | Outpatient (CLI) | payer MEDICARE, SELFPAY ==
--- NOTE | 2025-09-16 11:50 | DI.RAD_ITS ---
Exam(s) XR FOOT RT COMPLETE EXAM: XR FOOT RT COMPLETE CLINICAL HISTORY: ? healed, nondisplaced fx 5th metatarsal,s92.354a. TECHNIQUE: 2D digital imaging was performed of the right foot. Three images were obtained. AP, oblique and lateral views were obtained. COMPARISON: CR,XR XR FOOT RT COMPLETE from 06/24/2025 CR XR FOOT RT COMPLETE from 09/03/2025 FINDINGS: BONES: The 5th metatarsal fracture appears to be healing well. There is a short component of the fracture still visualized laterally. No bony destructive lesion is seen. The bones are osteopenic JOINTS: No dislocation present. There are hammertoe deformities of the 2nd through 5th toes. SOFT TISSUE: There is soft tissue swelling of the right foot. No soft tissue gas is seen. IMPRESSION: Healing 5th metatarsal fracture. DATA REPOSITORY: RADIATION DOSE DELIVERED:
== END ==
LOC: DI 02:21
PROVIDERS: PCP Family Medicine; Visit Provider Podiatrist
DX: S92.354D Nondisplaced fracture of fifth metatarsal bone, right foot, subsequent encounter for fracture with routine healing (principal); X58.XXXD Exposure to other specified factors, subsequent encounter; I89.0 Lymphedema, not elsewhere classified; I73.89 Other specified peripheral vascular diseases; B35.1 Tinea unguium; L60.3 Nail dystrophy
CPT/HCPCS: 99213; 73630

== ENCOUNTER 2025-09-20 16:35 | Outpatient (REF) | payer MEDICARE, SELFPAY ==
[2025-09-20 19:38] LABS: COVID-19 PCR Negative (Negative); RSV PCR Negative (Negative)
== END 2025-09-20 16:36 | disposition home or self-care (01) ==
LOC: LBN 16:35
PROVIDERS: PCP Family Medicine; Visit Provider Nurse Practitioner Adult Health
DX: J06.9 Acute upper respiratory infection, unspecified (principal)
CPT/HCPCS: 87637

== ENCOUNTER → 2025-09-22 01:25 | Outpatient (CLI) | payer MEDICARE, SELFPAY ==
--- NOTE | 2025-09-22 12:51 | DI.RAD_ITS ---
Exam(s) XR FOOT RT COMPLETE EXAM: XR FOOT RT COMPLETE CLINICAL HISTORY: ? HEALED,NONDISPLACED FX 5TH METATARSAL BONE,S92.476A. TECHNIQUE: 2D digital imaging was performed. COMPARISON: CR XR FOOT RT COMPLETE from 09/16/2025 FINDINGS: 3 nonweightbearing views. Patient not able to weightbear. Again noted is generalized osteopenia. The healing fracture site previously described at the base of the 5th metatarsal is again noted with healing and no displacement. There are no new fractures identified. Again noted is an element of subluxation at the level of the 3rd and 4th metatarsophalangeal joints. Hammertoe deformities again noted. No radiopaque foreign bodies. No evidence of osteomyelitis. IMPRESSION: Similar appearance to 09/16/2025. DATA REPOSITORY: RADIATION DOSE DELIVERED:
== END ==
LOC: DI 01:25
PROVIDERS: PCP Family Medicine; Visit Provider Podiatrist
DX: S92.354A Nondisplaced fracture of fifth metatarsal bone, right foot, initial encounter for closed fracture (principal)
CPT/HCPCS: 73630

== ENCOUNTER 2025-09-24 18:47 | Emergency (ER) | payer MEDICARE, SELFPAY ==
[2025-09-24] VITALS (43 sets, daily range): BP systolic 102–150; BP diastolic 43–98; PULSE 80–106; RESP 15–26; TEMP 36.9; O2SAT 87–99
--- NOTE | 2025-09-24 18:45 | RT.EKG_ITS ---
APPROVED REPORT Exam: Resting ECG Reason for Exam: chest pain Patient Location: E HR:89 bpm ECG Measurements Heart Rate 89 AXIS IN [id number] P [id number] QRSd 90 QRS 68 QT 379 T 27 QTc 463 Conclusion Atrial flutter...A-rate 205 No STEMI
[2025-09-24 19:26] LABS: Abs Immature Grans 0.04 10^3/uL (0.0-0.06); HCT 39.4 % (36.0-46.0); HGB 11.8 g/dL (11.2-15.7); Immature Grans % 0.7 %; MCH 28.6 pg (27.0-33.0); MCHC 29.9 % (32.0-36.0); MCV 95 fL (80-95); MPV 8.3 fL (8.0-11.0); Platelet Count 164 10^3/uL (130-400); RBC 4.13 10^6/uL (3.93-5.22); RDW 15.4 % (11.7-14.6); RDW-SD 54.4 fL; WBC 5.48 10^3/uL (4.4-10.8)
[2025-09-24 19:30] LABS: BE (Venous) 9 mmol/L (-2-3); HCO3 (Venous) 35 mmol/L (23-28); O2 Sat (Venous) 35 %; TCO2 (Venous) 33 mmol/L (24-29); pO2 (Venous) 22 mmHg
[2025-09-24 19:33] LABS: pCO2 (Venous) 68 mmHg (41-51)
[2025-09-24] MEDS: Albuterol/Ipratropium 3 ML UPD VIAL UPD (19:41)
[2025-09-24 19:44] LABS: Magnesium 2.0 mg/dL (1.6-2.6); Troponin I 7 ng/L (<35)
[2025-09-24 19:45] LABS: ALT 14 U/L (10-49); AST 27 U/L (<34); Albumin 4.0 g/dL (3.4-5.0); Alkaline Phosphatase 94 U/L (46-116); Anion Gap 4.3 mmol/L (3-11); BUN 11 mg/dL (9-23); Bilirubin, Total 0.50 mg/dL (0.2-1.2); CO2 35.7 mmol/L (20.0-31.0); Calcium 8.9 mg/dL (8.3-10.6); Chloride 100 mmol/L (98-107); Glucose 92 mg/dL (74-106); Potassium 4.6 mmol/L (3.5-5.1); Sodium 140 mmol/L (136-145); Total Protein 7.4 g/dL (5.7-8.2)
--- NOTE | 2025-09-24 20:06 | DI.RAD_ITS ---
Exam(s) XR PORTABLE CHEST AP EXAM: XR PORTABLE CHEST AP CLINICAL HISTORY: dyspnea. TECHNIQUE: 2D digital imaging was performed. COMPARISON: CR XR CHEST 1V IN DI DEPT from 09/03/2025 FINDINGS: Single AP portable view. Again noted is multilevel fusion hardware in the cervical spine Heart size is upper normal. The mediastinum is not widened. Mild increased interstitial markings. Possibly exaggerated by portable technique. There are no pleural effusions. No confluent infiltrates. No fractures. No pneumothorax. IMPRESSION: As above. Recommend nonportable PA and lateral views when clinically possible. DATA REPOSITORY: RADIATION DOSE DELIVERED:
--- NOTE | 2025-09-24 20:26 | DI.VRAD_ITS ---
PROCEDURE INFORMATION: Exam: XR Chest Exam date and time: 09/24/2025 7:58 PM Age: 75 years old Clinical indication: Dyspnea TECHNIQUE: Imaging protocol: Radiologic exam of the chest. Views: 1 view. COMPARISON: CR XR CHEST 1V IN DI DEPT 09/03/2025 1:19 PM FINDINGS: Lungs: Unremarkable. No consolidation. Pleural spaces: Unremarkable. No pleural effusion. No pneumothorax. Heart/Mediastinum: Unremarkable. No cardiomegaly. Bones/joints: Posterior cervical fusion IMPRESSION: No acute findings. Dictated and Authenticated by: Myles Martinez MD. Orderin Amberly Billings MD
[2025-09-24 20:41] LABS: Troponin I 7 ng/L (<35)
[2025-09-24] MEDS: oxyCODONE 10 MG TAB PO (21:08)
[2025-09-24] MEDS: Lidocaine 1% Pres-Free W/EPI 1/200,000 30 ML VIAL IJ (22:32)
--- NOTE | 2025-09-25 00:13 | W.ED.GENAD ---
Discharge Plan Disposition Patient Disposition: Home Discharge Details Clinical Impression: Cervical myofascial pain syndrome Primary Care Provider: Pedro Pablo Alcala ED Provider: Manuelito Gaming Home Meds and New Rx's Prescriptions: No Action polyethylene glycol 3350 17 gram/dose powder 17 g PO DAILY ropinirole 5 mg tablet 5 mg PO TID ketoconazole 2 % cream 1 applic topical DAILY Qty: 120 6RF Rx Instructions: Apply to 1g to skin and toenails once daily metoprolol succinate 50 mg tablet extended release 24 hr 50 mg PO DAILY urea 40 % cream 1 applic topical BID lorazepam [Ativan] 0.5 mg tablet 0.5 mg PO DAILY PRN venlafaxine 225 mg tablet extended release 24hr 225 mg PO DAILY trazodone 150 mg tablet 150 mg PO QHS PRN Eliquis 5 mg tablet 1 tab PO BID gabapentin 300 mg capsule 300 mg PO TID tizanidine 2 mg tablet 2 mg PO BID aspirin [Adult Low Dose Aspirin] 81 mg tablet,delayed release (DR/EC) 81 mg PO DAILY cholecalciferol (vitamin D3) 50 mcg (2,000 unit) capsule 50 mcg PO DAILY magnesium 200 mg tablet 400 mg PO DAILY acetaminophen 500 mg capsule 1,000 mg PO Q6H PRN oxycodone 5 mg tablet 5 mg PO BID ferrous sulfate 325 mg (65 mg iron) Tablet 325 mg PO DAILY ipratropium-albuterol 0.5 mg-3 mg(2.5 mg base)/3 mL solution for nebulization 3 ml INHALATION Q6H PRN vitamin B complex [Vitamins B Complex] Capsule 1 cap PO DAILY docusate sodium [Col-Rite] 100 mg capsule 100 mg PO DAILY furosemide 20 mg tablet 20 mg PO DAILY oxybutynin chloride 5 mg tablet extended release 24hr 5 mg PO DAILY artificial tears (gonioscopic) Drops 1 drp ophthalmic (eye) TID Bio-K plus 50 billion cell capsule,delayed release(DR/EC) 1 cap PO BID benzonatate 100 mg Capsule 100 mg PO TID Qty: 20 0RF guaifenesin [Mucus Relief ER] 600 mg Tablet Extended Release 12hr 600 mg PO BID Qty: 12 0RF lorazepam 1 mg Tablet 0.5 mg PO Q6H PRN lovastatin 20 mg Tablet 20 mg PO QPM Qty: 30 0RF pantoprazole 20 mg tablet,delayed release (DR/EC) 20 mg PO DAILY Qty: 30 0RF ondansetron 4 mg tablet,disintegrating 4 mg PO Q8H PRNQty: 30 0RF Discharge Instructions Instructions: Dry Needling Additional Instructions: Please follow-up with your primary care provider regarding your visit to the emergency department today. Be sure to discuss results of all test performed here today to include radiology, and laboratory testing as well as results for any pending cultures. Should your symptoms worsen, or if you develop new concerning symptoms, please return immediately emergency department for further evaluation. Stand Alone Forms: Portal Information Discharge Data Discharge Date/Time-TO BE ENTERED AT DEPARTURE: 09/24/25 23:18 HPI General Date/Time Provider Initiated Documentation: 09/24/25 18:48. HPI Narrative: MDM/Narrative: 75-year-old female with past medical history of COPD, obesity, chronic neck pain, presents for evaluation of chest pain, cough and acute on chronic neck pain. Vital signs within normal limits for patient with COPD. Exam is otherwise unremarkable outside of spasm along the right trapezius. Will screen patient for pneumonia, pneumothorax, ACS as causes of chest pain although she is chest pain-free at this time. Will trial patient on trigger point injections to see if we can improve her pain of the neck today. ED course: Troponin negative x 2 remainder of lab workup unremarkable, chest x-ray shows no acute infiltrates or pneumothorax. Patient responded well to trigger point injections notes significant proved in her pain in her neck. Will discharge patient back to retirement PROCEDURE: Trigger Point Injection. ANESTHESIA: 4 ml of 1% Lidocine with epinephrine was injected subcutaneously into 3 areas of palpable spasm in the right trapezius COMPLICATIONS: None. DESCRIPTION OF PROCEDURE: The procedure risks, hazards and alternatives were discussed with the patient and a proper consent was obtained. The area over the myofascial spasm was prepped with alcohol utilizing sterile technique. After isolating it between two palpating fingertips a 30-gauge needle was placed in the center of the myofascial spasms and a negative aspiration was performed. Then 2 cc of 1% lidocaine with epinephrine was injected into each trigger point. The patient tolerated the procedure well without any apparent difficulties or complications. Disposition: Long-term care facility HPI: 75-year-old female past medical history of chronic neck pain, COPD, obesity, paroxysmal A-fib on Eliquis, presents for evaluation of chest pain with associated acute on chronic neck pain. Recently patient has tested positive for the flu, however she notes she has felt somewhat improved although has a lingering cough. She states that she is told her nurses multiple times that she has been having a cough causing her chest pain however they have not documented that complaint and not giving her any assistance ROS: Negative besides as mentioned above Exam: Gen: A&O NAD HEENT: NCAT, EOMI, not icteric. External ears normal. No rhinorrhea. Moist mucous membranes. Neck: Kyphosis with spasm along the right trapezius extending up to the base of the skull no midline cervical pain or step-offs Lungs: No Respiratory distress. CV: RRR, no edema. Abdomen: Soft, nondistended, No rebound tenderness. MSK: No joint swelling, no redness. Skin: No rashes, petechiae, lesions. Normal color per patient. Neuro: Normal Gait, Grossly intact. Psych: Appropriate for situation. Rhythm: A-fib Rate: 89 [place]: Normal axis Intervals: Normal intervals Other findings: No acute ST segment or T wave changes to suggest acute ischemia. Labs: 09/24/25 19:23 Blood Blood Culture - Pending 09/24/25 19:12 Blood Blood Culture - Pending Laboratory Tests Range/Units 09/24/25 09/24/25 19:12 20:17 WBC (4.4-10.8) 10^3/uL 5.48 RBC (3.93-5.22) 10^6/uL 4.13 Hgb (11.2-15.7) g/dL 11.8 Hct (36.0-46.0) % 39.4 MCV (80-95) fL 95 MCH (27.0-33.0) pg 28.6 MCHC (32.0-36.0) % 29.9 L RDW (11.7-14.6) % 15.4 H Plt Count (130-400) 10^3/uL 164 MPV (8.0-11.0) fL 8.3 Immature Gran % % 0.7 Neutrophils % % 71.9 Lymphocytes % % 15.7 Monocytes % % 8.6 Eosinophils % % 2.7 Basophils % % 0.4 Nucleated RBC % (0.0-0.3) % 0.0 Absolute Neutrophils (1.2-6.7) 10^3/uL 3.94 Absolute Lymphocytes (1.2-3.4) 10^3/uL 0.86 L Absolute Monocytes (0.1-0.8) 10^3/uL 0.47 Absolute Eosinophils (0.0-0.7) 10^3/uL 0.15 Absolute Basophils (0.0-0.2) 10^3/uL 0.02 VBG pH (7.31-7.41) 7.32 VBG pCO2 (41-51) mmHg 68 H* VBG pO2 mmHg 22 VBG HCO3 (23-28) mmol/L 35 H VBG Total CO2 (24-29) mmol/L 33 H VBG O2 Saturation % 35 VBG Base Excess (-2-3) mmol/L 9 H VBG Lactate (<or=2.0) mmol/L 0.9 Sodium (136-145) mmol/L 140 Potassium (3.5-5.1) mmol/L 4.6 Chloride (98-107) mmol/L 100 Carbon Dioxide (20.0-31.0) mmol/L 35.7 H Anion Gap (3-11) mmol/L 4.3 BUN (9-23) mg/dL 11 Creatinine (0.55-1.02) mg/dL 0.8 Est GFR (CKD-EPI 2020) (mL/min/1.73m2) 66.97 Glucose (74-106) mg/dL 92 Calcium (8.3-10.6) mg/dL 8.9 Magnesium (1.6-2.6) mg/dL 2.0 Total Bilirubin (0.2-1.2) mg/dL 0.50 AST (<34) U/L 27 ALT (10-49) U/L 14 Alkaline Phosphatase (46-116) U/L 94 Troponin I (<35) ng/L 7 7 NT-Pro-B Natriuret Pep (<300) pg/mL 1045 H Total Protein (5.7-8.2) g/dL 7.4 Albumin (3.4-5.0) g/dL 4.0 Radiology: Checks x-ray 1 view: No acute disease Related Data Home Medications Medication Instructions Recorded Confirmed lorazepam 1 mg tablet 0.5 mg PO Q6H PRN 06/03/19 09/24/25 metoprolol succinate 50 mg 50 mg PO DAILY 02/22/22 09/24/25 tablet,extended release 24 hr apixaban 5 mg tablet (Eliquis) 1 tab PO BID 06/15/22 09/24/25 gabapentin 300 mg capsule 300 mg PO TID 06/15/22 09/24/25 tizanidine 2 mg tablet 2 mg PO BID 01/16/24 09/24/25 lovastatin 20 mg tablet 20 mg PO QPM #30 tabs 02/26/24 09/24/25 acetaminophen 500 mg capsule 1,000 mg PO Q6H PRN 12/07/24 09/24/25 aspirin 81 mg tablet,delayed 81 mg PO DAILY 12/07/24 09/24/25 release (Adult Low Dose Aspirin) cholecalciferol (vitamin D3) 50 50 mcg PO DAILY 12/07/24 09/24/25 mcg (2,000 unit) capsule ferrous sulfate 325 mg (65 mg 325 mg PO DAILY 12/07/24 09/24/25 iron) tablet ipratropium 0.5 mg-albuterol 3 mg 3 ml inhalation Q6H PRN 12/07/24 09/24/25 (2.5 mg base)/3 mL nebulization soln magnesium 200 mg tablet 400 mg PO DAILY 12/07/24 09/24/25 oxycodone 5 mg tablet 5 mg PO BID 12/07/24 09/24/25 artificial tears (gonioscopic) 1 drp ophthalmic (eye) TID 02/24/25 09/24/25 docusate sodium 100 mg capsule 100 mg PO DAILY 02/24/25 09/24/25 (Col-Rite) furosemide 20 mg tablet 20 mg PO DAILY 02/24/25 09/24/25 oxybutynin chloride 5 mg 5 mg PO DAILY 02/24/25 09/24/25 tablet,extended release 24 hr vitamin B complex (Vitamins B 1 cap PO DAILY 02/24/25 09/24/25 Complex capsule) L. acidophilus,casei,rhamnosus 50 1 cap PO BID 05/20/25 09/24/25 billion cell capsule,delayed release (Bio-K plus) benzonatate 100 mg capsule 100 mg PO TID #20 caps 05/22/25 09/24/25 guaifenesin 600 mg tablet, 600 mg PO BID #12 tabs 05/22/25 09/24/25 extended release 12 hr (Mucus Relief ER) ondansetron 4 mg disintegrating 4 mg PO Q8H PRN #30 tabs 06/02/25 09/24/25 tablet pantoprazole 20 mg tablet,delayed 20 mg PO DAILY #30 tabs 06/02/25 09/24/25 release ketoconazole 2 % topical cream 1 applic topical DAILY #120 grams 07/05/25 09/24/25 polyethylene glycol 3350 17 17 g PO DAILY 07/05/25 09/24/25 gram/dose oral powder ropinirole 5 mg tablet 5 mg PO TID 07/05/25 09/24/25 lorazepam 0.5 mg tablet (Ativan) 0.5 mg PO DAILY PRN 07/29/25 09/24/25 urea 40 % topical cream 1 applic topical BID 07/29/25 09/24/25 venlafaxine 225 mg tablet,extended 225 mg PO DAILY 07/29/25 09/24/25 release 24 hr trazodone 150 mg tablet 150 mg PO QHS PRN 09/13/25 09/24/25 Previous Rx's Medication Instructions Recorded lovastatin 20 mg tablet 20 mg PO QPM #30 tabs 02/26/24 benzonatate 100 mg capsule 100 mg PO TID #20 caps 05/22/25 guaifenesin 600 mg tablet, 600 mg PO BID #12 tabs 05/22/25 extended release 12 hr (Mucus Relief ER) ondansetron 4 mg disintegrating 4 mg PO Q8H PRN #30 tabs 06/02/25 tablet pantoprazole 20 mg tablet,delayed 20 mg PO DAILY #30 tabs 06/02/25 release ketoconazole 2 % topical cream 1 applic topical DAILY #120 grams 07/05/25 Allergies Allergy/AdvReac Type Severity Reaction Status Date / Time No Known Allergies Allergy Verified 09/24/25 18:59 General Stated Complaint: Chest Pain SIDNEY: 3 Course Vital Signs Vital signs: Vital Signs Pulse 91 H 09/24/25 18:52 Pulse Oximetry 94 09/24/25 18:52 Temperature 36.9 C 09/24/25 18:55 Pulse 90 09/24/25 23:14 Pulse 86 09/24/25 20:16 Respiratory Rate 18 09/24/25 23:14 Blood Pressure 132/60 09/24/25 23:14 Blood Pressure Mean 84 09/24/25 22:31 Blood Pressure Position Supine 09/24/25 18:55 Pulse Oximetry 94 09/24/25 23:14 Oxygen Delivery Method Nasal Cannula 09/24/25 18:55 Oxygen Flow Rate 2 09/24/25 18:55 Lab/Test Results Lab/Test Results: 09/24/25 19:23 Blood Blood Culture - Pending 09/24/25 19:12 Blood Blood Culture - Pending Laboratory Tests Range/Units 09/24/25 09/24/25 19:12 20:17 WBC (4.4-10.8) 10^3/uL 5.48 RBC (3.93-5.22) 10^6/uL 4.13 Hgb (11.2-15.7) g/dL 11.8 Hct (36.0-46.0) % 39.4 MCV (80-95) fL 95 MCH (27.0-33.0) pg 28.6 MCHC (32.0-36.0) % 29.9 L RDW (11.7-14.6) % 15.4 H Plt Count (130-400) 10^3/uL 164 MPV (8.0-11.0) fL 8.3 Immature Gran % % 0.7 Neutrophils % % 71.9 Lymphocytes % % 15.7 Monocytes % % 8.6 Eosinophils % % 2.7 Basophils % % 0.4 Nucleated RBC % (0.0-0.3) % 0.0 Absolute Neutrophils (1.2-6.7) 10^3/uL 3.94 Absolute Lymphocytes (1.2-3.4) 10^3/uL 0.86 L Absolute Monocytes (0.1-0.8) 10^3/uL 0.47 Absolute Eosinophils (0.0-0.7) 10^3/uL 0.15 Absolute Basophils (0.0-0.2) 10^3/uL 0.02 VBG pH (7.31-7.41) 7.32 VBG pCO2 (41-51) mmHg 68 H* VBG pO2 mmHg 22 VBG HCO3 (23-28) mmol/L 35 H VBG Total CO2 (24-29) mmol/L 33 H VBG O2 Saturation % 35 VBG Base Excess (-2-3) mmol/L 9 H VBG Lactate (<or=2.0) mmol/L 0.9 Sodium (136-145) mmol/L 140 Potassium (3.5-5.1) mmol/L 4.6 Chloride (98-107) mmol/L 100 Carbon Dioxide (20.0-31.0) mmol/L 35.7 H Anion Gap (3-11) mmol/L 4.3 BUN (9-23) mg/dL 11 Creatinine (0.55-1.02) mg/dL 0.8 Est GFR (CKD-EPI 2020) (mL/min/1.73m2) 66.97 Glucose (74-106) mg/dL 92 Calcium (8.3-10.6) mg/dL 8.9 Magnesium (1.6-2.6) mg/dL 2.0 Total Bilirubin (0.2-1.2) mg/dL 0.50 AST (<34) U/L 27 ALT (10-49) U/L 14 Alkaline Phosphatase (46-116) U/L 94 Troponin I (<35) ng/L 7 7 NT-Pro-B Natriuret Pep (<300) pg/mL 1045 H Total Protein (5.7-8.2) g/dL 7.4 Albumin (3.4-5.0) g/dL 4.0 PFSH All Active Problems (Updated 09/24/25 @ 22:47 by Manuelito Gaming MD) Cervical myofascial pain syndrome (Acute) Morbid obesity with BMI of 40.0-44.9, adult (Acute) Fibromyalgia (Acute) Cervical spondylosis with myelopathy (Acute) Chronic neck pain (Acute) Headache, unspecified (Acute) Dystrophia unguium (Acute) Onychomycosis (Acute) PAD (peripheral artery disease) (Acute) Edema (Acute) Lymphedema (Acute) Nondisplaced fracture of fifth metatarsal bone of right foot (Acute) Paroxysmal atrial fibrillation (Acute) Acute exacerbation of chronic obstructive pulmonary disease (COPD) (Acute) Acute respiratory failure with hypoxia and hypercarbia (Acute) Pleural effusion (Acute) Hypercarbia (Acute) Chronic respiratory failure (Acute) Afib (Chronic) F/u with Dr. 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) Diarrhea (Acute) Urinary incontinence (Acute) Hypokalemia (Acute) Ambulatory dysfunction (Acute) UTI (urinary tract infection) due to Enterococcus (Acute) Anxiety (Chronic) Generalized weakness (Acute) Medical History Constipation UTI (urinary tract infection) Cervical nerve root disorder Not disorder: Per H&P (R) Cervical medial branch block Tobacco user RLS (restless legs syndrome) Pulmonary embolism 8 months ago r/t to diagnosis a-fib Postural dizziness Depressive disorder Chronic pain syndrome COPD (chronic obstructive pulmonary disease) Lumbago with sciatica, left side Surgical History 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) History of abdominal surgery (01/21/17) Hx of cholecystectomy H/O cone biopsy of cervix History of breast biopsy Hx of rotator cuff surgery right History of total bilateral knee replacement (TKR) History of carpal tunnel release H/O exploratory laparotomy Hx of cervical spine surgery Hx of colonoscopy Social History Smoking/Tobacco Use Status: Current-Occasional Tobacco Type: cigarettes Smoking risk assessment performed?: Yes Alcohol Intake: former Drug use: Occasionally Substance use type: former substance user and marijuana Housing: retirement Do you feel safe at home: Yes (lives with sister) Do you feel safe in your relationship?: Yes
== END 2025-09-24 23:18 | disposition home or self-care (01) ==
PROVIDERS: Emergency Provider General Practice; PCP Family Medicine
DX: M79.18 Myalgia, other site (principal)
CPT/HCPCS: 99283; 99285; 80053; 82805; 87040; 93005; 71045; 83605; 83735; 83880; 84484; 85025; 93010; J2004; J7620

== ENCOUNTER → 2025-10-11 12:39 | Outpatient (BNVA) | payer MEDICARE, SELFPAY | PROVIDERS: PCP Family Medicine; Referring Provider Family Medicine; Visit Provider Psychiatry & Neurology Neurology | DX: G56.02 Carpal tunnel syndrome, left upper limb (principal); M54.2 Cervicalgia; Z98.1 Arthrodesis status; J44.9 Chronic obstructive pulmonary disease, unspecified; I10 Essential (primary) hypertension; Z79.01 Long term (current) use of anticoagulants; E66.9 Obesity, unspecified; R60.0 Localized edema | CPT/HCPCS: 95909; 99215 ==

== ENCOUNTER → 2025-10-14 00:48 | Outpatient (CLI) | payer MEDICARE, SELFPAY ==
--- NOTE | 2025-10-14 12:52 | DI.RAD_ITS ---
Exam(s) XR FOOT RT COMPLETE EXAM: XR FOOT RT COMPLETE CLINICAL HISTORY: Non displaced fracture fifth metatarsal bone RT foot. TECHNIQUE: 2D digital imaging was performed. COMPARISON: CR XR FOOT RT COMPLETE from 09/22/2025 FINDINGS: 3 views Generalized osteopenia again noted. Healing fracture site at the base of the 5th metatarsal appears stable. No new fractures evidenth. There is soft tissue swelling but no radiopaque foreign bodies nor gas in the soft tissues and no evidence of obvious osteomyelitis. Subluxations again noted at the level of the 3rd and 4th metatarsophalangeal joints as well as hammertoe deformities. IMPRESSION: Stable healing fracture site of the base of the 5th metatarsal. DATA REPOSITORY: RADIATION DOSE DELIVERED:
== END ==
LOC: DI 00:48
PROVIDERS: PCP Family Medicine; Visit Provider Nurse Practitioner Adult Health
DX: S92.354D Nondisplaced fracture of fifth metatarsal bone, right foot, subsequent encounter for fracture with routine healing (principal); X58.XXXD Exposure to other specified factors, subsequent encounter; R60.0 Localized edema
CPT/HCPCS: 99213; 73630

== ENCOUNTER 2025-10-14 08:16 | Outpatient (REF) | payer MEDICARE, SELFPAY ==
[2025-10-14 16:16] LABS: Abs Immature Grans 0.04 10^3/uL (0.0-0.06); HCT 37.1 % (36.0-46.0); HGB 10.8 g/dL (11.2-15.7); Immature Grans % 0.7 %; MCH 28.3 pg (27.0-33.0); MCHC 29.1 % (32.0-36.0); MCV 97 fL (80-95); MPV 8.9 fL (8.0-11.0); Platelet Count 224 10^3/uL (130-400); RBC 3.82 10^6/uL (3.93-5.22); RDW 15.2 % (11.7-14.6); RDW-SD 53.8 fL; WBC 5.51 10^3/uL (4.4-10.8)
[2025-10-14 17:05] LABS: ALT 14 U/L (10-49); AST 24 U/L (<34); Albumin 3.4 g/dL (3.2-5.0); Alkaline Phosphatase 85 U/L (46-116); Anion Gap 4.1 mmol/L (3-11); BUN 15 mg/dL (9-23); Bilirubin, Total 0.30 mg/dL (0.2-1.2); CO2 33.9 mmol/L (20.0-31.0); Calcium 8.7 mg/dL (8.3-10.6); Chloride 106 mmol/L (98-107); Glucose 99 mg/dL (74-106); Potassium 4.6 mmol/L (3.5-5.1); Sodium 144 mmol/L (136-145); Total Protein 6.4 g/dL (5.7-8.2)
[2025-10-14 17:07] LABS: TSH 1.81 uIU/mL (0.55-4.78); Vitamin B12 417 pg/mL (211-911)
== END 2025-10-14 08:17 | disposition home or self-care (01) ==
LOC: LBN 08:16
PROVIDERS: PCP Family Medicine; Visit Provider Nurse Practitioner Adult Health
DX: I11.0 Hypertensive heart disease with heart failure (principal)
CPT/HCPCS: 80053; 82607; 84443; 85025

== ENCOUNTER 2025-10-15 17:44 | Outpatient (REF) | payer MEDICARE, SELFPAY ==
[2025-10-15 12:53] LABS: Glucose Negative (Negative)
[2025-10-15 12:54] LABS: WBC Negative HPF (0-5)
== END 2025-10-15 17:45 | disposition home or self-care (01) ==
LOC: LBN 17:44
PROVIDERS: PCP Family Medicine; Visit Provider Nurse Practitioner Adult Health
DX: N39.0 Urinary tract infection, site not specified (principal)
CPT/HCPCS: 81003; 81015; 87086

== ENCOUNTER 2025-10-22 15:01 | Outpatient (REF) | payer MEDICARE, SELFPAY ==
[2025-10-22 18:11] LABS: Abs Immature Grans 0.04 10^3/uL (0.0-0.06); HCT 38.1 % (36.0-46.0); HGB 11.4 g/dL (11.2-15.7); Immature Grans % 0.6 %; MCH 29.2 pg (27.0-33.0); MCHC 29.9 % (32.0-36.0); MCV 97 fL (80-95); MPV 9.1 fL (8.0-11.0); Platelet Count 236 10^3/uL (130-400); RBC 3.91 10^6/uL (3.93-5.22); RDW 15.1 % (11.7-14.6); RDW-SD 54.0 fL; WBC 7.12 10^3/uL (4.4-10.8)
[2025-10-22 18:46] LABS: ALT 12 U/L (10-49); AST 18 U/L (<34); Albumin 3.8 g/dL (3.2-5.0); Alkaline Phosphatase 96 U/L (46-116); Anion Gap 6.3 mmol/L (3-11); BUN 12 mg/dL (9-23); Bilirubin, Total 0.4 mg/dL (0.2-1.2); CO2 32.7 mmol/L (20.0-31.0); Calcium 8.9 mg/dL (8.3-10.6); Chloride 104 mmol/L (98-107); Glucose 96 mg/dL (74-106); Potassium 4.3 mmol/L (3.5-5.1); Sodium 143 mmol/L (136-145); Total Protein 6.9 g/dL (5.7-8.2)
== END 2025-10-22 15:02 | disposition home or self-care (01) ==
LOC: LBN 15:01
PROVIDERS: PCP Family Medicine; Visit Provider Nurse Practitioner Adult Health
DX: I95.9 Hypotension, unspecified (principal)
CPT/HCPCS: 80053; 83880; 85025

== ENCOUNTER 2025-11-01 12:40 | Outpatient (REF) | payer MEDICARE, SELFPAY ==
[2025-11-01 14:23] LABS: Abs Immature Grans 0.06 10^3/uL (0.0-0.06); HCT 39.1 % (36.0-46.0); HGB 11.5 g/dL (11.2-15.7); Immature Grans % 0.9 %; MCH 28.2 pg (27.0-33.0); MCHC 29.4 % (32.0-36.0); MCV 96 fL (80-95); MPV 8.6 fL (8.0-11.0); Platelet Count 204 10^3/uL (130-400); RBC 4.08 10^6/uL (3.93-5.22); RDW 15.3 % (11.7-14.6); RDW-SD 54.3 fL; WBC 6.39 10^3/uL (4.4-10.8)
[2025-11-01 14:39] LABS: Hemoglobin A1C 5.4 % (<5.7)
[2025-11-01 14:48] LABS: Ferritin 45 ng/mL (7-271)
[2025-11-01 14:50] LABS: ALT 12 U/L (10-49); AST 19 U/L (<34); Albumin 3.7 g/dL (3.2-5.0); Alkaline Phosphatase 92 U/L (46-116); Anion Gap 6.6 mmol/L (3-11); BUN 15 mg/dL (9-23); Bilirubin, Total 0.4 mg/dL (0.2-1.2); CO2 36.4 mmol/L (20.0-31.0); Calcium 9.0 mg/dL (8.3-10.6); Chloride 102 mmol/L (98-107); Cholesterol 166 mg/dL (<200); Glucose 116 mg/dL (74-106); HDL Cholesterol 50 mg/dL (>or=50); Potassium 4.1 mmol/L (3.5-5.1); Sodium 145 mmol/L (136-145); Total Protein 6.7 g/dL (5.7-8.2)
[2025-11-02 03:35] LABS: Iron 61 ug/dL (50-170)
== END 2025-11-01 12:41 | disposition home or self-care (01) ==
LOC: LBN 12:40
PROVIDERS: PCP Family Medicine; Visit Provider Nurse Practitioner Adult Health
DX: I50.9 Heart failure, unspecified (principal); E87.6 Hypokalemia
CPT/HCPCS: 80053; 80061; 82728; 83036; 83540; 83880; 85025